=== PATIENT | male | born 1940 | race Caucasian/White ===

== ENCOUNTER 2020-06-07 09:10 | Outpatient (REF) | payer OTHER, SELFPAY ==
[2020-06-07 11:17] LABS: Prostate Specific Antigen 10.47 ng/mL (<0.05-4.0)
== END 2020-06-07 09:11 | disposition home or self-care (01) ==
LOC: HO.LAB 09:10
PROVIDERS: PCP Internal Medicine; Visit Provider Urology
DX: C61 Malignant neoplasm of prostate (principal)
CPT/HCPCS: 84153

== ENCOUNTER → 2020-06-14 14:00 | Outpatient (BNVA) | payer OTHER, SELFPAY | PROVIDERS: PCP Internal Medicine; Referring Provider Internal Medicine; Visit Provider Urology | DX: Z76.89 Persons encountering health services in other specified circumstances (principal) ==

== ENCOUNTER 2020-07-01 09:08 | Outpatient (REF) | payer OTHER, SELFPAY ==
--- NOTE | 2020-07-01 09:11 | CT_ITS ---
EXAMINATION: CT ABDOMEN AND PELVIS WITHOUT CONTRAST CLINICAL INFORMATION: Malignant neoplasm of prostate. COMPARISON: None. TECHNIQUE: Multidetector volumetric imaging was performed from the superior aspect of the liver through the pubic symphysis. Sagittal and coronal reformatted images were obtained on the technologist's workstation. This CT examination was performed using dose optimization techniques as appropriate, variously including the following: *Automated exposure control *Adjustment of mA and/or kV according to patient size (this includes techniques or standardized protocols for targeted exams where dose is matched to indication/reason for exam; i.e. extremities or head) *Use of iterative reconstruction technique DLP: 813 mGy-cm. FINDINGS: LUNG BASES: There is bibasilar atelectasis or scarring. Heart size is normal. LIVER, GALLBLADDER, AND BILIARY TREE: The liver is normal in size and shape. There is mild attenuation of the right hepatic lobe likely fatty infiltration. The left hepatic lobe is normal density. No focal lesion or intrahepatic ductal dilatation. The gallbladder is unremarkable with no evidence of radiopaque gallstones, gallbladder wall thickening, or obvious pericholecystic inflammatory changes. PANCREAS: Unremarkable. SPLEEN: Unremarkable. ADRENAL GLANDS: Unremarkable. KIDNEYS AND URETERS: The left kidney has been surgically removed. The right kidney is normal size, shape and position. No focal lesion, radiopaque calculi or hydronephrosis seen. There is mild right perinephric stranding present. BLADDER: Unremarkable. GASTROINTESTINAL TRACT: There is moderate scattered stool seen throughout the colon without any significant distention. The small bowel loops are normal caliber. No free air or free fluid seen. There are surgical enid in the right lower quadrant likely from previous appendectomy. The stomach is mildly distended with recently ingested food and liquids. ABDOMINAL WALL: There is a tiny left paramidline supraumbilical hernia with neck 1.4 cm wide. LYMPH NODES: Normal. VASCULAR: Unremarkable. PELVIC VISCERA: Prostate gland is mildly enlarged. The periprostatic fat planes are preserved. OSSEOUS STRUCTURES: There are mild degenerative disc changes L5-L1 and L2-L3 disc levels with mild ventral spondylosis. There is an inferior endplate Schmorl's node at the L3 disc level. CT/CT abdomen pelvis wo con IMPRESSION: Moderate constipation without obstruction. Left nephrectomy changes. No radiopaque renal calculi or solid mass right kidney. Mild perinephric stranding right kidney. Appendectomy changes. No bowel obstruction, free air or free fluid. Mild prostate enlargement. No abnormal pelvic or retroperitoneal lymph nodes seen.
== END 2020-07-01 09:09 | disposition home or self-care (01) ==
LOC: HO.CT 09:08
PROVIDERS: Visit Provider Urology
DX: C61 Malignant neoplasm of prostate (principal)
CPT/HCPCS: 74176

== ENCOUNTER → 2020-07-03 10:39 | Outpatient (REF) | payer OTHER, SELFPAY ==
--- NOTE | 2020-07-03 10:43 | NM_ITS ---
EXAMINATION: NM BONE SCAN OF THE WHOLE BODY CLINICAL INFORMATION: Malignant neoplasm of prostate. COMPARISON: No previous bone scan recent radiographs are available for comparison. The diagnostic CT scan of the abdomen and pelvis, dated 07/01/2019, is available for comparison. TECHNIQUE: Multiple gamma scintillation camera images of the whole body were performed 2.75 hours following the intravenous administration of 40 mCi Tc-99m MDP. FINDINGS: In the head, no significant abnormalities are present. In the thoracic cage and upper extremities, a few mild periarticular foci of increased activity are present in both hands and wrists, likely arthritic. In the spine, midline foci of minimally increased activity are present in the region of the spinous processes of L3 and L4, probably degenerative. In the pelvis, no significant abnormalities are present. In the lower extremities, moderately intense increased activity is present in the medial compartment of the left knee. There is mildly increased activity in the medial compartment of the right knee and in the patellar compartments bilaterally. No other definite bony abnormalities are noted. The urinary bladder and faint visualization of the right kidney are noted. Left kidney is not visualized. CT scan dated 07/01/2019 shows resection of the left kidney and mild degenerative changes in the lumbar spine. NM/NM bone scan whole body IMPRESSION: 1. A few mild nonspecific abnormalities are noted as described above and these are all likely arthritic or traumatic in etiology. None of these abnormalities is strongly suspicious for metastatic disease. 2. Absent left kidney.
== END ==
LOC: HO.NUCMED 10:39
PROVIDERS: Visit Provider Urology
DX: C61 Malignant neoplasm of prostate (principal); C79.51 Secondary malignant neoplasm of bone
CPT/HCPCS: 78306; A9503

== ENCOUNTER → 2020-07-18 14:02 | Outpatient (BNVA) | payer MEDICARE, SELFPAY | PROVIDERS: PCP Internal Medicine; Visit Provider Urology | DX: Z13.89 Encounter for screening for other disorder (principal) | CPT/HCPCS: 99212 ==

== ENCOUNTER 2020-11-07 06:38 | Outpatient (REF) | payer MEDICARE, SELFPAY ==
[2020-11-07 08:23] LABS: PSA,Total (Free>4and<10) 13.96 ng/mL (0.00-4.00)
== END 2020-11-07 06:39 | disposition home or self-care (01) ==
LOC: HO.LAB 06:38
PROVIDERS: PCP Internal Medicine; Visit Provider Urology
DX: Z12.5 Encounter for screening for malignant neoplasm of prostate (principal); C61 Malignant neoplasm of prostate; N40.1 Benign prostatic hyperplasia with lower urinary tract symptoms; N13.8 Other obstructive and reflux uropathy
CPT/HCPCS: 36415; 84153

== ENCOUNTER → 2020-11-14 09:48 | Outpatient (BNVA) | payer MEDICARE, SELFPAY | PROVIDERS: Visit Provider Urology | CPT/HCPCS: Q3014 ==

== ENCOUNTER 2020-12-05 01:33 | Inpatient (IN) | payer OTHER, MEDICARE, SELFPAY ==
[2020-12-05] VITALS (23 sets, daily range): BP systolic 153–188; BP diastolic 49–78; PULSE 59–80; RESP 11–19; TEMP 36.3–37.9; O2SAT 92–98; BMI 45.7
--- NOTE | ~2020-12-05 | MR_ITS ---
EXAMINATION: MRI BRAIN WITHOUT CONTRAST. CLINICAL INFORMATION: TIA. COMPARISON: CT brain 12/05/2020 TECHNIQUE: Axial diffusion, ADC and sagittal and axial T1 FLAIR sequences of brain were obtained. The exam is severely limited. The exam is limited due to mechanical failure of the MRI. FINDINGS: Limited exam. There is no restricted diffusion seen in the cerebral or cerebral hemispheres is suspected in the acute ischemic event. On FLAIR sequences there are multiple T2 signal changes in the periventricular white matter of both cerebral hemispheres some of these lesions are perpendicular to the lateral ventricle. There is no midline shift. Hemorrhage cannot be excluded. The lateral ventricles are symmetrical but enlarged and so are the cortical sulci. Normal flow void seen in the major cerebral vascular structures. The paranasal sinuses are well-aerated with moderate mucoperiosteal thickening left maxillary sinus. MR/MR head/brain wo con IMPRESSION: No acute ischemia. Diffuse periventricular white matter changes suggestive of chronic small vessel disease. Age-related cerebral volume loss. Chronic left maxillary sinus inflammatory changes.
--- NOTE | ~2020-12-05 | XR_ITS ---
EXAMINATION: XR CHEST CLINICAL INFORMATION: Shortness of breath COMPARISON: 04/24/2019 TECHNIQUE: Frontal view of the chest was obtained. FINDINGS: Lungs are mildly hypoinflated. No focal consolidation is seen. No evidence of pneumothorax, significant pleural effusion, or overt pulmonary edema. Cardiac silhouette appears prominent. Calcification is present at the aortic arch. No acute osseous findings are seen. XR/XR chest 1V IMPRESSION: No acute cardiopulmonary findings.
--- NOTE | ~2020-12-05 | CT_ITS ---
EXAMINATION: CT HEAD WITHOUT CONTRAST (STROKE PROTOCOL) INDICATION INFORMATION: Left-sided weakness COMPARISON: None TECHNIQUE: Noncontrast CT of the head was performed. DLP: 743 mGy-cm DOSE LOWERING TECHNIQUES: This CT examination was performed using dose optimization techniques as appropriate, variously including the following: - Automated exposure control - Adjustment of mA and/or kV according to patient size (this includes techniques or standardized protocols for targeted exams were dose is matched to indication/reason for exam; i.e. extremities or head) - Use of iterative reconstruction technique FINDINGS: There is no evidence of acute intracranial hemorrhage. Questionable region of loss of holder-white differentiation in the right temporal lobe, raising concern for possible acute infarct. No abnormal mass-effect or midline shift is seen. Holder to white matter differentiation is otherwise well preserved. No extra-axial fluid collections are identified. The ventricles are normal in size. There is mild periventricular white matter hypoattenuation consistent with chronic small vessel ischemic disease. Mild volume loss is noted. The osseous structures and soft tissues are normal. Mild mucosal thickening of the left maxillary sinus and ethmoid air cells. Partially opacified right mastoid tip air cells. CT/CT head for stroke IMPRESSION: No acute intracranial hemorrhage. Possible region of acute infarct in the right temporal lobe; assessment with MRI is recommended. This critical result was discussed with Dr. Arellano on 12/05/2020 4:00 AM, and it was ascertained that the content and urgency of the report was understood at the time of direct communication.
[2020-12-05] MEDS: 0.9 % Sodium Chloride 1,000 ML 999 ML IV (03:15)
--- NOTE | 2020-12-05 03:21 | ED_ITS ---
HPI - URI/Sore Throat General Chief Complaint: Weakness Stated Complaint: Flu like symptoms Time Seen by Provider: 12/05/20 02:55 History of Present Illness HPI Narrative: Patient is a 80-year-old male presented with coughing congestion upper respiratory symptoms. This symptom has been ongoing for the last 24 hours. Patient had both hers coronavirus vaccine in August. Patient denies any chest pain. No pain on urination. Feels generalized malaise aches. No abdominal pain. Coughing productive of clear sputum. Related Data Home Medications Medication Instructions Recorded Confirmed cephalexin 500 mg capsule 500 mg PO BID 07/18/20 finasteride 5 mg tablet 5 mg PO DAILY 07/18/20 Previous Rx's Medication Instructions Recorded celecoxib 100 mg capsule 100 mg PO DAILY #14 cap 07/18/20 Allergies Allergy/AdvReac Type Severity Reaction Status Date / Time amoxicillin [AMOXICILLIN] Allergy Unknown ANAPHYLAXIS Verified 11/14/20 08:39 famotidine Allergy Unknown unknown Verified 11/14/20 08:39 hydrochlorothiazide Allergy Unknown unknown Verified 11/14/20 08:39 lisinopril [LISINOPRIL] Allergy Unknown UNKNOWN Verified 11/14/20 08:39 losartan Allergy Unknown unknown Verified 11/14/20 08:39 spironolactone Allergy Unknown unknown Verified 11/14/20 08:39 sulfamethoxazole AdvReac Intermediate C-DIFF, Verified 11/14/20 08:39 [From BACTRIM] REDUCED KIDNEY FX trimethoprim [From BACTRIM] AdvReac Intermediate C-DIFF, Verified 11/14/20 08:39 REDUCED KIDNEY FX Review of Systems Review of Systems: Constitutional: No Weight loss, No Fever, No Chills, No Night Sweats, No Fatigue, No Malaise ENT/Mouth: No Hearing loss, No Ear Pain, No Nasal Congestion, No Sinus Pain, No Hoarseness, No sore throat, No Rhinorrhea, No Swallowing Difficulty Eyes: No Eye Pain, No Swelling, No Redness, No Foreign Body, No Discharge, No Vision Changes Cardiovascular: No Chest Pain, No SOB, No Dyspnea on Exertion, No Orthopnea, No Edema, No Palpitations Respiratory: Positive Cough, positive Sputum, no Wheezing, No Smoke Exposure, No Dyspnea Gastrointestinal: No Nausea, No Vomiting, No Diarrhea, No Constipation, No abdominal Pain, No Hematochezia, No Melena Genitourinary: no irregular bleeding, No Dysuria, No Urinary Frequency, No Hematuria, No Urinary Incontinence, No Urgency, No Flank Pain, No Urinary Flow Changes, No Hesitancy Musculoskeletal: No joint pain, No Myalgias, No Joint Swelling Skin: No Skin Lesions, No rash Neuro: No Weakness, No Numbness, No Paresthesias, No Loss of Consciousness, No Dizziness, No Headache Psych: No Anxiety/Panic, No Depression, No SI/HI/AH/VH, No Social Issues, Heme/Lymph: No Bruising, No Bleeding,No Lymphadenopathy Endocrine: No Polyuria, No Polydipsia, No Temperature Intolerance [facility] Past Medical History Medical History Acute cystitis without hematuria Bladder outlet obstruction Chronic kidney disease, stage II (mild) HTN (hypertension) Incomplete emptying of bladder Prostate cancer Pure hypercholesterolemia Weak urinary stream Surgical History History of surgery Social History Social History Alcohol intake: never Patient Tobacco Use Status: Former Tobacco user Smoked in Last 30 Days: No Use of substances other than those prescribed or required for medical reasons: No Advance Directives: No Advance Directives Information Provided: No Physical Exam Vital Signs: Vital Signs: Last Vital Signs Temp 97.8 F 12/05/20 04:00 Pulse 80 12/05/20 04:00 Resp 15 12/05/20 04:00 BP 156/78 H 12/05/20 04:00 Pulse Ox 98 12/05/20 04:00 Oxygen Flow Rate 2 12/05/20 01:55 Body Mass Index 45.7 Appearance: Alert. Oriented X3. No acute distress. Eyes: Pupils equal, round and reactive to light. ENT: Pharynx normal. Neck: Normal inspection. Neck supple. No lymph nodes noted. No crepitus CVS: Normal heart rate and rhythm. Pulses normal. Normal S1 and S2 Respiratory: No respiratory distress. Breath sounds normal. No Wheezing. No rales Abdomen: Soft and nontender. No rigidity. No distention. good BS x4 Skin: Skin warm and dry. Normal skin color. Normal skin turgor. Extremities: No lower extremity edema. Neurovascular intact to all extremities. No Lacerations. No Rash Neuro: Oriented X 3. No motor deficit. No sensory deficit. Moving all extermities. No slurred speech MDM - URI/Sore Throat MDM Narrative Medical decision making narrative: Positive coughing positive upper respiratory symptoms. Patient's chest x-ray showed no evidence of pneumonia. Patient's creatinine is 2.55 is also baseline. White count was 12. While patient was in the emergency department he he all the sudden developed weakness to the left arm. Initially patient was unable to lift up the arm above 45 degrees. P ryland's has weaker hand rest on the left. Immediately patient was sent to the CT scanner. The CT the head was grossly negative for any acute evidence of bleeding. No mass. No fracture. Patient on repeat exam has good strength on the right. On the left these weakness has improved. Now can not lift up at to 120 degrees. Slight tremors noted. Slight hand grasp weakness noted. But much improved from previous. [place] at this time given patient's rapid improving symptoms he is not a candidate for tPA. Patient's case discussed with neurology as well agree with plan. Possibility of TIA exists. Patient in stable condition. Will admit for further evaluation. Patient's coronavirus test was negative. RSV negative. Flu is negative. Patient's lactate is less than 1. No evidence for severe sepsis. Currently in stable condition. Awaiting admission. Lab Data Result diagrams: 12/05/20 04:40 12/05/20 04:40 Labs: Lab Results 12/05/20 12/05/20 12/05/20 Range/Units 04:40 04:40 04:40 WBC 11.6 H (4.8-10.8) X10*3/uL RBC 3.60 L (4.60-5.80) X10*6/uL Hgb 11.2 L (14.0-18.0) g/dl Hct 34.0 L (42-52) % MCV 94.4 (80-98) fL MCH 31.1 (27.0-33.0) pg MCHC 32.9 (31.0-36.0) g/dl RDW 13.6 (11.0-16.0) % Plt Count 138 L (160-400) X10*3/uL MPV 10.5 (9.4-12.4) fL Immature Gran % (Auto) 0.3 (0.0-0.4) % Neut % (Auto) 87.4 H (45-73) % Lymph % (Auto) 4.9 L (20-40) % Barnes % (Auto) 6.8 (2-11) % Eos % (Auto) 0.3 (0-4) % Baso % (Auto) 0.3 (0-2) % Lymph # (Auto) 0.6 L (1.2-4.9) X10*3/uL Barnes # (Auto) 0.8 (0.1-1.2) X10*3/uL Eos # (Auto) 0.0 (0.0-0.4) X10*3/uL Baso # (Auto) 0.0 (0.0-0.2) X10*3/uL Abs Immat Gran (auto) 0.04 H (0.00-0.03) X10*3/uL Absolute Neuts (auto) 10.1 H (2.0-8.3) X10*3/uL Absolute Nucleated RBC 0.000 (0.0-0.012) X10*3/uL Nucleated RBC % (auto) 0.0 (0.0-0.2) /100WBC Sodium 141 (135-145) mmol/L Potassium 4.1 (3.3-5.1) mmol/L Chloride 110 H (96-108) mmol/L Carbon Dioxide 21 L (22-29) mmol/L Anion Gap 14 (12-20) BUN 46 H (9-16) mg/dL Creatinine 2.55 H (0.5-1.4) mg/dL Estim Creat Clear Calc 25.9 Estimated GFR 24 Random Glucose 163 H (60-115) mg/dL Lactic Acid 0.9 (0.5-2.0) mmol/L Calcium 9.5 (8.4-10.2) mg/dL Coronavirus (PCR) (Negative) Influenza Type A (PCR) (Negative) Influenza Type B (PCR) (Negative) RSV RNA Qual (PCR) (Negative) 12/05/20 Range/Units 04:40 WBC (4.8-10.8) X10*3/uL RBC (4.60-5.80) X10*6/uL Hgb (14.0-18.0) g/dl Hct (42-52) % MCV (80-98) fL MCH (27.0-33.0) pg MCHC (31.0-36.0) g/dl RDW (11.0-16.0) % Plt Count (160-400) X10*3/uL MPV (9.4-12.4) fL Immature Gran % (Auto) (0.0-0.4) % Neut % (Auto) (45-73) % Lymph % (Auto) (20-40) % Barnes % (Auto) (2-11) % Eos % (Auto) (0-4) % Baso % (Auto) (0-2) % Lymph # (Auto) (1.2-4.9) X10*3/uL Barnes # (Auto) (0.1-1.2) X10*3/uL Eos # (Auto) (0.0-0.4) X10*3/uL Baso # (Auto) (0.0-0.2) X10*3/uL Abs Immat Gran (auto) (0.00-0.03) X10*3/uL Absolute Neuts (auto) (2.0-8.3) X10*3/uL Absolute Nucleated RBC (0.0-0.012) X10*3/uL Nucleated RBC % (auto) (0.0-0.2) /100WBC Sodium (135-145) mmol/L Potassium (3.3-5.1) mmol/L Chloride (96-108) mmol/L Carbon Dioxide (22-29) mmol/L Anion Gap (12-20) BUN (9-16) mg/dL Creatinine (0.5-1.4) mg/dL Estim Creat Clear Calc Estimated GFR Random Glucose (60-115) mg/dL Lactic Acid (0.5-2.0) mmol/L Calcium (8.4-10.2) mg/dL Coronavirus (PCR) NEGATIVE (Negative) Influenza Type A (PCR) NEGATIVE (Negative) Influenza Type B (PCR) NEGATIVE (Negative) RSV RNA Qual (PCR) NEGATIVE (Negative) Discharge Plan Discharge Clinical Impression: Fever Prescriptions: No Action finasteride 5 mg tablet 5 mg PO DAILY RF: 0 cephalexin 500 mg capsule 500 mg PO BID RF: 0 celecoxib 100 mg capsule 100 mg PO DAILY Qty: 14 RF: 0
[2020-12-05 04:45] LABS: Basophils Percent Auto 0.3 % (0-2); Eosinophils Percent Auto 0.3 % (0-4); Hemoglobin 11.2 g/dl (14.0-18.0); Imm Gran Abs Auto 0.04 X10*3/uL (0.00-0.03); Imm Gran Pct Auto 0.3 % (0.0-0.4); Lymphocytes Absolute Auto 0.6 X10*3/uL (1.2-4.9); Lymphocytes Percent Auto 4.9 % (20-40); MANUAL DIFF FLAG NO; Mean Corpuscular HGB Conc 32.9 g/dl (31.0-36.0); Mean Corpuscular Hemoglobin 31.1 pg (27.0-33.0); Mean Corpuscular Volume 94.4 fL (80-98); Mean Platelet Volume 10.5 fL (9.4-12.4); Monocytes Absolute Auto 0.8 X10*3/uL (0.1-1.2); Monocytes Percent Auto 6.8 % (2-11); Neutrophils Absolute Auto 10.1 X10*3/uL (2.0-8.3); Neutrophils Percent Auto 87.4 % (45-73); Platelet Count 138 X10*3/uL (160-400); Red Cell Distribution Width 13.6 % (11.0-16.0); White Blood Count 11.6 X10*3/uL (4.8-10.8)
[2020-12-05 05:01] LABS: Lactic Acid 0.9 mmol/L (0.5-2.0)
[2020-12-05 05:14] LABS: Anion Gap 14 (12-20); Blood Urea Nitrogen 46 mg/dL (9-16); Calcium 9.5 mg/dL (8.4-10.2); Carbon Dioxide 21 mmol/L (22-29); Chloride 110 mmol/L (96-108); Creatinine Clr Calc Pharmacy 25.9; Estimated Glomerular Filt Rate 24; Glucose Random 163 mg/dL (60-115); Potassium 4.1 mmol/L (3.3-5.1); Sodium 141 mmol/L (135-145)
[2020-12-05 05:32] LABS: Influenza A PCR NEGATIVE (Negative); Influenza B PCR NEGATIVE (Negative); Resp Syncy Virus RNA Qual PCR NEGATIVE (Negative); SARS COV2 PCR INHOUSE NEGATIVE (Negative)
[2020-12-05] MEDS: Aspirin Enteric Coated 325 MG TABLET.DR PO (06:50)
--- NOTE | 2020-12-05 09:30 | PC.NURSE ---
Pharmacy to bedside for med rec. Pt alert. Neuros at this time appear to be at baseline and pt reports no weakness on exam. Intermittent mild tremor noted, afebrile temp 98.7 orally. at bedside.
[2020-12-05 09:40] LABS: Glucose, Whole Blood 167 mg/dL (60-115)
--- NOTE | 2020-12-05 10:47 | P.HPHOSP_ITS ---
History of Present Illness Date of Service: 12/05/20 Chief Complaint: Shortness of breath, weakness in the arm 80-year-old male morbidly obese, CHAYITO presenting with cough with clear sputum, upper airway congestion and fever of up to 102 yesterday. He was vaccinated months ago. CXR show no acute process. While in the ED he reportedly had a transient episode of left arm weakness, CT of head was negtive and tPA was considered but give low NIH score and rapid resulution of symptoms. Review of Systems Review of Systems: Gen: + fever Resp: + sob, + cough CV: no chest, no HAYES, no leg edema GI: No n/v, no abd pain Neuro: No confusion, transient left arm weakness Yes all other systems are reviewed and are negative [facility] Medical History Acute cystitis without hematuria Bladder outlet obstruction Chronic kidney disease, stage II (mild) Diabetes HTN (hypertension) Incomplete emptying of bladder Morbid obesity CHAYITO (obstructive sleep apnea) Prostate cancer Pure hypercholesterolemia Weak urinary stream Functional capacity: independent ambulation Surgical History History of surgery Social History Alcohol intake: never Patient Tobacco Use Status: Former Tobacco user Smoked in Last 30 Days: No Use of substances other than those prescribed or required for medical reasons: No Advance Directives: No Advance Directives Information Provided: No Meds Allergies Allergy/AdvReac Type Severity Reaction Status Date / Time amoxicillin [AMOXICILLIN] Allergy Unknown ANAPHYLAXIS Verified 11/14/20 08:39 famotidine Allergy Unknown unknown Verified 11/14/20 08:39 hydrochlorothiazide Allergy Unknown unknown Verified 11/14/20 08:39 lisinopril [LISINOPRIL] Allergy Unknown UNKNOWN Verified 11/14/20 08:39 losartan Allergy Unknown unknown Verified 11/14/20 08:39 spironolactone Allergy Unknown unknown Verified 11/14/20 08:39 sulfamethoxazole AdvReac Intermediate C-DIFF, Verified 11/14/20 08:39 [From BACTRIM] REDUCED KIDNEY FX trimethoprim [From BACTRIM] AdvReac Intermediate C-DIFF, Verified 11/14/20 08:39 REDUCED KIDNEY FX Active Medications: Current Medications Generic Name Dose Route Start Last Admin Trade Name Kieranq PRN Reason Stop Dose Admin Allopurinol 100 mg 12/05/20 10:39 Allopurinol 100 Mg Tablet PO DAILY [facility] Amlodipine Besylate 10 mg 12/05/20 10:39 Amlodipine Besylate 10 Mg Tablet PO DAILY [facility] Protocol Aspirin 81 mg 12/05/20 10:30 Aspirin Enteric Coated 81 Mg Tablet.Dr PO DAILY [facility] Atorvastatin Calcium 40 mg 12/06/20 09:00 Atorvastatin Calcium 40 Mg Tablet PO DAILY [facility] Clonidine HCl 0.6 mg 12/05/20 10:39 Clonidine Hcl 0.1 Mg Tablet PO TID [facility] Protocol Finasteride 5 mg 12/05/20 10:39 Finasteride 5 Mg Tablet PO DAILY [facility] Furosemide 10 mg 12/05/20 10:39 Furosemide 20 Mg Tablet PO DAILY [facility] Protocol Hydralazine HCl 50 mg 12/05/20 13:00 Hydralazine Hcl 50 Mg Tablet PO QID [facility] Protocol Insulin Glargine 50 unit 12/05/20 21:00 Insulin Glargine,Hum.Rec.Anlog 100 Unit/Ml 10 Ml Vial SUBCUT BEDTIME [facility] Labetalol HCl 400 mg 12/05/20 10:39 Labetalol Hcl 200 Mg Tablet PO TID [facility] Protocol Pharmacy Consult 1 each 12/05/20 07:10 Consult Rx Perform Med Rec MISCELLANE ONCE PRN Consult order Sodium Chloride 3 ml 12/05/20 16:00 0.9 % Sodium Chloride Flush [address] M[address] IVFLUSH QSHICHI [facility] Home Medications Medication Instructions Recorded Confirmed Last Taken Type finasteride 5 mg tablet 5 mg PO DAILY 07/18/20 12/05/20 Unknown History allopurinol 100 mg PO DAILY 12/05/20 12/05/20 Unknown History amlodipine 10 mg PO DAILY 12/05/20 12/05/20 Unknown History atorvastatin 40 mg PO BEDTIME 12/05/20 12/05/20 Unknown History clonidine HCl 0.6 mg PO TID 12/05/20 12/05/20 Unknown History furosemide 10 mg PO QAM 12/05/20 12/05/20 Unknown History hydralazine 50 mg PO QID 12/05/20 12/05/20 Unknown History insulin aspart U-100 1 sliding scale dose SUBCUT QIDACHS 12/05/20 12/05/20 Unknown History insulin glargine [Lantus Solostar 50 unit SUBCUT BEDTIME 12/05/20 12/05/20 Unknown History U-100 Insulin] labetalol 400 mg PO TID 12/05/20 12/05/20 Unknown History Physical Exam Vital Signs and Narrative: Vital Signs: Last Vital Signs Temp 98.7 F 12/05/20 09:18 Pulse 61 12/05/20 10:40 Resp 11 L 12/05/20 10:40 BP 188/53 H 12/05/20 10:40 Pulse Ox 94 12/05/20 10:40 Oxygen Flow Rate 2 12/05/20 01:55 Body Mass Index 45.7 Const: Other: Constitutional Awake and Alert, No apparent distress HEENT: PERRLA, EOMI Neck Supple, No lymphadenopathy Cardiovascular RRR, No M/R/G, S1 S2, No S3 S4, No pedal edema Respiratory Lungs clear, No respiratory distress Gastrointestinal Non tender, Non-distended Skin No rash Heme/Onc no lymphadenopathy Neurological Alert & oriented x3, normal strenght in both upper and lower extremities, normal CN exam 2 to 12 Psychological Appropriate affect Results Labs CBC and Chem 7: 12/05/20 04:40 12/05/20 04:40 Labs: Laboratory Results - last 24 hr 12/05/20 12/05/20 12/05/20 04:40 04:40 04:40 MCV 94.4 MCH 31.1 MCHC 32.9 RDW 13.6 Plt Count 138 L MPV 10.5 Immature Gran % (Auto) 0.3 Neut % (Auto) 87.4 H Lymph % (Auto) 4.9 L Howell % (Auto) 6.8 Eos % (Auto) 0.3 Baso % (Auto) 0.3 Lymph # (Auto) 0.6 L Howell # (Auto) 0.8 Eos # (Auto) 0.0 Baso # (Auto) 0.0 Abs Immat Gran (auto) 0.04 H Absolute Neuts (auto) 10.1 H Absolute Nucleated RBC 0.000 Nucleated RBC % (auto) 0.0 Anion Gap 14 Estim Creat Clear Calc 25.9 Estimated GFR 24 POC Glucose Random Glucose 163 H Lactic Acid 0.9 Calcium 9.5 Coronavirus (PCR) Influenza Type A (PCR) Influenza Type B (PCR) RSV RNA Qual (PCR) 12/05/20 12/05/20 04:40 09:30 MCV MCH MCHC RDW Plt Count MPV Immature Gran % (Auto) Neut % (Auto) Lymph % (Auto) Howell % (Auto) Eos % (Auto) Baso % (Auto) Lymph # (Auto) Howell # (Auto) Eos # (Auto) Baso # (Auto) Abs Immat Gran (auto) Absolute Neuts (auto) Absolute Nucleated RBC Nucleated RBC % (auto) Anion Gap Estim Creat Clear Calc Estimated GFR POC Glucose 167 H Random Glucose Lactic Acid Calcium Coronavirus (PCR) NEGATIVE Influenza Type A (PCR) NEGATIVE Influenza Type B (PCR) NEGATIVE RSV RNA Qual (PCR) NEGATIVE Imaging Radiologist's Impressions: Impressions Chest X-Ray 12/05/20 03:19 IMPRESSION: No acute cardiopulmonary findings. Head CT 12/05/20 03:38 IMPRESSION: No acute intracranial hemorrhage. Possible region of acute infarct in the right temporal lobe; assessment with MRI is recommended. This critical result was discussed with Dr. Arellano on 12/05/2020 4:00 AM, and it was ascertained that the content and urgency of the report was understood at the time of direct communication. Assessment and Plan (1) CHAYITO (obstructive sleep apnea): Status: Acute (2) Morbid obesity: Status: Acute (3) Fever: Status: Acute (4) Bronchitis: Status: Acute (5) TIA (transient ischemic attack): Status: Acute 80 year male with CHAYITO, morbid obesity presenting with SOB, cough, and fever at home and had transient episode of left arm weakness that has resolved. 1/SOB likely from bronchitis--treat symptomatically with bronchodilators, cough mediceine, Po doxyclyine because of the fever, 2/TIA--Neuro eval, ASA, satin, PT/OT, check lipids. Further invetiage based on neuro input 3/CHAYITO, CPAP at night 4/ Morobid obesity--weight loss advise 5/CKD--3, stable 6/HTN, continue Hydralazine, Norvasc, Clonidine 7/Diabetes--home lantus and SSI Sub Q heparin for DVT (6) Diabetes: Status: Acute
--- NOTE | 2020-12-05 11:17 | MHC.STROKE ---
Addendum entered by Ariella Lopez RN 12/05/20 11:50: I MET WITH THE PATIENT AND HIS TO EXPLAIN MY ROLE, I REVIEWED HIS SYMPTOM OF LEFT HAND DRIFT, I CAME ON SUDDENLY AND LASTED AN HOUR OR SO. HE IS LEFT HANDED. I INITIATED STROKE EDUCATION. I WILL RELAY THIS INFORMATION TO DR OAKES. Original Note: 0340 WHILE IN ED FOR WEAKNESS, FEVER, COUGH PATIENT DEVELOPED LEFT ARM DRIFT AND WEAKNESS, NIHSS = 1, STAT CT HEAD FOR STROKE DONE AT 0340, NO BLEED, EXCLUDED FROM TPA DUE TO MILD IMPROVING SYMPTOMS AND NON-DISABLING SYMPTOMS. PASSED SWALLOW SCREEN, ASA GIVEN. STROKE ADMISSION ORDERS IN PLACE. CONSIDERED INPATIENT STROKE, SYMPTOMS OCCURRED AFTER HOSPITAL ARRIVAL. I WILL CONTINUE TO FOLLOW.
[2020-12-05] MEDS: amLODIPine Besylate 10 MG TABLET PO (11:31)
[2020-12-05] MEDS: allopurinoL 100 MG TABLET PO (11:31)
[2020-12-05] MEDS: Labetalol HCL 200 MG TABLET 400 MG PO ×3 (11:32→21:26)
[2020-12-05] MEDS: hydrALAZINE HCl 50 MG TABLET PO ×2 (11:33→21:26)
[2020-12-05] MEDS: Furosemide 20 MG TABLET 10 MG PO (11:34)
[2020-12-05] MEDS: cloNIDine HCL 0.1 MG TABLET 0.6 MG PO ×3 (11:35→21:25)
[2020-12-05] MEDS: Aspirin Enteric Coated 81 MG TABLET.DR PO (11:36)
[2020-12-05] MEDS: Finasteride 5 MG TABLET PO (11:37)
[2020-12-05] MEDS: Insulin Lispro 100 UNIT/ML 3 ML VIAL SUBCUT ×3 (11:46→21:35)
[2020-12-05] MEDS: Heparin Sodium,Porcine 5,000 UNIT/ML VIAL 5000 UNIT SUBCUT ×2 (11:46→23:55)
[2020-12-05 11:47] LABS: Glucose, Whole Blood 184 mg/dL (60-115)
[2020-12-05] MEDS: Albuterol/Iprat 2.5/0.5MG 3 ML AMPUL.NEB INHALE ×3 (12:41→22:25)
[2020-12-05 15:57] LABS: Glucose Urine UA NEG (NEG); Leukocyte Esterase Urine TRACE (NEG); Nitrite Urine NEG (NEG); PH 5.5 (5.0-8.0); Specific Gravity - Urine 1.025 (1.005-1.025); UACC Culture Trigger YES; Urine Blood NEG (NEG); Urine Ketones NEG (NEG); Urine Protein 2+ MG/DL (NEG-TRACE)
--- NOTE | 2020-12-05 16:02 | P.CNNE_ITS ---
History of Present Illness Data of Consult Service Date: 12/05/20 Primary Care Provider: Jarred Hughes 80 years old right-handed man who and underlying diabetes and morbid obesity who came to hospital with cough, lethargy, dizziness that was lightheadedness and unsteadiness. While in hospital this morning he noted his left arm was not working in his left hand was weak. There was no associated pain or discomfort. He was still able to lift his left arm but not as good as the right 1. His symptom lasted for an hour to and then he was back to baseline. Review of Systems Review of Systems: As per HPI. [facility] Past Medical History Medical History Acute cystitis without hematuria Bladder outlet obstruction Chronic kidney disease, stage II (mild) Diabetes HTN (hypertension) Incomplete emptying of bladder Morbid obesity CHAYITO (obstructive sleep apnea) Prostate cancer Pure hypercholesterolemia Weak urinary stream Functional capacity: independent ambulation Surgical History Surgical History History of surgery Social History Social History Alcohol intake: never Patient Tobacco Use Status: Former Tobacco user Smoked in Last 30 Days: No Use of substances other than those prescribed or required for medical reasons: No Advance Directives: No Advance Directives Information Provided: No Meds Allergies Allergy/AdvReac Type Severity Reaction Status Date / Time amoxicillin [AMOXICILLIN] Allergy Unknown ANAPHYLAXIS Verified 11/14/20 08:39 famotidine Allergy Unknown unknown Verified 11/14/20 08:39 hydrochlorothiazide Allergy Unknown unknown Verified 11/14/20 08:39 lisinopril [LISINOPRIL] Allergy Unknown UNKNOWN Verified 11/14/20 08:39 losartan Allergy Unknown unknown Verified 11/14/20 08:39 spironolactone Allergy Unknown unknown Verified 11/14/20 08:39 sulfamethoxazole AdvReac Intermediate C-DIFF, Verified 11/14/20 08:39 [From BACTRIM] REDUCED KIDNEY FX trimethoprim [From BACTRIM] AdvReac Intermediate C-DIFF, Verified 11/14/20 08:39 REDUCED KIDNEY FX Active Medications: Current Medications Generic Name Dose Route Start Last Admin Trade Name Freq PRN Reason Stop Dose Admin Albuterol/Ipratropium 3 ml 12/05/20 12:00 12/05/20 15:41 Albuterol/Iprat 2.5/0.5mg 3 Ml Ampul.Neb INHALE 3 ml RQ4H WHILE AWAKE LOULOU Administration Allopurinol 100 mg 12/05/20 10:39 12/05/20 11:31 Allopurinol 100 Mg Tablet PO 100 mg DAILY LOULOU Administration Amlodipine Besylate 10 mg 12/05/20 10:39 12/05/20 11:31 Amlodipine Besylate 10 Mg Tablet PO 10 mg DAILY LOULOU Administration Protocol Aspirin 81 mg 12/05/20 10:30 12/05/20 11:36 Aspirin Enteric Coated 81 Mg Tablet.Dr PO 81 mg DAILY LOLUOU Administration Atorvastatin Calcium 40 mg 12/06/20 09:00 Atorvastatin Calcium 40 Mg Tablet PO DAILY LOULOU Clonidine HCl 0.6 mg 12/05/20 10:39 12/05/20 15:06 Clonidine Hcl 0.1 Mg Tablet PO 0.6 mg TID LOULOU Administration Protocol Doxycycline Hyclate 100 mg 12/05/20 12:00 12/05/20 11:32 Doxycycline Hyclate 100 Mg Tablet PO 100 mg Q12H LOULOU Administration Finasteride 5 mg 12/05/20 10:39 12/05/20 11:37 Finasteride 5 Mg Tablet PO 5 mg DAILY LOULOU Administration Furosemide 10 mg 12/05/20 10:39 12/05/20 11:34 Furosemide 20 Mg Tablet PO 10 mg DAILY LOULOU Administration Protocol Guaifenesin 5 ml 12/05/20 11:16 Guaifenesin 100 Mg/5 Ml Liquid PO Q6H PRN Cough Heparin Sodium (Porcine) 5,000 unit 12/05/20 12:00 12/05/20 11:46 Heparin Sodium,Porcine 5,000 Unit/Ml Vial SUBCUT 5,000 unit Q12H LOULOU Administration Hydralazine HCl 50 mg 12/05/20 13:00 12/05/20 11:33 Hydralazine Hcl 50 Mg Tablet PO 50 mg QID LOULOU Administration Protocol Insulin Glargine 50 unit 12/05/20 21:00 Insulin Glargine,Hum.Rec.Anlog 100 Unit/Ml 10 Ml Vial SUBCUT BEDTIME [facility] Insulin Human Lispro 0 unit 12/05/20 12:00 12/05/20 11:46 Insulin Lispro 100 Unit/Ml 3 Ml Vial SUBCUT 2 unit QIDACHS [facility] Administration Protocol Labetalol HCl 400 mg 12/05/20 10:39 12/05/20 15:06 Labetalol Hcl 200 Mg Tablet PO 400 mg TID [facility] Administration Protocol Pharmacy Consult 1 each 12/05/20 07:10 Consult Rx Perform Med Rec MISCELLANE ONCE PRN Consult order Sodium Chloride 3 ml 12/05/20 16:00 0.9 % Sodium Chloride Flush 3 Ml Syringe IVFLUSH QSHIFT [facility] Home Medications Medication Instructions Recorded Confirmed Last Taken Type finasteride 5 mg tablet 5 mg PO DAILY 07/18/20 12/05/20 Unknown History allopurinol 100 mg PO DAILY 12/05/20 12/05/20 Unknown History amlodipine 10 mg PO DAILY 12/05/20 12/05/20 Unknown History atorvastatin 40 mg PO BEDTIME 12/05/20 12/05/20 Unknown History clonidine HCl 0.6 mg PO TID 12/05/20 12/05/20 Unknown History furosemide 10 mg PO QAM 12/05/20 12/05/20 Unknown History hydralazine 50 mg PO QID 12/05/20 12/05/20 Unknown History insulin aspart U-100 1 sliding scale dose SUBCUT QIDACHS 12/05/20 12/05/20 Unknown History insulin glargine [Lantus Solostar 50 unit SUBCUT BEDTIME 12/05/20 12/05/20 Unknown History U-100 Insulin] labetalol 400 mg PO TID 12/05/20 12/05/20 Unknown History Physical Exam Vital Signs: Vital Signs: Last Vital Signs Temp 97.8 F 12/05/20 15:03 Pulse 60 12/05/20 15:41 Resp 19 12/05/20 15:03 BP 157/49 H 12/05/20 15:06 Pulse Ox 95 12/05/20 15:03 Oxygen Flow Rate 2 12/05/20 01:55 Body Mass Index 45.7 He was alert and awake with normal spontaneity of speech fluency comprehension and affect. Pupils were equal and reactive to light and extraocular muscles were intact. Visual clay are full to threat. Face was symmetrical. There was no pronator drift. Deep tendon reflexes are absent with flexor plantars. He was morbidly obese. Results Labs CBC & Chem 7: 12/05/20 04:40 12/05/20 04:40 Labs: Short CBC 12/05/20 Range/Units 04:40 WBC 11.6 H (4.8-10.8) X10*3/uL Hgb 11.2 L (14.0-18.0) g/dl Hct 34.0 L (42-52) % Plt Count 138 L (160-400) X10*3/uL BMP 12/05/20 04:40 Sodium 141 Potassium 4.1 Chloride 110 H Carbon Dioxide 21 L BUN 46 H Creatinine 2.55 H Calcium 9.[address] did not reveal any significant acute abnormality. Mild chronic 6 cerebral cortical atrophy was noted Assessment and Plan (1) TIA (transient ischemic attack): Status: Acute Probably a transient ischemic attack localized to right middle cerebral artery territory or a small infarct. If possible, I would recommend obtaining a noncontrast MRI of brain and a carotid ultrasound. In the meantime anti- platelet agent such as aspirin 81 mg daily can continue. Procedures Date of Service Date of Service: 12/05/20
[2020-12-05 16:07] LABS: Appearance Urine CLEAR; Color Urine YELLOW
[2020-12-05 16:48] LABS: Bacteria Urine 1+ /LPF; Hyaline Casts Urine 0-2 /LPF; RBC Urine 0 /HPF (0); Squamous Epithelial Cell Urine 1+ /LPF
[2020-12-05 17:34] LABS: Glucose, Whole Blood 222 mg/dL (60-115)
--- NOTE | 2020-12-05 19:38 | MHC.CM.PN ---
[facility] 12/05/20 reviewed and signed per protocol. CM met with patient. Pt admitted and awaiting a bed assignment. Pt was in the [employer] during [place]. Pt is [employer] and has his health care at [facility]. PCP is Jarred Hughes at [facility]. Pt uses the OR pharmacy. HCP/ Dolly Kerr ([phone]) is on file. Pt lives with and uses a cane. Has no services. Pt feels safe at home and has no history of depression, drugs of ETOH. Pt states he had Moderna vaccinations-both shots. Unsure of dates. Pt has [employer] [place] Medicare and thinks he has insurance through the , but is unsure what insurance. D/C plan is home without services. to provide transportation. CM to follow for d/c needs.
--- NOTE | 2020-12-05 19:53 | PC.NURSE ---
x1 attempt to give report to med surg, awaiting callback
[2020-12-05 21:05] LABS: Glucose, Whole Blood 192 mg/dL (60-115)
[2020-12-05] MEDS: guaiFENesin 100 MG/5 ML LIQUID PO (21:26)
[2020-12-05] MEDS: Insulin Glargine,Hum.rec.anlog 100 UNIT/ML 10 ML VIAL 50 UNIT SUBCUT (21:27)
[2020-12-05] MEDS: 0.9 % Sodium Chloride Flush 3 ML SYRINGE IVFLUSH (21:31)
[2020-12-06] VITALS (23 sets, daily range): BP systolic 137–189; BP diastolic 50–88; PULSE 56–71; RESP 16–22; TEMP 36.3–37.3; O2SAT 92–100
--- NOTE | 2020-12-06 03:45 | PM.EVENT ---
Event Note Date of Service: 12/06/20 Event Note: Bacteremia: Patient blood culture growing GPC. Will start the patient on IV vancomycin. Discontinue doxycycline. Id consult. Echocardiogram. Vitals stable.
--- NOTE | 2020-12-06 07:08 | P.PNIM_ITS ---
Subjective Subjective Date of Service: 12/06/20 Interval History: Seen in f/u acute bronchitis, TIA, overnight had positive blood cultures and started on Vancomycin Review of Systems Gen: + fever Resp: +sob, + cough CV: no chest, no HAYES, no leg edema GI: No n/v, no abd pain Neuro: No confusion, transient left arm weakness Review of Systems: Yes all other systems are reviewed and are negative Physical Exam Vital Signs: Vital Signs: Last Vital Signs Temp 98.1 F 12/06/20 03:32 Pulse 60 12/06/20 03:32 Resp 18 12/06/20 03:32 BP 170/62 H 12/06/20 03:32 Pulse Ox 95 12/06/20 03:32 Oxygen Flow Rate 2 12/05/20 01:55 Body Mass Index 45.7 Const: Other: Constitutional Awake and Alert, No apparent distress HEENT: PERRLA, EOMI Neck Supple, No lymphadenopathy Cardiovascular RRR, No M/R/G, S1 S2, No S3 S4, No pedal edema Respiratory rhonchi Gastrointestinal Non tender, Non-distended Skin No rash Heme/Onc no lymphadenopathy Neurological Alert & oriented x3, normal strenght in both upper and lower extremities, normal CN exam 2 to 12 Psychological Appropriate affect Objective Data Current Medications Generic Name Dose Route Start Last Admin Trade Name [place] PRN Reason Stop Dose Admin Albuterol/Ipratropium 3 ml 12/05/20 12:00 12/05/20 22:25 Albuterol/Iprat 2.5/0.5mg 3 Ml Ampul.Neb INHALE 3 ml RQ4H WHILE AWAKE LOULOU Administration Allopurinol 100 mg 12/05/20 10:39 12/05/20 11:31 Allopurinol 100 Mg Tablet PO 100 mg DAILY LOULOU Administration Amlodipine Besylate 10 mg 12/05/20 10:39 12/05/20 11:31 Amlodipine Besylate 10 Mg Tablet PO 10 mg DAILY LOULOU Administration Protocol Aspirin 81 mg 12/05/20 10:30 12/05/20 11:36 Aspirin Enteric Coated 81 Mg Tablet. PO 81 mg DAILY LOULOU Administration Atorvastatin Calcium 40 mg 12/06/20 09:00 Atorvastatin Calcium 40 Mg Tablet PO DAILY [facility] Clonidine HCl 0.6 mg 12/05/20 10:39 12/05/20 21:25 Clonidine Hcl 0.1 Mg Tablet PO 0.6 mg TID [facility] Administration Protocol Finasteride 5 mg 12/05/20 10:39 12/05/20 11:37 Finasteride 5 Mg Tablet PO 5 mg DAILY [facility] Administration Furosemide 10 mg 12/05/20 10:39 12/05/20 11:34 Furosemide 20 Mg Tablet PO 10 mg DAILY [facility] Administration Protocol Guaifenesin 5 ml 12/05/20 11:16 12/05/20 21:26 Guaifenesin 100 Mg/5 Ml Liquid PO 5 ml Q6H PRN Administration Cough Heparin Sodium (Porcine) 5,000 unit 12/05/20 12:00 12/05/20 23:55 Heparin Sodium,Porcine 5,000 Unit/Ml Vial SUBCUT 5,000 unit Q12H [facility] Administration Hydralazine HCl 50 mg 12/05/20 13:00 12/05/20 21:26 Hydralazine Hcl 50 Mg Tablet PO 50 mg QID [facility] Administration Protocol Vancomycin HCl 1,000 mg/ 270 mls @ 270 mls/hr 12/06/20 03:45 Sodium Chloride IV Q12H LOULOU Ceftriaxone Sodium 1 gm/ 50 mls @ 100 mls/hr 12/06/20 07:15 Sodium Chloride IV Q24H [facility] Insulin Glargine 50 unit 12/05/20 21:00 12/05/20 21:27 Insulin Glargine,Hum.Rec.Anlog 100 Unit/Ml 10 Ml Vial SUBCUT 50 unit BEDTIME [facility] Administration Insulin Human Lispro 0 unit 12/05/20 12:00 12/05/20 21:35 Insulin Lispro 100 Unit/Ml 3 Ml Vial SUBCUT 2 unit QIDACHS [facility] Administration Protocol Labetalol HCl 400 mg 12/05/20 10:39 12/05/20 21:26 Labetalol Hcl 200 Mg Tablet PO 400 mg TID [facility] Administration Protocol Pharmacy Consult 1 each 12/05/20 07:10 Consult Rx Perform Med Rec MISCELLANE ONCE PRN Consult order Pharmacy Consult 1 each 12/06/20 03:44 Consult Rx Vancomycin Dosing MISCELLANE DAILY PRN Consult order Sodium Chloride 3 ml 12/05/20 16:00 12/05/20 21:31 0.9 % Sodium Chloride Flush 3 Ml Syringe IVFLUSH 3 ml QSHIFT [facility] Administration Labs CBC & Chem 7: 12/05/20 04:40 12/05/20 04:40 Microbiology Microbiology Results: Microbiology 12/05/20 04:40 Blood - Venous Blood Culture - Preliminary 12/05/20 04:40 Blood - Venous Blood Culture - Preliminary Assessment and Plan (1) CHAYITO (obstructive sleep apnea): Status: Acute (2) Morbid obesity: Status: Acute (3) Fever: Status: Acute (4) Bronchitis: Status: Acute (5) TIA (transient ischemic attack): Status: Acute Assessment and Plan: 80 year male with CHAYITO, morbid obesity presenting with SOB, cough, and fever at home and had transient episode of left arm weakness that has resolved. 1/SOB likely from bronchitis--treat symptomatically with bronchodilators, cough mediceine, brething treatment, and being covered with Abxc (Vanco and Ceftriaxone for UTI) 2/Bacteremia--d/t gram postive cocci, no source of infection, continue Vanco, ID consult, echo to rule out endocarditis 2/TIA--Neuro eval, ASA, satin, PT/OT, check lipids. Further invetiage based on neuro recommends MRI w/o contrast 3/CHAYITO, CPAP at night 4/ Morobid obesity--weight loss advise 5/CKD--3, stable 6/HTN, continue Hydralazine, Norvasc, Clonidine 7/Diabetes--home lantus and SSI Sub Q heparin for DVT Change to inpatient d/t Bacteremia w/ serious health threat (6) Diabetes: Status: Acute
[2020-12-06 07:13] LABS: Cholesterol 119 mg/dL; HDL Cholesterol 30 mg/dL; LDL Cholesterol Calculated 60 mg/dl; Triglycerides 146 mg/dL
[2020-12-06 07:27] LABS: Glucose, Whole Blood 178 mg/dL (60-115)
--- NOTE | 2020-12-06 07:30 | CA_ITS ---
Transthoracic Echocardiogram Patient (Last, First, Middle): Claude Kerr R Gender: Male Date of : 1940 Age: 80 Procedure Date: 12/06/2020 Procedure Type: Transthoracic Echocardiogram [place] [facility] [place] Height: 160.02 cm Weight: 122.47 kg BSA: 2.20 m2 Heart Rate: bpm BP: 170 / 62 mmHg Nursing Surgical Services Director: Referring MD: Jerry Hanson MD Chief Physical Therapist: Homer Servin MD Symptoms: bacteremia Study Quality: Technically Difficult ECG Rhythm: Sinus Conclusions: - 1. Technically limited study, vegetations cannot be ruled out on this study 2. Normal LV systolic function with severe LVH with impaired relaxation filling pattern 3. Mildly dilated left atrium 4. [id number] aortic stenosis 5. Normal RV systolic pressure Findings Left Ventricle Normal left ventricular size and systolic function. There is severely increased left ventricular wall thickness. The visually estimated ejection fraction is between 60-65%. Regional wall motion abnormalities can not be excluded due to suboptimal endocardial definition. Spectral Doppler is indicative of an impaired relaxation filling pattern. E/E prime ratio is between 8 and 15 consistent with indeterminate filling pressures. Right Ventricle The right ventricle was not well visualized. Atria The left atrium is mildly dilated. Interatrial shunt cannot be excluded. The right atrium was not well visualized. Aortic Valve The aortic valve was not well visualized. There is moderate calcification of the aortic valve. There is mild to moderate aortic valve stenosis. The peak aortic gradient is 31 mmHg.The mean gradient is 18 mmHg. There is no aortic valve regurgitation. Mitral Valve The mitral valve was not well visualized. There is no mitral valve regurgitation. There is no mitral valve stenosis. Pulmonic Valve The pulmonic valve was not well visualized. Tricuspid Valve The tricuspid valve was not well visualized. The right ventricular systolic pressure is normal. Great Vessels The aorta was not well visualized. The pulmonary artery was not well visualized. Venous The inferior vena cava was not well visualized. Pericardium/Pleural The pericardium was not well visualized. Prior Study Comparison Changes noted compared to prior study dated: 09/15/2017. LVH appears to be severe. Aortic stenosis is [id number] Measurements 2D Linear Measurements IVSd: 1.77 0.6-0.9/0.6-1.0 cm LVIDd: 5.79 3.9-5.3/4.2-5.9 cm LVIDd Index: 2.63 2.4-3.2/2.2-3.1 cm/m2 LVIDs: 3.30 2.0-3.6 cm LVPWd: 1.68 0.7-1.1 cm Ao Root: 3.00 2.1-3.5 cm LA Diam: 3.90 2.7-3.8/3.0-4.0 cm LAIDs Index: 1.77 1.5-2.3 cm/m2 LV Mass: 618.58 67-162/88-224 g LV Mass Index: 281.17 43-95/49-115 g/m2 LVOT Diam: 2.30 3.0+(-)1.3 cm Mitral Valve MV Pk E: 0.74 MV PK A: 0.85 MV Decel Time: 338.00 E/A: 0.90 E'Lateral: 7.94 E'Medial: 6.74 E/E' Med: 10.90 E/E' Lat: 9.30 PHT: 99.00 MVA PHT: 2.22 Decel [place]: 2.18 Aortic Valve AoV Pk Joao: 2.80 AoV Mn Joao: 1.94 AoV VTI: 0.66 AoV Pk Grad: 31.00 Aov Mn Grad: 18.00 CISCO Cont.VTI: 1.42 LVOT LVOT Pk Joao: 0.81 LVOT Mn Joao: 0.48 LVOT VTI: 0.23 LVOT Pk Grad: 3.00 LVOT Mn Grad: 1.00 LVOT Diam: 2.30 LVOT Area: 4.15 Diastolic Function MV Pk E: 0.74 MV Pk A: 0.85 E/A: 0.90 E'Medial: 6.74 E/E' Med: 10.90 E' Laterial: 7.94 E/E' Lat: 9.30 Tricuspid Valve TR Pk Joao: 2.28 TR Pk Grad: 21.00 RA Press: 3.00 RVSP: 24.00 Great Vessels Aorta Ao Root-2D: 3.00 2.0-3.7 cm Ao Asc: 3.30 2.1-3.4 cm Pulmonary Valve PV Pk Joao: 1.33 Peak PV Grad: 7.00 Updated in Other Vendor System with Status of Final Homer Servin MD electronically signed on 12/06/2020 2:10:39 PM with status of Final
[2020-12-06] MEDS: Insulin Lispro 100 UNIT/ML 3 ML VIAL SUBCUT ×4 (07:47→20:50)
[2020-12-06] MEDS: Labetalol HCL 200 MG TABLET 400 MG PO ×3 (07:47→20:50)
[2020-12-06] MEDS: guaiFENesin 100 MG/5 ML LIQUID PO ×2 (07:47→14:43)
[2020-12-06] MEDS: amLODIPine Besylate 10 MG TABLET PO (07:48)
[2020-12-06] MEDS: Atorvastatin Calcium 40 MG TABLET PO (07:48)
[2020-12-06] MEDS: hydrALAZINE HCl 50 MG TABLET PO ×4 (07:48→20:50)
[2020-12-06] MEDS: allopurinoL 100 MG TABLET PO (07:49)
[2020-12-06] MEDS: Finasteride 5 MG TABLET PO (07:49)
[2020-12-06] MEDS: Furosemide 20 MG TABLET 10 MG PO (07:49)
[2020-12-06] MEDS: Albuterol/Iprat 2.5/0.5MG 3 ML AMPUL.NEB INHALE ×4 (08:34→20:00)
[2020-12-06] MEDS: Aspirin Enteric Coated 81 MG TABLET.DR PO (08:56)
[2020-12-06] MEDS: cloNIDine HCL 0.1 MG TABLET 0.6 MG PO ×3 (08:56→20:50)
[2020-12-06] MEDS: cefTRIAXone sodium 1 GM in 0.9 % Sodium Chloride 50 ML IV (08:58)
--- NOTE | 2020-12-06 09:42 | MHC.CM.PN ---
per physical therapy recomendations pt agreeable to str referal to [facility] per pt request
[2020-12-06 11:23] LABS: Glucose, Whole Blood 176 mg/dL (60-115)
[2020-12-06] MEDS: Heparin Sodium,Porcine 5,000 UNIT/ML VIAL 5000 UNIT SUBCUT (12:20)
--- NOTE | 2020-12-06 14:37 | MHC.CM.PN ---
NURSE DUCT LAYER NOTE RECIVED CALL FROM [facility] REQUESTING I HAND FAX OVER MORE CLINICAL INFORMATION NEEDED , THIS WAS DONE FAXED TO [phone]
[2020-12-06] MEDS: ondansetron HCL 4 MG/2 ML VIAL IVPUSH (14:43)
[2020-12-06] MEDS: hydrALAZINE HCl 20 MG/ML VIAL 5 MG IVPUSH (15:31)
[2020-12-06 16:23] LABS: Glucose, Whole Blood 213 mg/dL (60-115)
[2020-12-06 20:17] LABS: Glucose, Whole Blood 206 mg/dL (60-115)
--- NOTE | 2020-12-06 20:44 | W.PM.IDCN ---
History of Present Illness Data of Consult Service Date: 12/06/20 [facility]ing physician: [facility] Primary Care Provider: Jarred OGDEN Reason for consult: bacteremia He presents to hospital with fatigue and cough for a week. His CXR is unremarkable He has had COVID vaccines last month Blood cultures gram positive cocci x 2 Review of Systems Review of Systems: Yes all other systems are reviewed and are negative PMFSH Past Medical History Medical History (Updated 12/06/20 @ 20:47 by Alma Delia Melendrez MD) Acute cystitis without hematuria Bacteremia Bladder outlet obstruction Chronic kidney disease, stage II (mild) Diabetes HTN (hypertension) Incomplete emptying of bladder Morbid obesity CHAYITO (obstructive sleep apnea) Prostate cancer Pure hypercholesterolemia Weak urinary stream Functional capacity: independent ambulation Surgical History Surgical History History of surgery Social History Social History Household Members: Spouse Housing: House Do you presently have visiting nurse or other home services: Yes Alcohol intake: never Patient Tobacco Use Status: Former Tobacco user Smoked in Last 30 Days: No Use of substances other than those prescribed or required for medical reasons: No Currently Displaying Signs/Symptoms of Drug Intoxication Withdrawal: No Have you been hit, kicked, punched, or otherwise hurt by someone within the past year? If so, by whom?: No Do you feel safe in your current relationship?: No Is there a partner from a previous relationship who is making you feel unsafe now?: No Are you made to feel afraid or neglected: No Advance Directives: No Advance Directives Information Provided: No Advance Directives on File: No Do you have thoughts of harming others: None Do you have a plan to hurt others: No Plan Recently lost weight without trying: No How much weight loss: Not applicable Eating poorly because of decreased appetite: No Nutrition screen score: 0 Nutrition Risks: No Nutritional Risk Poor oral hygiene: No service: Yes Current occupational status: retired Meds Allergies Allergy/AdvReac Type Severity Reaction Status Date / Time amoxicillin [AMOXICILLIN] Allergy Unknown ANAPHYLAXIS Verified 11/14/20 08:39 famotidine Allergy Unknown unknown Verified 11/14/20 08:39 hydrochlorothiazide Allergy Unknown unknown Verified 11/14/20 08:39 lisinopril [LISINOPRIL] Allergy Unknown UNKNOWN Verified 11/14/20 08:39 losartan Allergy Unknown unknown Verified 11/14/20 08:39 spironolactone Allergy Unknown unknown Verified 11/14/20 08:39 sulfamethoxazole AdvReac Intermediate C-DIFF, Verified 11/14/20 08:39 [From BACTRIM] REDUCED KIDNEY FX trimethoprim [From BACTRIM] AdvReac Intermediate C-DIFF, Verified 11/14/20 08:39 REDUCED KIDNEY FX Active Medications: Current Medications Generic Name Dose Route Start Last Admin Trade Name Freq PRN Reason Stop Dose Admin Albuterol/Ipratropium 3 ml 12/05/20 12:00 12/06/20 20:00 Albuterol/Iprat 2.5/0.5mg 3 Ml Ampul.Neb INHALE 3 ml RQ4H WHILE AWAKE [facility] Administration Allopurinol 100 mg 12/05/20 10:39 12/06/20 07:49 Allopurinol 100 Mg Tablet PO 100 mg DAILY [facility] Administration Amlodipine Besylate 10 mg 12/05/20 10:39 12/06/20 07:48 Amlodipine Besylate 10 Mg Tablet PO 10 mg DAILY [facility] Administration Protocol Aspirin 81 mg 12/05/20 10:30 12/06/20 08:56 Aspirin Enteric Coated 81 Mg Tablet.Dr PO 81 mg DAILY [facility] Administration Atorvastatin Calcium 40 mg 12/06/20 09:00 12/06/20 07:48 Atorvastatin Calcium 40 Mg Tablet PO 40 mg DAILY [facility] Administration Clonidine HCl 0.6 mg 12/05/20 10:39 12/06/20 14:44 Clonidine Hcl 0.1 Mg Tablet PO 0.6 mg TID [facility] Administration Protocol Finasteride 5 mg 12/05/20 10:39 12/06/20 07:49 Finasteride 5 Mg Tablet PO 5 mg DAILY [facility] Administration Furosemide 10 mg 12/05/20 10:39 12/06/20 07:49 Furosemide 20 Mg Tablet PO 10 mg DAILY [facility] Administration Protocol Guaifenesin 5 ml 12/05/20 11:16 12/06/20 14:43 Guaifenesin 100 Mg/5 Ml Liquid PO 5 ml Q6H PRN Administration Cough Heparin Sodium (Porcine) 5,000 unit 12/05/20 12:00 12/06/20 12:20 Heparin Sodium,Porcine 5,000 Unit/Ml Vial SUBCUT 5,000 unit Q12H [facility] Administration Hydralazine HCl 50 mg 12/05/20 13:00 12/06/20 16:41 Hydralazine Hcl 50 Mg Tablet PO 50 mg QID [facility] Administration Protocol Ceftriaxone Sodium 1 gm/ 50 mls @ 100 mls/hr 12/06/20 09:00 12/06/20 09:40 Sodium Chloride IV Infused Q24H [facility] Infusion Vancomycin HCl 750 mg/ Sodium 265 mls @ 265 mls/hr 12/07/20 08:00 Chloride IV Q24H [facility] Insulin Glargine 50 unit 12/05/20 21:00 12/05/20 21:27 Insulin Glargine,Hum.Rec.Anlog 100 Unit/Ml 10 Ml Vial SUBCUT 50 unit BEDTIME [facility] Administration Insulin Human Lispro 0 unit 12/05/20 12:00 12/06/20 16:40 Insulin Lispro 100 Unit/Ml 3 Ml Vial SUBCUT 2 unit QIDACHS [facility] Administration Protocol Labetalol HCl 400 mg 12/05/20 10:39 12/06/20 14:44 Labetalol Hcl 200 Mg Tablet PO 400 mg TID [facility] Administration Protocol Nystatin 1 appl 12/06/20 15:00 12/06/20 14:52 Nystatin Powder 15 Gm Bottle TOPICAL Not Given BID [facility] Protocol Ondansetron HCl 4 mg 12/06/20 14:33 12/06/20 14:43 Ondansetron Hcl 4 Mg/2 Ml Vial IVPUSH 4 mg Q8H PRN Administration Nausea and Vomiting Pharmacy Consult 1 each 12/05/20 07:10 Consult Rx Perform Med Rec MISCELLANE ONCE PRN Consult order Pharmacy Consult 1 each 12/06/20 03:44 Consult Rx Vancomycin Dosing MISCELLANE DAILY PRN Consult order Sodium Chloride 3 ml 12/05/20 16:00 12/06/20 15:46 0.9 % Sodium Chloride Flush 3 Ml Syringe IVFLUSH Not Given QSHIFT [facility] Home Medications Medication Instructions Recorded Confirmed Last Taken Type finasteride 5 mg tablet 5 mg PO DAILY 07/18/20 12/05/20 Unknown History allopurinol 100 mg PO DAILY 12/05/20 12/05/20 Unknown History amlodipine 10 mg PO DAILY 12/05/20 12/05/20 Unknown History atorvastatin 40 mg PO BEDTIME 12/05/20 12/05/20 Unknown History clonidine HCl 0.6 mg PO TID 12/05/20 12/05/20 Unknown History furosemide 10 mg PO QAM 12/05/20 12/05/20 Unknown History hydralazine 50 mg PO QID 12/05/20 12/05/20 Unknown History insulin aspart U-100 1 sliding scale dose SUBCUT QIDACHS 12/05/20 12/05/20 Unknown History insulin glargine [Lantus Solostar 50 unit SUBCUT BEDTIME 12/05/20 12/05/20 Unknown History U-100 Insulin] labetalol 400 mg PO TID 12/05/20 12/05/20 Unknown History Physical Exam Vital Signs: Vital Signs: Last Vital Signs Temp 97.3 F 12/06/20 19:23 Pulse 65 12/06/20 20:02 Resp 18 12/06/20 19:23 BP 163/72 H 12/06/20 19:23 Pulse Ox 94 12/06/20 19:23 Oxygen Flow Rate 2 12/05/20 01:55 Body Mass Index 45.7 Const: General: cooperative HENMT: Head: Yes normal to inspection Mouth: Normal oral and palatal mucosa present Resp: Effort & Inspection: normal respiratory effort Cardio: Rate: regular rate Rhythm: regular rhythm GI: Palpation (GI): Soft to palpation and Tenderness to palpation present (GI) Skin: General skin exam: no rashes or lesions noted Extrem: General: Yes normal to inspection Results Labs CBC & Chem 7: 12/05/20 04:40 12/05/20 04:40 Microbiology Microbiology Results: Microbiology 12/05/20 Unknown Urine clean catch - Clean Catch Midstream Urine Culture - Preliminary No growth to date. 12/05/20 04:40 Blood - Venous Blood Culture - Preliminary 12/05/20 04:40 Blood - Venous Blood Culture - Preliminary Assessment and Plan (1) Bacteremia: Status: Acute He doesnt have obvious pneumonia or any infection He has gram positive bacteremia,possible staph or strep Would agree continuing Ceftriaxone and Vancomycin Await final culture Check echo
[2020-12-06] MEDS: Insulin Glargine,Hum.rec.anlog 100 UNIT/ML 10 ML VIAL 50 UNIT SUBCUT (20:49)
[2020-12-06] MEDS: Nystatin Powder 15 GM BOTTLE 1 APPL TOPICAL (20:49)
[2020-12-07] VITALS (11 sets, daily range): BP systolic 150–198; BP diastolic 50–80; PULSE 59–84; RESP 16–20; TEMP 36.2–37.1; O2SAT 93–98
[2020-12-07] MEDS: 0.9 % Sodium Chloride Flush 3 ML SYRINGE IVFLUSH ×3 (00:11→16:35)
[2020-12-07] MEDS: Heparin Sodium,Porcine 5,000 UNIT/ML VIAL 5000 UNIT SUBCUT ×3 (00:11→22:29)
--- NOTE | 2020-12-07 01:05 | PC.NURSE ---
A BP of 174/68 was taken manually on pt. MD was notified. Md advised only to monitor
[2020-12-07 07:20] LABS: Anion Gap 16 (12-20); Blood Urea Nitrogen 49 mg/dL (9-16); Calcium 9.4 mg/dL (8.4-10.2); Carbon Dioxide 23 mmol/L (22-29); Chloride 109 mmol/L (96-108); Creatinine Clr Calc Pharmacy 26.6; Estimated Glomerular Filt Rate 25; Glucose Random 154 mg/dL (60-115); Potassium 4.5 mmol/L (3.3-5.1); Sodium 143 mmol/L (135-145)
[2020-12-07 07:49] LABS: Glucose, Whole Blood 166 mg/dL (60-115)
[2020-12-07] MEDS: cloNIDine HCL 0.1 MG TABLET 0.6 MG PO ×2 (08:02→14:53)
[2020-12-07] MEDS: Furosemide 20 MG TABLET 10 MG PO (08:03)
[2020-12-07] MEDS: Finasteride 5 MG TABLET PO (08:03)
[2020-12-07] MEDS: Aspirin Enteric Coated 81 MG TABLET.DR PO (08:04)
[2020-12-07] MEDS: Atorvastatin Calcium 40 MG TABLET PO (08:04)
[2020-12-07] MEDS: allopurinoL 100 MG TABLET PO (08:04)
[2020-12-07] MEDS: hydrALAZINE HCl 50 MG TABLET PO ×3 (08:04→16:35)
[2020-12-07] MEDS: cefTRIAXone sodium 1 GM in 0.9 % Sodium Chloride 50 ML IV (08:04)
[2020-12-07] MEDS: amLODIPine Besylate 10 MG TABLET PO (08:04)
[2020-12-07] MEDS: Nystatin Powder 15 GM BOTTLE 1 APPL TOPICAL ×2 (08:07→22:01)
[2020-12-07] MEDS: Insulin Lispro 100 UNIT/ML 3 ML VIAL SUBCUT ×2 (08:11→16:35)
[2020-12-07] MEDS: guaiFENesin 100 MG/5 ML LIQUID PO (08:15)
[2020-12-07] MEDS: Albuterol/Iprat 2.5/0.5MG 3 ML AMPUL.NEB INHALE ×3 (08:16→15:43)
[2020-12-07] MEDS: Labetalol HCL 200 MG TABLET 400 MG PO ×2 (08:56→14:53)
[2020-12-07] MEDS: vancomycin HCL 500 MG in 0.9 % Sodium Chloride 100 ML 110 MG IV (08:57)
--- NOTE | 2020-12-07 09:02 | HO.PM.IMPN ---
Subjective Subjective Date of Service: 12/07/20 Interval History: Seen in f/u acute bronchitis, TIA. Feels better, less sob, seems more wheezy Review of Systems Gen: + fever Resp: +sob, + cough CV: no chest, no HAYES, no leg edema GI: No n/v, no abd pain Neuro: No confusion, transient left arm weakness Physical Exam Vital Signs: Vital Signs: Last Vital Signs Temp 97.6 F 12/07/20 07:33 Pulse 69 12/07/20 08:16 Resp 20 12/07/20 07:33 BP 150/50 H 12/07/20 07:33 Pulse Ox 93 12/07/20 07:33 Oxygen Flow Rate 2 12/05/20 01:55 Body Mass Index 45.7 Const: Other: Constitutional Awake and Alert, No apparent distress HEENT: PERRLA, EOMI Neck Supple, No lymphadenopathy Cardiovascular RRR, No M/R/G, S1 S2, No S3 S4, No pedal edema Respiratory rhonchi, wheezes Gastrointestinal Non tender, Non-distended Skin No rash Heme/Onc no lymphadenopathy Neurological Alert & oriented x3, normal strenght in both upper and lower extremities, normal CN exam 2 to 12 Psychological Appropriate affect Objective Data Current Medications Generic Name Dose Route Start Last Admin Trade Name Freq PRN Reason Stop Dose Admin Albuterol/Ipratropium 3 ml 12/05/20 12:00 12/07/20 08:16 Albuterol/Iprat 2.5/0.5mg 3 Ml Ampul.Neb INHALE 3 ml RQ4H WHILE AWAKE [facility] Administration Allopurinol 100 mg 12/05/20 10:39 12/07/20 08:04 Allopurinol 100 Mg Tablet PO 100 mg DAILY [facility] Administration Amlodipine Besylate 10 mg 12/05/20 10:39 12/07/20 08:04 Amlodipine Besylate 10 Mg Tablet PO 10 mg DAILY [facility] Administration Protocol Aspirin 81 mg 12/05/20 10:30 12/07/20 08:04 Aspirin Enteric Coated 81 Mg Tablet. PO 81 mg DAILY [facility] Administration Atorvastatin Calcium 40 mg 12/06/20 09:00 12/07/20 08:04 Atorvastatin Calcium 40 Mg Tablet PO 40 mg DAILY [facility] Administration Clonidine HCl 0.6 mg 12/05/20 10:39 12/07/20 08:02 Clonidine Hcl 0.1 Mg Tablet PO 0.6 mg TID [facility] Administration Protocol Finasteride 5 mg 12/05/20 10:39 12/07/20 08:03 Finasteride 5 Mg Tablet PO 5 mg DAILY [facility] Administration Furosemide 10 mg 12/05/20 10:39 12/07/20 08:03 Furosemide 20 Mg Tablet PO 10 mg DAILY [facility] Administration Protocol Guaifenesin 5 ml 12/05/20 11:16 12/07/20 08:15 Guaifenesin 100 Mg/5 Ml Liquid PO 5 ml Q6H PRN Administration Cough Heparin Sodium (Porcine) 5,000 unit 12/05/20 12:00 12/07/20 00:11 Heparin Sodium,Porcine 5,000 Unit/Ml Vial SUBCUT 5,000 unit Q12H [facility] Administration Hydralazine HCl 50 mg 12/05/20 13:00 12/07/20 08:04 Hydralazine Hcl 50 Mg Tablet PO 50 mg QID [facility] Administration Protocol Ceftriaxone Sodium 1 gm/ 50 mls @ 100 mls/hr 12/06/20 09:00 12/07/20 08:04 Sodium Chloride IV 100 mls/hr Q24H [facility] Administration Vancomycin HCl 500 mg/ Sodium 110 mls @ 110 mls/hr 12/07/20 08:00 Chloride IV Q24H [facility] Insulin Glargine 50 unit 12/05/20 21:00 12/06/20 20:49 Insulin Glargine,Hum.Rec.Anlog 100 Unit/Ml 10 Ml Vial SUBCUT 50 unit BEDTIME [facility] Administration Insulin Human Lispro 0 unit 12/05/20 12:00 12/07/20 08:11 Insulin Lispro 100 Unit/Ml 3 Ml Vial SUBCUT 2 unit QIDACHS [facility] Administration Protocol Labetalol HCl 400 mg 12/05/20 10:39 12/06/20 20:50 Labetalol Hcl 200 Mg Tablet PO 400 mg TID [facility] Administration Protocol Nystatin 1 appl 12/06/20 15:00 12/07/20 08:07 Nystatin Powder 15 Gm Bottle TOPICAL 1 appl BID [facility] Administration Protocol Ondansetron HCl 4 mg 12/06/20 14:33 12/06/20 14:43 Ondansetron Hcl 4 Mg/2 Ml Vial IVPUSH 4 mg Q8H PRN Administration Nausea and Vomiting Pharmacy Consult 1 each 12/05/20 07:10 Consult Rx Perform Med Rec MISCELLANE ONCE PRN Consult order Pharmacy Consult 1 each 12/06/20 03:44 Consult Rx Vancomycin Dosing MISCELLANE DAILY PRN Consult order Sodium Chloride 3 ml 12/05/20 16:00 12/07/20 08:12 0.9 % Sodium Chloride Flush 3 Ml Syringe IVFLUSH 3 ml QSHIFT [facility] Administration Labs CBC & Chem 7: 12/05/20 04:40 12/07/20 06:10 Microbiology Microbiology Results: Microbiology 12/05/20 Unknown Urine clean catch - Clean Catch Midstream Urine Culture - Preliminary No growth to date. 12/05/20 04:40 Blood - Venous Blood Culture - Preliminary 12/05/20 04:40 Blood - Venous Blood Culture - Preliminary Assessment and Plan (1) CHAYITO (obstructive sleep apnea): Status: Acute (2) Morbid obesity: Status: Acute (3) Fever: Status: Acute (4) Bronchitis: Status: Acute (5) TIA (transient ischemic attack): Status: Acute Assessment and Plan: 80 year male with CHAYITO, morbid obesity presenting with SOB, cough, and fever at home and had transient episode of left arm weakness that has resolved. 1/SOB likely from bronchitis--treat symptomatically with bronchodilators, cough mediceine, brething treatment, and being covered with Abxc (Vanco and Ceftriaxone ), low dose steroid 2/Bacteremia--d/t gram postive cocci (Strep vs staph), no source of infection, continue Vanco, ID consult, echo 12/06, no vegetations, repeat blood cultures today 2/TIA--Neuro evaled and recommend MRI, ASA, satin, PT/OT. No new symptoms, MRI scanner is down until perhaps today 3/CHAYITO, CPAP at night 4/ Morobid obesity--weight loss advise 5/CKD--3, stable 6/HTN, continue Hydralazine, Norvasc, Clonidine 7/Diabetes--home lantus and SSI Sub Q heparin for DVT (6) Diabetes: Status: Acute
[2020-12-07] MEDS: ondansetron HCL 4 MG/2 ML VIAL IVPUSH ×2 (10:33→18:54)
[2020-12-07 11:51] LABS: Glucose, Whole Blood 150 mg/dL (60-115)
--- NOTE | 2020-12-07 14:24 | PM.EVENT ---
Event Note Date of Service: 12/07/20 Event Note: coagulase negative staph contaminant stop abx
[2020-12-07 16:19] LABS: Glucose, Whole Blood 220 mg/dL (60-115)
[2020-12-07] MEDS: predniSONE 20 MG TABLET PO (16:35)
[2020-12-07 20:15] LABS: Glucose, Whole Blood 168 mg/dL (60-115)
[2020-12-07] MEDS: Insulin Glargine,Hum.rec.anlog 100 UNIT/ML 10 ML VIAL 50 UNIT SUBCUT (22:00)
[2020-12-07] MEDS: Metoclopramide HCl 10 MG/2 ML VIAL IVPUSH (22:29)
[2020-12-08] VITALS (12 sets, daily range): BP systolic 130–182; BP diastolic 54–72; PULSE 58–98; RESP 15–20; TEMP 36.1–36.6; O2SAT 58–98
[2020-12-08] MEDS: LORazepam 2 MG/ML VIAL 0.25 MG IVPUSH (00:49)
[2020-12-08] MEDS: 0.9 % Sodium Chloride Flush 3 ML SYRINGE IVFLUSH ×4 (01:01→21:47)
[2020-12-08] MEDS: diphenhydrAMINE HCL 50 MG/ML VIAL 25 MG IVPUSH (03:39)
[2020-12-08] MEDS: Insulin Lispro 100 UNIT/ML 3 ML VIAL SUBCUT ×4 (07:41→21:45)
[2020-12-08 07:42] LABS: Vancomycin Random 11.7 mcg/mL (15-20)
[2020-12-08] MEDS: Nystatin Powder 15 GM BOTTLE 1 APPL TOPICAL ×2 (07:44→21:46)
[2020-12-08] MEDS: hydrALAZINE HCl 50 MG TABLET PO ×4 (07:46→21:46)
[2020-12-08] MEDS: Aspirin Enteric Coated 81 MG TABLET.DR PO (07:46)
[2020-12-08] MEDS: Furosemide 20 MG TABLET 10 MG PO (07:46)
[2020-12-08] MEDS: Labetalol HCL 200 MG TABLET 400 MG PO ×3 (07:47→21:46)
[2020-12-08] MEDS: amLODIPine Besylate 10 MG TABLET PO (07:48)
[2020-12-08] MEDS: Atorvastatin Calcium 40 MG TABLET PO (07:49)
[2020-12-08] MEDS: allopurinoL 100 MG TABLET PO (07:49)
[2020-12-08] MEDS: Finasteride 5 MG TABLET PO (07:53)
[2020-12-08] MEDS: cloNIDine HCL 0.1 MG TABLET 0.6 MG PO ×3 (07:57→21:46)
[2020-12-08] MEDS: Albuterol/Iprat 2.5/0.5MG 3 ML AMPUL.NEB INHALE ×4 (08:04→19:58)
[2020-12-08 08:21] LABS: Glucose, Whole Blood 213 mg/dL (60-115)
--- NOTE | 2020-12-08 11:51 | P.PNIM_ITS ---
Subjective Subjective Date of Service: 12/08/20 Interval History: Seen in f/u for acut bronchitis with acute respiratory difficulty Review of Systems Gen: no fever Resp: + sob, + cough, wheeze CV: no chest, no HAYES, no leg edema GI: No n/v, no abd pain Neuro: No confusion Physical Exam Vital Signs: Vital Signs: Last Vital Signs Temp 97.4 F 12/08/20 07:35 Pulse 68 12/08/20 08:07 Resp 20 12/08/20 07:35 BP 140/60 H 12/08/20 07:35 Pulse Ox 96 12/08/20 07:35 Oxygen Flow Rate 2 12/05/20 01:55 Body Mass Index 45.7 Constitutional Awake and Alert, No apparent distress Neck Supple, No lymphadenopathy Cardiovascular RRR, No M/R/G, S1 S2, No S3 S4, No pedal edema Respiratory wheeze, some rales at bases Gastrointestinal Non tender, Non-distended Skin No rash Neurological Alert & oriented x3 Psychological Appropriate affect Objective Data Current Medications Generic Name Dose Route Start Last Admin Trade Name [place] PRN Reason Stop Dose Admin Albuterol/Ipratropium 3 ml 12/05/20 12:00 12/08/20 11:41 Albuterol/Iprat 2.5/0.5mg 3 Ml Ampul.Neb INHALE 3 ml RQ4H WHILE AWAKE [facility] Administration Allopurinol 100 mg 12/05/20 10:39 12/08/20 07:49 Allopurinol 100 Mg Tablet PO 100 mg DAILY [facility] Administration Amlodipine Besylate 10 mg 12/05/20 10:39 12/08/20 07:48 Amlodipine Besylate 10 Mg Tablet PO 10 mg DAILY [facility] Administration Protocol Aspirin 81 mg 12/05/20 10:30 12/08/20 07:46 Aspirin Enteric Coated 81 Mg Tablet.Dr PO 81 mg DAILY [facility] Administration Atorvastatin Calcium 40 mg 12/06/20 09:00 12/08/20 07:49 Atorvastatin Calcium 40 Mg Tablet PO 40 mg DAILY [facility] Administration Clonidine HCl 0.6 mg 12/05/20 10:39 12/08/20 07:57 Clonidine Hcl 0.1 Mg Tablet PO 0.6 mg TID [facility] Administration Protocol Finasteride 5 mg 12/05/20 10:39 12/08/20 07:53 Finasteride 5 Mg Tablet PO 5 mg DAILY [facility] Administration Furosemide 10 mg 12/05/20 10:39 12/08/20 07:46 Furosemide 20 Mg Tablet PO 10 mg DAILY [facility] Administration Protocol Guaifenesin 5 ml 12/05/20 11:16 12/07/20 08:15 Guaifenesin 100 Mg/5 Ml Liquid PO 5 ml Q6H PRN Administration Cough Heparin Sodium (Porcine) 5,000 unit 12/05/20 12:00 12/07/20 22:29 Heparin Sodium,Porcine 5,000 Unit/Ml Vial SUBCUT 5,000 unit Q12H [facility] Administration Hydralazine HCl 50 mg 12/05/20 13:00 12/08/20 07:46 Hydralazine Hcl 50 Mg Tablet PO 50 mg QID [facility] Administration Protocol Insulin Glargine 50 unit 12/05/20 21:00 12/07/20 22:00 Insulin Glargine,Hum.Rec.Anlog 100 Unit/Ml 10 Ml Vial SUBCUT 50 unit BEDTIME [facility] Administration Insulin Human Lispro 0 unit 12/05/20 12:00 12/08/20 07:41 Insulin Lispro 100 Unit/Ml 3 Ml Vial SUBCUT 4 unit QIDACHS [facility] Administration Protocol Labetalol HCl 400 mg 12/05/20 10:39 12/08/20 07:47 Labetalol Hcl 200 Mg Tablet PO 400 mg TID [facility] Administration Protocol Nystatin 1 appl 12/06/20 15:00 12/08/20 07:44 Nystatin Powder 15 Gm Bottle TOPICAL 1 appl BID [facility] Administration Protocol Ondansetron HCl 4 mg 12/06/20 14:33 12/07/20 18:54 Ondansetron Hcl 4 Mg/2 Ml Vial IVPUSH 4 mg Q8H PRN Administration Nausea and Vomiting Pharmacy Consult 1 each 12/05/20 07:10 Consult Rx Perform Med Rec MISCELLANE ONCE PRN Consult order Pharmacy Consult 1 each 12/06/20 03:44 Consult Rx Vancomycin Dosing MISCELLANE DAILY PRN Consult order Sodium Chloride 3 ml 12/05/20 16:00 12/08/20 07:46 0.9 % Sodium Chloride Flush 3 Ml Syringe IVFLUSH 3 ml QSHIFT [facility] Administration Labs CBC & Chem 7: 12/05/20 04:40 12/07/20 06:10 Microbiology Microbiology Results: Microbiology 12/05/20 04:40 Blood - Venous Blood Culture - Preliminary Coag negative Staphylococcus 12/05/20 04:40 Blood - Venous Blood Culture - Preliminary Coag negative Staphylococcus 12/05/20 Unknown Urine clean catch - Clean Catch Midstream Urine Culture - Final No growth. Assessment and Plan (1) CHAYITO (obstructive sleep apnea): Status: Acute (2) Morbid obesity: Status: Acute (3) Fever: Status: Acute (4) Bronchitis: Status: Acute (5) TIA (transient ischemic attack): Status: Acute Assessment and Plan: 80 year male with CHAYITO, morbid obesity presenting with SOB, cough, and fever at home and had transient episode of left arm weakness that has resolved. 1/SOB likely from bronchitis--treat symptomatically with bronchodilators, cough mediceine, brething treatment 2/Bacteremia--final cultures shows coag negative staph, therefore no further antibiotics 2/TIA--Neuro evaled and recommend MRI, ASA, satin, PT/OT. No new symptoms, MRI scanner is down until perhaps today 3/CHAYITO, CPAP at night 4/ Morobid obesity--weight loss advise 5/CKD--3, stable 6/HTN, continue Hydralazine, Norvasc, Clonidine 7/Diabetes--home lantus and SSI 8/possible heart failure IV Lasix x 1 and monitor urine output 9//Deconditioning PT eval tomorrow, Sub Q heparin for DVT (6) Diabetes: Status: Acute
[2020-12-08 12:06] LABS: Glucose, Whole Blood 200 mg/dL (60-115)
[2020-12-08] MEDS: Heparin Sodium,Porcine 5,000 UNIT/ML VIAL 5000 UNIT SUBCUT ×2 (12:23→21:55)
--- NOTE | 2020-12-08 14:25 | PC.NURSE ---
1400 lasix not given yet. attempting IV access.
[2020-12-08] MEDS: Furosemide 40 MG/4 ML VIAL IVPUSH (15:05)
[2020-12-08 16:32] LABS: Glucose, Whole Blood 198 mg/dL (60-115)
[2020-12-08 20:24] LABS: Glucose, Whole Blood 215 mg/dL (60-115)
[2020-12-08] MEDS: Insulin Glargine,Hum.rec.anlog 100 UNIT/ML 10 ML VIAL 50 UNIT SUBCUT (21:45)
[2020-12-09] VITALS (13 sets, daily range): BP systolic 137–159; BP diastolic 50–71; PULSE 59–65; RESP 16–18; TEMP 35.9–36.8; O2SAT 93–96
[2020-12-09] MEDS: Albuterol/Iprat 2.5/0.5MG 3 ML AMPUL.NEB INHALE ×3 (07:42→14:59)
[2020-12-09 07:52] LABS: Glucose, Whole Blood 267 mg/dL (60-115)
[2020-12-09] MEDS: Insulin Lispro 100 UNIT/ML 3 ML VIAL SUBCUT ×3 (07:56→16:36)
[2020-12-09 08:11] LABS: Anion Gap 12 (12-20); Blood Urea Nitrogen 67 mg/dL (9-16); Carbon Dioxide 24 mmol/L (22-29); Chloride 110 mmol/L (96-108); Creatinine Clr Calc Pharmacy 23.7; Estimated Glomerular Filt Rate 22; Glucose Random 261 mg/dL (60-115); Potassium 4.2 mmol/L (3.3-5.1); Sodium 142 mmol/L (135-145)
[2020-12-09] MEDS: amLODIPine Besylate 10 MG TABLET PO (08:41)
[2020-12-09] MEDS: cloNIDine HCL 0.1 MG TABLET 0.6 MG PO (08:41)
[2020-12-09] MEDS: allopurinoL 100 MG TABLET PO (08:41)
[2020-12-09] MEDS: Finasteride 5 MG TABLET PO (08:41)
[2020-12-09] MEDS: hydrALAZINE HCl 50 MG TABLET PO ×3 (08:41→16:37)
[2020-12-09] MEDS: Atorvastatin Calcium 40 MG TABLET PO (08:42)
[2020-12-09] MEDS: Labetalol HCL 200 MG TABLET 400 MG PO ×2 (08:42→16:02)
[2020-12-09] MEDS: Aspirin Enteric Coated 81 MG TABLET.DR PO (08:42)
[2020-12-09] MEDS: Furosemide 20 MG TABLET 10 MG PO (08:42)
[2020-12-09] MEDS: Heparin Sodium,Porcine 5,000 UNIT/ML VIAL 5000 UNIT SUBCUT (08:43)
[2020-12-09] MEDS: Nystatin Powder 15 GM BOTTLE 1 APPL TOPICAL (08:46)
[2020-12-09] MEDS: 0.9 % Sodium Chloride Flush 3 ML SYRINGE IVFLUSH ×2 (11:48→16:03)
[2020-12-09 12:02] LABS: Glucose, Whole Blood 212 mg/dL (60-115)
--- NOTE | 2020-12-09 13:12 | MHC.CM.PN ---
Addendum entered by Shania Fam RN 12/09/20 15:48: PER RESPIRATORY/ HOME O2 EVAL, PT DOES NOT NEED HOME O2. PT WILL BE DISCHARGED TODAY, [facility] AWARE. Original Note: PT DISCHARGING TODAY W/[facility] FOR SN/HOME OT/PT PENDING HOME O2 EVAL, PT'S AT BEDSIDE AND WILL TRANSPORT PT HOME.
--- NOTE | 2020-12-09 16:04 | PM.CNPUL ---
History of Present Illness History of Present Illness Consult date: 12/09/20 Chief complaint: Bronchitis, TIA Narrative: 80-year-old male morbidly obese, CHAYITO presenting with cough with clear sputum, upper airway congestion and fever of up to 102 yesterday. He was vaccinated months ago. CXR show no acute process. While in the ED he reportedly had a transient episode of left arm weakness, CT of head was negtive. Was found to be hypoxic and required supplemental oxygen supplementation. The patient was also noted to be have wheezing. Was treated for COPD exacerbation. He also had positive blood cultures. Infectious Disease was consulted and recommended antibiotic therapy. His blood cultures subsequently clear. Overall his respiratory symptoms improved. Although, he continue requiring oxygen supplementation. Was able to come off the oxygen today and was sitting comfortably on room air. In the meantime the patient does use CPAP therapy. The CPAP therapy at home is set up at 12 cm of pressure. He was set up on CPAP at 8 cm of pressure overnight and had an AHI of 20. I did increase his CPAP settings although I believe he is going to be going and will be using his own machine. At this point clinically the patient is doing better will need to be on respiratory therapy for what appears to be a COPD exacerbation due to an infectious lower respiratory process. Review of Systems Constitutional: Constitutional: Reports fever(s), Reports malaise and Denies night sweats ENT: Denies change in voice, Denies lip swelling, Denies mouth pain, Reports nasal congestion, Reports nasal discharge and Denies tongue swelling Cardiovascular: Cardiovascular: Denies chest pain Respiratory: Respiratory: Reports cough Gastrointestinal: Gastrointestinal: Denies abdominal pain Musculoskeletal: Musculoskeletal: Denies no additional musculoskeletal complaints Neurologic: Denies Neuro-related abnormal movements Psychiatric: Psychiatric: Denies no additional psychiatric complaints Hematologic/Lymphatic: Hematologic/Lymphatic: Denies easy bleeding and Denies lymphadenopathy Allergic/Immunologic: Allergic/Immunologic: Denies lip swelling and Denies tongue swelling PMF Past Medical History Medical History (Updated 12/09/20 @ 16:09 by Darrin Hinojosa MD) Acute cystitis without hematuria Bacteremia Bladder outlet obstruction Chronic kidney disease, stage II (mild) COPD exacerbation Diabetes HTN (hypertension) Incomplete emptying of bladder Morbid obesity CHAYITO (obstructive sleep apnea) CHAYITO on CPAP Prostate cancer Pure hypercholesterolemia Weak urinary stream Functional capacity: independent ambulation Surgical History Surgical History History of surgery Social History Social History Household Members: Spouse Housing: House Do you presently have visiting nurse or other home services: Yes Alcohol intake: never Patient Tobacco Use Status: Former Tobacco user service: Yes Current occupational status: retired Meds Allergies Allergy/AdvReac Type Severity Reaction Status Date / Time amoxicillin [AMOXICILLIN] Allergy Unknown ANAPHYLAXIS Verified 11/14/20 08:39 famotidine Allergy Unknown unknown Verified 11/14/20 08:39 hydrochlorothiazide Allergy Unknown unknown Verified 11/14/20 08:39 lisinopril [LISINOPRIL] Allergy Unknown UNKNOWN Verified 11/14/20 08:39 losartan Allergy Unknown unknown Verified 11/14/20 08:39 spironolactone Allergy Unknown unknown Verified 11/14/20 08:39 sulfamethoxazole AdvReac Intermediate C-DIFF, Verified 11/14/20 08:39 [From BACTRIM] REDUCED KIDNEY FX trimethoprim [From BACTRIM] AdvReac Intermediate C-DIFF, Verified 11/14/20 08:39 REDUCED KIDNEY FX Active Medications: Current Medications Generic Name Dose Route Start Last Admin Trade Name Freq PRN Reason Stop Dose Admin Albuterol/Ipratropium 3 ml 12/05/20 12:00 12/09/20 14:59 Albuterol/Iprat 2.5/0.5mg 3 Ml Ampul.Neb INHALE 3 ml RQ4H WHILE AWAKE LOULOU Administration Allopurinol 100 mg 12/05/20 10:39 12/09/20 08:41 Allopurinol 100 Mg Tablet PO 100 mg DAILY LOULOU Administration Amlodipine Besylate 10 mg 12/05/20 10:39 12/09/20 08:41 Amlodipine Besylate 10 Mg Tablet PO 10 mg DAILY LOULOU Administration Protocol Aspirin 81 mg 12/05/20 10:30 12/09/20 08:42 Aspirin Enteric Coated 81 Mg Tablet.Dr PO 81 mg DAILY LOULOU Administration Atorvastatin Calcium 40 mg 12/06/20 09:00 12/09/20 08:42 Atorvastatin Calcium 40 Mg Tablet PO 40 mg DAILY LOULOU Administration Clonidine HCl 0.6 mg 12/09/20 15:00 Clonidine Hcl 0.2 Mg Tablet PO TID LOULOU Protocol Finasteride 5 mg 12/05/20 10:39 12/09/20 08:41 Finasteride 5 Mg Tablet PO 5 mg DAILY LOULOU Administration Furosemide 10 mg 12/05/20 10:39 12/09/20 08:42 Furosemide 20 Mg Tablet PO 10 mg DAILY LOULOU Administration Protocol Guaifenesin 5 ml 12/05/20 11:16 12/07/20 08:15 Guaifenesin 100 Mg/5 Ml Liquid PO 5 ml Q6H PRN Administration Cough Heparin Sodium (Porcine) 5,000 unit 12/08/20 22:00 12/09/20 08:43 Heparin Sodium,Porcine 5,000 Unit/Ml Vial SUBCUT 5,000 unit Q12H LOULOU Administration Hydralazine HCl 50 mg 12/05/20 13:00 12/09/20 11:50 Hydralazine Hcl 50 Mg Tablet PO 50 mg QID [facility] Administration Protocol Insulin Glargine 50 unit 12/05/20 21:00 12/08/20 21:45 Insulin Glargine,Hum.Rec.Anlog 100 Unit/Ml 10 Ml Vial SUBCUT 50 unit BEDTIME LOULOU Administration Insulin Human Lispro 0 unit 12/05/20 12:00 12/09/20 11:49 Insulin Lispro 100 Unit/Ml 3 Ml Vial SUBCUT 4 unit QIDACHS [facility] Administration Protocol Labetalol HCl 400 mg 12/05/20 10:39 12/09/20 16:02 Labetalol Hcl 200 Mg Tablet PO 400 mg TID [facility] Administration Protocol Nystatin 1 appl 12/06/20 15:00 12/09/20 08:46 Nystatin Powder 15 Gm Bottle TOPICAL 1 appl BID [facility] Administration Protocol Ondansetron HCl 4 mg 12/06/20 14:33 12/07/20 18:54 Ondansetron Hcl 4 Mg/2 Ml Vial IVPUSH 4 mg Q8H PRN Administration Nausea and Vomiting Pharmacy Consult 1 each 12/05/20 07:10 Consult Rx Perform Med Rec MISCELLANE ONCE PRN Consult order Pharmacy Consult 1 each 12/06/20 03:44 Consult Rx Vancomycin Dosing MISCELLANE DAILY PRN Consult order Sodium Chloride 3 ml 12/05/20 16:00 12/09/20 16:03 0.9 % Sodium Chloride Flush 3 Ml Syringe IVFLUSH 3 ml QSHIFT [facility] Administration Home Medications Medication Instructions Recorded Confirmed Last Taken Type finasteride 5 mg tablet 5 mg PO DAILY 07/18/20 12/05/20 Unknown History allopurinol 100 mg PO DAILY 12/05/20 12/05/20 Unknown History amlodipine 10 mg PO DAILY 12/05/20 12/05/20 Unknown History atorvastatin 40 mg PO BEDTIME 12/05/20 12/05/20 Unknown History clonidine HCl 0.6 mg PO TID 12/05/20 12/05/20 Unknown History furosemide 10 mg PO QAM 12/05/20 12/05/20 Unknown History hydralazine 50 mg PO QID 12/05/20 12/05/20 Unknown History insulin aspart U-100 1 sliding scale dose SUBCUT QIDACHS 12/05/20 12/05/20 Unknown History insulin glargine [Lantus Solostar 50 unit SUBCUT BEDTIME 12/05/20 12/05/20 Unknown History U-100 Insulin] labetalol 400 mg PO TID 12/05/20 12/05/20 Unknown History Physical Exam Vital Signs: Vital Signs: Last Vital Signs Temp 96.6 F L 12/09/20 15:10 Pulse 61 12/09/20 16:02 Resp 18 12/09/20 15:10 BP 142/50 H 12/09/20 16:02 Pulse Ox 96 12/09/20 15:10 Oxygen Flow Rate 2 12/05/20 01:55 Body Mass Index 45.7 Const: General: alert Neck: Neck: Yes normal visual inspection, Yes full ROM and Yes no lymphadenopathy Chest: Chest palpation & inspection: normal inspection of the chest Resp: Auscultation: wheezes and diminished lung sounds Cardio: Rate: regular rate Rhythm: regular rhythm Heart sounds: S1 normal heart sound present and S2 normal heart sound present GI: Palpation (GI): Soft to palpation and nontender Auscultation: normal bowel sounds Skin: General skin exam: rashes and/or lesions noted Results Laboratory Findings CBC and BMP: 12/05/20 04:40 12/09/20 06:19 Abnormal lab findings: Abnormal Labs 12/05/20 12/05/20 12/05/20 04:40 04:40 09:30 WBC 11.6 H RBC 3.60 L Hgb 11.2 L Hct 34.0 L Plt Count 138 L Neut % (Auto) 87.4 H Lymph % (Auto) 4.9 L Lymph # (Auto) 0.6 L Abs Immat Gran (auto) 0.04 H Absolute Neuts (auto) 10.1 H Chloride 110 H Carbon Dioxide 21 L BUN 46 H Creatinine 2.55 H POC Glucose 167 H Random Glucose 163 H Urine Protein Ur Leukocyte Esterase Urine WBC Random Vancomycin 12/05/20 12/05/20 12/05/20 11:41 15:40 17:27 WBC RBC Hgb Hct Plt Count Neut % (Auto) Lymph % (Auto) Lymph # (Auto) Abs Immat Gran (auto) Absolute Neuts (auto) Chloride Carbon Dioxide BUN Creatinine POC Glucose 184 H 222 H Random Glucose Urine Protein 2+ H Ur Leukocyte Esterase TRACE H Urine WBC 10-14 H Random Vancomycin 12/05/20 12/06/20 12/06/20 21:00 07:15 11:11 WBC RBC Hgb Hct Plt Count Neut % (Auto) Lymph % (Auto) Lymph # (Auto) Abs Immat Gran (auto) Absolute Neuts (auto) Chloride Carbon Dioxide BUN Creatinine POC Glucose 192 H 178 H 176 H Random Glucose Urine Protein Ur Leukocyte Esterase Urine WBC Random Vancomycin 12/06/20 12/06/20 12/07/20 16:20 20:10 06:10 WBC RBC Hgb Hct Plt Count Neut % (Auto) Lymph % (Auto) Lymph # (Auto) Abs Immat Gran (auto) Absolute Neuts (auto) Chloride 109 H Carbon Dioxide BUN 49 H Creatinine 2.48 H POC Glucose 213 H 206 H Random Glucose 154 H Urine Protein Ur Leukocyte Esterase Urine WBC Random Vancomycin 12/07/20 12/07/20 12/07/20 07:32 11:43 16:16 WBC RBC Hgb Hct Plt Count Neut % (Auto) Lymph % (Auto) Lymph # (Auto) Abs Immat Gran (auto) Absolute Neuts (auto) Chloride Carbon Dioxide BUN Creatinine POC Glucose 166 H 150 H 220 H Random Glucose Urine Protein Ur Leukocyte Esterase Urine WBC Random Vancomycin 12/07/20 12/08/20 12/08/20 20:10 06:23 07:32 WBC RBC Hgb Hct Plt Count Neut % (Auto) Lymph % (Auto) Lymph # (Auto) Abs Immat Gran (auto) Absolute Neuts (auto) Chloride Carbon Dioxide BUN Creatinine POC Glucose 168 H 213 H Random Glucose Urine Protein Ur Leukocyte Esterase Urine WBC Random Vancomycin 11.7 L 12/08/20 12/08/20 12/08/20 11:53 16:24 20:18 WBC RBC Hgb Hct Plt Count Neut % (Auto) Lymph % (Auto) Lymph # (Auto) Abs Immat Gran (auto) Absolute Neuts (auto) Chloride Carbon Dioxide BUN Creatinine POC Glucose 200 H 198 H 215 H Random Glucose Urine Protein Ur Leukocyte Esterase Urine WBC Random Vancomycin 12/09/20 12/09/20 12/09/20 06:19 07:28 11:41 WBC RBC Hgb Hct Plt Count Neut % (Auto) Lymph % (Auto) Lymph # (Auto) Abs Immat Gran (auto) Absolute Neuts (auto) Chloride 110 H Carbon Dioxide BUN 67 H Creatinine 2.79 H POC Glucose 267 H 212 H Random Glucose 261 H D Urine Protein Ur Leukocyte Esterase Urine WBC Random Vancomycin Microbiology: Microbiology 12/07/20 10:09 Blood - Subclavian Blood Culture - Preliminary No growth after 48 hours. 12/07/20 10:12 Blood - Subclavian Blood Culture - Preliminary No growth after 48 hours. 12/05/20 04:40 Blood - Venous Blood Culture - Final Staphylococcus caprae 12/05/20 04:40 Blood - Venous Blood Culture - Final Staphylococcus caprae 12/05/20 Unknown Urine clean catch - Clean Catch Midstream Urine Culture - Final No growth. Assessment and Plan (1) COPD exacerbation: Status: Acute (2) Acute respiratory failure: Qualifiers: Respiratory failure complication: hypoxia Qualified Code(s): J96.01 - Acute respiratory failure with hypoxia Status: Acute (3) CHAYITO on CPAP: Status: Acute (4) Bacteremia: Status: Acute (5) Bronchitis: Status: Acute Continue a course of antibiotics per Infectious Disease Start inhaled therapy with Breo 200 and Spiriva. Once he is discharged [facility] set him with Symbicort and Spiriva. Will need to adjust his CPAP Will set up with a follow-up in our pulmonary office the patient will benefit additional testing; PFTs in additional imaging studies 6 minutes walk test prior to discharge to address his oxygen requirements prior to discharge Procedures Date of Service Date of Service: 12/09/20
[2020-12-09 16:15] LABS: Glucose, Whole Blood 234 mg/dL (60-115)
--- NOTE | 2020-12-09 16:24 | P.DS_ITS ---
DS: Providers Provider Date of Service: 12/09/20 Date of admission: 12/05/20 10:29 Primary care physician: Jarred Hughes Consults: 12/05/20 10:27 Consult to Neurology Routine Consulting Provider: Mirna Hair Reason for consultation: TIA Has provider been notified: No 12/06/20 03:44 Consult to Infectious Diseases Routine Consulting Provider: Alma Delia Melendrez Reason for consultation: bacteremia 12/06/20 07:16 Consult to Infectious Diseases Routine Consulting Provider: Alma Delia Melendrez Reason for consultation: bacteremia 12/09/20 12:59 Consult to Pulmonology Routine Consulting Provider: Darrin Hinojosa Reason for consultation: codp Has provider been notified: No DS: Diagnosis Discharge Diagnosis (1) COPD exacerbation: Status: Acute (2) Acute respiratory failure: Status: Acute (3) CHAYITO on CPAP: Status: Acute (4) Bacteremia: Status: Acute (5) Bronchitis: Status: Acute DS: Medications Discharge Medications Home Medications: Home Medications Medication Instructions Recorded Confirmed finasteride 5 mg tablet 5 mg PO DAILY 07/18/20 12/05/20 Lantus Solostar U-100 Insulin 50 unit SUBCUT BEDTIME 12/05/20 12/05/20 allopurinol 100 mg PO DAILY 12/05/20 12/05/20 amlodipine 10 mg PO DAILY 12/05/20 12/05/20 atorvastatin 40 mg PO BEDTIME 12/05/20 12/05/20 clonidine HCl 0.6 mg PO TID 12/05/20 12/05/20 furosemide 10 mg PO QAM 12/05/20 12/05/20 hydralazine 50 mg PO QID 12/05/20 12/05/20 insulin aspart U-100 1 sliding scale dose SUBCUT QIDACHS 12/05/20 12/05/20 labetalol 400 mg PO TID 12/05/20 12/05/20 Previous Rx's Medication Instructions Recorded albuterol sulfate 2 puff INHALATION Q6H PRN #8.5 g 12/09/20 doxycycline hyclate 100 mg PO DAILY #10 tab 12/09/20 prednisone 20 mg PO DAILY #4 tab 12/09/20 DS: Summary Hospital Course Hospital Course: 80-year-old male morbidly obese, CHAYITO presenting with cough with clear sputum, upper airway congestion and fever of up to 102 yesterday. He was vaccinated months ago. CXR show no acute process. While in the ED he reportedly had a transient episode of left arm weakness, CT of head was negtive and tPA was considered but give low NIH score and rapid resulution of symptoms. hospital course 1/SOB likely from bronchitis--treat symptomatically with bronchodilators, cough mediceine, brething treatment and he is much better. He could have COPD that is undiagnosd, he improved with steroid. Dur to fever on presentation will treat with Doxy for [address] Darrin Hinojosa saw him and will follow up with him in the office. Will give him albuterol MDI at discharge. He didn't qualify for home o2 2/Bacteremia--final cultures shows coag negative staph (Final culture showing Staph Carpe). Seen by ID and no antibiotics 2/TIA--Neuro evaled and recommend MRI, ASA, satin, PT/OT. MRI showed no acute finding and has not have any more symptoms 3/CHAYITO, CPAP at night 4/ Morobid obesity--weight loss advise 5/CKD--3, stable 6/HTN, continue Hydralazine, Norvasc, Clonidine 7/Diabetes--home lantus and SSI Time Spent with Patient Time attestation: Total time spent providing and/or coordinating discharge services: Discharge coordination time: Greater than 30 minutes Quality: Stroke Does the patient have a stroke diagnosis?: No Physical Exam Vital Signs: Vital Signs: Last Vital Signs Temp 96.6 F L 12/09/20 15:10 Pulse 61 12/09/20 16:02 Resp 18 12/09/20 15:10 BP 142/50 H 12/09/20 16:02 Pulse Ox 96 12/09/20 15:10 Oxygen Flow Rate 2 12/05/20 01:55 Body Mass Index 45.7 DS: Data Data Completed and Pending Labs on day of discharge: Laboratory Results - last 24 hr 12/08/20 12/08/20 12/09/20 16:24 20:18 06:19 Sodium 142 Potassium 4.2 Chloride 110 H Carbon Dioxide 24 Anion Gap 12 BUN 67 H Creatinine 2.79 H Estim Creat Clear Calc 23.7 Estimated GFR 22 POC Glucose 198 H 215 H Random Glucose 261 H D Calcium 9.0 12/09/20 12/09/20 12/09/20 07:28 11:41 16:07 Sodium Potassium Chloride Carbon Dioxide Anion Gap BUN Creatinine Estim Creat Clear Calc Estimated GFR POC Glucose 267 H 212 H 234 H Random Glucose Calcium Preliminary micro results at discharge 12/07/20 10:09 Blood Culture - Preliminary Blood - Subclavian No growth after 48 hours. 12/07/20 10:12 Blood Culture - Preliminary Blood - Subclavian No growth after 48 hours. Discharge Plan Discharge Anticipated Discharge Date/Time: 12/09/20 16:02 Patient Disposition: Home Health Service Discharge Diagnosis: COPD exacerbation, TIA Referrals: [facility] [Outside] - 1 Day (PENITENTIARY, HOME OCCUPATIONAL THERAPY/ PHYSICAL THERAPY. PLEASE CALL ABOVE NUMBER IF YOU HAVE NOT HEARD FROM NURSE BY EILEEN ON 12/10/20) Jarred Hughes [Primary Care Provider] - 1 Week Discharge Medications: New prednisone 20 mg tablet 20 mg PO DAILY Qty: 4 RF: 0 albuterol sulfate 90 mcg/actuation HFA aerosol inhaler 2 puff inhalation Q6H PRN (Reason: shortness of breath or wheezing) Qty: 8.5 RF: 0 doxycycline hyclate 100 mg tablet 100 mg PO DAILY Qty: 10 RF: 0 aspirin 81 mg tablet,delayed release (DR/EC) 81 mg PO DAILY Qty: 30 RF: 0 Continued insulin aspart U-100 100 unit/mL Solution 1 sliding scale dose SUBCUT QIDACHS RF: 0 Lantus Solostar U-100 Insulin 100 unit/mL (3 mL) Insulin Pen 50 unit SUBCUT BEDTIME RF: 0 atorvastatin 80 mg Tablet 40 mg PO BEDTIME RF: 0 labetalol 200 mg Tablet 400 mg PO TID RF: 0 clonidine HCl 0.3 mg Tablet 0.6 mg PO TID RF: 0 allopurinol 100 mg Tablet 100 mg PO DAILY RF: 0 amlodipine 10 mg Tablet 10 mg PO DAILY RF: 0 hydralazine 50 mg Tablet 50 mg PO QID RF: 0 furosemide 20 mg Tablet 10 mg PO QAM RF: 0 finasteride 5 mg tablet 5 mg PO DAILY RF: 0 Discharge Orders: Discharge Order (Routine); Ordered 12/09/20 Ordered By: Alvarez Mlapa Diet: advance to usual diet and diabetic diet Activity on Discharge: Rest with bed elevated Stand Alone Forms: Patient Portal Discharge page Other Ambulatory Orders: Basic Metabolic Panel (Routine) Timeframe: [id number] Facility: [facility] - Location: Laboratory Ordered By: Alvarez Gannon Care Plan Goals: prevent rehospitalization Health Concerns: bronchitis and possible copd Plan of Treatment: Take prednisone as directed and use inhalers ass needed for shortness of breath and follow up with your Doctor in a week, call for appointment. Take Doxycyline for bronchitis For TIA MRI was negative but we recommend daily baby aspirin Assessment: See above Discharge Date/Time: 12/09/20 19:42
--- NOTE | 2020-12-09 16:34 | W.MHC.F2F ---
Service Date Service Date: 12/09/20 Encounter Date of encounter: 12/09/20 Reasons for Services Homebound: Leaving the home is medically contraindicated at this time without the asist of a device and/or another person due th the listed conditions above and below. Reason homebound: shortness of breath with minimal effort Homebound supporting statement: homebound due to shortness of breath with minimal effort effort and therefore needs the assitance of another person Certification: Based on the above findings, I certify that this patient is confined to the home and needs intermittent retirement care, physical therapy and/or speech therapy, or continues to need occupational therapy. The patient is under my care, and I have initiated the establishment of the plan of care. The patient will be followed by a physician who will periodically review the plan of care.
[2020-12-09] MEDS: cloNIDine HCL 0.2 MG TABLET 0.6 MG PO (16:36)
== END 2020-12-09 19:42 | disposition home health service (06) | DRG 202 ==
LOC: HO.ED 02:31 → HO.EDOVER 10:30 → HO.S3 19:37
PROVIDERS: Hospitalist; Admitting Provider Internal Medicine; Emergency Provider Emergency Medicine Emergency Medical Services; PCP Internal Medicine; Visit Provider Internal Medicine
DX: J20.9 Acute bronchitis, unspecified (principal); G45.9 Transient cerebral ischemic attack, unspecified; J44.0 Chronic obstructive pulmonary disease with (acute) lower respiratory infection; J44.1 Chronic obstructive pulmonary disease with (acute) exacerbation; Z68.42 Body mass index [BMI] 45.0-49.9, adult; I12.9 Hypertensive chronic kidney disease with stage 1 through stage 4 chronic kidney disease, or unspecified chronic kidney disease; N18.30 Chronic kidney disease, stage 3 unspecified; E11.22 Type 2 diabetes mellitus with diabetic chronic kidney disease; Z99.89 Dependence on other enabling machines and devices; E66.01 Morbid (severe) obesity due to excess calories; G47.33 Obstructive sleep apnea (adult) (pediatric); Z20.822 Contact with and (suspected) exposure to COVID-19; Z87.891 Personal history of nicotine dependence; Z88.0 Allergy status to penicillin; Z88.2 Allergy status to sulfonamides; Z79.4 Long term (current) use of insulin; Z79.82 Long term (current) use of aspirin; Z79.899 Other long term (current) drug therapy
CPT/HCPCS: 0241U; 36415; 70450; 70551; 71045; 80048; 80061; 80202; 81001; 81003; 82947; 83605; 85025; 87040; 87077; 87086; 87186; 87205; 93306; 94640; 94660; 94664; 97110; 97116; 97162; 97166; 97530; 99285; J0696; J1200; J1940; J2060; J2405; J2765; J3370

== ENCOUNTER 2020-12-14 07:38 | Outpatient (REF) | payer MEDICARE, SELFPAY ==
[2020-12-14 08:45] LABS: Anion Gap 14 (12-20); Blood Urea Nitrogen 59 mg/dL (9-16); Calcium 9.8 mg/dL (8.4-10.2); Carbon Dioxide 26 mmol/L (22-29); Chloride 109 mmol/L (96-108); Estimated Glomerular Filt Rate 25; Glucose Random 73 mg/dL (60-115); Potassium 4.5 mmol/L (3.3-5.1); Sodium 144 mmol/L (135-145)
== END 2020-12-14 07:39 | disposition home or self-care (01) ==
LOC: HO.LAB 07:38
PROVIDERS: Absent Provider Internal Medicine; PCP Internal Medicine; Visit Provider Internal Medicine
DX: N19 Unspecified kidney failure (principal)
CPT/HCPCS: 36415; 80048

== ENCOUNTER 2021-01-20 11:55 | Outpatient (REF) | payer MEDICARE, SELFPAY ==
--- NOTE | ~2021-01-20 | XR_ITS ---
EXAMINATION: XR HAND, LEFT CLINICAL INFORMATION: Pain in left hand COMPARISON: None TECHNIQUE: PA, lateral, and oblique views of the left hand. 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 Mild loss of PIP and DIP joints of all digits is noted. Mild loss of 2nd and 3rd MCP joints is noted as well. There is mild spurring along the 2nd and 3rd MCP joints and DIP joints 2nd and 5th digits suggestive of degenerative arthritis. No visible acute fracture or dislocation seen. The carpal bones and intercarpal joint spaces are maintained. There is reduced radiocarpal joint space. There is mild periosteal focal thickening mid 3rd metacarpal, likely old injury. 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 Mild degenerative changes PIP, DIP, 2nd and 3rd metacarpal and radiocarpal joints. No visible acute fracture or dislocation.
== END 2021-01-20 11:56 | disposition home or self-care (01) ==
LOC: HO.HOSX 11:55
PROVIDERS: Visit Provider Orthopaedic Surgery
DX: M79.89 Other specified soft tissue disorders (principal); M79.642 Pain in left hand; Z87.891 Personal history of nicotine dependence
CPT/HCPCS: 10160; 73130; 99202

== ENCOUNTER → 2021-02-13 08:53 | Day surgery (SDC) | payer MEDICARE, SELFPAY ==
[2021-02-13 09:29] VITALS: BP 160/58; PULSE 63; RESP 16; TEMP 36.2; O2SAT 96; BMI 42.3
--- NOTE | 2021-02-13 11:13 | MHC.SHP ---
Pre-Procedural Eval Section A Date of Service: 02/13/21 The patient is an INPATIENT: No Changes since office visit: No Cold of Flu in the past 2 weeks, No New Medical Problems, No Changes in Medication and No Patient answered all questions The History & Physical has been completed within 30 days and I have reviewed it.: Yes Section B Chief Complaint: Disorder of Soft tissue Allergies: Allergies Allergy/AdvReac Type Severity Reaction Status Date / Time amoxicillin [AMOXICILLIN] Allergy Unknown ANAPHYLAXIS Verified 01/20/21 13:10 famotidine Allergy Unknown unknown Verified 01/20/21 13:10 hydrochlorothiazide Allergy Unknown unknown Verified 01/20/21 13:10 lisinopril [LISINOPRIL] Allergy Unknown UNKNOWN Verified 01/20/21 13:10 losartan Allergy Unknown unknown Verified 01/20/21 13:10 spironolactone Allergy Unknown unknown Verified 01/20/21 13:10 sulfamethoxazole AdvReac Intermediate C-DIFF, Verified 01/20/21 13:10 [From BACTRIM] REDUCED KIDNEY FX trimethoprim [From BACTRIM] AdvReac Intermediate C-DIFF, Verified 01/20/21 13:10 REDUCED KIDNEY FX Plan I have reviewed the history and physical and performed a pertinent physical examination on my patient. No changes have occurred unless specified.
--- NOTE | 2021-02-13 11:13 | W.PM.OPN ---
Operative Note Operative Note Date of Service: 02/13/21 Narrative: Preop diagnosis: 1. Left dorsal hand Soft tissue mass Postop diagnosis: same Procedure: 1. Left dorsal hand Soft tissue mass excisional biopsy Surgeon: Betsy Hartman MD Anesthesia: local block using 1% lidocaine with epinephrine Findings: Lipomatous mass measuring approximately 2 cm in diameter EBL: Less than 5 mL Specimens: Left dorsal hand Soft tissue mass Complications: None Disposition: Brought to recovery room in stable condition Plan: Follow-up for 7-10 days for wound check and suture removal and to check pathology Indications: The patient is 81 years old, with a left dorsal hand mass over the 2nd MCP joint . The risks and benefits of operative treatment including but not limited to risk of damage to blood vessels, nerves, tendons, infection, persistent pain, persistent symptoms, or possible need for additional surgery were discussed with the patient and the patient wishes to proceed with surgery. Procedure: Once consent was obtained a local block was performed using a combination of 1% lidocaine with epinephrine. The patient was then brought back to the operating suite and placed on the operative table in supine position. A tourniquet was applied to the proximal aspect of the left upper extremity and the limb was prepped and draped in a standard surgical fashion. Once assured that we had a good block, a 2 cm longitudinal incision was made centered over the left dorsal hand mass which was positioned over the dorsal aspect of the 2nd MCP joint. The incision was made through the skin to the subcutaneous tissues using a #15 blade. Dissection was made down to the level of the soft tissue mass using tenotomy scissors. The mass was lipomatous in appearance and measured approximately 2 cm in diameter. It was multi lobular. It was carefully mobilized from the surrounding tissues removed from the wound bed and placed on the back table to be sent for histopathologic review. The wound was copiously irrigated with normal saline and hemostasis was obtained with a brief period of local pressure and bipolar electrocautery The skin edges were reapproximated with some 5.0 nylon suture material and a sterile dressing was applied. The patient appears to have tolerated the procedure well and with no complications. All digits were well vascularized at the conclusion of the case.
[2021-02-13 11:45] VITALS: BP 171/61; PULSE 60; RESP 16; TEMP 36.2; O2SAT 95
[2021-02-13 11:53] LABS: Glucose, Whole Blood 43 mg/dL (60-115)
[2021-02-13 12:16] LABS: Glucose, Whole Blood 65 mg/dL (60-115)
--- NOTE | 2021-02-13 12:17 | PC.NURSE ---
Patient given juice and crackers with peanut butter in PACU for hypoglycemia. Patient states he feels better. Blood sugar rechecked at 1213, results 65. Will continue to monitor.
[2021-02-13 12:33] LABS: Glucose, Whole Blood 71 mg/dL (60-115)
--- NOTE | 2021-02-13 12:53 | PC.NURSE ---
Blood Sugar retaken at 1229, results 71. Patient asymptomatic. States he feels great . Patient also states that his in the waiting room has his sugar pills if needed. Patient agrees he is ready for discharge. Patient discharged via wheelchair to family in waiting room.
== END | disposition home or self-care (01) ==
PROVIDERS: PCP Internal Medicine; Visit Provider Orthopaedic Surgery
PROC: (CPT 26111; principal; 2021-02-13 10:40)
DX: D17.22 Benign lipomatous neoplasm of skin and subcutaneous tissue of left arm (principal); M19.90 Unspecified osteoarthritis, unspecified site; Z88.0 Allergy status to penicillin; Z88.2 Allergy status to sulfonamides; Z88.8 Allergy status to other drugs, medicaments and biological substances; E11.22 Type 2 diabetes mellitus with diabetic chronic kidney disease; I12.9 Hypertensive chronic kidney disease with stage 1 through stage 4 chronic kidney disease, or unspecified chronic kidney disease; N18.2 Chronic kidney disease, stage 2 (mild); Z87.891 Personal history of nicotine dependence
CPT/HCPCS: 26111; 82947; 88304

== ENCOUNTER → 2021-02-24 10:04 | Outpatient (BNVA) | payer MEDICARE, SELFPAY | PROVIDERS: PCP Internal Medicine; Visit Provider Orthopaedic Surgery | DX: D17.20 Benign lipomatous neoplasm of skin and subcutaneous tissue of unspecified limb (principal); M79.89 Other specified soft tissue disorders | CPT/HCPCS: 99212 ==

== ENCOUNTER 2021-03-17 08:07 | Outpatient (REF) | payer MEDICARE, SELFPAY ==
[2021-03-17 10:02] LABS: Prostate Specific Antigen 10.67 ng/mL (<0.05-4.0)
== END 2021-03-17 08:08 | disposition home or self-care (01) ==
LOC: HO.LAB 08:07
PROVIDERS: PCP Internal Medicine; Visit Provider Urology
DX: Z12.5 Encounter for screening for malignant neoplasm of prostate (principal); C61 Malignant neoplasm of prostate
CPT/HCPCS: 36415; 84153

== ENCOUNTER → 2021-03-20 09:41 | Outpatient (BNVA) | payer MEDICARE, SELFPAY | PROVIDERS: PCP Internal Medicine; Visit Provider Urology | DX: C64.9 Malignant neoplasm of unspecified kidney, except renal pelvis (principal); C61 Malignant neoplasm of prostate | CPT/HCPCS: Q3014 ==

== ENCOUNTER 2021-05-08 09:14 | Emergency (ER) | payer MEDICARE, SELFPAY ==
--- NOTE | 2021-05-08 | ECG_ITS ---
Test Reason : SYNCOPE Blood Pressure : / mmHG Vent. Rate : 056 BPM Atrial Rate : 056 BPM P-R Int : 272 ms QRS Dur : 110 ms QT Int : 466 ms P-R-T Axes : 056 -64 066 degrees QTc Int : 449 ms Sinus bradycardia with 1st degree A-V block Pulmonary disease pattern Intra-ventricular conduction delay Left anterior fascicular block Poor R wave progression Abnormal ECG When compared with ECG of 18-APR-2019 09:17, [place] interval has increased Referred By: Generic ED Physician Electronically Signed By:SATISH SHEEHAN MD
--- NOTE | ~2021-05-08 | CT_ITS ---
EXAMINATION: CT HEAD WITHOUT CONTRAST CLINICAL INFORMATION: Fall with loss of consciousness COMPARISON: December 08, 2020 and December 05, 2020 TECHNIQUE: Contiguous axial imaging was performed from the skull base to vertex without intravenous administration of contrast. This CT examination was performed using dose optimization techniques as appropriate, variously including the following: *Automated exposure control *Adjustment of mA and/or kV according to patient size (this includes techniques or standardized protocols for targeted exams where dose is matched to indication/reason for exam; i.e. extremities or head) *Use of iterative reconstruction technique DLP: 690 mGy-cm FINDINGS: There is no evidence of acute intracranial hemorrhage or territorial infarction. No abnormal mass effect or midline shift is seen. Holder to white matter differentiation is well preserved. No extra-axial fluid collections are identified. There is prominence of ventricles, sulci, and cisterns symmetrically consistent with some degree of atrophy.. There is a region of diminished density within the left caudate head consistent with old lacunar infarct. The osseous structures and soft tissues are normal. The mastoid air cells and visualized portions of the paranasal sinuses are well aerated. CT/CT head/brain wo con IMPRESSION: No acute intracranial pathology. Findings suggestive of microangiopathy.
[2021-05-08 09:21] VITALS: BP 188/53; PULSE 64; RESP 19; TEMP 36.6; O2SAT 97; BMI 45.1
[2021-05-08 11:32] LABS: MANUAL DIFF FLAG NO
--- NOTE | 2021-05-08 11:37 | ED.SYNCOPE ---
HPI - Syncope General Chief Complaint: Syncope Stated Complaint: passed out at home Time Seen by Provider: 05/08/21 11:05 Source: patient Mode of arrival: ambulatory Limitations: no limitations History of Present Illness HPI narrative: Patient comes to the emergency room complaining of a syncopal episode last night. Patient states that he was sitting on his couch, got up fast, then the next thing he remembers he was on the floor. The fall was witnessed by his . Patient states that he has had this happen before. He was diagnosed with orthostatic hypotension. Patient states that he did not have any chest pain, dizziness shortness of breath. At this time patient is asymptomatic. Related Data Home Medications Medication Instructions Recorded Confirmed finasteride 5 mg tablet 5 mg PO DAILY 07/18/20 12/05/20 allopurinol 100 mg tablet 100 mg PO DAILY 12/05/20 12/05/20 amlodipine 10 mg tablet 10 mg PO DAILY 12/05/20 12/05/20 atorvastatin 80 mg tablet 40 mg PO BEDTIME 12/05/20 12/05/20 clonidine HCl 0.3 mg tablet 0.6 mg PO TID 12/05/20 12/05/20 furosemide 20 mg tablet 10 mg PO QAM 12/05/20 12/05/20 hydralazine 50 mg tablet 50 mg PO QID 12/05/20 12/05/20 insulin aspart U-100 100 unit/mL 1 sliding scale dose SUBCUT QIDACHS 12/05/20 12/05/20 subcutaneous solution insulin glargine 100 unit/mL (3 50 unit SUBCUT BEDTIME 12/05/20 12/05/20 mL) subcutaneous pen (Lantus Solostar U-100 Insulin) labetalol 200 mg tablet 400 mg PO TID 12/05/20 12/05/20 Previous Rx's Medication Instructions Recorded albuterol sulfate 90 mcg/actuation 2 puff INHALATION Q6H PRN #8.5 g 12/09/20 aerosol inhaler aspirin 81 mg tablet,delayed 81 mg PO DAILY #30 tab 12/09/20 release doxycycline hyclate 100 mg tablet 100 mg PO DAILY #10 tab 12/09/20 hydrocodone 5 mg-acetaminophen 325 1 tab PO Q4-6H PRN #5 tab 02/13/21 mg tablet clonidine HCl 0.2 mg tablet 0.2 mg PO TID 14 Days #42 tab 11/11/21 Allergies Allergy/AdvReac Type Severity Reaction Status Date / Time amoxicillin [AMOXICILLIN] Allergy Unknown ANAPHYLAXIS Verified 01/20/21 13:10 famotidine Allergy Unknown unknown Verified 01/20/21 13:10 hydrochlorothiazide Allergy Unknown unknown Verified 01/20/21 13:10 lisinopril [LISINOPRIL] Allergy Unknown UNKNOWN Verified 01/20/21 13:10 losartan Allergy Unknown unknown Verified 01/20/21 13:10 spironolactone Allergy Unknown unknown Verified 01/20/21 13:10 sulfamethoxazole AdvReac Intermediate C-DIFF, Verified 01/20/21 13:10 [From BACTRIM] REDUCED KIDNEY FX trimethoprim [From BACTRIM] AdvReac Intermediate C-DIFF, Verified 01/20/21 13:10 REDUCED KIDNEY FX Review of Systems Review of Systems: Constitutional : No Weight loss, No Fever, No Chills, No Night Sweats, No Fatigue, No Malaise ENT/Mouth : No Hearing loss, No Ear Pain, No Nasal Congestion, No Sinus Pain, No Hoarseness, No sore throat, No Rhinorrhea, No Swallowing Difficulty Eyes: No Eye Pain, No Swelling, No Redness, No Foreign Body, No Discharge, No Vision Changes Cardiovascular : No Chest Pain, No SOB, No Dyspnea on Exertion, No Orthopnea, No Edema, No Palpitations Respiratory : No Cough, No Sputum, No Wheezing, No Smoke Exposure, No Dyspnea Gastrointestinal : No Nausea, No Vomiting, No Diarrhea, No Constipation, No abdominal Pain, No Hematochezia, No Melena Genitourinary : no irregular bleeding, No Dysuria, No Urinary Frequency, No Hematuria, No Urinary Incontinence, No Urgency, No Flank Pain, No Urinary Flow Changes, No Hesitancy Musculoskeletal : No joint pain, No Myalgias, No Joint Swelling Skin : No Skin Lesions, No rash Neuro : No Weakness, No Numbness, No Paresthesias, loss of consciousness, no dizziness, no headache Psych : No Anxiety/Panic, No Depression, No SI/HI/AH/VH, No Social Issues, Heme/Lymph: No Bruising, No Bleeding,No Lymphadenopathy Endocrine : No Polyuria, No Polydipsia, No Temperature Intolerance PMFSH Past Medical History Medical History Acute cystitis without hematuria Bacteremia Bladder outlet obstruction Chronic kidney disease, stage II (mild) COPD exacerbation Diabetes Fever HTN (hypertension) Incomplete emptying of bladder Morbid obesity CHAYITO (obstructive sleep apnea) CHAYITO on CPAP Prostate cancer Pure hypercholesterolemia Weak urinary stream Surgical History History of surgery Social History Social History (Updated 01/20/21 @ 13:10 by Hermila Cho) Household Members: Spouse Housing: House Do you presently have visiting nurse or other home services: Yes Alcohol intake: never Patient Tobacco Use Status: Former Tobacco user Use of substances other than those prescribed or required for medical reasons: No Advance Directives: No Advance Directives Information Provided: No service: Yes 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 Oriented X3. No acute distress. Eyes: Pupils equal, round and reactive to light. ENT: Pharynx normal. Neck: Normal inspection. Neck supple. No lymph nodes noted. No crepitus CVS: Normal heart rate and rhythm. Pulses normal. Normal S1 and S2 Respiratory: No respiratory distress. Breath sounds normal. No Wheezing. No rales Abdomen: Soft and nontender. No rigidity. No distention. Skin: Skin warm and dry. Normal skin color. Normal skin turgor. Extremities: No lower extremity edema. No lower extremity edema. No Lacerations. No Rash Neuro: Oriented X 3. No motor deficit. No sensory deficit. Moving all extermities. No slurred speech. Course Course Course Narrative: Patient's orthostatic vitals are positive as expected. However blood pressure is on the higher side. I discussed the patient's blood medications with Dr. Cristobal from Nephrology. Recommendations: Decrease clonidine from 0.6 mg t.i.d. to 0.2 t.i.d. 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 Troponin x2 negative MDM - Syncope Lab Data Result diagrams: 05/08/21 11:29 05/08/21 11:29 Labs: Lab Results 05/08/21 05/08/21 05/08/21 Range/Units 11:29 11:29 11:29 WBC 6.7 (4.8-10.8) X10*3/uL RBC 3.63 L (4.60-5.80) X10*6/uL Hgb 11.3 L (14.0-18.0) g/dl Hct 34.5 L (42.0-52.0) % MCV 95.0 (80.0-98.0) fL MCH 31.1 (27.0-33.0) pg MCHC 32.8 (31.0-36.0) g/dl RDW 13.2 (11.0-16.0) % Plt Count 158 L (160-400) X10*3/uL MPV 10.2 (9.4-12.4) fL Immature Gran % (Auto) 0.4 (0.0-0.4) % Neut % (Auto) 75.4 H (45-73) % Lymph % (Auto) 11.7 L (20-40) % [place] % (Auto) 9.0 (2-11) % Eos % (Auto) 3.1 (0-4) % Baso % (Auto) 0.4 (0-2) % Lymph # (Auto) 0.8 L (1.2-4.9) X10*3/uL [place] # (Auto) 0.6 (0.1-1.2) X10*3/uL Eos # (Auto) 0.2 (0.0-0.4) X10*3/uL Baso # (Auto) 0.0 (0.0-0.2) X10*3/uL Abs Immat Gran (auto) 0.03 (0.00-0.03) X10*3/uL Absolute Neuts (auto) 5.0 (2.0-8.3) x10*3/uL Absolute Nucleated RBC 0.000 (0.0-0.012) X10*3/uL Nucleated RBC % (auto) 0.0 (0.0-0.2) /100WBC Sodium 138 (135-145) mmol/L Potassium 3.9 (3.3-5.1) mmol/L Chloride 105 (96-108) mmol/L Carbon Dioxide 27 (22-29) mmol/L Anion Gap 10 L (12-20) BUN 40 H (9-16) mg/dL Creatinine 2.64 H (0.5-1.4) mg/dL Estim Creat Clear Calc 27.1 Estimated GFR 23 Random Glucose 167 H D (60-115) mg/dL Calcium 9.8 (8.4-10.2) mg/dL Total Bilirubin 0.5 (0.0-1.0) mg/dL AST 19 (5-37) U/L ALT 22 (0-40) U/L Alkaline Phosphatase 92 (39-117) U/L Troponin I High Sens 23.9 (<3.5-35.0) ng/L Total Protein 5.0 L (6.5-8.0) g/dL Albumin 3.4 L (3.5-5.0) g/dL 05/08/21 Range/Units 14:21 WBC (4.8-10.8) X10*3/uL RBC (4.60-5.80) X10*6/uL Hgb (14.0-18.0) g/dl Hct (42.0-52.0) % MCV (80.0-98.0) fL MCH (27.0-33.0) pg MCHC (31.0-36.0) g/dl RDW (11.0-16.0) % Plt Count (160-400) X10*3/uL MPV (9.4-12.4) fL Immature Gran % (Auto) (0.0-0.4) % Neut % (Auto) (45-73) % Lymph % (Auto) (20-40) % [place] % (Auto) (2-11) % Eos % (Auto) (0-4) % Baso % (Auto) (0-2) % Lymph # (Auto) (1.2-4.9) X10*3/uL [place] # (Auto) (0.1-1.2) X10*3/uL Eos # (Auto) (0.0-0.4) X10*3/uL Baso # (Auto) (0.0-0.2) X10*3/uL Abs Immat Gran (auto) (0.00-0.03) X10*3/uL Absolute Neuts (auto) (2.0-8.3) x10*3/uL Absolute Nucleated RBC (0.0-0.012) X10*3/uL Nucleated RBC % (auto) (0.0-0.2) /100WBC Sodium (135-145) mmol/L Potassium (3.3-5.1) mmol/L Chloride (96-108) mmol/L Carbon Dioxide (22-29) mmol/L Anion Gap (12-20) BUN (9-16) mg/dL Creatinine (0.5-1.4) mg/dL Estim Creat Clear Calc Estimated GFR Random Glucose (60-115) mg/dL Calcium (8.4-10.2) mg/dL Total Bilirubin (0.0-1.0) mg/dL AST (5-37) U/L ALT (0-40) U/L Alkaline Phosphatase (39-117) U/L Troponin I High Sens 24.8 (<3.5-35.0) ng/L Total Protein (6.5-8.0) g/dL Albumin (3.5-5.0) g/dL Imaging Data CT scan - head: Radiologist's impression: There is no evidence of acute intracranial hemorrhage or territorial infarction. No abnormal mass effect or midline shift is seen. Holder to white matter differentiation is well preserved. No extra-axial fluid collections are identified. There is prominence of ventricles, sulci, and cisterns symmetrically consistent with some degree of atrophy.. There is a region of diminished density within the left caudate head consistent with old lacunar infarct. The osseous structures and soft tissues are normal. The mastoid air cells and visualized portions of the paranasal sinuses are well aerated. ? CT/CT head/brain wo con IMPRESSION: No acute intracranial pathology. ? Findings suggestive of microangiopathy. ECG Data Attestation: I personally reviewed and interpreted this ECG as follows: (Sinus bradycardia, heart rate 56, first-degree AV block, QTC 449, QTC 449, no ST segment depression or elevation, no T-wave inversion) Discharge Plan Discharge Clinical Impression: Chronic orthostatic hypotension Patient Disposition: Home, Self-Care Instructions: Hypotension (ED) Additional Instructions: Please decrease clonidine dose to 0.2 mg 3 times a day. Please follow-up with your primary care physician tomorrow. If you have any worsening or new symptoms, please return to the emergency room or call 911 Prescriptions: New clonidine HCl 0.2 mg tablet 0.2 mg PO TID 14 Days Qty: 42 RF: 0 No Action insulin aspart U-100 100 unit/mL Solution 1 sliding scale dose SUBCUT QIDACHS RF: 0 Lantus Solostar U-100 Insulin 100 unit/mL (3 mL) Insulin Pen 50 unit SUBCUT BEDTIME RF: 0 atorvastatin 80 mg Tablet 40 mg PO BEDTIME RF: 0 labetalol 200 mg Tablet 400 mg PO TID RF: 0 clonidine HCl 0.3 mg Tablet 0.6 mg PO TID RF: 0 allopurinol 100 mg Tablet 100 mg PO DAILY RF: 0 amlodipine 10 mg Tablet 10 mg PO DAILY RF: 0 hydralazine 50 mg Tablet 50 mg PO QID RF: 0 furosemide 20 mg Tablet 10 mg PO QAM RF: 0 albuterol sulfate 90 mcg/actuation HFA aerosol inhaler 2 puff inhalation Q6H PRN (Reason: shortness of breath or wheezing) Qty: 8.5 RF: 0 doxycycline hyclate 100 mg tablet 100 mg PO DAILY Qty: 10 RF: 0 aspirin 81 mg tablet,delayed release (DR/EC) 81 mg PO DAILY Qty: 30 RF: 0 hydrocodone-acetaminophen 5-325 mg tablet 1 tab PO Q4-6H PRN (Reason: pain) Qty: 5 RF: 0 finasteride 5 mg tablet 5 mg PO DAILY RF: 0
[2021-05-08 11:42] LABS: Basophils Percent Auto 0.4 % (0-2); Eosinophils Absolute Auto 0.2 X10*3/uL (0.0-0.4); Eosinophils Percent Auto 3.1 % (0-4); Hematocrit 34.5 % (42.0-52.0); Hemoglobin 11.3 g/dl (14.0-18.0); Imm Gran Abs Auto 0.03 X10*3/uL (0.00-0.03); Imm Gran Pct Auto 0.4 % (0.0-0.4); Lymphocytes Absolute Auto 0.8 X10*3/uL (1.2-4.9); Lymphocytes Percent Auto 11.7 % (20-40); Mean Corpuscular HGB Conc 32.8 g/dl (31.0-36.0); Mean Corpuscular Hemoglobin 31.1 pg (27.0-33.0); Mean Platelet Volume 10.2 fL (9.4-12.4); Monocytes Absolute Auto 0.6 X10*3/uL (0.1-1.2); Neutrophils Percent Auto 75.4 % (45-73); Platelet Count 158 X10*3/uL (160-400); Red Blood Count 3.63 X10*6/uL (4.60-5.80); Red Cell Distribution Width 13.2 % (11.0-16.0); White Blood Count 6.7 X10*3/uL (4.8-10.8)
[2021-05-08 11:54] LABS: Alanine Aminotransferase 22 U/L (0-40); Albumin Level 3.4 g/dL (3.5-5.0); Alkaline Phosphatase 92 U/L (39-117); Anion Gap 10 (12-20); Aspartate Amino Transferase 19 U/L (5-37); Bilirubin Total 0.5 mg/dL (0.0-1.0); Blood Urea Nitrogen 40 mg/dL (9-16); Calcium 9.8 mg/dL (8.4-10.2); Carbon Dioxide 27 mmol/L (22-29); Chloride 105 mmol/L (96-108); Creatinine Clr Calc Pharmacy 27.1; Estimated Glomerular Filt Rate 23; Glucose Random 167 mg/dL (60-115); Potassium 3.9 mmol/L (3.3-5.1); Sodium 138 mmol/L (135-145)
[2021-05-08 12:01] LABS: Troponin-I High Sensitivity 23.9 ng/L (<3.5-35.0)
[2021-05-08 12:54] VITALS: BP 213/72; PULSE 61
[2021-05-08 12:55] VITALS: O2SAT 100
[2021-05-08 13:00] VITALS: BP 198/70; PULSE 77
[2021-05-08 13:01] VITALS: BP 163/79; PULSE 71
[2021-05-08 14:47] LABS: Troponin-I High Sensitivity 24.8 ng/L (<3.5-35.0)
== END 2021-05-08 15:25 | disposition home or self-care (01) ==
PROVIDERS: Emergency Provider Emergency Medicine; PCP Internal Medicine
DX: I95.1 Orthostatic hypotension (principal); E11.22 Type 2 diabetes mellitus with diabetic chronic kidney disease; I12.9 Hypertensive chronic kidney disease with stage 1 through stage 4 chronic kidney disease, or unspecified chronic kidney disease; N18.2 Chronic kidney disease, stage 2 (mild); J44.9 Chronic obstructive pulmonary disease, unspecified
CPT/HCPCS: 36415; 70450; 80053; 84484; 85025; 93005; 99284; 99285

== ENCOUNTER 2021-07-11 07:09 | Outpatient (REF) | payer OTHER, SELFPAY | END 2021-07-11 07:10 | disposition home or self-care (01) | LOC: HO.LAB 07:09 | PROVIDERS: PCP Internal Medicine; Visit Provider Urology | DX: C61 Malignant neoplasm of prostate (principal) | CPT/HCPCS: 36415; 84153 ==

== ENCOUNTER → 2021-07-18 10:19 | Outpatient (BNVA) | payer MEDICARE, OTHER, SELFPAY | PROVIDERS: PCP Internal Medicine; Visit Provider Urology | DX: R97.20 Elevated prostate specific antigen [PSA] (principal) | CPT/HCPCS: Q3014 ==

== ENCOUNTER 2021-09-02 17:50 | Inpatient (IN) | payer OTHER, MEDICARE, SELFPAY ==
--- NOTE | ~2021-09-02 | NM_ITS ---
Myocardial perfusion study Indication: NSTEMI To evaluate for myocardial ischemia Technique: The patient was brought in for a Lexiscan perfusion study on 09/05/2021. Patient performed low-level exercise and was injected 0.4 mg of Lexiscan intravenously. Within a minute of injection, 40 mCi of sestamibi was given intravenously. Images were obtained using the SPECT gamma camera interlaced with the gating device. Images were obtained in supine position. Resting perfusion study was performed on 09/04/2021. Patient was administered 40 mCi of sestamibi intravenously at rest. Images were then obtained in supine position. Images obtained with and without CT attenuation. Total DLP 197 mGy-cm. Images were processed with the software and compared side to side in short axis, horizontal long axis and vertical long axis views. Findings: The stress perfusion study showed non attenuated images shows thinning of the lateral and basal inferior and basal inferior wall of the LV myocardium. Remainder of the LV myocardium is normally perfused. Attenuated corrected images show minimally reduced uptake in the distal anterior and mildly reduced uptake in the apex of the LV myocardium. The gated study shows normal LV systolic function with calculated LVEF of 52%. LV cavity is normal in size. The gated study shows normal systolic wall thickening and contraction of segments. Resting study shows attenuated corrected images show no change in perfusion pattern compared to stress perfusion study. Non attenuated images.. Gating at rest reveals normal systolic wall motion with ejection fraction at 59%. The findings are consistent with equivocal findings with non attenuated images but attenuated corrected images show no clear reversible defect. Likely normal myocardial perfusion. NM/NM kelvin perf SPECT rest & str Impression: 1. Myocardial perfusion imaging study shows likely normal myocardial perfusion 2. Gated LVEF is 59% 3. Transient ischemic dilatation not present EKG is nondiagnostic for ischemia
--- NOTE | ~2021-09-02 | XR_ITS ---
EXAMINATION: XR CHEST CLINICAL INFORMATION: Chest COMPARISON: 12/05/2020 TECHNIQUE: Frontal view of the chest was obtained. FINDINGS: No significant abnormality is noted involving the heart, lungs, mediastinum, bony thorax or soft tissues. Compared to the prior study, there is better pulmonary expansion. XR/XR chest 1V IMPRESSION: No acute intrathoracic disease.
[2021-09-02 17:55] VITALS: BP 176/80; PULSE 72; O2SAT 96
[2021-09-02 17:58] VITALS: BP 203/58; PULSE 65; RESP 18; TEMP 37; O2SAT 97; BMI 44.5
--- NOTE | 2021-09-02 18:07 | ED_ITS ---
HPI - Chest Pain General Chief Complaint: Chest Pain Stated Complaint: chest pain Source: patient, family and EMS Mode of arrival: EMS Limitations: no limitations History of Present Illness HPI narrative: 81-year-old male presents via EMS for intermittent bilateral peripheral chest pain started about a week ago. Patient does report a fall on ice 1 week ago without any significant injury. He does have intermittent shortness of breath per baseline as he does have COPD and CHAYITO. MD complaint: chest pain and chest discomfort Pertinent past history: coronary artery disease Onset (ago): week(s) (1) Timing of current episode: constant and still present Prior episodes: Yes Onset: during rest and during exertion Pain location: left chest and right chest Pain radiation: none Severity: moderate Pain scale (0-10): 5 Quality: aching Relieving factors: nothing Exacerbating factors: inspiration and palpation Context: trauma/injury (Fall 1 week ago) Associated symptoms: dyspnea, palpitations and leg swelling Treatment prior to arrival: aspirin Risk Factors Coronary artery disease risk factors: diabetes, hyperlipidemia and hypertension Thoracic aortic dissection risk factors: longstanding hypertension Pulmonary embolism risk factors: morbid obesity Related Data Home Medications Medication Instructions Recorded Confirmed allopurinol 100 mg tablet 100 mg PO DAILY 12/05/20 09/02/21 amlodipine 10 mg tablet 10 mg PO DAILY 12/05/20 09/02/21 atorvastatin 80 mg tablet 40 mg PO BEDTIME 12/05/20 09/02/21 hydralazine 50 mg tablet 50 mg PO TID 12/05/20 09/02/21 insulin aspart U-100 100 unit/mL 1 sliding scale dose SUBCUT QIDACHS 12/05/20 09/02/21 subcutaneous solution insulin glargine 100 unit/mL (3 50 unit SUBCUT BEDTIME 12/05/20 09/02/21 mL) subcutaneous pen (Lantus Solostar U-100 Insulin) aspirin 81 mg tablet,delayed 81 mg PO BEDTIME 09/02/21 09/02/21 release cholecalciferol (vitamin D3) 25 25 mcg PO DAILY 09/02/21 09/02/21 mcg (1,000 unit) tablet clonidine HCl 0.2 mg tablet 0.2 mg PO BID 09/02/21 09/02/21 ferrous sulfate 324 mg (65 mg 324 mg PO DAILY 09/02/21 09/02/21 iron) tablet,delayed release labetalol 100 mg tablet 100 mg PO BID 09/02/21 09/02/21 multivitamin 1 tab PO DAILY 09/02/21 09/02/21 Previous Rx's Medication Instructions Recorded albuterol sulfate 90 mcg/actuation 2 puff INHALATION Q6H PRN #8.5 g 12/09/20 aerosol inhaler finasteride 5 mg tablet 5 mg PO DAILY 90 Days #90 tab 07/18/21 Allergies Allergy/AdvReac Type Severity Reaction Status Date / Time amoxicillin [AMOXICILLIN] Allergy Unknown ANAPHYLAXIS Verified 09/02/21 17:58 famotidine Allergy Unknown unknown Verified 09/02/21 17:58 hydrochlorothiazide Allergy Unknown unknown Verified 09/02/21 17:58 lisinopril [LISINOPRIL] Allergy Unknown UNKNOWN Verified 09/02/21 17:58 losartan Allergy Unknown unknown Verified 09/02/21 17:58 spironolactone Allergy Unknown unknown Verified 09/02/21 17:58 sulfamethoxazole AdvReac Intermediate C-DIFF, Verified 09/02/21 17:58 [From BACTRIM] REDUCED KIDNEY FX trimethoprim [From BACTRIM] AdvReac Intermediate C-DIFF, Verified 09/02/21 17:58 REDUCED KIDNEY FX Review of Systems Review of Systems: Constitutional: No Weight loss, No Fever, No Chills, No Night Sweats, No Fatigue, No Malaise ENT/Mouth: No Hearing loss, No Ear Pain, No Nasal Congestion, No Sinus Pain, No Hoarseness, No sore throat, No Rhinorrhea, No Swallowing Difficulty Eyes: No Eye Pain, No Swelling, No Redness, No Foreign Body, No Discharge, No Vision Changes Cardiovascular: Positive Chest Pain, positive SOB, positive Dyspnea on Exertion, No Orthopnea, positive Edema, positive Palpitations Respiratory: No Cough, No Sputum, No Wheezing, No Smoke Exposure, No Dyspnea Gastrointestinal: Now Nausea, No Vomiting, No Diarrhea, No abdominal Pain, No Hematochezia, No Melena Genitourinary: No irregular bleeding, No Dysuria, No Urinary Frequency, No Hematuria, No Urinary Incontinence, No Urgency, No Flank Pain, No Urinary Flow Changes, No Hesitancy Musculoskeletal: No joint pain, No Myalgias, No Joint Swelling Skin: No Skin Lesions, No rash Neuro: No Weakness, No Numbness, No Paresthesias, No Loss of Consciousness, No Dizziness, No Headache Psych: No Anxiety/Panic, No Depression, No SI/HI/AH/VH Heme/Lymph: No Bruising, No Bleeding,No Lymphadenopathy Endocrine: No Polyuria, No Polydipsia, No Temperature Intolerance Yes all other systems are reviewed and are negative [facility] Past Medical History Attestation statement: The following information was validated with the patient. Source: old records reviewed Medical History Acute cystitis without hematuria Bacteremia Bladder outlet obstruction Chronic kidney disease, stage II (mild) COPD exacerbation Diabetes Fever HTN (hypertension) Incomplete emptying of bladder Morbid obesity CHAYITO (obstructive sleep apnea) CHAYITO on CPAP Prostate cancer Pure hypercholesterolemia Weak urinary stream Surgical History History of surgery Social History Social History Household Members: Spouse Housing: House Do you presently have visiting nurse or other home services: Yes Alcohol intake: never Patient Tobacco Use Status: Former Tobacco user Advance Directives: Yes Advance Directives Information Provided: No Advance Directives on File: No service: Yes 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 Physical Exam Vital Signs: Vital Signs: Last Vital Signs Temp 98.6 F 09/02/21 23:28 Pulse 59 09/02/21 23:28 Resp 16 09/02/21 23:28 BP 187/64 H 09/02/21 23:28 Pulse Ox 97 09/02/21 23:28 BMI result Body Mass Index 44.5 Appearance: Alert. Oriented X3. No acute distress. Eyes: Pupils equal, round and reactive to light. EOMI. Sclera nonicteric. ENT: Pharynx normal. Moist mucous membranes. Neck: Normal inspection. Neck supple. No JVD. CVS: Normal heart rate and rhythm. Apical pulse good pulses to extremities. Respiratory: No respiratory distress. Breath sounds normal. Abdomen: Soft and nontender. Morbidly obese. Skin: Skin warm and dry. Normal skin color. Normal skin turgor. Extremities: +2 bilateral lower pitting edema. Moves all extremities against resistance. Neuro: No motor deficit. No sensory deficit. Cranial nerves 2-12 intact. Course Course Course Narrative: 81-year-old male presents via EMS for bilateral peripheral chest pain. Patient states he feels it is more of a soreness and aching. He does report shortness of breath on exertion per baseline as he does have COPD, renal failure, and CHAYITO. He was given 324 mg of aspirin on transit. He does report a fall approximately a week ago on the ice but does not report any injury from that event. Did not report a prolonged down time for any prodromal events, he slipped on the ice, did not hit his head or lose consciousness. Will order labs, rule out ACS. 19:00. H&H 11.7/35.8 which is consistent with prior values, 1st troponin 50.4. Will repeat. Patient did receive aspirin on transit. 22:00 2nd troponin 92.2, repeat EKG does not show any ST elevations or de pressions this time however he does have fascicular block which may be hiding ischemia. Discussion with Dr. Servin via tiger text, plan of care is to admit for ACS workup. 22:10 p.m.. discussion with hospitalist, plan of care is to admit for chest pain with elevated troponin, ACS workup. 00:22 troponin elevated at 318.3. Discussion with hospitalist regarding elevated lab levels. Consultations Consultation #1: jl Time: 22:00 Consultation #2: Porsche Time: 22:10 MDM - Chest Pain Differential Diagnosis Differential diagnosis: Likely fracture of rib, pneumothorax, unstable angina pectoris, atypical chest pain, st elevation myocardial infarction and chest pain Medical Records Data Attestation: I reviewed the patient's medical records. Lab Data Attestation: I reviewed the patient's lab results. Result diagrams: 09/02/21 18:29 09/02/21 18:29 Labs: Lab Results 09/02/21 09/02/21 09/02/21 Range/Units 18:29 18:29 18:29 WBC 8.2 (4.8-10.8) X10*3/uL RBC 3.84 L (4.60-5.80) X10*6/uL Hgb 11.7 L (14.0-18.0) g/dl Hct 35.8 L (42.0-52.0) % MCV 93.2 (80.0-98.0) fL MCH 30.5 (27.0-33.0) pg MCHC 32.7 (31.0-36.0) g/dl RDW 13.6 (11.0-16.0) % Plt Count 162 (160-400) X10*3/uL MPV 10.8 (9.4-12.4) fL Immature Gran % (Auto) 0.5 H (0.0-0.4) % Neut % (Auto) 76.9 H (45-73) % Lymph % (Auto) 11.1 L (20-40) % [place] % (Auto) 8.0 (2-11) % Eos % (Auto) 2.9 (0-4) % Baso % (Auto) 0.6 (0-2) % Lymph # (Auto) 0.9 L (1.2-4.9) X10*3/uL [place] # (Auto) 0.7 (0.1-1.2) X10*3/uL Eos # (Auto) 0.2 (0.0-0.4) X10*3/uL Baso # (Auto) 0.1 (0.0-0.2) X10*3/uL Abs Immat Gran (auto) 0.04 H (0.00-0.03) X10*3/uL Absolute Neuts (auto) 6.3 (2.0-8.3) x10*3/uL Absolute Nucleated RBC 0.000 (0.0-0.012) X10*3/uL Nucleated RBC % (auto) 0.0 (0.0-0.2) /100WBC PT (9.9-13.0) SEC INR (0.9-1.1) Sodium 141 (135-145) mmol/L Potassium 4.4 (3.3-5.1) mmol/L Chloride 109 H (96-108) mmol/L Carbon Dioxide 25 (22-29) mmol/L Anion Gap 11 L (12-20) BUN 36 H (9-16) mg/dL Creatinine 2.51 H (0.5-1.4) mg/dL Estim Creat Clear Calc 30.2 Estimated GFR 25 Random Glucose 223 H (60-115) mg/dL Calcium 9.5 (8.4-10.2) mg/dL Troponin I High Sens 50.4 H (<3.5-35.0) ng/L B-Natriuretic Peptide (<100) pg/mL Urine Color Urine Appearance Urine pH (5.0-8.0) Ur Specific [place] (1.005-1.025) Urine Protein (NEG-TRACE) MG/DL Urine Glucose (UA) (NEG) MG/DL Urine Ketones (NEG) MG/DL Urine Blood (NEG) Urine Nitrite (NEG) Ur Leukocyte Esterase (NEG) Urine RBC (0) /HPF Urine WBC (0-4) /HPF Ur Squamous Epith Cells /LPF Urine Bacteria /LPF COVID-19 (YANDEL) (Negative) COVID-19 Clin Com 09/02/21 09/02/21 09/02/21 Range/Units 18:29 18:29 19:03 WBC (4.8-10.8) X10*3/uL RBC (4.60-5.80) X10*6/uL Hgb (14.0-18.0) g/dl Hct (42.0-52.0) % MCV (80.0-98.0) fL MCH (27.0-33.0) pg MCHC (31.0-36.0) g/dl RDW (11.0-16.0) % Plt Count (160-400) X10*3/uL MPV (9.4-12.4) fL Immature Gran % (Auto) (0.0-0.4) % Neut % (Auto) (45-73) % Lymph % (Auto) (20-40) % [place] % (Auto) (2-11) % Eos % (Auto) (0-4) % Baso % (Auto) (0-2) % Lymph # (Auto) (1.2-4.9) X10*3/uL [place] # (Auto) (0.1-1.2) X10*3/uL Eos # (Auto) (0.0-0.4) X10*3/uL Baso # (Auto) (0.0-0.2) X10*3/uL Abs Immat Gran (auto) (0.00-0.03) X10*3/uL Absolute Neuts (auto) (2.0-8.3) x10*3/uL Absolute Nucleated RBC (0.0-0.012) X10*3/uL Nucleated RBC % (auto) (0.0-0.2) /100WBC PT 11.1 (9.9-13.0) SEC INR 1.0 (0.9-1.1) Sodium (135-145) mmol/L Potassium (3.3-5.1) mmol/L Chloride (96-108) mmol/L Carbon Dioxide (22-29) mmol/L Anion Gap (12-20) BUN (9-16) mg/dL Creatinine (0.5-1.4) mg/dL Estim Creat Clear Calc Estimated GFR Random Glucose (60-115) mg/dL Calcium (8.4-10.2) mg/dL Troponin I High Sens (<3.5-35.0) ng/L B-Natriuretic Peptide 81 (<100) pg/mL Urine Color YELLOW Urine Appearance CLEAR Urine pH 6.0 (5.0-8.0) Ur Specific [place] 1.020 (1.005-1.025) Urine Protein 3+ H (NEG-TRACE) MG/DL Urine Glucose (UA) 100 H (NEG) MG/DL Urine Ketones NEG (NEG) MG/DL Urine Blood NEG (NEG) Urine Nitrite NEG (NEG) Ur Leukocyte Esterase NEG (NEG) Urine RBC 0-2 (0) /HPF Urine WBC 0-2 (0-4) /HPF Ur Squamous Epith Cells 2+ /LPF Urine Bacteria NONE /LPF COVID-19 (YANDEL) (Negative) COVID-19 Clin Com 09/02/21 09/02/21 Range/Units 20:42 22:33 WBC (4.8-10.8) X10*3/uL RBC (4.60-5.80) X10*6/uL Hgb (14.0-18.0) g/dl Hct (42.0-52.0) % MCV (80.0-98.0) fL MCH (27.0-33.0) pg MCHC (31.0-36.0) g/dl RDW (11.0-16.0) % Plt Count (160-400) X10*3/uL MPV (9.4-12.4) fL Immature Gran % (Auto) (0.0-0.4) % Neut % (Auto) (45-73) % Lymph % (Auto) (20-40) % [place] % (Auto) (2-11) % Eos % (Auto) (0-4) % Baso % (Auto) (0-2) % Lymph # (Auto) (1.2-4.9) X10*3/uL [place] # (Auto) (0.1-1.2) X10*3/uL Eos # (Auto) (0.0-0.4) X10*3/uL Baso # (Auto) (0.0-0.2) X10*3/uL Abs Immat Gran (auto) (0.00-0.03) X10*3/uL Absolute Neuts (auto) (2.0-8.3) x10*3/uL Absolute Nucleated RBC (0.0-0.012) X10*3/uL Nucleated RBC % (auto) (0.0-0.2) /100WBC PT (9.9-13.0) SEC INR (0.9-1.1) Sodium (135-145) mmol/L Potassium (3.3-5.1) mmol/L Chloride (96-108) mmol/L Carbon Dioxide (22-29) mmol/L Anion Gap (12-20) BUN (9-16) mg/dL Creatinine (0.5-1.4) mg/dL Estim Creat Clear Calc Estimated GFR Random Glucose (60-115) mg/dL Calcium (8.4-10.2) mg/dL Troponin I High Sens 92.2 H D (<3.5-35.0) ng/L B-Natriuretic Peptide (<100) pg/mL Urine Color Urine Appearance Urine pH (5.0-8.0) Ur Specific [place] (1.005-1.025) Urine Protein (NEG-TRACE) MG/DL Urine Glucose (UA) (NEG) MG/DL Urine Ketones (NEG) MG/DL Urine Blood (NEG) Urine Nitrite (NEG) Ur Leukocyte Esterase (NEG) Urine RBC (0) /HPF Urine WBC (0-4) /HPF Ur Squamous Epith Cells /LPF Urine Bacteria /LPF COVID-19 (YANDEL) Negative (Negative) COVID-19 Clin Com See Note Imaging Data Chest x-ray: Attestation: I personally reviewed and interpreted this imaging study as follows: Radiologist's impression: EXAMINATION: XR CHEST CLINICAL INFORMATION: Chest COMPARISON: 12/05/2020 TECHNIQUE: Frontal view of the chest was obtained. FINDINGS: No significant abnormality is noted involving the heart, lungs, mediastinum, bony thorax or soft tissues. Compared to the prior study, there is better pulmonary expansion. XR/XR chest 1V IMPRESSION: No acute intrathoracic disease. ? ECG Data ECG #1: Attestation: I personally reviewed and interpreted this ECG as follows: ECG interpretation date: 09/02/21 ECG interpretation time: 18:48 Prior ECG tracings: available for review Interpretation: Vent. rate 59 BPM DE interval 280 ms QRS duration 106 ms QT/QTc 434/429 ms P-R-T axes 39 -64 69 Sinus bradycardia with 1st degree A-V block Pulmonary disease pattern Incomplete right bundle branch block Left anterior fascicular block Abnormal ECG When compared with ECG of 08-MAY-2021 14:33, Incomplete right bundle branch block is now Present ECG #2: Attestation: I personally reviewed and interpreted this ECG as follows: ECG interpretation date: 09/02/21 ECG interpretation time: 21:38 Prior ECG tracings: available for review Interpretation: Vent. rate 63 BPM DE interval 278 ms QRS duration 104 ms QT/QTc 424/433 ms P-R-T axes 34 -65 69 Sinus rhythm with 1st degree A-V block Incomplete right bundle branch block Left anterior fascicular block Cannot rule out Inferior infarct (masked by fascicular block?) , age undetermined Cannot rule out Anterior infarct , age undetermined Abnormal ECG When compared with ECG of 02-SEP-2021 18:48, No significant change was found Scores Heart Score History: -2- highly suspicious ECG: -1- non specific repolarization disturbance Age: -2- > or = 65 Risk factory: -2- 3 or more risk factors or treated atherosclerosis Troponin: -1- >1 - <3x normal limit Score: 8 Risk: 50.1% Critical Care Time Critical Care Time Critical Care Time: Yes Total Critical Care Time: 45 Attestation: I have personally provided critical care time exclusive of time spent on separately billable procedures. Time includes review of laboratory data, radiology results, discussion with consultants, and monitoring for potential decompensation. Interventions were performed as documented. Discharge Plan Discharge Clinical Impression: Chest pain, ACS (acute coronary syndrome) Patient Disposition: Admitted As Inpatient
--- NOTE | 2021-09-02 18:17 | ECG_ITS ---
Test Reason : CHEST PAIN Blood Pressure : / mmHG Vent. Rate : 059 BPM Atrial Rate : 059 BPM P-R Int : 280 ms QRS Dur : 106 ms QT Int : 434 ms P-R-T Axes : 039 -64 069 degrees QTc Int : 429 ms Sinus bradycardia with 1st degree A-V block Pulmonary disease pattern Incomplete right bundle branch block Left anterior fascicular block Abnormal ECG When compared with ECG of 08-MAY-2021 14:33, Incomplete right bundle branch block is now Present Referred By: Laura Rodriguez Electronically Signed By:ROXANNE CONLEY MD
[2021-09-02 18:21] VITALS: BP 178/68; PULSE 66; RESP 18; O2SAT 97
[2021-09-02 18:38] LABS: MANUAL DIFF FLAG NO
[2021-09-02 18:40] LABS: Basophils Absolute Auto 0.1 X10*3/uL (0.0-0.2); Basophils Percent Auto 0.6 % (0-2); Eosinophils Absolute Auto 0.2 X10*3/uL (0.0-0.4); Eosinophils Percent Auto 2.9 % (0-4); Hematocrit 35.8 % (42.0-52.0); Hemoglobin 11.7 g/dl (14.0-18.0); Imm Gran Abs Auto 0.04 X10*3/uL (0.00-0.03); Imm Gran Pct Auto 0.5 % (0.0-0.4); Lymphocytes Absolute Auto 0.9 X10*3/uL (1.2-4.9); Lymphocytes Percent Auto 11.1 % (20-40); Mean Corpuscular HGB Conc 32.7 g/dl (31.0-36.0); Mean Corpuscular Hemoglobin 30.5 pg (27.0-33.0); Mean Corpuscular Volume 93.2 fL (80.0-98.0); Mean Platelet Volume 10.8 fL (9.4-12.4); Monocytes Absolute Auto 0.7 X10*3/uL (0.1-1.2); Neutrophils Absolute Auto 6.3 x10*3/uL (2.0-8.3); Neutrophils Percent Auto 76.9 % (45-73); Platelet Count 162 X10*3/uL (160-400); Red Blood Count 3.84 X10*6/uL (4.60-5.80); Red Cell Distribution Width 13.6 % (11.0-16.0); White Blood Count 8.2 X10*3/uL (4.8-10.8)
[2021-09-02 18:47] LABS: Prothrombin Time 11.1 SEC (9.9-13.0)
[2021-09-02 19:01] LABS: Anion Gap 11 (12-20); Blood Urea Nitrogen 36 mg/dL (9-16); Calcium 9.5 mg/dL (8.4-10.2); Carbon Dioxide 25 mmol/L (22-29); Chloride 109 mmol/L (96-108); Creatinine Clr Calc Pharmacy 30.2; Estimated Glomerular Filt Rate 25; Glucose Random 223 mg/dL (60-115); Potassium 4.4 mmol/L (3.3-5.1); Sodium 141 mmol/L (135-145)
[2021-09-02 19:06] LABS: B Type Natriuretic Peptide 81 pg/mL (<100); Troponin-I High Sensitivity 50.4 ng/L (<3.5-35.0)
[2021-09-02 19:16] LABS: Appearance Urine CLEAR; Color Urine YELLOW; Glucose Urine UA 100 MG/DL (NEG); Leukocyte Esterase Urine NEG (NEG); Nitrite Urine NEG (NEG); UACC Culture Trigger NO; Urine Blood NEG (NEG); Urine Ketones NEG (NEG); Urine Protein 3+ MG/DL (NEG-TRACE)
[2021-09-02 19:25] LABS: WBC Urine 0-2 /HPF (0-4)
[2021-09-02 19:26] LABS: RBC Urine 0-2 /HPF (0); Squamous Epithelial Cell Urine 2+ /LPF
[2021-09-02 20:45] VITALS: BP 178/61; PULSE 60; RESP 16; O2SAT 97
[2021-09-02 21:13] LABS: Troponin-I High Sensitivity 92.2 ng/L (<3.5-35.0)
--- NOTE | 2021-09-02 21:38 | ECG_ITS ---
Test Reason : repeat due to elev trop Blood Pressure : / mmHG Vent. Rate : 063 BPM Atrial Rate : 063 BPM P-R Int : 278 ms QRS Dur : 104 ms QT Int : 424 ms P-R-T Axes : 034 -65 069 degrees QTc Int : 433 ms Sinus rhythm with 1st degree A-V block Incomplete right bundle branch block Left anterior fascicular block Cannot rule out Inferior infarct (masked by fascicular block?) , age undetermined Cannot rule out Anterior infarct , age undetermined Abnormal ECG When compared with ECG of 02-SEP-2021 18:48, No significant change was found Referred By: Laura Rodriguez Electronically Signed By:ROXANNE CONLEY MD
--- NOTE | 2021-09-02 22:35 | PHA.MEDREC ---
Pharmacy Consult ? Medication Reconciliation Pharmacy has completed the medication reconciliation. SPOKE TO PATIENT'S WHO HAD ALL MEDICATION BOTTLES WITH HER; WENT THROUGH ALL MEDICATIONS WITH HER. [facility] SINCE HAD MEDICATION BOTTLES AND SHE SAID THERE HAD BEEN MULTIPLE CHANGES TO HIS CARDIAC MEDS.
[2021-09-02 22:55] LABS: COVID-19 Test Negative (Negative); IDNOW Serial# 16C4AD1C
--- NOTE | 2021-09-02 23:11 | PM.IMHP ---
History of Present Illness Date of Service: 09/02/21 Chief Complaint: chest pain this is an 81-year-old male with past medical history of COPD, DM, CHAYITO on CPAP, hyperlipidemia, hypertension, who presents to the hospital with complaints of chest pain. Patient describes the pain as discomfort in his chest bilaterally, started around 14:00, has remained constant, feels like 'solid pain, nonradiating, 5/10, received aspirin in the ED will some relief. He reports no shortness of breath, no PND orthopnea, no cough, no fever chills but reports lower extremity edema that he noticed for few days now. He denies any nausea vomiting no abdominal pain, no diarrhea constipation, no urinary symptoms and no headache or change in vision. No numbness or tingling. On arrival to the ED patient vitals are significant for blood pressure of 203/58, otherwise unremarkable, labs are significant for initial troponin of 50 that increased to 92, a subsequently increased to 318, he has a creatinine of 2.51 which is his baseline. UA is negative. of note patient reports that he did fall on ice about 2 weeks ago Initial EKG showed sinus bradycardia with first-degree AV block, with no significant ST T-wave changes suggestive of ACS Review of Systems Review of Systems: Yes all other systems are reviewed and are negative [facility] Medical History Acute cystitis without hematuria Bacteremia Bladder outlet obstruction Chronic kidney disease, stage II (mild) COPD exacerbation Diabetes Fever HTN (hypertension) Incomplete emptying of bladder Morbid obesity CHAYITO (obstructive sleep apnea) CHAYITO on CPAP Prostate cancer Pure hypercholesterolemia Weak urinary stream Family History (Updated 09/03/21 @ 07:38 by Barbara Morrell MD) Mother CVA (cerebral vascular accident) Surgical History History of surgery Social History Household Members: Spouse Housing: House Do you presently have visiting nurse or other home services: Yes Alcohol intake: never Patient Tobacco Use Status: Former Tobacco user Advance Directives: Yes Advance Directives Information Provided: No Advance Directives on File: No service: Yes 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 Meds Allergies Allergy/AdvReac Type Severity Reaction Status Date / Time amoxicillin [AMOXICILLIN] Allergy Unknown ANAPHYLAXIS Verified 09/02/21 17:58 famotidine Allergy Unknown unknown Verified 09/02/21 17:58 hydrochlorothiazide Allergy Unknown unknown Verified 09/02/21 17:58 lisinopril [LISINOPRIL] Allergy Unknown UNKNOWN Verified 09/02/21 17:58 losartan Allergy Unknown unknown Verified 09/02/21 17:58 spironolactone Allergy Unknown unknown Verified 09/02/21 17:58 sulfamethoxazole AdvReac Intermediate C-DIFF, Verified 09/02/21 17:58 [From BACTRIM] REDUCED KIDNEY FX trimethoprim [From BACTRIM] AdvReac Intermediate C-DIFF, Verified 09/02/21 17:58 REDUCED KIDNEY FX Active Medications: Current Medications Acetaminophen (Acetaminophen 325 Mg Tablet) 650 mg PO Q6H PRN PRN Reason: Pain, Mild (Pain Scale 1-3) Docusate Sodium (Docusate Sodium 100 Mg Capsule) 100 mg PO DAILY PRN PRN Reason: Constipation Enoxaparin Sodium (Enoxaparin Sodium 40 Mg/0.4 Ml Syringe) 40 mg SUBCUT Q24H [facility] Ondansetron HCl (Ondansetron Hcl 4 Mg/2 Ml Vial) 4 mg IVPUSH Q8H PRN PRN Reason: Nausea and Vomiting Sodium Chloride (0.9 % Sodium Chloride Flush 3 Ml Syringe) [facility] Medications Medication Instructions Recorded Confirmed Last Taken Type allopurinol 100 mg tablet 100 mg PO DAILY 12/05/20 09/02/21 Unknown History amlodipine 10 mg tablet 10 mg PO DAILY 12/05/20 09/02/21 Unknown History atorvastatin 80 mg tablet 40 mg PO BEDTIME 12/05/20 09/02/21 Unknown History hydralazine 50 mg tablet 50 mg PO TID 12/05/20 09/02/21 Unknown History insulin aspart U-100 100 unit/mL 1 sliding scale dose SUBCUT QIDACHS 12/05/20 09/02/21 Unknown History subcutaneous solution insulin glargine 100 unit/mL (3 50 unit SUBCUT BEDTIME 12/05/20 09/02/21 Unknown History mL) subcutaneous pen (Lantus Solostar U-100 Insulin) aspirin 81 mg tablet,delayed 81 mg PO BEDTIME 09/02/21 09/02/21 Unknown History release cholecalciferol (vitamin D3) 25 25 mcg PO DAILY 09/02/21 09/02/21 Unknown History mcg (1,000 unit) tablet clonidine HCl 0.2 mg tablet 0.2 mg PO BID 09/02/21 09/02/21 Unknown History ferrous sulfate 324 mg (65 mg 324 mg PO DAILY 09/02/21 09/02/21 Unknown History iron) tablet,delayed release labetalol 100 mg tablet 100 mg PO BID 09/02/21 09/02/21 Unknown History multivitamin 1 tab PO DAILY 09/02/21 09/02/21 Unknown History Physical Exam Vital Signs and Narrative: Vital Signs: Last Vital Signs Temp 98.6 F 09/02/21 17:58 Pulse 60 09/02/21 20:45 Resp 16 09/02/21 20:45 BP 178/61 H 09/02/21 20:45 Pulse Ox 97 09/02/21 20:45 BMI result Body Mass Index 44.5 Const: General: cooperative and no acute distress Orientation/consciousness: patient oriented x3 Eyes: General: appearance normal, both eyes and all related structures Pupils: Equal, round and reactive pupils present Resp: Effort & Inspection: normal respiratory effort Auscultation: clear to auscultation bilaterally Cardio: Rate: regular rate Rhythm: regular rhythm GI: Palpation (GI): Soft to palpation Auscultation: normal bowel sounds Skin: General skin exam: no rashes or lesions noted Neuro: General: patient oriented x3 Cranial nerves: Yes Equal, round and reactive pupils present Cognition (Neuro): normal cognition Extrem: General: Yes normal to inspection and Yes no pedal edema Results Labs CBC and Chem 7: 09/03/21 06:46 09/02/21 18:29 Labs: Laboratory Results - last 24 hr 09/02/21 09/02/21 09/02/21 18:29 18:29 18:29 MCV 93.2 MCH 30.5 MCHC 32.7 RDW 13.6 Plt Count 162 MPV 10.8 Immature Gran % (Auto) 0.5 H Neut % (Auto) 76.9 H Lymph % (Auto) 11.1 L [place] % (Auto) 8.0 Eos % (Auto) 2.9 Baso % (Auto) 0.6 Lymph # (Auto) 0.9 L [place] # (Auto) 0.7 Eos # (Auto) 0.2 Baso # (Auto) 0.1 Abs Immat Gran (auto) 0.04 H Absolute Neuts (auto) 6.3 Absolute Nucleated RBC 0.000 Nucleated RBC % (auto) 0.0 PT 11.1 INR 1.0 Anion Gap 11 L Estim Creat Clear Calc 30.2 Estimated GFR 25 Random Glucose 223 H Calcium 9.5 B-Natriuretic Peptide Urine Color Urine Appearance Urine pH Ur Specific [place] Urine Protein Urine Glucose (UA) Urine Ketones Urine Blood Urine Nitrite Ur Leukocyte Esterase Urine RBC Urine WBC Ur Squamous Epith Cells Urine Bacteria COVID-19 ([facility]) COVID-19 Clin Com 09/02/21 09/02/21 09/02/21 18:29 19:03 22:33 MCV MCH MCHC RDW Plt Count MPV Immature Gran % (Auto) Neut % (Auto) Lymph % (Auto) [place] % (Auto) Eos % (Auto) Baso % (Auto) Lymph # (Auto) [place] # (Auto) Eos # (Auto) Baso # (Auto) Abs Immat Gran (auto) Absolute Neuts (auto) Absolute Nucleated RBC Nucleated RBC % (auto) PT INR Anion Gap Estim Creat Clear Calc Estimated GFR Random Glucose Calcium B-Natriuretic Peptide 81 Urine Color YELLOW Urine Appearance CLEAR Urine pH 6.0 Ur Specific [place] 1.020 Urine Protein 3+ H Urine Glucose (UA) 100 H Urine Ketones NEG Urine Blood NEG Urine Nitrite NEG Ur Leukocyte Esterase NEG Urine RBC 0-2 Urine WBC 0-2 Ur Squamous Epith Cells 2+ Urine Bacteria NONE COVID-19 ([facility]ANDEL) Negative COVID-19 Clin Com See Note Imaging Radiologist's Impressions: Impressions Chest X-Ray 09/02/21 18:38 IMPRESSION: No acute intrathoracic disease. Assessment and Plan (1) NSTEMI (non-ST elevated myocardial infarction): Status: Acute (2) Chest pain: Status: Acute (3) Hypertensive emergency: Status: Acute Plan 81-year-old male with past medical history of hypertension, diabetes who presents to the hospital with complaints of chest pain found to have NSTEMI # chest pain - likely type 2 NSTEMI in the setting of hypertensive crisis - has elevated trop, no ekg changes suggestive of ACS, presented with blood pressure of 198/70-203/58 - will treat with IV heparin, continue aspirin, will obtain echocardiogram and consult Cardiology # hypertensive emergency - has significantly elevated blood pressure with troponin elevation - treated with labetalol with improvement in his blood pressure - will resume his home medications - monitor BP # NSTEMI - likely type 2 in the setting of hypertensive emergency - will treat with IV heparin - consult cardiology - echo # CKD - baseline - continue BMP # diabetes - continue home insulin - will add low-dose sliding scale insulin - diet # hyperlipidemia - continue statin DVT prophylaxis: Heparin GGT Quality Stroke Does the patient have a stroke diagnosis?: No VTE Prior VTE?: No VTE Risk Level:: Medical - moderate - high VTE Device Contraindication: Treatment Not Indicated VTE Drug Contraindication: N/A - Med Ordered
[2021-09-02] MEDS: Enoxaparin Sodium 40 MG/0.4 ML SYRINGE SUBCUT (23:26)
[2021-09-02] MEDS: 0.9 % Sodium Chloride Flush 3 ML SYRINGE IVFLUSH (23:27)
[2021-09-02 23:28] VITALS: BP 187/64; PULSE 59; RESP 16; TEMP 37; O2SAT 97
[2021-09-03] VITALS (9 sets, daily range): BP systolic 127–189; BP diastolic 47–91; PULSE 62–79; RESP 12–21; TEMP 36.6–37.1; O2SAT 95–98
--- NOTE | 2021-09-03 | ECG_ITS ---
Test Reason : ELEVATED TROPONINS Blood Pressure : / mmHG Vent. Rate : 063 BPM Atrial Rate : 063 BPM P-R Int : 262 ms QRS Dur : 110 ms QT Int : 422 ms P-R-T Axes : 029 -66 080 degrees QTc Int : 431 ms Sinus rhythm with 1st degree A-V block Pulmonary disease pattern Incomplete right bundle branch block Left anterior fascicular block Minimal voltage criteria for LVH, may be normal variant ( Tom product ) Abnormal ECG When compared with ECG of 02-SEP-2021 21:38, No significant change was found Referred By: Barbara Morrell Electronically Signed By:ROXANNE CONLEY MD
[2021-09-03 00:13] LABS: Troponin-I High Sensitivity 318.3 ng/L (<3.5-35.0)
[2021-09-03] MEDS: cloNIDine HCL 0.2 MG TABLET PO ×3 (00:38→20:28)
[2021-09-03] MEDS: hydrALAZINE HCl 50 MG TABLET PO ×2 (00:50→08:32)
[2021-09-03] MEDS: Heparin Sodium,Porcine/1/2NS 25,000 UNIT/250 ML IV.SOLN 18.05 UNIT IVCONT (00:52)
[2021-09-03 00:56] LABS: PTT Heparin Drip 34.8 SEC (53-77.9)
--- NOTE | 2021-09-03 02:30 | PC.NURSE ---
Dr. Morrell made aware of pt's 3rd troponin: 925 Awaiting new orders
--- NOTE | 2021-09-03 02:40 | PC.NURSE ---
Pt alert and oriented x4, calm and cooperative. Pt denies pain, denies chest pain at this time. Pt states my chest pain feels fine it's gotten a lot better . Pt denies SOB or headache. Pt BP trending down since BP meds given, 160/58. IV in right AC remains intact infusing Heparin drip at 14/units/kg/hr at this time, initially started at 0100. PTT heparin drip due to be drawn at 0700 per Heparin protocol. Pt voided without difficulties tonight. Pt OOB with stand-by assist. Pt resting in stretcher comfortably, will continue to monitor.
--- NOTE | 2021-09-03 04:42 | PC.NURSE ---
PT TO ER OVERFLOW UNIT AT 0440. PT IS A&O X3. DENIES PAIN OR COMPLAINTS. ARRIVED VIA STRETCHER BUT AMB THE FEW STEPS TO BED. SLIGHT SOB ON EXERTION. O2 ON AT 1 L VIA NC. O2 SAT 99%. MONITOR SHOW NSR, RATE 60'S NO ECTOPY. BILAT LOWER LEG AND ANKLE EDEMA NOTED 3+ PITTING. LUNGS DIM THROUGHOUT. HEPARIN DRIP INFUSING PER PROTOCOL.
[2021-09-03 06:54] LABS: MANUAL DIFF FLAG NO
[2021-09-03 06:58] LABS: Basophils Absolute Auto 0.1 X10*3/uL (0.0-0.2); Basophils Percent Auto 0.6 % (0-2); Eosinophils Absolute Auto 0.2 X10*3/uL (0.0-0.4); Eosinophils Percent Auto 2.8 % (0-4); Hematocrit 35.6 % (42.0-52.0); Hemoglobin 11.6 g/dl (14.0-18.0); Imm Gran Abs Auto 0.02 X10*3/uL (0.00-0.03); Imm Gran Pct Auto 0.2 % (0.0-0.4); Lymphocytes Absolute Auto 0.9 X10*3/uL (1.2-4.9); Lymphocytes Percent Auto 10.4 % (20-40); Mean Corpuscular HGB Conc 32.6 g/dl (31.0-36.0); Mean Corpuscular Hemoglobin 30.4 pg (27.0-33.0); Mean Corpuscular Volume 93.2 fL (80.0-98.0); Mean Platelet Volume 11.2 fL (9.4-12.4); Monocytes Absolute Auto 0.7 X10*3/uL (0.1-1.2); Monocytes Percent Auto 7.5 % (2-11); Neutrophils Absolute Auto 6.8 x10*3/uL (2.0-8.3); Neutrophils Percent Auto 78.5 % (45-73); Platelet Count 151 X10*3/uL (160-400); Red Blood Count 3.82 X10*6/uL (4.60-5.80); Red Cell Distribution Width 13.6 % (11.0-16.0); White Blood Count 8.6 X10*3/uL (4.8-10.8)
[2021-09-03 07:21] LABS: PTT Heparin Drip 139.4 SEC (53-77.9)
[2021-09-03 07:48] LABS: Glucose, Whole Blood 225 mg/dL (60-115)
[2021-09-03 08:06] LABS: Anion Gap 12 (12-20); Blood Urea Nitrogen 34 mg/dL (9-16); Calcium 9.7 mg/dL (8.4-10.2); Carbon Dioxide 25 mmol/L (22-29); Chloride 109 mmol/L (96-108); Creatinine Clr Calc Pharmacy 29.9; Estimated Glomerular Filt Rate 25; Glucose Random 255 mg/dL (60-115); Potassium 5.2 mmol/L (3.3-5.1); Sodium 141 mmol/L (135-145)
--- NOTE | 2021-09-03 08:30 | CA_ITS ---
Transthoracic Echocardiogram Patient (Last, First, Middle): Claude Kerr R Gender: Male Date of : 1940 Age: 81 Procedure Date: 09/03/2021 Procedure Type: Transthoracic Echocardiogram Location: ER Height: 170.18 cm Weight: 124.74 kg BSA: 2.32 m2 Heart Rate: bpm BP: 163 / 47 mmHg Library Circulation Assistant: Referring MD: Barbara Morrell MD Customer Engineer: Homer Servin MD Symptoms: elevated trop Study Quality: Fair/CONTRAST ECG Rhythm: Sinus Conclusions: - Normal LV systolic function with severe LVH with impaired relaxation filling pattern Findings Procedure Information Contrast agent, definity, is being given per protocol without apparent complications. Left Ventricle Normal left ventricular size and systolic function. There is severely increased left ventricular wall thickness. The visually estimated ejection fraction is between 65-70%. There is no evidence of regional wall motion abnormalities. Spectral Doppler is indicative of an impaired relaxation filling pattern. E/E prime ratio is between 8 and 15 consistent with indeterminate filling pressures. Pericardium/Pleural There is a trivial loculated pericardial effusion overlying the left ventricle. Measurements 2D Linear Measurements IVSd: 1.64 0.6-0.9/0.6-1.0 cm LVIDd: 4.90 3.9-5.3/4.2-5.9 cm LVIDd Index: 2.11 2.4-3.2/2.2-3.1 cm/m2 LVIDs: 2.77 2.0-3.6 cm LVPWd: 1.64 0.7-1.1 cm LV Mass: 446.88 67-162/88-224 g LV Mass Index: 192.62 43-95/49-115 g/m2 Mitral Valve MV Pk E: 0.50 MV PK A: 0.78 MV Decel Time: 357.00 E/A: 0.60 E'Lateral: 4.79 E'Medial: 5.66 E/E' Med: 8.90 E/E' Lat: 10.50 PHT: 105.00 MVA PHT: 2.10 Decel [place]: 1.40 Diastolic Function MV Pk E: 0.50 MV Pk A: 0.78 E/A: 0.60 E'Medial: 5.66 E/E' Med: 8.90 E' Laterial: 4.79 E/E' Lat: 10.50 Updated in Other Vendor System with Status of Final Homer Servin MD electronically signed on 09/03/2021 12:40:16 PM with status of Final
[2021-09-03] MEDS: Insulin Lispro 100 UNIT/ML 3 ML VIAL SUBCUT ×4 (08:31→20:26)
[2021-09-03] MEDS: Labetalol HCL 100 MG TABLET PO ×2 (08:32→20:28)
[2021-09-03] MEDS: amLODIPine Besylate 10 MG TABLET PO (08:32)
[2021-09-03] MEDS: Cholecalciferol (Vitamin D3) 25 MCG TABLET PO (08:32)
[2021-09-03] MEDS: allopurinoL 100 MG TABLET PO (08:32)
[2021-09-03] MEDS: Ferrous Sulfate 324 MG TABLET.DR PO (08:32)
[2021-09-03] MEDS: Finasteride 5 MG TABLET PO (08:32)
[2021-09-03] MEDS: 0.9 % Sodium Chloride Flush 3 ML SYRINGE IVFLUSH (08:33)
[2021-09-03] MEDS: Multivitamin TABLET 1 TAB PO (08:33)
[2021-09-03 09:07] LABS: PTT Heparin Drip 58.9 SEC (53-77.9)
--- NOTE | 2021-09-03 09:19 | MHC.CM.PN ---
PT REPORTS HE LIVES AT HOME WITH HIS AND IS INDEPENDENT WITH CARE PT HAS NO HOME SERVICES AND USES A [facility] FOR DME PT IS A AND GOES TO THE [facility] LOCATION FOR ALL OF HIS MEDICAL NEEDS HE ALSO REPORTS HE DOES USE THEIR PHARMACY PT REPORTS HIS PCP IS CHERYLE PATEL PT REPORTS HE IS VACCINATED AGAINST COVID-19 WITH MODERNA X 3 PT HAS A HCP ON FILE IMM DELIVERED. COPY SENT TO [facility] CURRENT DC PLAN IS HOME TO TRANSPORT
--- NOTE | 2021-09-03 09:29 | PM.CNCAR ---
History of Present Illness History of Present Illness Date of Service: 09/03/21 Requesting physician: Alvarez Gannon Chief complaint: NSTEMI Narrative: I was requested to see Claude in cardiology consultation today for symptoms of chest pain and rising troponins. He is a pleasant 81-year-old male who is active and still participate in social activity with prior history of significant labile blood pressure with history of orthostatic hypotension syncope which has led to a lot of adjustments of his medications over some time. He also has presence of moderate aortic stenosis. Has no distinct history of coronary artery disease or myocardial infarction or having invasive angiogram. He is also are status post nephrectomy for renal cancer has chronic kidney disease with GFR in the mid 20s range. He also has history of COPD, morbid obesity, obstructive sleep apnea, PSA which is elevated. He lives at home with his . He had a fall couple weeks ago and was not able to get up and since then he says he has been doing some more labor intensive exercise. About a month ago also his medications were adjusted for his labile blood pressure. He did well for about 2-3 weeks but started noticing that his blood pressure was starting to rise again and getting higher. Yesterday after on 14:00 he developed bilateral chest discomfort at the edge, initially thought that this was related to recent muscle exercises disease being doing. However he also measured a blood pressure yesterday and was this was markedly elevated. Eventually got concerned and eventually came to the emergency room. Initial troponin was 50, subsequently 92.2 with a rise of greater than 50%. However his symptoms were atypical and he has EKG did not show any ischemic changes so we held off on IV heparin but admitted for observation. Subsequent troponin is 318 and then 925 this morning. This is suggestive NSTEMI. Patient currently has no chest pain. His blood pressure is better but still elevated ranging from 160-180 systolic. He denies any associated shortness of breath, nausea, vomiting, diaphoresis. No palpitations, lightheadedness, syncope recently. Last echocardiogram in the system at shown normal LV systolic function with severe LVH with moderate aortic stenosis. Review of Systems Constitutional: Constitutional: Reports no additional constitutional complaints Eyes: Eyes: Reports no additional eye complaints ENT: Reports system reviewed and no additional complaints, except as documented Cardiovascular: Cardiovascular: Reports chest pain at rest, Denies leg edema, Denies lightheadedness, Denies Loss of Consciousness, Denies palpitations and Reports dyspnea on exertion Respiratory: Respiratory: Reports no additional respiratory complaints and Reports dyspnea on exertion Gastrointestinal: Gastrointestinal: Reports no additional gastrointestinal complaints Genitourinary: Genitourinary: Reports no additional male genitourinary complaints Musculoskeletal: Musculoskeletal: Reports no additional musculoskeletal complaints Integumentary/Breasts: Skin/Breast: Reports system reviewed and no additional complaints, except as docu Neurologic: Reports system reviewed and no additional complaints, except as documented Psychiatric: Psychiatric: Reports no additional psychiatric complaints Endocrine: Endocrine: Denies palpitations PMFSH Past Medical History Medical History Acute cystitis without hematuria Bacteremia Bladder outlet obstruction Chronic kidney disease, stage II (mild) COPD exacerbation Diabetes Fever HTN (hypertension) Incomplete emptying of bladder Morbid obesity CHAYITO (obstructive sleep apnea) CHAYITO on CPAP Prostate cancer Pure hypercholesterolemia Weak urinary stream Family History Family History Mother CVA (cerebral vascular accident) Surgical History Surgical History History of surgery Social History Social History Household Members: Spouse Housing: House Do you presently have visiting nurse or other home services: Yes Alcohol intake: never Patient Tobacco Use Status: Former Tobacco user Advance Directives: Yes Advance Directives Information Provided: No Advance Directives on File: No service: Yes Current occupational status: retired 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 Meds Allergies Allergy/AdvReac Type Severity Reaction Status Date / Time amoxicillin [AMOXICILLIN] Allergy Unknown ANAPHYLAXIS Verified 09/02/21 17:58 famotidine Allergy Unknown unknown Verified 09/02/21 17:58 hydrochlorothiazide Allergy Unknown unknown Verified 09/02/21 17:58 lisinopril [LISINOPRIL] Allergy Unknown UNKNOWN Verified 09/02/21 17:58 losartan Allergy Unknown unknown Verified 09/02/21 17:58 spironolactone Allergy Unknown unknown Verified 09/02/21 17:58 sulfamethoxazole AdvReac Intermediate C-DIFF, Verified 09/02/21 17:58 [From BACTRIM] REDUCED KIDNEY FX trimethoprim [From BACTRIM] AdvReac Intermediate C-DIFF, Verified 09/02/21 17:58 REDUCED KIDNEY FX Active Medications: Current Medications Acetaminophen (Acetaminophen 325 Mg Tablet) 650 mg PO Q6H PRN PRN Reason: Pain, Mild (Pain Scale 1-3) Albuterol Sulfate (Albuterol Sulfate 90 Mcg 8 Gm Inhaler) 2 puff INHALE Q6H PRN PRN Reason: shortness of breath or wheezing Allopurinol (Allopurinol 100 Mg Tablet) 100 mg PO DAILY [facility] Last Admin: 09/03/21 08:32 Dose: 100 mg Documented by: Amlodipine Besylate (Amlodipine Besylate 10 Mg Tablet) 10 mg PO DAILY [facility]; Protocol Last Admin: 09/03/21 08:32 Dose: 10 mg Documented by: Aspirin (Aspirin Enteric Coated 81 Mg Tablet.) 81 mg PO BEDTIME [facility] Atorvastatin Calcium (Atorvastatin Calcium 40 Mg Tablet) 40 mg PO BEDTIME [facility] Clonidine HCl (Clonidine Hcl 0.2 Mg Tablet) 0.2 mg PO BID [facility]; Protocol Last Admin: 09/03/21 08:32 Dose: 0.2 mg Documented by: Dextrose (Dextrose 50 % 25 Gm/50 Ml Vial) 25 gm IVPUSH Q15M PRN; Protocol PRN Reason: per Hypoglycemia Standing Ord. Docusate Sodium (Docusate Sodium 100 Mg Capsule) 100 mg PO DAILY PRN PRN Reason: Constipation Ferrous Sulfate (Ferrous Sulfate 324 Mg Tablet.) 324 mg PO DAILY [facility] Last Admin: 09/03/21 08:32 Dose: 324 mg Documented by: Finasteride (Finasteride 5 Mg Tablet) 5 mg PO DAILY [facility] Last Admin: 09/03/21 08:32 Dose: 5 mg Documented by: Glucose (Glucose Gel 15 Gm Gel..Gram.) 15 gm PO Q15M PRN; Protocol PRN Reason: per Hypoglycemia Standing Ord. Heparin Sodium (Porcine) (Heparin Sodium,Porcine 5,000 Unit/Ml Vial) 5,200 unit 40 unit/kg (5200 unit) IVPUSH PROTOCOL BOLUS PRN; Protocol PRN Reason: 40 unit/kg - Heparin Protocol Heparin Sodium (Porcine) (Heparin Sodium,Porcine 5,000 Unit/Ml Vial) 10,000 unit IVPUSH PROTOCOL BOLUS PRN; Protocol PRN Reason: 80 unit/kg - Heparin Protocol Hydralazine HCl (Hydralazine Hcl 50 Mg Tablet) 50 mg PO TID [facility]; Protocol Last Admin: 09/03/21 08:32 Dose: 50 mg Documented by: Heparin Sodium/Sodium Chloride () 25,000 unit in 250 mls @ 0 mls/hr IVCONT .Q0M [facility]; Protocol Last Titration: 09/03/21 07:23 Dose: 0 units/kg/hr, 0 mls/hr Documented by: Insulin Glargine (Insulin Glargine,Hum.Rec.Anlog 100 Unit/Ml 10 Ml Vial) 50 unit SUBCUT BEDTIME [facility] Insulin Human Lispro (Insulin Lispro 100 Unit/Ml 3 Ml Vial) 0 unit SUBCUT QIDACHS [facility]; Protocol Last Admin: 09/03/21 08:31 Dose: 4 unit Documented by: Labetalol HCl (Labetalol Hcl 100 Mg Tablet) 100 mg PO BID [facility]; Protocol Last Admin: 09/03/21 08:32 Dose: 100 mg Documented by: Multivitamins/Vitamin C (Multivitamin Tablet) 1 tab PO DAILY [facility] Last Admin: 09/03/21 08:33 Dose: 1 tab Documented by: Ondansetron HCl (Ondansetron Hcl 4 Mg/2 Ml Vial) 4 mg IVPUSH Q8H PRN PRN Reason: Nausea and Vomiting Sodium Chloride (0.9 % Sodium Chloride Flush 3 Ml Syringe) 3 ml IVFLUSH QSHIFT [facility] Last Admin: 09/03/21 08:33 Dose: 3 ml Documented by: Vitamin D (Cholecalciferol (Vitamin D3) 25 Mcg Tablet) 25 mcg PO DAILY [facility] Last Admin: 09/03/21 08:32 Dose: 25 mcg Documented by: Home Medications Medication Instructions Recorded Confirmed Last Taken Type allopurinol 100 mg tablet 100 mg PO DAILY 12/05/20 09/02/21 Unknown History amlodipine 10 mg tablet 10 mg PO DAILY 12/05/20 09/02/21 Unknown History atorvastatin 80 mg tablet 40 mg PO BEDTIME 12/05/20 09/02/21 Unknown History hydralazine 50 mg tablet 50 mg PO TID 12/05/20 09/02/21 Unknown History insulin aspart U-100 100 unit/mL 1 sliding scale dose SUBCUT QIDACHS 12/05/20 09/02/21 Unknown History subcutaneous solution insulin glargine 100 unit/mL (3 50 unit SUBCUT BEDTIME 12/05/20 09/02/21 Unknown History mL) subcutaneous pen (Lantus Solostar U-100 Insulin) aspirin 81 mg tablet,delayed 81 mg PO BEDTIME 09/02/21 09/02/21 Unknown History release cholecalciferol (vitamin D3) 25 25 mcg PO DAILY 09/02/21 09/02/21 Unknown History mcg (1,000 unit) tablet clonidine HCl 0.2 mg tablet 0.2 mg PO BID 09/02/21 09/02/21 Unknown History ferrous sulfate 324 mg (65 mg 324 mg PO DAILY 09/02/21 09/02/21 Unknown History iron) tablet,delayed release labetalol 100 mg tablet 100 mg PO BID 09/02/21 09/02/21 Unknown History multivitamin 1 tab PO DAILY 09/02/21 09/02/21 Unknown History Physical Exam Vital Signs: Vital Signs: Last Vital Signs Temp 98.6 F 09/02/21 23:28 Pulse 69 09/03/21 08:30 Resp 20 09/03/21 08:30 BP 166/68 H 09/03/21 08:30 Pulse Ox 98 09/03/21 08:30 BMI result Body Mass Index 44.5 Const: General: cooperative, comfortable, no acute distress, alert and awake Nutritional Appearance: obese Orientation/consciousness: patient oriented x3 Limitations: no limitations HENMT: Head: Yes normocephalic and Yes atraumatic Neck: Neck: Yes trachea midline, Yes supple and Yes no JVD Resp: Effort & Inspection: normal respiratory effort Auscultation: clear to auscultation bilaterally Cardio: Jugular venous distension: no JVD Palpation: normal PMI Rate: regular rate Rhythm: regular rhythm Heart sounds: S1 normal heart sound present, S2 normal heart sound present, no click, no gallops and Murmur heart sound present systolic mid, soft and II/ GI: Inspection: Yes obesity Auscultation: normal bowel sounds Skin: General skin exam: no rashes or lesions noted Neuro: General: patient oriented x3 and no focal motor deficits Extrem: General: Yes no clubbing, cyanosis or edema Psych: Appearance: grossly normal Objective Labs and Meds Result diagrams: 09/03/21 06:46 09/03/21 06:46 Lab results: Laboratory Results - last 24 hr 09/02/21 09/02/21 09/02/21 18:29 18:29 18:29 WBC 8.2 RBC 3.84 L Hgb 11.7 L Hct 35.8 L MCV 93.2 MCH 30.5 MCHC 32.7 RDW 13.6 Plt Count 162 MPV 10.8 Immature Gran % (Auto) 0.5 H Neut % (Auto) 76.9 H Lymph % (Auto) 11.1 L [place] % (Auto) 8.0 Eos % (Auto) 2.9 Baso % (Auto) 0.6 Lymph # (Auto) 0.9 L [place] # (Auto) 0.7 Eos # (Auto) 0.2 Baso # (Auto) 0.1 Abs Immat Gran (auto) 0.04 H Absolute Neuts (auto) 6.3 Absolute Nucleated RBC 0.000 Nucleated RBC % (auto) 0.0 PT INR aPTT Heparin Protocol Sodium 141 Potassium 4.4 Chloride 109 H Carbon Dioxide 25 Anion Gap 11 L BUN 36 H Creatinine 2.51 H Estim Creat Clear Calc 30.2 Estimated GFR 25 POC Glucose Random Glucose 223 H Calcium 9.5 Troponin I High Sens 50.4 H B-Natriuretic Peptide Urine Color Urine Appearance Urine pH Ur Specific [place] Urine Protein Urine Glucose (UA) Urine Ketones Urine Blood Urine Nitrite Ur Leukocyte Esterase Urine RBC Urine WBC Ur Squamous Epith Cells Urine Bacteria COVID-19 ([facility]) COVID-19 Clin Com 09/02/21 09/02/21 09/02/21 18:29 18:29 19:03 WBC RBC Hgb Hct MCV MCH MCHC RDW Plt Count MPV Immature Gran % (Auto) Neut % (Auto) Lymph % (Auto) [place] % (Auto) Eos % (Auto) Baso % (Auto) Lymph # (Auto) [place] # (Auto) Eos # (Auto) Baso # (Auto) Abs Immat Gran (auto) Absolute Neuts (auto) Absolute Nucleated RBC Nucleated RBC % (auto) PT 11.1 INR 1.0 aPTT Heparin Protocol 34.8 L Sodium Potassium Chloride Carbon Dioxide Anion Gap BUN Creatinine Estim Creat Clear Calc Estimated GFR POC Glucose Random Glucose Calcium Troponin I High Sens B-Natriuretic Peptide 81 Urine Color YELLOW Urine Appearance CLEAR Urine pH 6.0 Ur Specific [place] 1.020 Urine Protein 3+ H Urine Glucose (UA) 100 H Urine Ketones NEG Urine Blood NEG Urine Nitrite NEG Ur Leukocyte Esterase NEG Urine RBC 0-2 Urine WBC 0-2 Ur Squamous Epith Cells 2+ Urine Bacteria NONE COVID-19 ([facility]) COVID-19 Clin Com 09/02/21 09/02/21 09/02/21 20:42 22:33 23:20 WBC RBC Hgb Hct MCV MCH MCHC RDW Plt Count MPV Immature Gran % (Auto) Neut % (Auto) Lymph % (Auto) [place] % (Auto) Eos % (Auto) Baso % (Auto) Lymph # (Auto) [place] # (Auto) Eos # (Auto) Baso # (Auto) Abs Immat Gran (auto) Absolute Neuts (auto) Absolute Nucleated RBC Nucleated RBC % (auto) PT INR aPTT Heparin Protocol Sodium Potassium Chloride Carbon Dioxide Anion Gap BUN Creatinine Estim Creat Clear Calc Estimated GFR POC Glucose Random Glucose Calcium Troponin I High Sens 92.2 H D 318.3 H* D B-Natriuretic Peptide Urine Color Urine Appearance Urine pH Ur Specific [place] Urine Protein Urine Glucose (UA) Urine Ketones Urine Blood Urine Nitrite Ur Leukocyte Esterase Urine RBC Urine WBC Ur Squamous Epith Cells Urine Bacteria COVID-19 ([facility]) Negative COVID-19 Clin Com See Note 09/03/21 09/03/21 09/03/21 01:52 06:46 06:46 WBC 8.6 RBC 3.82 L Hgb 11.6 L Hct 35.6 L MCV 93.2 MCH 30.4 MCHC 32.6 RDW 13.6 Plt Count 151 L MPV 11.2 Immature Gran % (Auto) 0.2 Neut % (Auto) 78.5 H Lymph % (Auto) 10.4 L [place] % (Auto) 7.5 Eos % (Auto) 2.8 Baso % (Auto) 0.6 Lymph # (Auto) 0.9 L [place] # (Auto) 0.7 Eos # (Auto) 0.2 Baso # (Auto) 0.1 Abs Immat Gran (auto) 0.02 Absolute Neuts (auto) 6.8 Absolute Nucleated RBC 0.000 Nucleated RBC % (auto) 0.0 PT INR aPTT Heparin Protocol Sodium 141 Potassium 5.2 H Chloride 109 H Carbon Dioxide 25 Anion Gap 12 BUN 34 H Creatinine 2.54 H Estim Creat Clear Calc 29.9 Estimated GFR 25 POC Glucose Random Glucose 255 H Calcium 9.7 Troponin I High Sens 925.0 H* D B-Natriuretic Peptide Urine Color Urine Appearance Urine pH Ur Specific [place] Urine Protein Urine Glucose (UA) Urine Ketones Urine Blood Urine Nitrite Ur Leukocyte Esterase Urine RBC Urine WBC Ur Squamous Epith Cells Urine Bacteria COVID-19 ([facility]) COVID-19 Clin Com 09/03/21 09/03/21 09/03/21 06:46 07:45 08:43 WBC RBC Hgb Hct MCV MCH MCHC RDW Plt Count MPV Immature Gran % (Auto) Neut % (Auto) Lymph % (Auto) [place] % (Auto) Eos % (Auto) Baso % (Auto) Lymph # (Auto) [place] # (Auto) Eos # (Auto) Baso # (Auto) Abs Immat Gran (auto) Absolute Neuts (auto) Absolute Nucleated RBC Nucleated RBC % (auto) PT INR aPTT Heparin Protocol 139.4 H* D 58.9 D Sodium Potassium Chloride Carbon Dioxide Anion Gap BUN Creatinine Estim Creat Clear Calc Estimated GFR POC Glucose 225 H Random Glucose Calcium Troponin I High Sens B-Natriuretic Peptide Urine Color Urine Appearance Urine pH Ur Specific [place] Urine Protein Urine Glucose (UA) Urine Ketones Urine Blood Urine Nitrite Ur Leukocyte Esterase Urine RBC Urine WBC Ur Squamous Epith Cells Urine Bacteria COVID-19 ([facility]) COVID-19 Clin Com Imaging Radiologist's impression: Impressions Chest X-Ray 09/02/21 18:38 IMPRESSION: No acute intrathoracic disease. Assessment and Plan (1) NSTEMI (non-ST elevated myocardial infarction): Status: Acute Patient presents with symptoms as well as rising troponin consistent with NSTEMI. Question this is primary acute coronary syndrome given his multiple risk factors is highly likely. Will continue IV heparin for at least 48 hours. Management of this would be difficult as he has underlying significant comorbidities including advanced chronic kidney disease. We discussed about management. Myocardial ischemia needs to be ruled out. Once his troponins are downtrending will perform a vasodilating myocardial perfusion imaging as inpatient to assess for significant myocardial ischemia which may require invasive management. Also possibility of this could be related to significant hypertension and subendocardial ischemia related to his severe hypertensive heart disease and underlying moderate aortic stenosis. This possibility was also discuss and management as below. Continue aspirin, high-intensity statin therapy. Continue aggressive management of blood pressure as outlined below. Echocardiogram today to assess for LV systolic and diastolic function and to evaluate for regional wall motion abnormality and severity of aortic stenosis which might have worse over time as well. Patient will need to be admitted as an inpatient. (2) Labile blood pressure: Status: Acute Markedly labile blood pressure which has been difficult control in the past with prior history of orthostatic hypertension syncope. This presence of significant issue in his management especially if this is secondary myocardial infarction to avoid future hospitalization and ongoing issues with hypertensive heart disease and development of congestive heart failure. This was discussed with him. He understands difficulty in management. Avoidance of salt loading at home was discussed. For now will gently uptitrate hydralazine to 100 mg b.i.d.. Continue Norvasc, labetalol at current dose and clonidine at current dose. Will gradually uptitrate clonidine after that. Will closely follow the patient. Advise adequate hydration. Will follow up with you. Procedures Date of Service Date of Service: 09/03/21
--- NOTE | 2021-09-03 11:19 | PC.NURSE ---
Pt resting in hospital bed. Lungs sound diminished. +1 pitting edema to BLE. Pt denies chest pain at this time. Heparin gtt restarted @ 10units per hour per protocol. Pts at bedside. Pt remains on heart monitor. BPs remain high, medicated per MAR. Cards came and saw pt, aware of BPs. Belongings and callbell within reach.
--- NOTE | 2021-09-03 13:19 | PM.EVENT ---
Event Note Date of Service: 09/03/21 Event Note: Seen, a/p per H and from today
--- NOTE | 2021-09-03 13:21 | HO.PM.IMPN ---
Subjective Subjective Date of Service: 09/03/21 Interval History: f/u on NSTEMI and elevated troponin, still has some pain but better, BP is high Review of Systems chest pain, no sob Physical Exam Vital Signs: Vital Signs: Last Vital Signs Temp 98.6 F 09/02/21 23:28 Pulse 69 09/03/21 08:30 Resp 20 09/03/21 08:30 BP 170/66 H 09/03/21 10:50 Pulse Ox 98 09/03/21 08:30 BMI result Body Mass Index 44.5 Const: Other: General: AO X 3, no acute distress Resp: CTA bilateral CVS: S1,S2,RRR GI: +BS, NT, no distention Skin: No rash Neuro: motor grossly intact Psych: appropriate affect Objective Data Active Medications Acetaminophen (Acetaminophen 325 Mg Tablet) 650 mg PO Q6H PRN PRN Reason: Pain, Mild (Pain Scale 1-3) Albuterol Sulfate (Albuterol Sulfate 90 Mcg 8 Gm Inhaler) 2 puff INHALE Q6H PRN PRN Reason: shortness of breath or wheezing Allopurinol (Allopurinol 100 Mg Tablet) 100 mg PO DAILY [facility] Last Admin: 09/03/21 08:32 Dose: 100 mg Documented by: NOLAN Amlodipine Besylate (Amlodipine Besylate 10 Mg Tablet) 10 mg PO DAILY [facility]; Protocol Last Admin: 09/03/21 08:32 Dose: 10 mg Documented by: NOLAN Aspirin (Aspirin Enteric Coated 81 Mg Tablet.) 81 mg PO BEDTIME [facility] Atorvastatin Calcium (Atorvastatin Calcium 40 Mg Tablet) 40 mg PO BEDTIME [facility] Clonidine HCl (Clonidine Hcl 0.2 Mg Tablet) 0.2 mg PO BID [facility]; Protocol Last Admin: 09/03/21 08:32 Dose: 0.2 mg Documented by: NOLAN Dextrose (Dextrose 50 % 25 Gm/50 Ml Vial) 25 gm IVPUSH Q15M PRN; Protocol PRN Reason: per Hypoglycemia Standing Ord. Docusate Sodium (Docusate Sodium 100 Mg Capsule) 100 mg PO DAILY PRN PRN Reason: Constipation Ferrous Sulfate (Ferrous Sulfate 324 Mg Tablet.) 324 mg PO DAILY [facility] Last Admin: 09/03/21 08:32 Dose: 324 mg Documented by: NOLAN Finasteride (Finasteride 5 Mg Tablet) 5 mg PO DAILY [facility] Last Admin: 09/03/21 08:32 Dose: 5 mg Documented by: NOLAN Glucose (Glucose Gel 15 Gm Gel..Gram.) 15 gm PO Q15M PRN; Protocol PRN Reason: per Hypoglycemia Standing Ord. Heparin Sodium (Porcine) (Heparin Sodium,Porcine 5,000 Unit/Ml Vial) 5,200 unit 40 unit/kg (5200 unit) IVPUSH PROTOCOL BOLUS PRN; Protocol PRN Reason: 40 unit/kg - Heparin Protocol Heparin Sodium (Porcine) (Heparin Sodium,Porcine 5,000 Unit/Ml Vial) 10,000 unit IVPUSH PROTOCOL BOLUS PRN; Protocol PRN Reason: 80 unit/kg - Heparin Protocol Hydralazine HCl (Hydralazine Hcl 50 Mg Tablet) 50 mg PO TID [facility]; Protocol Last Admin: 09/03/21 08:32 Dose: 50 mg Documented by: NOLAN Heparin Sodium/Sodium Chloride () 25,000 unit in 250 mls @ 0 mls/hr IVCONT .Q0M [facility]; Protocol Last Titration: 09/03/21 09:27 Dose: 10 units/kg/hr, 12.89 mls/hr Documented by: NOLAN Cosigned by: WYATT Insulin Glargine (Insulin Glargine,Hum.Rec.Anlog 100 Unit/Ml 10 Ml Vial) 50 unit SUBCUT BEDTIME [facility] Insulin Human Lispro (Insulin Lispro 100 Unit/Ml 3 Ml Vial) 0 unit SUBCUT QIDACHS [facility]; Protocol Last Admin: 09/03/21 08:31 Dose: 4 unit Documented by: NOLAN Labetalol HCl (Labetalol Hcl 100 Mg Tablet) 100 mg PO BID [facility]; Protocol Last Admin: 09/03/21 08:32 Dose: 100 mg Documented by: NOLAN Multivitamins/Vitamin C (Multivitamin Tablet) 1 tab PO DAILY [facility] Last Admin: 09/03/21 08:33 Dose: 1 tab Documented by: NOLAN Ondansetron HCl (Ondansetron Hcl 4 Mg/2 Ml Vial) 4 mg IVPUSH Q8H PRN PRN Reason: Nausea and Vomiting Sodium Chloride (0.9 % Sodium Chloride Flush 3 Ml Syringe) 3 ml IVFLUSH QSHIFT [facility] Last Admin: 09/03/21 08:33 Dose: 3 ml Documented by: NOLAN Vitamin D (Cholecalciferol (Vitamin D3) 25 Mcg Tablet) 25 mcg PO DAILY [facility] Last Admin: 09/03/21 08:32 Dose: 25 mcg Documented by: NOLAN Labs CBC & Chem 7: 09/03/21 06:46 09/03/21 06:46 Labs: Laboratory Results - last 24 hr 09/02/21 09/02/21 09/02/21 18:29 18:29 18:29 MCV 93.2 MCH 30.5 MCHC 32.7 RDW 13.6 Plt Count 162 MPV 10.8 Immature Gran % (Auto) 0.5 H Neut % (Auto) 76.9 H Lymph % (Auto) 11.1 L [place] % (Auto) 8.0 Eos % (Auto) 2.9 Baso % (Auto) 0.6 Lymph # (Auto) 0.9 L [place] # (Auto) 0.7 Eos # (Auto) 0.2 Baso # (Auto) 0.1 Abs Immat Gran (auto) 0.04 H Absolute Neuts (auto) 6.3 Absolute Nucleated RBC 0.000 Nucleated RBC % (auto) 0.0 PT 11.1 INR 1.0 aPTT Heparin Protocol 34.8 L Anion Gap 11 L Estim Creat Clear Calc 30.2 Estimated GFR 25 POC Glucose Random Glucose 223 H Calcium 9.5 B-Natriuretic Peptide Urine Color Urine Appearance Urine pH Ur Specific [place] Urine Protein Urine Glucose (UA) Urine Ketones Urine Blood Urine Nitrite Ur Leukocyte Esterase Urine RBC Urine WBC Ur Squamous Epith Cells Urine Bacteria COVID-19 ([facility]ANDEL) COVID-19 Clin Com 09/02/21 09/02/21 09/02/21 18:29 19:03 22:33 MCV MCH MCHC RDW Plt Count MPV Immature Gran % (Auto) Neut % (Auto) Lymph % (Auto) [place] % (Auto) Eos % (Auto) Baso % (Auto) Lymph # (Auto) [place] # (Auto) Eos # (Auto) Baso # (Auto) Abs Immat Gran (auto) Absolute Neuts (auto) Absolute Nucleated RBC Nucleated RBC % (auto) PT INR aPTT Heparin Protocol Anion Gap Estim Creat Clear Calc Estimated GFR POC Glucose Random Glucose Calcium B-Natriuretic Peptide 81 Urine Color YELLOW Urine Appearance CLEAR Urine pH 6.0 Ur Specific [place] 1.020 Urine Protein 3+ H Urine Glucose (UA) 100 H Urine Ketones NEG Urine Blood NEG Urine Nitrite NEG Ur Leukocyte Esterase NEG Urine RBC 0-2 Urine WBC 0-2 Ur Squamous Epith Cells 2+ Urine Bacteria NONE COVID-19 (YANDEL) Negative COVID-19 Clin Com See Note 09/03/21 09/03/21 09/03/21 06:46 06:46 06:46 MCV 93.2 MCH 30.4 MCHC 32.6 RDW 13.6 Plt Count 151 L MPV 11.2 Immature Gran % (Auto) 0.2 Neut % (Auto) 78.5 H Lymph % (Auto) 10.4 L [place] % (Auto) 7.5 Eos % (Auto) 2.8 Baso % (Auto) 0.6 Lymph # (Auto) 0.9 L [place] # (Auto) 0.7 Eos # (Auto) 0.2 Baso # (Auto) 0.1 Abs Immat Gran (auto) 0.02 Absolute Neuts (auto) 6.8 Absolute Nucleated RBC 0.000 Nucleated RBC % (auto) 0.0 PT INR aPTT Heparin Protocol 139.4 H* D Anion Gap 12 Estim Creat Clear Calc 29.9 Estimated GFR 25 POC Glucose Random Glucose 255 H Calcium 9.7 B-Natriuretic Peptide Urine Color Urine Appearance Urine pH Ur Specific [place] Urine Protein Urine Glucose (UA) Urine Ketones Urine Blood Urine Nitrite Ur Leukocyte Esterase Urine RBC Urine WBC Ur Squamous Epith Cells Urine Bacteria COVID-19 (YANDEL) COVID-19 Clin Com 09/03/21 09/03/21 07:45 08:43 MCV MCH MCHC RDW Plt Count MPV Immature Gran % (Auto) Neut % (Auto) Lymph % (Auto) [place] % (Auto) Eos % (Auto) Baso % (Auto) Lymph # (Auto) [place] # (Auto) Eos # (Auto) Baso # (Auto) Abs Immat Gran (auto) Absolute Neuts (auto) Absolute Nucleated RBC Nucleated RBC % (auto) PT INR aPTT Heparin Protocol 58.9 D Anion Gap Estim Creat Clear Calc Estimated GFR POC Glucose 225 H Random Glucose Calcium B-Natriuretic Peptide Urine Color Urine Appearance Urine pH Ur Specific [place] Urine Protein Urine Glucose (UA) Urine Ketones Urine Blood Urine Nitrite Ur Leukocyte Esterase Urine RBC Urine WBC Ur Squamous Epith Cells Urine Bacteria COVID-19 (YANDEL) COVID-19 Clin Com Assessment and Plan (1) NSTEMI (non-ST elevated myocardial infarction): Status: Acute Plan 81-year-old male with past medical history of hypertension, diabetes who presents to the hospital with complaints of chest pain found to have NSTEMI #? chest pain/elevated troponin, NSTEMI -medical manaement with Heparin, ASA, BB on hold d/t clonidine. Cardiology following, to have echo done #? hypertensive emergency -? has significantly elevated blood pressure with troponin elevation -? treated with labetalol with improvement in his blood pressure -? will resume his home medications -? monitor BP -increase hydralazine #? CKD -? baseline -? continue BMP #? diabetes -? continue home insulin -? will add low-dose sliding scale insulin -? diet #? hyperlipidemia -? continue statin ?DVT prophylaxis:? Heparin GGT change to inpatient Quality Stroke Does the patient have a stroke diagnosis?: No VTE Prior VTE?: No VTE Risk Level:: Medical - moderate - high VTE Device Contraindication: Treatment Not Indicated VTE Drug Contraindication: N/A - Med Ordered
[2021-09-03 13:27] LABS: Glucose, Whole Blood 155 mg/dL (60-115)
[2021-09-03] MEDS: hydrALAZINE HCl 50 MG TABLET 100 MG PO ×2 (15:23→20:28)
[2021-09-03 15:58] LABS: Glucose, Whole Blood 188 mg/dL (60-115)
[2021-09-03 16:25] LABS: PTT Heparin Drip 65.4 SEC (53-77.9)
--- NOTE | 2021-09-03 17:00 | PC.NURSE ---
1700 PTT HD 65.4 No change in rate. Next lab scheduled for tomorrow am. Infusing at 10u/kg/hr Rate is 12.89ml/hr.
[2021-09-03] MEDS: Heparin Sodium,Porcine/1/2NS 25,000 UNIT/250 ML IV.SOLN 12.89 UNIT IVCONT (19:32)
[2021-09-03 20:17] LABS: Glucose, Whole Blood 223 mg/dL (60-115)
[2021-09-03] MEDS: Insulin Glargine,Hum.rec.anlog 100 UNIT/ML 10 ML VIAL 50 UNIT SUBCUT (20:26)
[2021-09-03] MEDS: Aspirin Enteric Coated 81 MG TABLET.DR PO (20:28)
[2021-09-03] MEDS: Atorvastatin Calcium 40 MG TABLET PO (20:28)
[2021-09-04] VITALS (7 sets, daily range): BP systolic 132–168; BP diastolic 56–85; PULSE 55–78; RESP 16–20; TEMP 35.7–37.1; O2SAT 94–98
[2021-09-04 06:26] LABS: Prothrombin Time 11.7 SEC (9.9-13.0)
[2021-09-04 06:28] LABS: PTT Heparin Drip 68.6 SEC (53-77.9)
[2021-09-04 07:35] LABS: Glucose, Whole Blood 183 mg/dL (60-115)
[2021-09-04] MEDS: Ferrous Sulfate 324 MG TABLET.DR PO (08:10)
[2021-09-04] MEDS: allopurinoL 100 MG TABLET PO (08:10)
[2021-09-04] MEDS: Finasteride 5 MG TABLET PO (08:10)
[2021-09-04] MEDS: Insulin Lispro 100 UNIT/ML 3 ML VIAL SUBCUT ×4 (08:12→20:13)
[2021-09-04] MEDS: Cholecalciferol (Vitamin D3) 25 MCG TABLET PO (08:12)
[2021-09-04] MEDS: cloNIDine HCL 0.2 MG TABLET PO ×2 (08:12→20:11)
[2021-09-04] MEDS: Labetalol HCL 100 MG TABLET PO ×2 (08:12→20:34)
[2021-09-04] MEDS: hydrALAZINE HCl 50 MG TABLET 100 MG PO ×3 (08:12→20:11)
[2021-09-04] MEDS: amLODIPine Besylate 10 MG TABLET PO (08:12)
[2021-09-04] MEDS: Multivitamin TABLET 1 TAB PO (08:12)
[2021-09-04 08:40] LABS: Hematocrit 35.4 % (42.0-52.0); Hemoglobin 11.4 g/dl (14.0-18.0); Mean Corpuscular HGB Conc 32.2 g/dl (31.0-36.0); Mean Corpuscular Hemoglobin 30.6 pg (27.0-33.0); Mean Corpuscular Volume 95.2 fL (80.0-98.0); Mean Platelet Volume 12.4 fL (9.4-12.4); Platelet Count 159 X10*3/uL (160-400); Red Blood Count 3.72 X10*6/uL (4.60-5.80); Red Cell Distribution Width 13.6 % (11.0-16.0)
[2021-09-04 09:15] LABS: Anion Gap 12 (12-20); Blood Urea Nitrogen 36 mg/dL (9-16); Calcium 9.8 mg/dL (8.4-10.2); Carbon Dioxide 25 mmol/L (22-29); Chloride 108 mmol/L (96-108); Creatinine Clr Calc Pharmacy 29.3; Estimated Glomerular Filt Rate 24; Glucose Random 189 mg/dL (60-115); Potassium 4.7 mmol/L (3.3-5.1); Sodium 140 mmol/L (135-145)
--- NOTE | 2021-09-04 10:34 | P.PNCA_ITS ---
Subjective Subjective Date of Service: 09/04/21 Principal diagnosis: Labile blood pressure, NSTEMI Interval history: Patient says he feels a lot better. Has no chest pain syndrome. Underwent echocardiogram as to which showed normal LV systolic function without any regional wall motion abnormality. His medications were uptitrated and his blood pressure is much better controlled at this point time. No lightheadedness going to the bathroom. Review of Systems Review of Systems Yes all other systems are reviewed and are negative Physical Exam Vital Signs: Last Vital Signs Temp 98.0 F 09/04/21 07:27 Pulse 68 09/04/21 07:27 Resp 18 09/04/21 07:27 BP 144/61 H 09/04/21 07:27 Pulse Ox 95 09/04/21 07:27 BMI result Body Mass Index 44.5 Const General: cooperative, comfortable, no acute distress, alert and awake Nutritional Appearance: obese morbidly obese Orientation/consciousness: patient oriented x3 Neck Neck: Yes trachea midline, Yes supple and Yes no JVD Resp Effort & Inspection: normal respiratory effort Auscultation: clear to auscultation bilaterally Cardio Jugular venous distension: no JVD Palpation: normal PMI Rate: regular rate Rhythm: regular rhythm Heart sounds: S1 normal heart sound present, S2 normal heart sound present and Murmur heart sound present systolic mid Skin General skin exam: no rashes or lesions noted Neuro General: patient oriented x3 and no focal motor deficits Extrem General: Yes no clubbing, cyanosis or edema Objective Labs and Meds Result diagrams: 09/04/21 08:30 09/04/21 08:30 Lab results: Laboratory Results - last 24 hr 09/03/21 09/03/21 09/03/21 13:19 15:29 15:50 WBC RBC Hgb Hct MCV MCH MCHC RDW Plt Count MPV Absolute Nucleated RBC Nucleated RBC % (auto) PT INR aPTT Heparin Protocol 65.4 Sodium Potassium Chloride Carbon Dioxide Anion Gap BUN Creatinine Estim Creat Clear Calc Estimated GFR POC Glucose 155 H 188 H Random Glucose Calcium Troponin I High Sens 09/03/21 09/04/21 09/04/21 20:13 06:12 07:29 WBC RBC Hgb Hct MCV MCH MCHC RDW Plt Count MPV Absolute Nucleated RBC Nucleated RBC % (auto) PT 11.7 INR 1.0 aPTT Heparin Protocol 68.6 Sodium Potassium Chloride Carbon Dioxide Anion Gap BUN Creatinine Estim Creat Clear Calc Estimated GFR POC Glucose 223 H 183 H Random Glucose Calcium Troponin I High Sens 09/04/21 09/04/21 09/04/21 08:30 08:30 08:30 WBC 9.0 RBC 3.72 L Hgb 11.4 L Hct 35.4 L MCV 95.2 MCH 30.6 MCHC 32.2 RDW 13.6 Plt Count 159 L MPV 12.4 Absolute Nucleated RBC 0.000 Nucleated RBC % (auto) 0.0 PT INR aPTT Heparin Protocol Sodium 140 Potassium 4.7 Chloride 108 Carbon Dioxide 25 Anion Gap 12 BUN 36 H Creatinine 2.59 H Estim Creat Clear Calc 29.3 Estimated GFR 24 POC Glucose Random Glucose 189 H Calcium 9.8 Troponin I High Sens 1434.0 H* D Progress Note: A&P Assessment and plan (1) NSTEMI (non-ST elevated myocardial infarction): Status: Acute Assessment and Plan: NSTEMI in this elderly patient could be related to underlying coronary artery disease worse is hypertensive urgency with subendocardial strain. Perform myocardial perfusion imaging, resting today and stress tomorrow. Further treatment based on the findings of noninvasive testing. Would like to avoid invasive cardiac catheterization given his advanced chronic kidney disease. The y understand and agree. Continue aggressive management with aspirin, statins and aggressive blood pressure management as listed below. (2) Labile blood pressure: Status: Acute Assessment and Plan: Blood pressure is much better optimized on current therapy. Continue the same. This will be difficult management long-term. However okay with permissive blood pressure up to systolic 150. P.r.n. hydralazine at home should be pursued for blood pressure greater than 160 systolic. Continue clonidine, Norvasc. Patient understands management well. Maintain adequate hydration. Will follow with you after stress testing. Fall Risk Details Current Medications: Current Medications Acetaminophen (Acetaminophen 325 Mg Tablet) 650 mg PO Q6H PRN PRN Reason: Pain, Mild (Pain Scale 1-3) Albuterol Sulfate (Albuterol Sulfate 90 Mcg 8 Gm Inhaler) 2 puff INHALE Q6H PRN PRN Reason: shortness of breath or wheezing Allopurinol (Allopurinol 100 Mg Tablet) 100 mg PO DAILY [facility] Last Admin: 09/04/21 08:10 Dose: 100 mg Documented by: Amlodipine Besylate (Amlodipine Besylate 10 Mg Tablet) 10 mg PO DAILY [facility]; Protocol Last Admin: 09/04/21 08:12 Dose: 10 mg Documented by: Aspirin (Aspirin Enteric Coated 81 Mg Tablet.) 81 mg PO BEDTIME [facility] Last Admin: 09/03/21 20:28 Dose: 81 mg Documented by: Atorvastatin Calcium (Atorvastatin Calcium 40 Mg Tablet) 40 mg PO BEDTIME [facility] Last Admin: 09/03/21 20:28 Dose: 40 mg Documented by: Clonidine HCl (Clonidine Hcl 0.2 Mg Tablet) 0.2 mg PO BID [facility]; Protocol Last Admin: 09/04/21 08:12 Dose: 0.2 mg Documented by: Dextrose (Dextrose 50 % 25 Gm/50 Ml Vial) 25 gm IVPUSH Q15M PRN; Protocol PRN Reason: per Hypoglycemia Standing Ord. Docusate Sodium (Docusate Sodium 100 Mg Capsule) 100 mg PO DAILY PRN PRN Reason: Constipation Ferrous Sulfate (Ferrous Sulfate 324 Mg Tablet.) 324 mg PO DAILY [facility] Last Admin: 09/04/21 08:10 Dose: 324 mg Documented by: Finasteride (Finasteride 5 Mg Tablet) 5 mg PO DAILY [facility] Last Admin: 09/04/21 08:10 Dose: 5 mg Documented by: Glucose (Glucose Gel 15 Gm Gel..Gram.) 15 gm PO Q15M PRN; Protocol PRN Reason: per Hypoglycemia Standing Ord. Heparin Sodium (Porcine) (Heparin Sodium,Porcine 5,000 Unit/Ml Vial) 5,200 unit 40 unit/kg (5200 unit) IVPUSH PROTOCOL BOLUS PRN; Protocol PRN Reason: 40 unit/kg - Heparin Protocol Heparin Sodium (Porcine) (Heparin Sodium,Porcine 5,000 Unit/Ml Vial) 10,000 unit IVPUSH PROTOCOL BOLUS PRN; Protocol PRN Reason: 80 unit/kg - Heparin Protocol Hydralazine HCl (Hydralazine Hcl 50 Mg Tablet) 100 mg PO TID [facility]; Protocol Last Admin: 09/04/21 08:12 Dose: 100 mg Documented by: Heparin Sodium/Sodium Chloride () 25,000 unit in 250 mls @ 0 mls/hr IVCONT .Q0M [facility]; Protocol Last Admin: 09/03/21 19:32 Dose: 10 units/kg/hr, 12.89 mls/hr Documented by: Insulin Glargine (Insulin Glargine,Hum.Rec.Anlog 100 Unit/Ml 10 Ml Vial) 50 unit SUBCUT BEDTIME [facility] Last Admin: 09/03/21 20:26 Dose: 50 unit Documented by: Insulin Human Lispro (Insulin Lispro 100 Unit/Ml 3 Ml Vial) 0 unit SUBCUT QIDACHS [facility]; Protocol Last Admin: 09/04/21 08:12 Dose: 2 unit Documented by: Labetalol HCl (Labetalol Hcl 100 Mg Tablet) 100 mg PO BID [facility]; Protocol Last Admin: 09/04/21 08:12 Dose: 100 mg Documented by: Multivitamins/Vitamin C (Multivitamin Tablet) 1 tab PO DAILY [facility] Last Admin: 09/04/21 08:12 Dose: 1 tab Documented by: Ondansetron HCl (Ondansetron Hcl 4 Mg/2 Ml Vial) 4 mg IVPUSH Q8H PRN PRN Reason: Nausea and Vomiting Sodium Chloride (0.9 % Sodium Chloride Flush 3 Ml Syringe) 3 ml IVFLUSH QSHIFT [facility] Last Admin: 09/04/21 08:13 Dose: Not Given Documented by: Vitamin D (Cholecalciferol (Vitamin D3) 25 Mcg Tablet) 25 mcg PO DAILY [facility] Last Admin: 09/04/21 08:12 Dose: 25 mcg Documented by: Time Spent With Patient Time: Total time spent is greater than 50% in coordination of care (as documented) at patient's floor/unit and/or counseling patient: Time with patient: 25 - 35 minutes Progress Note: Quality Stroke Does the patient have a stroke diagnosis?: No Procedures Date of Service Date of Service: 09/04/21
[2021-09-04 11:23] LABS: Glucose, Whole Blood 211 mg/dL (60-115)
[2021-09-04] MEDS: Heparin Sodium,Porcine/1/2NS 25,000 UNIT/250 ML IV.SOLN 12.89 UNIT IVCONT (14:21)
[2021-09-04 16:18] LABS: Glucose, Whole Blood 211 mg/dL (60-115)
[2021-09-04 17:13] LABS: Troponin-I High Sensitivity 1038.9 ng/L (<3.5-35.0)
--- NOTE | 2021-09-04 17:24 | HO.PM.IMPN ---
Subjective Subjective Date of Service: 09/04/21 Interval History: seen and examined this morning follow up NSTEMI no chest pain, no sob Review of Systems Review of Systems: Yes all other systems are reviewed and are negative Constitutional Constitutional: Denies chills and Denies fever(s) Cardiovascular Cardiovascular: Denies dyspnea Respiratory Respiratory: Denies cough and Denies dyspnea Gastrointestinal Gastrointestinal: Denies abdominal pain Physical Exam Vital Signs: Vital Signs: Last Vital Signs Temp 96.2 F L 09/04/21 16:00 Pulse 78 09/04/21 16:00 Resp 16 09/04/21 16:00 BP 135/85 09/04/21 16:00 Pulse Ox 98 09/04/21 16:00 BMI result Body Mass Index 44.5 Const: General: cooperative, comfortable, alert and awake Nutritional Appearance: obese Resp: Effort & Inspection: normal respiratory effort and able to speak in complete sentences Cardio: Rate: regular rate Heart sounds: Murmur heart sound present GI: Inspection: No distended and Yes obesity Palpation (GI): Soft to palpation and nontender Extrem: Other: b/l leg edema Objective Data Active Medications Acetaminophen (Acetaminophen 325 Mg Tablet) 650 mg PO Q6H PRN PRN Reason: Pain, Mild (Pain Scale 1-3) Albuterol Sulfate (Albuterol Sulfate 90 Mcg 8 Gm Inhaler) 2 puff INHALE Q6H PRN PRN Reason: shortness of breath or wheezing Allopurinol (Allopurinol 100 Mg Tablet) 100 mg PO DAILY [facility] Last Admin: 09/04/21 08:10 Dose: 100 mg Documented by: KAMILA Amlodipine Besylate (Amlodipine Besylate 10 Mg Tablet) 10 mg PO DAILY [facility]; Protocol Last Admin: 09/04/21 08:12 Dose: 10 mg Documented by: KAMILA Aspirin (Aspirin Enteric Coated 81 Mg Tablet.) 81 mg PO BEDTIME [facility] Last Admin: 09/03/21 20:28 Dose: 81 mg Documented by: ISAAC Atorvastatin Calcium (Atorvastatin Calcium 40 Mg Tablet) 40 mg PO BEDTIME [facility] Last Admin: 09/03/21 20:28 Dose: 40 mg Documented by: ISAAC Clonidine HCl (Clonidine Hcl 0.2 Mg Tablet) 0.2 mg PO BID [facility]; Protocol Last Admin: 09/04/21 08:12 Dose: 0.2 mg Documented by: KAMIAL Dextrose (Dextrose 50 % 25 Gm/50 Ml Vial) 25 gm IVPUSH Q15M PRN; Protocol PRN Reason: per Hypoglycemia Standing Ord. Docusate Sodium (Docusate Sodium 100 Mg Capsule) 100 mg PO DAILY PRN PRN Reason: Constipation Ferrous Sulfate (Ferrous Sulfate 324 Mg Tablet.Dr) 324 mg PO DAILY [facility] Last Admin: 09/04/21 08:10 Dose: 324 mg Documented by: KAMILA Finasteride (Finasteride 5 Mg Tablet) 5 mg PO DAILY [facility] Last Admin: 09/04/21 08:10 Dose: 5 mg Documented by: KAMILA Glucose (Glucose Gel 15 Gm Gel..Gram.) 15 gm PO Q15M PRN; Protocol PRN Reason: per Hypoglycemia Standing Ord. Heparin Sodium (Porcine) (Heparin Sodium,Porcine 5,000 Unit/Ml Vial) 5,200 unit 40 unit/kg (5200 unit) IVPUSH PROTOCOL BOLUS PRN; Protocol PRN Reason: 40 unit/kg - Heparin Protocol Heparin Sodium (Porcine) (Heparin Sodium,Porcine 5,000 Unit/Ml Vial) 10,000 unit IVPUSH PROTOCOL BOLUS PRN; Protocol PRN Reason: 80 unit/kg - Heparin Protocol Hydralazine HCl (Hydralazine Hcl 50 Mg Tablet) 100 mg PO TID [facility]; Protocol Last Admin: 09/04/21 14:24 Dose: 100 mg Documented by: KAMILA Heparin Sodium/Sodium Chloride () 25,000 unit in 250 mls @ 0 mls/hr IVCONT .Q0M [facility]; Protocol Stop: 09/05/21 00:29 Last Admin: 09/04/21 14:21 Dose: 10 units/kg/hr, 12.89 mls/hr Documented by: KAMILA Cosigned by: DUANE Insulin Glargine (Insulin Glargine,Hum.Rec.Anlog 100 Unit/Ml 10 Ml Vial) 50 unit SUBCUT BEDTIME [facility] Last Admin: 09/03/21 20:26 Dose: 50 unit Documented by: ISAAC Insulin Human Lispro (Insulin Lispro 100 Unit/Ml 3 Ml Vial) 0 unit SUBCUT QIDACHS [facility]; Protocol Last Admin: 09/04/21 12:05 Dose: 4 unit Documented by: KAMILA Labetalol HCl (Labetalol Hcl 100 Mg Tablet) 100 mg PO BID [facility]; Protocol Last Admin: 09/04/21 08:12 Dose: 100 mg Documented by: KAMILA Multivitamins/Vitamin C (Multivitamin Tablet) 1 tab PO DAILY [facility] Last Admin: 09/04/21 08:12 Dose: 1 tab Documented by: KAMILA Ondansetron HCl (Ondansetron Hcl 4 Mg/2 Ml Vial) 4 mg IVPUSH Q8H PRN PRN Reason: Nausea and Vomiting Sodium Chloride (0.9 % Sodium Chloride Flush 3 Ml Syringe) 3 ml IVFLUSH QSHIFT [facility] Last Admin: 09/04/21 08:13 Dose: Not Given Documented by: KAMILA Non-Admin Reason: IV Running Vitamin D (Cholecalciferol (Vitamin D3) 25 Mcg Tablet) 25 mcg PO DAILY [facility] Last Admin: 09/04/21 08:12 Dose: 25 mcg Documented by: KAMILA Labs CBC & Chem 7: 09/04/21 08:30 09/04/21 08:30 Labs: Laboratory Results - last 24 hr 09/03/21 09/04/21 09/04/21 20:13 06:12 07:29 MCV MCH MCHC RDW Plt Count MPV Absolute Nucleated RBC Nucleated RBC % (auto) PT 11.7 INR 1.0 aPTT Heparin Protocol 68.6 Anion Gap Estim Creat Clear Calc Estimated GFR POC Glucose 223 H 183 H Random Glucose Calcium 09/04/21 09/04/21 09/04/21 08:30 08:30 11:01 MCV 95.2 MCH 30.6 MCHC 32.2 RDW 13.6 Plt Count 159 L MPV 12.4 Absolute Nucleated RBC 0.000 Nucleated RBC % (auto) 0.0 PT INR aPTT Heparin Protocol Anion Gap 12 Estim Creat Clear Calc 29.3 Estimated GFR 24 POC Glucose 211 H Random Glucose 189 H Calcium 9.8 09/04/21 16:12 MCV MCH MCHC RDW Plt Count MPV Absolute Nucleated RBC Nucleated RBC % (auto) PT INR aPTT Heparin Protocol Anion Gap Estim Creat Clear Calc Estimated GFR POC Glucose 211 H Random Glucose Calcium Assessment and Plan (1) NSTEMI (non-ST elevated myocardial infarction): Status: Acute Plan 81-year-old male with past medical history of hypertension, diabetes who presents to the hospital with complaints of chest pain found to have NSTEMI NSTEMI secondary to demand from uncontrolled HTN vs CAD continue heparin drip x 48 hours continue asa, statin, lobatalol trops trending down, peak 1434 cardiology following ECHO with preserved LVEF and no WMA resting portion of stress test today, stress portion tomorrow; further management based on outcome hypertensive emergency BP improving dose of hydralazine increased continue norvasc, labetalol, clonidine CKD4 creatinine at baseline follow BMP diabetes continue Lantus, SSI hyperlipidemia continue statin DVT prophylaxis:? Heparin GGT Attending: Dr. Hobson Medical necessity for inpatient - acute ACS requiring heparin drip, ischemic workup; blood pressure control Quality Stroke Does the patient have a stroke diagnosis?: No VTE Prior VTE?: No VTE Risk Level:: Medical - moderate - high VTE Device Contraindication: Treatment Not Indicated VTE Drug Contraindication: N/A - Med Ordered
[2021-09-04] MEDS: 0.9 % Sodium Chloride Flush 3 ML SYRINGE IVFLUSH (17:34)
[2021-09-04 19:29] LABS: Glucose, Whole Blood 251 mg/dL (60-115)
[2021-09-04] MEDS: Aspirin Enteric Coated 81 MG TABLET.DR PO (20:10)
[2021-09-04] MEDS: Atorvastatin Calcium 40 MG TABLET PO (20:11)
[2021-09-04] MEDS: Insulin Glargine,Hum.rec.anlog 100 UNIT/ML 10 ML VIAL 50 UNIT SUBCUT (20:15)
[2021-09-05 03:35] VITALS: BP 172/58; PULSE 73; RESP 20; TEMP 36.6; O2SAT 96
[2021-09-05 06:35] LABS: Hematocrit 33.8 % (42.0-52.0); Mean Corpuscular HGB Conc 32.5 g/dl (31.0-36.0); Mean Corpuscular Hemoglobin 30.6 pg (27.0-33.0); Mean Corpuscular Volume 93.9 fL (80.0-98.0); Mean Platelet Volume 11.1 fL (9.4-12.4); Platelet Count 154 X10*3/uL (160-400); Red Cell Distribution Width 13.4 % (11.0-16.0); White Blood Count 8.4 X10*3/uL (4.8-10.8)
[2021-09-05 06:44] LABS: PTT Heparin Drip 73.1 SEC (53-77.9)
[2021-09-05 07:07] LABS: Anion Gap 11 (12-20); Blood Urea Nitrogen 36 mg/dL (9-16); Calcium 9.8 mg/dL (8.4-10.2); Carbon Dioxide 24 mmol/L (22-29); Chloride 109 mmol/L (96-108); Creatinine Clr Calc Pharmacy 29.3; Estimated Glomerular Filt Rate 24; Glucose Random 160 mg/dL (60-115); Potassium 4.3 mmol/L (3.3-5.1); Sodium 140 mmol/L (135-145)
[2021-09-05 07:52] VITALS: BP 159/63; PULSE 64; RESP 18; TEMP 37; O2SAT 96
[2021-09-05 08:16] LABS: Glucose, Whole Blood 165 mg/dL (60-115)
--- NOTE | 2021-09-05 10:02 | P.CDIC_ITS ---
CDI Concurrent Query Documentation Clarification: PHYSICIAN'S DOCUMENTATION REQUEST Date of Query: 09/05/21 1002 Patient Name: Claude Kerr Admit Date: 09/03/21 Dear Doctor, A review of the medical record indicates additional documentation may be needed. Please review below and update the documentation accordingly. Risk Factors/Clinical Indicators/Treatments BUN 36/Creatinine 2.51 on 09/02/21 BUN 36/Creatinine 2.59 on 09/05/21 ED and H&P state CKD stage 2 MD progress note 09/04/21 states CKD stage 4 Based on the above, could you clarify in the Progress Notes the appropriate diagnosis, if significant, that supports the above abnormalities and additional evaluation, monitoring, and/or treatment rendered: * CKD stage 2 * CKD stage 4 * Other (please specify) * Unable to determine Use of terms such as suspected, likely, concern for, or probable (associated with a specific diagnosis that is being evaluated, monitored, or treated as if it exists) are acceptable and can be coded in the inpatient setting, when documented at the time of discharge. Thank you, Silvina Burgos RN Extension: [phone] Please use your independent medical judgment in providing your response. THIS QUERY IS PART OF THE PERMANENT MEDICAL RECORD Provider Response: CKD Stage 4
[2021-09-05] MEDS: amLODIPine Besylate 10 MG TABLET PO (10:16)
[2021-09-05] MEDS: Finasteride 5 MG TABLET PO (10:16)
[2021-09-05] MEDS: cloNIDine HCL 0.2 MG TABLET PO (10:16)
[2021-09-05] MEDS: hydrALAZINE HCl 50 MG TABLET 100 MG PO ×2 (10:16→15:36)
[2021-09-05] MEDS: Labetalol HCL 100 MG TABLET PO (10:16)
[2021-09-05] MEDS: Ferrous Sulfate 324 MG TABLET.DR PO (10:16)
[2021-09-05] MEDS: Cholecalciferol (Vitamin D3) 25 MCG TABLET PO (10:16)
[2021-09-05] MEDS: Multivitamin TABLET 1 TAB PO (10:16)
[2021-09-05] MEDS: allopurinoL 100 MG TABLET PO (10:16)
[2021-09-05 11:18] LABS: Glucose, Whole Blood 229 mg/dL (60-115)
--- NOTE | 2021-09-05 11:31 | PM.PNCARD ---
Subjective Subjective Date of Service: 09/05/21 Principal diagnosis: Labile blood pressure, NSTEMI Interval history: No cardiac symptoms to report. Blood pressure is slightly elevated but overall much better controlled. Review of Systems Review of Systems Yes all other systems are reviewed and are negative Physical Exam Vital Signs: Last Vital Signs Temp 98.6 F 09/05/21 07:52 Pulse 64 09/05/21 07:52 Resp 18 09/05/21 07:52 BP 159/63 H 09/05/21 07:52 Pulse Ox 96 09/05/21 07:52 BMI result Body Mass Index 44.5 Const General: cooperative, comfortable, no acute distress, alert and awake Nutritional Appearance: obese Orientation/consciousness: patient oriented x3 Neck Neck: Yes trachea midline, Yes supple and Yes no JVD Resp Effort & Inspection: normal respiratory effort Auscultation: clear to auscultation bilaterally Cardio Jugular venous distension: no JVD Palpation: normal PMI Rate: regular rate Rhythm: regular rhythm Heart sounds: S1 normal heart sound present, S2 normal heart sound present and Murmur heart sound present systolic mid, decrescendo, crescendo and soft GI Auscultation: normal bowel sounds Skin General skin exam: no rashes or lesions noted Neuro General: patient oriented x3 and no focal motor deficits Objective Labs and Meds Result diagrams: 09/05/21 06:17 09/05/21 06:17 Lab results: Laboratory Results - last 24 hr 09/04/21 09/04/21 09/04/21 16:06 16:12 19:24 WBC RBC Hgb Hct MCV MCH MCHC RDW Plt Count MPV Absolute Nucleated RBC Nucleated RBC % (auto) aPTT Heparin Protocol Sodium Potassium Chloride Carbon Dioxide Anion Gap BUN Creatinine Estim Creat Clear Calc Estimated GFR POC Glucose 211 H 251 H Random Glucose Calcium Troponin I High Sens 1038.9 H* 09/05/21 09/05/21 09/05/21 06:17 06:17 06:17 WBC 8.4 RBC 3.60 L Hgb 11.0 L Hct 33.8 L MCV 93.9 MCH 30.6 MCHC 32.5 RDW 13.4 Plt Count 154 L MPV 11.1 Absolute Nucleated RBC 0.000 Nucleated RBC % (auto) 0.0 aPTT Heparin Protocol 73.1 Sodium 140 Potassium 4.3 Chloride 109 H Carbon Dioxide 24 Anion Gap 11 L BUN 36 H Creatinine 2.59 H Estim Creat Clear Calc 29.3 Estimated GFR 24 POC Glucose Random Glucose 160 H Calcium 9.8 Troponin I High Sens 09/05/21 09/05/21 07:49 11:14 WBC RBC Hgb Hct MCV MCH MCHC RDW Plt Count MPV Absolute Nucleated RBC Nucleated RBC % (auto) aPTT Heparin Protocol Sodium Potassium Chloride Carbon Dioxide Anion Gap BUN Creatinine Estim Creat Clear Calc Estimated GFR POC Glucose 165 H 229 H Random Glucose Calcium Troponin I High Sens Imaging Radiologist's impression: Impressions Myocardial Perfusion Scan Nuc Med 09/05/21 09:30 Impression: 1. Myocardial perfusion imaging study shows likely normal myocardial perfusion 2. Gated LVEF is 59% 3. Transient ischemic dilatation not present EKG is nondiagnostic for ischemia Progress Note: A&P Assessment and plan (1) NSTEMI (non-ST elevated myocardial infarction): Status: Acute Assessment and Plan: NSTEMI with symptoms most likely due to subendocardial strain and hypertensive urgency in a patient with markedly labile blood pressure. Myocardial perfusion imaging appears within normal limits. No further cardiac workup is indicated unless he has recurrent chest pain despite well-controlled blood pressure and require anatomic evaluation. Can be pursued with his presser and blocker knitted goods. Continue aspirin and statin therapy. (2) Labile blood pressure: Status: Acute Assessment and Plan: Labile blood pressure which is much better control. Continue current therapy. Advised to continue monitor blood pressure at home closely and consider splitting amlodipine to 5 mg b.i.d.. If his blood pressure remains in the 160 range at home slowly uptitrate clonidine therapy as outpatient. Can be pursued with his presser and blocker knitted goods and PCP. From cardiac perspective can be discharged home. Will sign of the case. Thank you for allowing us to partake in his care Fall Risk Details Current Medications: Current Medications Acetaminophen (Acetaminophen 325 Mg Tablet) 650 mg PO Q6H PRN PRN Reason: Pain, Mild (Pain Scale 1-3) Albuterol Sulfate (Albuterol Sulfate 90 Mcg 8 Gm Inhaler) 2 puff INHALE Q6H PRN PRN Reason: shortness of breath or wheezing Allopurinol (Allopurinol 100 Mg Tablet) 100 mg PO DAILY [facility] Last Admin: 09/05/21 10:16 Dose: 100 mg Documented by: Amlodipine Besylate (Amlodipine Besylate 10 Mg Tablet) 10 mg PO DAILY [facility]; Protocol Last Admin: 09/05/21 10:16 Dose: 10 mg Documented by: Aspirin (Aspirin Enteric Coated 81 Mg Tablet.) 81 mg PO BEDTIME [facility] Last Admin: 09/04/21 20:10 Dose: 81 mg Documented by: Atorvastatin Calcium (Atorvastatin Calcium 40 Mg Tablet) 40 mg PO BEDTIME [facility] Last Admin: 09/04/21 20:11 Dose: 40 mg Documented by: Clonidine HCl (Clonidine Hcl 0.2 Mg Tablet) 0.2 mg PO BID [facility]; Protocol Last Admin: 09/05/21 10:16 Dose: 0.2 mg Documented by: Dextrose (Dextrose 50 % 25 Gm/50 Ml Vial) 25 gm IVPUSH Q15M PRN; Protocol PRN Reason: per Hypoglycemia Standing Ord. Docusate Sodium (Docusate Sodium 100 Mg Capsule) 100 mg PO DAILY PRN PRN Reason: Constipation Ferrous Sulfate (Ferrous Sulfate 324 Mg Tablet.) 324 mg PO DAILY [facility] Last Admin: 09/05/21 10:16 Dose: 324 mg Documented by: Finasteride (Finasteride 5 Mg Tablet) 5 mg PO DAILY [facility] Last Admin: 09/05/21 10:16 Dose: 5 mg Documented by: Glucose (Glucose Gel 15 Gm Gel..Gram.) 15 gm PO Q15M PRN; Protocol PRN Reason: per Hypoglycemia Standing Ord. Heparin Sodium (Porcine) (Heparin Sodium,Porcine 5,000 Unit/Ml Vial) 5,200 unit 40 unit/kg (5200 unit) IVPUSH PROTOCOL BOLUS PRN; Protocol PRN Reason: 40 unit/kg - Heparin Protocol Heparin Sodium (Porcine) (Heparin Sodium,Porcine 5,000 Unit/Ml Vial) 10,000 unit IVPUSH PROTOCOL BOLUS PRN; Protocol PRN Reason: 80 unit/kg - Heparin Protocol Hydralazine HCl (Hydralazine Hcl 50 Mg Tablet) 100 mg PO TID [facility]; Protocol Last Admin: 09/05/21 10:16 Dose: 100 mg Documented by: Insulin Glargine (Insulin Glargine,Hum.Rec.Anlog 100 Unit/Ml 10 Ml Vial) 50 unit SUBCUT BEDTIME [facility] Last Admin: 09/04/21 20:15 Dose: 50 unit Documented by: Insulin Human Lispro (Insulin Lispro 100 Unit/Ml 3 Ml Vial) 0 unit SUBCUT QIDACHS [facility]; Protocol Last Admin: 09/05/21 08:41 Dose: Not Given Documented by: Labetalol HCl (Labetalol Hcl 100 Mg Tablet) 100 mg PO BID [facility]; Protocol Last Admin: 09/05/21 10:16 Dose: 100 mg Documented by: Multivitamins/Vitamin C (Multivitamin Tablet) 1 tab PO DAILY [facility] Last Admin: 09/05/21 10:16 Dose: 1 tab Documented by: Ondansetron HCl (Ondansetron Hcl 4 Mg/2 Ml Vial) 4 mg IVPUSH Q8H PRN PRN Reason: Nausea and Vomiting Sodium Chloride (0.9 % Sodium Chloride Flush 3 Ml Syringe) 3 ml IVFLUSH QSHIFT [facility] Last Admin: 09/05/21 08:41 Dose: Not Given Documented by: Vitamin D (Cholecalciferol (Vitamin D3) 25 Mcg Tablet) 25 mcg PO DAILY [facility] Last Admin: 09/05/21 10:16 Dose: 25 mcg Documented by: Time Spent With Patient Time: Total time spent is greater than 50% in coordination of care (as documented) at patient's floor/unit and/or counseling patient: Time with patient: 25 - 35 minutes Progress Note: Quality Stroke Does the patient have a stroke diagnosis?: No Procedures Date of Service Date of Service: 09/05/21
[2021-09-05 11:42] VITALS: BP 152/59; PULSE 64; RESP 18; TEMP 36.3; O2SAT 96
[2021-09-05] MEDS: Insulin Lispro 100 UNIT/ML 3 ML VIAL SUBCUT (12:05)
--- NOTE | 2021-09-05 13:18 | P.DS_ITS ---
DS: Providers Provider Date of Service: 09/05/21 Date of admission: 09/03/21 09:08 Date of discharge: 09/05/21 Primary care physician: Jarred Hughes Consults: 09/02/21 23:00 Consult to Cardiology Routine Consulting Provider: Homer Servin Reason for consultation: chest pain Has provider been notified: No Attending physician on discharge: Octaviano Hobson Discharging clinician: Evelyn Carr DS: Diagnosis Discharge Diagnosis (1) NSTEMI (non-ST elevated myocardial infarction): Status: Acute (2) Labile blood pressure: Status: Acute (3) Hypertensive emergency: Status: Acute DS: Summary Hospital Course Hospital Course: From H&P on day of admission this is an 81-year-old male with past medical history of COPD, DM, CHAYITO on CPAP, hyperlipidemia, hypertension, who presents to the hospital with complaints of chest pain.? Patient describes the pain as discomfort in his? chest bilaterally, started around 14:00, has remained constant, feels like 'solid pain,? nonradiating, 11/04, received? aspirin in the ED will some relief.? He reports no shortness of breath, no PND orthopnea, no cough, no fever chills but reports lower extremity edema that he noticed for few days now. ? He denies any nausea vomiting no abdominal pain, no diarrhea constipation, no urinary symptoms and no headache or change in vision.? No numbness or tingling.? On arrival to the? ED patient? vitals are significant for blood pressure of 203/58, otherwise unremarkable, labs are significant for initial troponin of 50 that increased to 92, a subsequently increased to 318, he has a creatinine of 2.51 which is his baseline.? UA is negative.? of note patient reports that he did fall on ice about 2 weeks ago Initial EKG showed sinus bradycardia with first-degree AV block, with no significant ST T-wave changes suggestive of ACS The patient was admitted to hospital secondary to uncontrolled hypertension the elevated cardiac enzymes. Blood pressure on admission was 203/58. Highly sensitive troponin increased from 318 to a peak of 1434 and then began to trend down. He was started on IV heparin drip for treatment of NSTEMI and anticoagulated for 48 hours. He was continued on his home doses of aspirin, statin, labetalol. His dose of hydralazine was increased to 100 mg t.i.d.. He was seen in consultation by Cardiology and underwent echocardiogram which showed preserved LVEF with no wall motion abnormality. He underwent myocardial perfusion study which shows likely normal myocardial perfusion. Elevation in cardiac enzymes/NSTEMI likely secondary to demand/subendocardial strain related to hypertensive urgency. No further inpatient ischemic workup is required at this time. Recommend patient call to schedule follow-up appointment with his primary manager of selection and assessment. Blood pressure has improved significantly and is 152/59 on day of discharge. Can consider up titrating clonidine with manager of selection and assessment as an outpatient. Patient has had no further recurrence of chest pain since admission. He is currently stable for discharge home. No other changes were made to his home medications. Time Spent with Patient Time attestation: Total time spent providing and/or coordinating discharge services: Discharge coordination time: Greater than 30 minutes Quality: Stroke Does the patient have a stroke diagnosis?: No Physical Exam Vital Signs: Vital Signs: Last Vital Signs Temp 97.4 F 09/05/21 11:42 Pulse 64 09/05/21 11:42 Resp 18 09/05/21 11:42 BP 152/59 H 09/05/21 11:42 Pulse Ox 96 09/05/21 11:42 BMI result Body Mass Index 44.5 Const: General: cooperative, comfortable, alert and awake Nutritional Appearance: obese Resp: Effort & Inspection: normal respiratory effort and able to speak in complete sentences Cardio: Rate: regular rate Heart sounds: Murmur heart sound present GI: Inspection: No distended and Yes obesity Palpation (GI): Soft to palpation and nontender Extrem: Other: b/l leg edema DS: Data Data Completed and Pending Completed studies during hospitalization [Text1]: Procedures Assistance with Respiratory Ventilation, Less than 24 Consecutive Hours, Continuous Positive Airway Pressure (12/05/20) Labs on day of discharge: Laboratory Results - last 24 hr 09/04/21 09/04/21 09/04/21 16:06 16:12 19:24 WBC RBC Hgb Hct MCV MCH MCHC RDW Plt Count MPV Absolute Nucleated RBC Nucleated RBC % (auto) aPTT Heparin Protocol Sodium Potassium Chloride Carbon Dioxide Anion Gap BUN Creatinine Estim Creat Clear Calc Estimated GFR POC Glucose 211 H 251 H Random Glucose Calcium Troponin I High Sens 1038.9 H* 09/05/21 09/05/21 09/05/21 06:17 06:17 06:17 WBC 8.4 RBC 3.60 L Hgb 11.0 L Hct 33.8 L MCV 93.9 MCH 30.6 MCHC 32.5 RDW 13.4 Plt Count 154 L MPV 11.1 Absolute Nucleated RBC 0.000 Nucleated RBC % (auto) 0.0 aPTT Heparin Protocol 73.1 Sodium 140 Potassium 4.3 Chloride 109 H Carbon Dioxide 24 Anion Gap 11 L BUN 36 H Creatinine 2.59 H Estim Creat Clear Calc 29.3 Estimated GFR 24 POC Glucose Random Glucose 160 H Calcium 9.8 Troponin I High Sens 09/05/21 09/05/21 07:49 11:14 WBC RBC Hgb Hct MCV MCH MCHC RDW Plt Count MPV Absolute Nucleated RBC Nucleated RBC % (auto) aPTT Heparin Protocol Sodium Potassium Chloride Carbon Dioxide Anion Gap BUN Creatinine Estim Creat Clear Calc Estimated GFR POC Glucose 165 H 229 H Random Glucose Calcium Troponin I High Sens Discharge Plan Discharge Patient Disposition: Home, Self-Care Discharge Diagnosis: uncontrolled HTN type 2 NSTEMI Referrals: Jarred Hughes [Primary Care Provider] - 1 Week Discharge Medications: New hydralazine 50 mg Tablet 100 mg PO TID 30 Days Qty: 180 0RF Protocol: Hold for SBP< HOLD for SBP < : 90 Continued insulin aspart U-100 100 unit/mL Solution 1 sliding scale dose SUBCUT QIDACHS 0RF Lantus Solostar U-100 Insulin 100 unit/mL (3 mL) Insulin Pen 50 unit SUBCUT BEDTIME 0RF atorvastatin 80 mg Tablet 40 mg PO BEDTIME 0RF allopurinol 100 mg Tablet 100 mg PO DAILY 0RF amlodipine 10 mg Tablet 10 mg PO DAILY 0RF albuterol sulfate 90 mcg/actuation HFA aerosol inhaler 2 puff inhalation Q6H PRN (Reason: shortness of breath or wheezing) Qty: 8.5 0RF multivitamin Tablet 1 tab PO DAILY 0RF labetalol 100 mg Tablet 100 mg PO BID 0RF cholecalciferol (vitamin D3) 25 mcg (1,000 unit) Tablet 25 mcg PO DAILY 0RF ferrous sulfate 324 mg (65 mg iron) Tablet,Delayed Release (Dr/Ec) 324 mg PO DAILY 0RF clonidine HCl 0.2 mg tablet 0.2 mg PO BID 0RF Rx Instructions: Discontinue taking 0.3 mg tablets aspirin 81 mg tablet,delayed release (DR/EC) 81 mg PO BEDTIME 0RF finasteride 5 mg tablet 5 mg PO DAILY 90 Days Qty: 90 1RF Discontinued hydralazine 50 mg Tablet 50 mg PO TID 0RF Discharge Orders: Discharge Order (Routine); Ordered 09/05/21 Ordered By: Evelyn Carr Activity on Discharge: As tolerated Stand Alone Forms: Patient Portal Discharge page Care Plan Goals: see below Health Concerns: uncontrolled blood pressure elevated cardiac enzymes/NSTEMI Plan of Treatment: Your dose of hydralazine has been increased to 100mg three times daily Elevated cardiac enzymes most likely related to elevated blood pressure. MIBI stress test did not show evidence of ischemia Recommend to schedule follow up appointment with your manager of selection and assessment Assessment: see discharge summary Discharge Date/Time: 09/05/21 15:45
--- NOTE | 2021-09-05 14:06 | MHC.CM.PN ---
Male patient s/p Pacer and stress test. He is discharged home today. Transportation provided by family.
--- NOTE | 2021-09-05 14:41 | CA_ITS ---
Acquisition Time: 2021-09-05 08:22:17 Total Exercise Time: 00:02:00 Test Indications: Post HI Medications: SEE EMAR Protocol: LEXISCAN Max HR: 091 BPM 65% of Pred: 140 BPM Max BP: 142/066 mmHG Max Work Load: 1.0 METS Pharmacological stress test with Lexiscan injection, while sitting and kicking his legs, without anginal symptoms, with isolated PVC, with normotensive response to injection, with nondiagnostic EKG for ischemia. In recovery he was given Aminophylline 75mg IVP to reverse Lexiscan. Nuclear images pending. Test reviewed with Dr Servin Referred By: Homer Servin Overread By: BERONICA WOLFE
== END 2021-09-05 15:45 | disposition home or self-care (01) | DRG 281 ==
LOC: HO.ED 22:03 → HO.EDOVER 23:09 → HO.IMC 09-03 14:31
PROVIDERS: Internal Medicine; Nurse Practitioner Family; Admitting Provider Internal Medicine; Emergency Provider Student in an Organized Health Care Education/Training Program; PCP Internal Medicine; Visit Provider Physician Assistant Medical
DX: I16.1 Hypertensive emergency (principal); I21.A1 Myocardial infarction type 2; Z68.41 Body mass index [BMI] 40.0-44.9, adult; N18.4 Chronic kidney disease, stage 4 (severe); I25.10 Atherosclerotic heart disease of native coronary artery without angina pectoris; G47.33 Obstructive sleep apnea (adult) (pediatric); J44.9 Chronic obstructive pulmonary disease, unspecified; E78.5 Hyperlipidemia, unspecified; E11.22 Type 2 diabetes mellitus with diabetic chronic kidney disease; E66.01 Morbid (severe) obesity due to excess calories; I44.30 Unspecified atrioventricular block; Z91.81 History of falling; Z87.891 Personal history of nicotine dependence; Z99.89 Dependence on other enabling machines and devices; Z20.822 Contact with and (suspected) exposure to COVID-19; Z88.0 Allergy status to penicillin; Z88.2 Allergy status to sulfonamides; Z79.4 Long term (current) use of insulin; Z79.82 Long term (current) use of aspirin; Z79.899 Other long term (current) drug therapy
CPT/HCPCS: 36415; 71045; 78452; 80048; 81001; 82947; 83880; 84484; 85025; 85027; 85610; 85730; 87635; 93005; 93017; 93308; 94660; 99285; 99291; A9500; J0280; J1650; J2785; Q9957

== ENCOUNTER 2021-12-24 07:37 | Outpatient (REF) | payer OTHER, SELFPAY ==
[2021-12-24 09:24] LABS: PSA,Total (Free>4and<10) 13.06 ng/mL (0.00-4.00)
== END 2021-12-24 07:38 | disposition home or self-care (01) ==
LOC: HO.LAB 07:37
PROVIDERS: PCP Internal Medicine; Visit Provider Urology
DX: Z12.5 Encounter for screening for malignant neoplasm of prostate (principal); R97.20 Elevated prostate specific antigen [PSA]
CPT/HCPCS: 36415; 84153

== ENCOUNTER 2022-03-27 07:29 | Outpatient (REF) | payer OTHER, SELFPAY ==
[2022-03-27 08:53] LABS: Blood Urea Nitrogen 49 mg/dL (9-16); Estimated Glomerular Filt Rate 22
== END 2022-03-27 07:30 | disposition home or self-care (01) ==
LOC: HO.LAB 07:29
PROVIDERS: PCP Internal Medicine; Visit Provider Urology
DX: C61 Malignant neoplasm of prostate (principal)
CPT/HCPCS: 36415; 82565; 84520

== ENCOUNTER 2022-04-24 07:13 | Outpatient (REF) | payer OTHER, SELFPAY ==
[2022-04-24 09:16] LABS: Prostate Specific Antigen 16.07 ng/mL (<0.05-4.0)
== END 2022-04-24 07:14 | disposition home or self-care (01) ==
LOC: HO.LAB 07:13
PROVIDERS: PCP Internal Medicine; Visit Provider Urology
DX: Z12.5 Encounter for screening for malignant neoplasm of prostate (principal); C61 Malignant neoplasm of prostate
CPT/HCPCS: 36415; 84153

== ENCOUNTER 2022-05-01 14:12 | Outpatient (AMB) | payer OTHER, SELFPAY ==
--- NOTE | 2022-05-01 14:13 | MHC.OFFVIS ---
Intake Intake Visit Reasons: 4 Month psa/mri(set) Intake Note: fu mri and psa Allergies vancomycin Allergy (Intermediate, Verified 09/24/22 10:58) Rash levofloxacin [From Levaquin] Allergy (Mild, Verified 09/24/22 10:58) paralized amoxicillin [AMOXICILLIN] Allergy (Unknown, Verified 09/24/22 10:58) ANAPHYLAXIS famotidine Allergy (Unknown, Verified 09/24/22 10:58) unknown hydrochlorothiazide Allergy (Unknown, Verified 09/24/22 10:58) unknown lisinopril [LISINOPRIL] Allergy (Unknown, Verified 09/24/22 10:58) UNKNOWN losartan Allergy (Unknown, Verified 09/24/22 10:58) unknown spironolactone Allergy (Unknown, Verified 09/24/22 10:58) unknown sulfamethoxazole [From BACTRIM] Adverse Reaction (Intermediate, Verified 09/24/22 10:58) C-DIFF, REDUCED KIDNEY FX trimethoprim [From BACTRIM] Adverse Reaction (Intermediate, Verified 09/24/22 10:58) C-DIFF, REDUCED KIDNEY FX HPI HPI Comments History of Present Illness Details Claude is a very pleasant male.. He is a patient of Dr. Doss. He is seen for the following urologic conditions - prostate cancer Telemedicine evaluation 15min evaluation Doximity zane Video attempted PSA continues in to remain on high end of acceptable at 13. Amie 2 points over 6 months Known large prostate 130 g Refilled finasteride medication MRI shows organ confined disease Prostate cancer: 2006, 04/2018 Low-grade Low volume disease in setting of large prostate 130 gm Prostate cancer was diagnosed [address] Correa. Diagnosis was reached by needle biopsy, , for elevated PSA, PSA at diagnosis 6.9. The Dirk grade is 3+3 = 6, At biopsy 2 of 12 cores less than 25% April 2018 - TURP chronic inflammation 10/15 Biopsy - small acinar change, no cancer TNM Classification of Malignant Tumours (TNM) T1c. The D'Sonali (NCCN) risk category is Low Risk (PSA< 10, Gl < 7, T1c). Initial therapy included Primary treatment, Watchful Waiting. Recent labs included 04/14 6.5 on finasteride 07/16 4.75 on finasteride, 12/14 10.5, 08/17 20 on finasteride, 02/14 7.7, 06/16 11, 11/15 13, 03/18 10.7, 07/19 11.7, 12/17 13, 04/18 16 Recent imaging included - 04/14 Bladder US - PVR 68cc, volume prostate 126cc - 07/18 bone scan - arthritis, 07/18 CT scan no cinda disease, absent left kidney - 04/18 MRI prostate 60 g, PI-RADS 4 - 1.5 cm localized lesion, no evidence of disease outside prostate Therapeutic plan: 4 months [facility] Medical History (Updated 09/24/22 @ 12:03 by Jake Daly MD) CKD stage 4 due to type 1 diabetes mellitus SHAINA (acute kidney injury) CHAYITO on CPAP COPD exacerbation Bacteremia Diabetes CHAYITO (obstructive sleep apnea) Morbid obesity Fever Chronic kidney disease, stage II (mild) HTN (hypertension) Pure hypercholesterolemia Incomplete emptying of bladder Weak urinary stream Bladder outlet obstruction Acute cystitis without hematuria Prostate cancer Surgical History History of surgery Family History Mother CVA (cerebral vascular accident) Social History Household Members: Spouse Housing: House Do you presently have visiting nurse or other home services: Yes Alcohol intake: never Patient Tobacco Use Status: Former Tobacco user Advance Directives Date on File: 08/21/22 service: Yes Current occupational status: retired 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 Review of Systems Const All systems reviewed & are unremarkable except as noted in HPI and below Reports no additional complaints Resp Reports no additional complaints GI Reports no additional complaints Reports as per HPI Musc Reports no additional complaints Physical Exam Telemedicine evaluation Appropriate responses Regular breathing rate and rhythm HEENT Head: Yes normal to inspection Ears: hearing grossly normal bilaterally Eyes General: appearance normal, both eyes and all related structures Neck Neck: Yes normal visual inspection Chest Chest palpation & inspection: normal inspection of the chest Resp Effort & Inspection: normal respiratory effort and able to speak in complete sentences Assessment & Plan Assessment & Plan (1) Prostate cancer: Code(s): C61 - Malignant neoplasm of prostate Plan 4 month follow-up PSA Orders: Orders Prostate Specific Antigen 4 Months R97.20 - Elevated prostate specific antigen [PSA] Patient Instructions: Imaging studies, laboratory and physical exam results were discussed and reviewed in detail. No major barriers to patient understanding were identified. An opportunity to ask questions regarding the treatment plan was provided. All questions were answered. The patient expressed understanding and agreement with the above treatment plan. The patient is aware they should contact our office by phone for worsening of their current condition or the appearance of new urologic symptoms. Compliance is encouraged with any medications and followup testing that is ordered. It is a privilege to participate in the urologic care of your patient. If you have any questions or concerns regarding treatment for the above conditions, or other urologic issues, please do not hesitate to contact me. The office telephone contact is [phone]. This note is constructed using voice recognition software. While every effort has been made to ensure accuracy dub room engineer errors may have been included. Yours sincerely, Dr Jake Daly MD, TUSH[facility] - Urology Providers of Expert, Compassionate Care for the Genitourinary System Telehealth Telehealth Location of provider rendering services: practice address Location of patient: address on file Patient Identification confirmed using: Name, : Yes Telehealth method: video Patient verbally consented to treatment: Yes Patient verbally consented to billing insurance company: Yes Patient informed of any privacy concerns related to visit: Yes Coding Level of Care Code Tele Est Pt Level 3 (99874) Diagnoses Prostate cancer C61
== END 2022-05-01 15:26 | disposition home or self-care (01) ==
LOC: HO.HUSH 14:12
PROVIDERS: PCP Internal Medicine; Visit Provider Urology
DX: C61 Malignant neoplasm of prostate (principal)
CPT/HCPCS: 99213; 99499

== ENCOUNTER 2022-08-18 04:30 | Emergency (ER) | payer OTHER, MEDICARE, SELFPAY ==
[2022-08-18 06:02] VITALS: BP 151/43; PULSE 61; RESP 16; TEMP 36.7; O2SAT 96
[2022-08-18 06:48] VITALS: BMI 44.6
--- NOTE | 2022-08-18 07:02 | ED.MALEGU ---
HPI - Male Genitourinary General Chief complaint: Urogenital-Male Stated complaint: ?uti/multiple complaints Time Seen by Provider: 08/18/22 07:01 Source: patient Mode of arrival: ambulatory Limitations: no limitations History of Present Illness HPI Narrative: Patient with history of renal failure, 4 days ago he had right groin pain and then developed frequent urination, he has frequency and urinary incontinence. Groin pain MD Complaint: other (groin pain) Onset (ago): day(s) Duration: constant Severity: moderate Relieving factors: none Related Data Home Medications Medication Instructions Recorded Confirmed allopurinol 100 mg tablet 100 mg PO DAILY 12/05/20 08/18/22 amlodipine 10 mg tablet 10 mg PO DAILY 12/05/20 08/18/22 atorvastatin 80 mg tablet 40 mg PO BEDTIME 12/05/20 08/18/22 insulin aspart U-100 100 unit/mL 1 sliding scale dose subcut TIDAC 12/05/20 08/18/22 subcutaneous solution insulin glargine 100 unit/mL (3 50 unit subcut BEDTIME 12/05/20 08/18/22 mL) subcutaneous pen (Lantus Solostar U-100 Insulin) aspirin 81 mg tablet,delayed 81 mg PO BEDTIME 09/02/21 08/18/22 release cholecalciferol (vitamin D3) 25 25 mcg PO DAILY 09/02/21 08/18/22 mcg (1,000 unit) tablet clonidine HCl 0.2 mg tablet 0.2 mg PO BID 09/02/21 08/18/22 labetalol 100 mg tablet 100 mg PO BID 09/02/21 08/18/22 multivitamin 1 tab PO DAILY 09/02/21 08/18/22 ferrous gluconate 324 mg (38 mg 324 mg PO DAILY 08/18/22 08/18/22 iron) tablet flaxseed oil 1,000 mg capsule 1,000 mg PO DAILY 08/18/22 08/18/22 saw palmetto 160 mg capsule 160 mg PO BID 08/18/22 08/18/22 ubiquinone 90 mg disintegrating 90 mg PO DAILY 08/18/22 tablet Previous Rx's Medication Instructions Recorded hydralazine 50 mg tablet 100 mg PO TID 30 days #180 tabs 09/05/21 finasteride 5 mg tablet 5 mg PO DAILY 90 days #90 tabs 12/30/21 tamsulosin 0.4 mg capsule (Flomax) 0.4 mg PO BEDTIME #30 caps 08/18/22 Allergies Allergy/AdvReac Type Severity Reaction Status Date / Time levofloxacin [From Levaquin] Allergy Mild paralized Verified 05/01/22 14:14 amoxicillin [AMOXICILLIN] Allergy Unknown ANAPHYLAXIS Verified 05/01/22 14:13 famotidine Allergy Unknown unknown Verified 05/01/22 14:13 hydrochlorothiazide Allergy Unknown unknown Verified 05/01/22 14:13 lisinopril [LISINOPRIL] Allergy Unknown UNKNOWN Verified 05/01/22 14:13 losartan Allergy Unknown unknown Verified 05/01/22 14:13 spironolactone Allergy Unknown unknown Verified 05/01/22 14:13 sulfamethoxazole AdvReac Intermediate C-DIFF, Verified 05/01/22 14:13 [From BACTRIM] REDUCED KIDNEY FX trimethoprim [From BACTRIM] AdvReac Intermediate C-DIFF, Verified 05/01/22 14:13 REDUCED KIDNEY FX Review of Systems Review of Systems: Yes all other systems are reviewed and are negative Genitourinary: Genitourinary: Reports difficulty urinating Comments: groin pain, frequency Neurologic: Denies Sensory deficit (Neuro) [facility] Past Medical History Medical History Acute cystitis without hematuria Bacteremia Bladder outlet obstruction Chronic kidney disease, stage II (mild) COPD exacerbation Diabetes Fever HTN (hypertension) Incomplete emptying of bladder Morbid obesity CHAYITO (obstructive sleep apnea) CHAYITO on CPAP Prostate cancer Pure hypercholesterolemia Weak urinary stream Surgical History History of surgery Family History Family History Mother CVA (cerebral vascular accident) Social History Social History Household Members: Spouse Housing: House Do you presently have visiting nurse or other home services: No Alcohol intake: never Patient Tobacco Use Status: Former Tobacco user Advance Directives: Yes Advance Directives on File: Yes Advance Directives Date on File: 09/03/21 service: Yes Current occupational status: retired 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 Physical Exam Vital Signs: Vital Signs: Last Vital Signs Temp 98.1 F 08/18/22 06:02 Pulse 61 08/18/22 06:02 Resp 16 08/18/22 06:02 BP 151/43 H 08/18/22 06:02 Pulse Ox 96 08/18/22 06:02 O2 Del Method 08/18/22 06:02 BMI result Body Mass Index 44.6 Const: Other: obese male chronically ill Orientation/consciousness: oriented to person and patient oriented x3 Limitations: no limitations HEENT: Head: Yes normal to inspection Ears: external ears normal General nose exam: Normal external nose present Mouth: Normal oral and palatal mucosa present and oropharynx normal Throat: Yes posterior oropharynx normal Eyes: General: appearance normal, both eyes and all related structures Neck: Other: supple Neck: Yes normal visual inspection Chest: Chest palpation & inspection: normal inspection of the chest Resp: Auscultation: clear to auscultation bilaterally Cardio: Other: 4/6 AUNG Jugular venous distension: no JVD Rate: regular rate Rhythm: regular rhythm GI: Inspection: Yes normal to inspection Palpation (GI): Soft to palpation, nontender and No hepatosplenomegaly present Auscultation: normal bowel sounds : Other: distended abdomen with large bladder to percussion Skin: General skin exam: no rashes or lesions noted Neuro: General: oriented to person and patient oriented x3 Cranial nerves: Yes CN's II-XII intact bilaterally Motor exam (neuro): 5/5 motor strength present throughout Sensory Exam: No Sensory deficit (Neuro) Extrem: General: Yes normal to inspection Psych: Appearance: grossly normal Course Reevaluation(s) Reevaluation #1: Mabry drained 1800cc from the bladder Medical Decision Making Differential Diagnosis Differential Diagnoses: The differential diagnosis associated with the presentation includes (urinary retention, UTI, renal failure all considered) Lab Data MDM Lab Attestation statement: I reviewed the patient's lab results. patient with worsening renal failure likely secondary to urinary retention mabry now placed 08/18/22 07:23 08/18/22 07:23 Labs: Lab Results 08/18/22 08/18/22 08/18/22 Range/Units 07:23 07:23 07:27 WBC 9.1 (4.8-10.8) X10*3/uL RBC 3.07 L (4.60-5.80) X10*6/uL Hgb 9.6 L (14.0-18.0) g/dl Hct 29.0 L (42.0-52.0) % MCV 94.5 (80.0-98.0) fL MCH 31.3 (27.0-33.0) pg MCHC 33.1 (31.0-36.0) g/dl RDW 13.6 (11.0-16.0) % Plt Count 133 L (160-400) X10*3/uL MPV 10.7 (9.4-12.4) fL Immature Gran % (Auto) 0.2 (0.0-0.4) % Neut % (Auto) 80.9 H (45-73) % Lymph % (Auto) 6.6 L (20-40) % [place] % (Auto) 8.9 (2-11) % Eos % (Auto) 3.0 (0-4) % Baso % (Auto) 0.4 (0-2) % Lymph # (Auto) 0.6 L (1.2-4.9) X10*3/uL [place] # (Auto) 0.8 (0.1-1.2) X10*3/uL Eos # (Auto) 0.3 (0.0-0.4) X10*3/uL Baso # (Auto) 0.0 (0.0-0.2) X10*3/uL Abs Immat Gran (auto) 0.02 (0.00-0.03) X10*3/uL Absolute Neuts (auto) 7.3 (2.0-8.3) x10*3/uL Absolute Nucleated RBC 0.000 (0.0-0.012) X10*3/uL Nucleated RBC % (auto) 0.0 (0.0-0.2) /100WBC Sodium 140 (135-145) mmol/L Potassium 4.2 (3.3-5.1) mmol/L Chloride 113 H (96-108) mmol/L Carbon Dioxide 19 L (22-29) mmol/L Anion Gap 12 (12-20) BUN 70 H (9-16) mg/dL Creatinine 3.60 H (0.5-1.4) mg/dL Estim Creat Clear Calc 20.7 Estimated GFR 16 Random Glucose 93 (60-115) mg/dL Calcium 9.5 (8.4-10.2) mg/dL Urine Color Yellow Urine Appearance Clear Urine pH 5.5 (5.0-9.0) Ur Specific [place] 1.015 (1.005-1.025) Urine Protein 300 (3+) H (Neg-Trace) mg/dL Urine Glucose (UA) Negative (Negative) mg/dL Urine Ketones Negative (Negative) mg/dL Urine Blood Negative (Negative) Urine Nitrite Negative (Negative) Ur Leukocyte Esterase Trace H (Negative) Urine RBC 0-2 (0-2) /HPF Urine WBC 0-5 (0-5) /HPF Ur Squamous Epith Cells 0-2 (0-2) /HPF Urine Bacteria None Seen (None Seen) Hyaline Casts 0-2 (0-2) /LPF Independent Interpretation Interpretation: Bedside ultrasound large distended bladder Tests considered The following testing was considered but not selected: Ct of abdomen was considered by not indicated Discharge Plan Discharge Clinical Impression: Acute urinary retention Patient Disposition: Home, Self-Care Instructions: Urinary Retention in Men (ED), Mabry Catheter Placement and Care (ED) Additional Instructions: you need your renal function checked in 3 days Prescriptions: New tamsulosin [Flomax] 0.4 mg capsule 0.4 mg PO BEDTIME Qty: 30 0RF No Action insulin aspart U-100 100 unit/mL Solution 1 sliding scale dose SUBCUT TIDAC insulin glargine [Lantus Solostar U-100 Insulin] 100 unit/mL (3 mL) Insulin Pen 50 unit SUBCUT BEDTIME atorvastatin 80 mg Tablet 40 mg PO BEDTIME allopurinol 100 mg Tablet 100 mg PO DAILY amlodipine 10 mg Tablet 10 mg PO DAILY ferrous gluconate 324 mg (38 mg iron) Tablet 324 mg PO DAILY flaxseed oil 1,000 mg Capsule 1,000 mg PO DAILY Rx Instructions: administer with a meal saw palmetto 160 mg Capsule 160 mg PO BID Rx Instructions: give with meal/snack ubiquinone 90 mg Tablet,Disintegrating 90 mg PO DAILY multivitamin Tablet 1 tab PO DAILY labetalol 100 mg Tablet 100 mg PO BID cholecalciferol (vitamin D3) 25 mcg (1,000 unit) Tablet 25 mcg PO DAILY clonidine HCl 0.2 mg tablet 0.2 mg PO BID aspirin 81 mg tablet,delayed release (DR/EC) 81 mg PO BEDTIME hydralazine 50 mg Tablet 100 mg PO TID 30 Days Qty: 180 0RF Protocol: Hold for SBP< HOLD for SBP < : 90 finasteride 5 mg tablet 5 mg PO DAILY 90 Days Qty: 90 1RF Referrals: Jake Daly MD [Physician] - 1 week Jarred Hughes [Primary Care Provider] - 3 days (needs his renal function checked) Interventions: ED Discharge Assessment Last Done: 08/18/22 11:19 Discharge Date/Time: 08/18/22 11:19
[2022-08-18 07:27] LABS: MANUAL DIFF FLAG NO
[2022-08-18 07:29] LABS: Basophils Percent Auto 0.4 % (0-2); Eosinophils Absolute Auto 0.3 X10*3/uL (0.0-0.4); Hemoglobin 9.6 g/dl (14.0-18.0); Imm Gran Abs Auto 0.02 X10*3/uL (0.00-0.03); Imm Gran Pct Auto 0.2 % (0.0-0.4); Lymphocytes Absolute Auto 0.6 X10*3/uL (1.2-4.9); Lymphocytes Percent Auto 6.6 % (20-40); Mean Corpuscular HGB Conc 33.1 g/dl (31.0-36.0); Mean Corpuscular Hemoglobin 31.3 pg (27.0-33.0); Mean Corpuscular Volume 94.5 fL (80.0-98.0); Mean Platelet Volume 10.7 fL (9.4-12.4); Monocytes Absolute Auto 0.8 X10*3/uL (0.1-1.2); Monocytes Percent Auto 8.9 % (2-11); Neutrophils Absolute Auto 7.3 x10*3/uL (2.0-8.3); Neutrophils Percent Auto 80.9 % (45-73); Platelet Count 133 X10*3/uL (160-400); Red Blood Count 3.07 X10*6/uL (4.60-5.80); Red Cell Distribution Width 13.6 % (11.0-16.0); White Blood Count 9.1 X10*3/uL (4.8-10.8)
[2022-08-18 07:44] LABS: Anion Gap 12 (12-20); Blood Urea Nitrogen 70 mg/dL (9-16); Calcium 9.5 mg/dL (8.4-10.2); Carbon Dioxide 19 mmol/L (22-29); Chloride 113 mmol/L (96-108); Creatinine Clr Calc Pharmacy 20.7; Estimated Glomerular Filt Rate 16; Glucose Random 93 mg/dL (60-115); Potassium 4.2 mmol/L (3.3-5.1); Sodium 140 mmol/L (135-145)
[2022-08-18 07:45] LABS: Appearance Urine Clear; Color Urine Yellow; Glucose Urine UA Negative (Negative); Leukocyte Esterase Urine Trace (Negative); Nitrite Urine Negative (Negative); PH 5.5 (5.0-9.0); Specific Gravity - Urine 1.015 (1.005-1.025); UMIC TRIGGER UACC YES; Urine Blood Negative (Negative); Urine Ketones Negative (Negative); Urine Protein 300 (3+) mg/dL (Neg-Trace)
[2022-08-18 07:47] LABS: Bacteria Urine None Seen (None Seen); Hyaline Casts Urine 0-2 /LPF (0-2); RBC Urine 0-2 /HPF (0-2); Squamous Epithelial Cell Urine 0-2 /HPF (0-2); WBC Urine 0-5 /HPF (0-5)
--- NOTE | 2022-08-18 08:04 | PC.NURSE ---
mabry catheter inserted, immediate ouptut 1400ml. urine is clear yellow. patient tolerated insertion well. reports relief of abd pain
--- NOTE | 2022-08-18 10:21 | PHA.MEDREC ---
Pharmacy Consult ? Medication Reconciliation Pharmacy has completed the medication reconciliation. Med rec completed using discharge list from 08/14 provided by patient.
--- NOTE | 2022-08-18 11:17 | PC.NURSE ---
pts mabry bag switched to leg bag- pt educated on how to empty and switch from leg bag to mabry bag for night use. at bedside and was educated as well.
== END 2022-08-18 11:19 | disposition home or self-care (01) ==
PROVIDERS: Emergency Provider Emergency Medicine; PCP Internal Medicine
DX: R33.9 Retention of urine, unspecified (principal); E11.22 Type 2 diabetes mellitus with diabetic chronic kidney disease; I12.9 Hypertensive chronic kidney disease with stage 1 through stage 4 chronic kidney disease, or unspecified chronic kidney disease; N18.2 Chronic kidney disease, stage 2 (mild); E66.9 Obesity, unspecified; Z68.41 Body mass index [BMI] 40.0-44.9, adult; E78.00 Pure hypercholesterolemia, unspecified; Z87.891 Personal history of nicotine dependence; Z79.899 Other long term (current) drug therapy; Z79.4 Long term (current) use of insulin; Z79.02 Long term (current) use of antithrombotics/antiplatelets; Z79.82 Long term (current) use of aspirin
CPT/HCPCS: 36415; 51702; 80048; 81001; 85025; 99283; 99284

== ENCOUNTER 2022-08-20 17:25 | Inpatient (IN) | payer OTHER, SELFPAY ==
--- NOTE | ~2022-08-20 | XR_ITS ---
EXAMINATION: XR CHEST CLINICAL INFORMATION: Dyspnea COMPARISON: Previous chest x-ray most recent August 2021 TECHNIQUE: Frontal view of the chest was obtained. FINDINGS: The cardiac silhouette is enlarged but stable. There is pulmonary venous redistribution and increased perihilar markings suggestive of mild pulmonary edema. There is asymmetric increased airspace disease at the right lung base. Differential would include asymmetric distribution of pulmonary edema and pneumonia. Clinical correlation recommended. There is a small left pleural effusion. There are degenerative changes of the spine. XR/XR chest 1V IMPRESSION: Mild CHF. Question asymmetric distribution of pulmonary edema at the right lung base versus pneumonia.
[2022-08-20 17:41] VITALS: BP 140/48; PULSE 61; RESP 22; TEMP 37.2; O2SAT 96; BMI 43.2
--- NOTE | 2022-08-20 17:45 | ECG_ITS ---
Test Reason : CP Blood Pressure : / mmHG Vent. Rate : 060 BPM Atrial Rate : 060 BPM P-R Int : 246 ms QRS Dur : 110 ms QT Int : 422 ms P-R-T Axes : 008 -39 094 degrees QTc Int : 422 ms Sinus rhythm with 1st degree A-V block Left axis deviation Incomplete right bundle branch block Abnormal ECG When compared with ECG of 03-SEP-2021 00:24, No significant change was found Referred By: Generic ED Physician Electronically Signed By:EDWARD HUTTON
[2022-08-20 18:19] LABS: MANUAL DIFF FLAG NO
[2022-08-20 18:27] LABS: Basophils Absolute Auto 0.1 X10*3/uL (0.0-0.2); Basophils Percent Auto 0.5 % (0-2); Eosinophils Absolute Auto 0.2 X10*3/uL (0.0-0.4); Eosinophils Percent Auto 1.6 % (0-4); Hematocrit 28.2 % (42.0-52.0); Hemoglobin 9.3 g/dl (14.0-18.0); Imm Gran Abs Auto 0.12 X10*3/uL (0.00-0.03); Imm Gran Pct Auto 1.3 % (0.0-0.4); Lymphocytes Absolute Auto 0.5 X10*3/uL (1.2-4.9); Lymphocytes Percent Auto 4.8 % (20-40); Mean Corpuscular Hemoglobin 31.4 pg (27.0-33.0); Mean Corpuscular Volume 95.3 fL (80.0-98.0); Mean Platelet Volume 11.2 fL (9.4-12.4); Monocytes Percent Auto 10.6 % (2-11); Neutrophils Absolute Auto 7.8 x10*3/uL (2.0-8.3); Neutrophils Percent Auto 81.2 % (45-73); Platelet Count 139 X10*3/uL (160-400); Red Blood Count 2.96 X10*6/uL (4.60-5.80); Red Cell Distribution Width 13.3 % (11.0-16.0); White Blood Count 9.6 X10*3/uL (4.8-10.8)
[2022-08-20 18:29] LABS: INTERNATIONAL NORM RATIO 1.1 (0.9-1.1); Prothrombin Time 12.3 SEC (10.0-13.1)
[2022-08-20 18:32] LABS: D Dimer High Sensitivity 245 NG/ML
[2022-08-20 18:37] LABS: Anion Gap 11 (12-20); Blood Urea Nitrogen 74 mg/dL (9-16); Calcium 9.1 mg/dL (8.4-10.2); Carbon Dioxide 20 mmol/L (22-29); Chloride 113 mmol/L (96-108); Creatinine Clr Calc Pharmacy 18.6; Estimated Glomerular Filt Rate 16; Glucose Random 118 mg/dL (60-115); Potassium 4.4 mmol/L (3.3-5.1); Sodium 140 mmol/L (135-145)
[2022-08-20 18:41] LABS: B Type Natriuretic Peptide 417 pg/mL (<100)
[2022-08-20 18:46] LABS: Troponin-I High Sensitivity 73.9 ng/L (<3.5-35.0)
[2022-08-20 18:52] LABS: COVID-19 Test Negative (Negative); IDNOW Serial# BCCEAD1C
[2022-08-20 18:52] LABS: IDNOW Serial# 16C4AD1C; Influenza A Negative (Negative)
[2022-08-20 18:53] LABS: Influenza B2 Negative (Negative)
--- NOTE | 2022-08-20 20:03 | ED.CHESTPAIN ---
HPI - Chest Pain General Chief Complaint: Chest Pain Stated Complaint: weakness sob Time Seen by Provider: 08/20/22 20:03 Source: patient and family ( , Yani) Mode of arrival: EMS Limitations: no limitations History of Present Illness HPI narrative: 82-year-old male who presents emergency department for evaluation of chest pain, shortness of breath productive cough, decreased appetite, weakness and unable to walk. The patient states that he has 1 kidney and has kidney disease. The patient states that on 08/14/2022 (7 days prior to evaluation) he had a right arm fistula placed at [facility]. After the surgical procedure he states he had difficulty urinating and he was seen in the emergency department on 08/18/2022 with urinary retention. A Tomlin catheter was placed the patient states that he had 2200 cc of urine that was drained from the Tomlin. He states that over the past 2 days he has had a frequent, cough which is productive of thick white chunks. States his cough is got progressively worse. He states that today at around 16:00 hours developed chest pain. He points to his right chest and sternum when asked to localize the pain. States the pain is a sharp pain which is worse with coughing. He had a fever at home of 99.9 degrees and took Tylenol. He denied chills, rhinorrhea, sore throat. He states that he is feeling short of breath. He is weak and he states that he is unable to walk. Related Data Home Medications Medication Instructions Recorded Confirmed allopurinol 100 mg tablet 100 mg PO DAILY 12/05/20 08/18/22 amlodipine 10 mg tablet 10 mg PO DAILY 12/05/20 08/18/22 atorvastatin 80 mg tablet 40 mg PO BEDTIME 12/05/20 08/18/22 insulin aspart U-100 100 unit/mL 1 sliding scale dose subcut TIDAC 12/05/20 08/18/22 subcutaneous solution insulin glargine 100 unit/mL (3 50 unit subcut BEDTIME 12/05/20 08/18/22 mL) subcutaneous pen (Lantus Solostar U-100 Insulin) aspirin 81 mg tablet,delayed 81 mg PO BEDTIME 09/02/21 08/18/22 release cholecalciferol (vitamin D3) 25 25 mcg PO DAILY 09/02/21 08/18/22 mcg (1,000 unit) tablet clonidine HCl 0.2 mg tablet 0.2 mg PO BID 09/02/21 08/18/22 labetalol 100 mg tablet 100 mg PO BID 09/02/21 08/18/22 multivitamin 1 tab PO DAILY 09/02/21 08/18/22 ferrous gluconate 324 mg (38 mg 324 mg PO DAILY 08/18/22 08/18/22 iron) tablet flaxseed oil 1,000 mg capsule 1,000 mg PO DAILY 08/18/22 08/18/22 saw palmetto 160 mg capsule 160 mg PO BID 08/18/22 08/18/22 ubiquinone 90 mg disintegrating 90 mg PO DAILY 08/18/22 tablet Previous Rx's Medication Instructions Recorded hydralazine 50 mg tablet 100 mg PO TID 30 days #180 tabs 09/05/21 finasteride 5 mg tablet 5 mg PO DAILY 90 days #90 tabs 12/30/21 tamsulosin 0.4 mg capsule (Flomax) 0.4 mg PO BEDTIME #30 caps 08/18/22 Allergies Allergy/AdvReac Type Severity Reaction Status Date / Time levofloxacin [From Levaquin] Allergy Mild paralized Verified 08/20/22 17:44 amoxicillin [AMOXICILLIN] Allergy Unknown ANAPHYLAXIS Verified 08/20/22 17:44 famotidine Allergy Unknown unknown Verified 08/20/22 17:44 hydrochlorothiazide Allergy Unknown unknown Verified 08/20/22 17:44 lisinopril [LISINOPRIL] Allergy Unknown UNKNOWN Verified 08/20/22 17:44 losartan Allergy Unknown unknown Verified 08/20/22 17:44 spironolactone Allergy Unknown unknown Verified 08/20/22 17:44 sulfamethoxazole AdvReac Intermediate C-DIFF, Verified 08/20/22 17:44 [From BACTRIM] REDUCED KIDNEY FX trimethoprim [From BACTRIM] AdvReac Intermediate C-DIFF, Verified 08/20/22 17:44 REDUCED KIDNEY FX Review of Systems Review of Systems: Yes all other systems are reviewed and are negative [facility] Past Medical History [facility] Narrative: Social history: Patient is his Yani is here in the emergency department. He states that he has 100% disabled secondary to Agent [place] exposure. States that he was in the [employer] unit and served in [place]. Medical History Acute cystitis without hematuria Bacteremia Bladder outlet obstruction Chronic kidney disease, stage II (mild) COPD exacerbation Diabetes Fever HTN (hypertension) Incomplete emptying of bladder Morbid obesity CHAYITO (obstructive sleep apnea) CHAYITO on CPAP Prostate cancer Pure hypercholesterolemia Weak urinary stream Surgical History History of surgery Family History Family History Mother CVA (cerebral vascular accident) Social History Social History Household Members: Spouse Housing: House Do you presently have visiting nurse or other home services: No Alcohol intake: never Patient Tobacco Use Status: Former Tobacco user Advance Directives: Yes Advance Directives on File: Yes Advance Directives Date on File: 09/03/21 service: Yes Current occupational status: retired 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 Patient has an elevated BMI of 43.3. HEENT: Head: Yes normal to inspection, Yes normocephalic and Yes atraumatic Ears: external ears normal General nose exam: Normal external nose present Face and sinus: Yes normal facial exam Mouth: Normal oral and palatal mucosa present Throat: Yes posterior oropharynx normal Eyes: General: appearance normal, both eyes and all related structures Pupils: Equal, round and reactive pupils present Neck: Neck: Yes normal visual inspection, Yes no lymphadenopathy, Yes trachea midline and Yes supple Chest: Chest palpation & inspection: normal inspection of the chest and normal palpation of entire chest wall Resp: Other: Patient does not appear to be in respiratory distress, there is no tachypnea, patient has rales at the bases, right greater than left, he does have wheezing as well Cardio: Rate: regular rate Rhythm: regular rhythm Heart sounds: S1 normal heart sound present, S2 normal heart sound present and no murmurs GI: Inspection: Yes normal to inspection Palpation (GI): Soft to palpation, Tenderness to palpation present (GI) ( diffuse abdominal tenderness) and no guarding Auscultation: normal bowel sounds : General: Yes no CVA tenderness Back/Spine/Pelvis: Back: no CVA tenderness Skin: General skin exam: no rashes or lesions noted Neuro: Cranial nerves: Yes CN's II-XII intact bilaterally and Yes Equal, round and reactive pupils present Cognition (Neuro): normal cognition Motor exam (neuro): Other motor observations present ( generalized weakness) Extrem: Other: patient has a fistula in the right anterior cubital fossa area, there is a Palpable thrill and a strong bruit to auscultation. General: Yes normal to inspection Psych: Appearance: grossly normal Speech and movement: Normal speech and movement present Affect: normal affect Attitude: cooperative Thought process: Normal thought process present Thought content: Normal thought content present Medications Administered Discontinued Medications Generic Name Dose Route Start Last Admin Trade Name Freq PRN Reason Stop Dose Admin Acetaminophen 975 mg 08/20/22 22:21 08/20/22 22:44 Acetaminophen 325 Mg Tablet PO 08/20/22 22:22 975 mg ONCE ONE Administration Albuterol Sulfate 2.5 mg/ 0 mg 08/20/22 23:50 08/21/22 00:06 Ipratropium [place] 0.5 mg INHALE 08/20/22 23:51 2.5 each ONCE ONE Administration Cefepime HCl 2 gm/ Sodium 50 mls @ 100 mls/hr 08/20/22 22:21 08/20/22 23:41 Chloride IV 08/20/22 22:50 100 mls/hr ONCE ONE Administration Medical Decision Making Medical Decision Making MDM Narrative: 82-year-old male who presents emergency department for evaluation of productive cough x2 days, unable to eat, walk and weakness which began today. The patient did have a right AV fistula placed 7 days prior. Patient had urinary retention 2 days prior was seen in the emergency department and had a Tomlin catheter placed. Patient's vital signs did reveal elevated blood pressures of 148/48, elevated respiratory rate of 22, patient was afebrile. O2 saturation was 94% on room air. Lung exam did reveal rales at the bases right greater than left with wheezing. laboratory evaluation, EKG and chest x-ray was ordered by provider in triage. 2235: My independent interpretation of the patient's laboratory evaluation is as follows: Anemia with an H&H of 9 and 28.2-this is chronic. Platelet count is low 139,000-this is chronic. Patient's BUN creatinine were elevated 74 and 3.6 with a GFR of 16-this is chronic. Potassium was normal. CO2 was low 19. Glucose was elevated 129. D-dimer was elevated 245 but age adjusted D-dimer is normal. BNP was elevated 417. High sensitive troponin I was elevated at 73.9. Urinalysis revealed 3+ protein, trace leukocyte esterase. Microscopic revealed 0-2 RBCs, 0-5 WBCs, 0-2 squamous cells, no bacteria. EKG did not reveal any acute findings. Chest x-ray was reviewed by me and the patient does have some increased interstitial markings consistent with mild CHF with right lower lobe infiltrate. my impression is that the patient has pneumonia this may be the cause of his symptoms I will repeat the patient's troponin, blood cultures will be obtained. Given his extensive allergies, the patient was ordered to get cefepime 2 g IV, with his GFR of 16 this will need to be given Q 24 hours. 0040: The patient's repeat high sensitive troponin I was 71.3 suggested the patient did not have myocardial as the cause of his chest pain. The patient was placed on his nighttime CPAP ( 13/room air ). I did discuss the patient's presentation with the covering hospitalist, Dr. Morrell the patient will be admitted to the hospital service for further management. Differential Diagnosis Differential diagnosis includes but is not limited to myocardial infarction, pneumonia, electrolyte abnormalities, anemia, congestive heart failure, pulmonary embolism, urinary tract infection Lab Data [facility] Lab Attestation statement: I reviewed the patient's lab results. Please see [facility] for my discussion 08/20/22 18:13 08/20/22 18:13 Labs: Lab Results 08/20/22 08/20/22 08/20/22 Range/Units 18:11 18:11 18:13 WBC 9.6 (4.8-10.8) X10*3/uL RBC 2.96 L (4.60-5.80) X10*6/uL Hgb 9.3 L (14.0-18.0) g/dl Hct 28.2 L (42.0-52.0) % MCV 95.3 (80.0-98.0) fL MCH 31.4 (27.0-33.0) pg MCHC 33.0 (31.0-36.0) g/dl RDW 13.3 (11.0-16.0) % Plt Count 139 L (160-400) X10*3/uL MPV 11.2 (9.4-12.4) fL Immature Gran % (Auto) 1.3 H (0.0-0.4) % Neut % (Auto) 81.2 H (45-73) % Lymph % (Auto) 4.8 L (20-40) % [place] % (Auto) 10.6 (2-11) % Eos % (Auto) 1.6 (0-4) % Baso % (Auto) 0.5 (0-2) % Lymph # (Auto) 0.5 L (1.2-4.9) X10*3/uL [place] # (Auto) 1.0 (0.1-1.2) X10*3/uL Eos # (Auto) 0.2 (0.0-0.4) X10*3/uL Baso # (Auto) 0.1 (0.0-0.2) X10*3/uL Abs Immat Gran (auto) 0.12 H (0.00-0.03) X10*3/uL Absolute Neuts (auto) 7.8 (2.0-8.3) x10*3/uL Absolute Nucleated RBC 0.000 (0.0-0.012) X10*3/uL Nucleated RBC % (auto) 0.0 (0.0-0.2) /100WBC PT 12.3 (10.0-13.1) SEC INR 1.1 (0.9-1.1) D-Dimer High Sensitivty NG/ML Sodium (135-145) mmol/L Potassium (3.3-5.1) mmol/L Chloride (96-108) mmol/L Carbon Dioxide (22-29) mmol/L Anion Gap (12-20) BUN (9-16) mg/dL Creatinine (0.5-1.4) mg/dL Estim Creat Clear Calc Estimated GFR POC Glucose (60-115) mg/dL Random Glucose (60-115) mg/dL Calcium (8.4-10.2) mg/dL Troponin I High Sens (<3.5-35.0) ng/L B-Natriuretic Peptide (<100) pg/mL COVID-19 (YANDEL) Negative (Negative) COVID-19 Clin Com See Note Influenza Type A (ADAN) (Negative) Influenza Type B (ADAN) (Negative) Influenza A & B Note 08/20/22 08/20/22 08/20/22 Range/Units 18:13 18:13 18:13 WBC (4.8-10.8) X10*3/uL RBC (4.60-5.80) X10*6/uL Hgb (14.0-18.0) g/dl Hct (42.0-52.0) % MCV (80.0-98.0) fL MCH (27.0-33.0) pg MCHC (31.0-36.0) g/dl RDW (11.0-16.0) % Plt Count (160-400) X10*3/uL MPV (9.4-12.4) fL Immature Gran % (Auto) (0.0-0.4) % Neut % (Auto) (45-73) % Lymph % (Auto) (20-40) % [place] % (Auto) (2-11) % Eos % (Auto) (0-4) % Baso % (Auto) (0-2) % Lymph # (Auto) (1.2-4.9) X10*3/uL [place] # (Auto) (0.1-1.2) X10*3/uL Eos # (Auto) (0.0-0.4) X10*3/uL Baso # (Auto) (0.0-0.2) X10*3/uL Abs Immat Gran (auto) (0.00-0.03) X10*3/uL Absolute Neuts (auto) (2.0-8.3) x10*3/uL Absolute Nucleated RBC (0.0-0.012) X10*3/uL Nucleated RBC % (auto) (0.0-0.2) /100WBC PT (10.0-13.1) SEC INR (0.9-1.1) D-Dimer High Sensitivty 245 NG/ML Sodium 140 (135-145) mmol/L Potassium 4.4 (3.3-5.1) mmol/L Chloride 113 H (96-108) mmol/L Carbon Dioxide 20 L (22-29) mmol/L Anion Gap 11 L (12-20) BUN 74 H (9-16) mg/dL Creatinine 3.70 H (0.5-1.4) mg/dL Estim Creat Clear Calc 18.6 Estimated GFR 16 POC Glucose (60-115) mg/dL Random Glucose 118 H (60-115) mg/dL Calcium 9.1 (8.4-10.2) mg/dL Troponin I High Sens (<3.5-35.0) ng/L B-Natriuretic Peptide 417 H (<100) pg/mL COVID-19 (YANDEL) (Negative) COVID-19 Clin Com Influenza Type A (ADAN) (Negative) Influenza Type B (ADAN) (Negative) Influenza A & B Note 08/20/22 08/20/22 08/20/22 Range/Units 18:13 18:13 21:54 WBC (4.8-10.8) X10*3/uL RBC (4.60-5.80) X10*6/uL Hgb (14.0-18.0) g/dl Hct (42.0-52.0) % MCV (80.0-98.0) fL MCH (27.0-33.0) pg MCHC (31.0-36.0) g/dl RDW (11.0-16.0) % Plt Count (160-400) X10*3/uL MPV (9.4-12.4) fL Immature Gran % (Auto) (0.0-0.4) % Neut % (Auto) (45-73) % Lymph % (Auto) (20-40) % [place] % (Auto) (2-11) % Eos % (Auto) (0-4) % Baso % (Auto) (0-2) % Lymph # (Auto) (1.2-4.9) X10*3/uL [place] # (Auto) (0.1-1.2) X10*3/uL Eos # (Auto) (0.0-0.4) X10*3/uL Baso # (Auto) (0.0-0.2) X10*3/uL Abs Immat Gran (auto) (0.00-0.03) X10*3/uL Absolute Neuts (auto) (2.0-8.3) x10*3/uL Absolute Nucleated RBC (0.0-0.012) X10*3/uL Nucleated RBC % (auto) (0.0-0.2) /100WBC PT (10.0-13.1) SEC INR (0.9-1.1) D-Dimer High Sensitivty NG/ML Sodium (135-145) mmol/L Potassium (3.3-5.1) mmol/L Chloride (96-108) mmol/L Carbon Dioxide (22-29) mmol/L Anion Gap (12-20) BUN (9-16) mg/dL Creatinine (0.5-1.4) mg/dL Estim Creat Clear Calc Estimated GFR POC Glucose 129 H (60-115) mg/dL Random Glucose (60-115) mg/dL Calcium (8.4-10.2) mg/dL Troponin I High Sens 73.9 H (<3.5-35.0) ng/L B-Natriuretic Peptide (<100) pg/mL COVID-19 (YANDEL) (Negative) COVID-19 Clin Com Influenza Type A (ADAN) Negative (Negative) Influenza Type B (ADAN) Negative (Negative) Influenza A & B Note See Note 08/20/22 Range/Units 23:32 WBC (4.8-10.8) X10*3/uL RBC (4.60-5.80) X10*6/uL Hgb (14.0-18.0) g/dl Hct (42.0-52.0) % MCV (80.0-98.0) fL MCH (27.0-33.0) pg MCHC (31.0-36.0) g/dl RDW (11.0-16.0) % Plt Count (160-400) X10*3/uL MPV (9.4-12.4) fL Immature Gran % (Auto) (0.0-0.4) % Neut % (Auto) (45-73) % Lymph % (Auto) (20-40) % [place] % (Auto) (2-11) % Eos % (Auto) (0-4) % Baso % (Auto) (0-2) % Lymph # (Auto) (1.2-4.9) X10*3/uL [place] # (Auto) (0.1-1.2) X10*3/uL Eos # (Auto) (0.0-0.4) X10*3/uL Baso # (Auto) (0.0-0.2) X10*3/uL Abs Immat Gran (auto) (0.00-0.03) X10*3/uL Absolute Neuts (auto) (2.0-8.3) x10*3/uL Absolute Nucleated RBC (0.0-0.012) X10*3/uL Nucleated RBC % (auto) (0.0-0.2) /100WBC PT (10.0-13.1) SEC INR (0.9-1.1) D-Dimer High Sensitivty NG/ML Sodium (135-145) mmol/L Potassium (3.3-5.1) mmol/L Chloride (96-108) mmol/L Carbon Dioxide (22-29) mmol/L Anion Gap (12-20) BUN (9-16) mg/dL Creatinine (0.5-1.4) mg/dL Estim Creat Clear Calc Estimated GFR POC Glucose (60-115) mg/dL Random Glucose (60-115) mg/dL Calcium (8.4-10.2) mg/dL Troponin I High Sens 71.3 H (<3.5-35.0) ng/L B-Natriuretic Peptide (<100) pg/mL COVID-19 (YANDEL) (Negative) COVID-19 Clin Com Influenza Type A (ADAN) (Negative) Influenza Type B (ADAN) (Negative) Influenza A & B Note Independent Interpretation I performed an independent interpretation of an: EKG Interpretation: my independent interpretation of the patient's 12 EKG done and 20:19 hours is as follows: Sinus bradycardia with rate of 59, prolonged ME interval of 276 milliseconds, prolonged QRS duration of 114 milliseconds, normal QTC of 437 milliseconds, inverted T-wave in aVL, incomplete right bundle-branch block, this was compared to EKG done earlier in the day at 18:12 hours and there is no significant change. Radiology Impression Discussion of test interpretation with radiology: I have reviewed the radiologist's reading. Radiologist Impression: EXAMINATION: XR CHEST CLINICAL INFORMATION: Dyspnea COMPARISON: Previous chest x-ray most recent August 2021 TECHNIQUE: Frontal view of the chest was obtained. FINDINGS: The cardiac silhouette is enlarged but stable. There is pulmonary venous redistribution and increased perihilar markings suggestive of mild pulmonary edema. There is asymmetric increased airspace disease at the right lung base. Differential would include asymmetric distribution of pulmonary edema and pneumonia. Clinical correlation recommended. There is a small left pleural effusion. There are degenerative changes of the spine. XR/XR chest 1V IMPRESSION: Mild CHF. Question asymmetric distribution of pulmonary edema at the right lung base versus pneumonia. Dictated By:Radha Buttigned By:<Electronically signed by Radha Butt MD in [place]>08/20/22 [id number] Discharge Plan Discharge Prescriptions: No Action insulin aspart U-100 100 unit/mL Solution 1 sliding scale dose SUBCUT TIDAC insulin glargine [Lantus Solostar U-100 Insulin] 100 unit/mL (3 mL) Insulin Pen 50 unit SUBCUT BEDTIME atorvastatin 80 mg Tablet 40 mg PO BEDTIME allopurinol 100 mg Tablet 100 mg PO DAILY amlodipine 10 mg Tablet 10 mg PO DAILY ferrous gluconate 324 mg (38 mg iron) Tablet 324 mg PO DAILY flaxseed oil 1,000 mg Capsule 1,000 mg PO DAILY Rx Instructions: administer with a meal saw palmetto 160 mg Capsule 160 mg PO BID Rx Instructions: give with meal/snack ubiquinone 90 mg Tablet,Disintegrating 90 mg PO DAILY tamsulosin [Flomax] 0.4 mg capsule 0.4 mg PO BEDTIME Qty: 30 0RF multivitamin Tablet 1 tab PO DAILY labetalol 100 mg Tablet 100 mg PO BID cholecalciferol (vitamin D3) 25 mcg (1,000 unit) Tablet 25 mcg PO DAILY clonidine HCl 0.2 mg tablet 0.2 mg PO BID aspirin 81 mg tablet,delayed release (DR/EC) 81 mg PO BEDTIME hydralazine 50 mg Tablet 100 mg PO TID 30 Days Qty: 180 0RF Protocol: Hold for SBP< HOLD for SBP < : 90 finasteride 5 mg tablet 5 mg PO DAILY 90 Days Qty: 90 1RF
[2022-08-20 20:06] VITALS: BP 132/32; PULSE 59; RESP 15; TEMP 36.7; O2SAT 94
[2022-08-20 20:20] VITALS: BP 149/47; PULSE 60; RESP 19; O2SAT 94
[2022-08-20 21:57] LABS: Glucose, Whole Blood 129 mg/dL (60-115)
[2022-08-20] MEDS: Acetaminophen 325 MG TABLET 975 MG PO (22:44)
[2022-08-20] MEDS: cefEPime HCl 2 GM in 0.9 % Sodium Chloride 50 ML IV (23:41)
[2022-08-21] VITALS (12 sets, daily range): BP systolic 142–169; BP diastolic 48–77; PULSE 64–81; RESP 18–25; TEMP 36.9–37.2; O2SAT 92–95
[2022-08-21] LABS: Troponin-I High Sensitivity 71.3 ng/L (<3.5-35.0)
[2022-08-21] MEDS: Heparin Sodium,Porcine 5,000 UNIT/ML VIAL 5000 UNIT SUBCUT ×3 (02:30→23:45)
[2022-08-21] MEDS: Azithromycin 500 MG in 0.9 % Sodium Chloride 250 ML 125 MG IV ×2 (02:31→23:45)
--- NOTE | 2022-08-21 03:36 | PC.NURSE ---
Pt KIDD x3 medicated per AUG.
[2022-08-21] MEDS: Acetaminophen 325 MG TABLET 650 MG PO (05:18)
--- NOTE | 2022-08-21 06:05 | P.HPHOSP_ITS ---
History of Present Illness Date of Service: 08/21/22 Chief Complaint: cough, shortness of breath 82-year-old male with past medical history of CKD stage 4, COPD, diabetes, hypertension, CHAYITO on CPAP, history of prostate cancer, history of CAD, presents to the hospital with complaints of shortness of breath, cough, sputum production for the past 3 days. Patient reports that last week he had an AV fistula placed at [facility], few days following that he started developing significant urinary urgency, as well as pain on urination and urinary retention. He was seen in the hospital on 08/18, a Tomlin catheter placed, and he was sent home on Flomax. he states that he also developed increased shortness of breath, sputum production, and cough, Patient returns today stating that he still has burning with urinati on with worsening respiratory symptoms. he also reports chest pain that is localized across the chest worse with cough. He denies any fever no chest pain, no chills. No abdominal pain nausea or vomiting, no diarrhea constipation, and no lower extremity edema. Patient denies any orthopnea or PND. On arrival to the ED patient hemodynamically stable satting 94% on room air Labs are significant for WBC count of 9.6, hemoglobin of 9.3, medic of 28.2, platelet count of 139, chloride of 113, creatinine of 3.70 which is around his baseline, troponin of 73 decreased to 71 and BNP of 417 COVID-19, RSV, as well as influenza negative, Chest x-ray shows mild CHF, asymmetric distribution of pulmonary edema at the right lung base concerning for pneumonia Review of Systems Review of Systems: Yes all other systems are reviewed and are negative [facility] Medical History Acute cystitis without hematuria Bacteremia Bladder outlet obstruction Chronic kidney disease, stage II (mild) COPD exacerbation Diabetes Fever HTN (hypertension) Incomplete emptying of bladder Morbid obesity CHAYITO (obstructive sleep apnea) CHAYITO on CPAP Prostate cancer Pure hypercholesterolemia Weak urinary stream Family History Mother CVA (cerebral vascular accident) Surgical History History of surgery Social History Household Members: Spouse Housing: House Do you presently have visiting nurse or other home services: No Alcohol intake: never Patient Tobacco Use Status: Former Tobacco user Advance Directives: Yes Advance Directives on File: Yes Advance Directives Date on File: 09/03/21 service: Yes Current occupational status: retired 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 Meds Allergies Allergy/AdvReac Type Severity Reaction Status Date / Time levofloxacin [From Levaquin] Allergy Mild paralized Verified 08/20/22 17:44 amoxicillin [AMOXICILLIN] Allergy Unknown ANAPHYLAXIS Verified 08/20/22 17:44 famotidine Allergy Unknown unknown Verified 08/20/22 17:44 hydrochlorothiazide Allergy Unknown unknown Verified 08/20/22 17:44 lisinopril [LISINOPRIL] Allergy Unknown UNKNOWN Verified 08/20/22 17:44 losartan Allergy Unknown unknown Verified 08/20/22 17:44 spironolactone Allergy Unknown unknown Verified 08/20/22 17:44 sulfamethoxazole AdvReac Intermediate C-DIFF, Verified 08/20/22 17:44 [From BACTRIM] REDUCED KIDNEY FX trimethoprim [From BACTRIM] AdvReac Intermediate C-DIFF, Verified 08/20/22 17:44 REDUCED KIDNEY FX Active Medications: Current Medications Acetaminophen (Acetaminophen 325 Mg Tablet) 650 mg PO Q6H PRN PRN Reason: Pain, Mild (Pain Scale 1-3) Last Admin: 08/21/22 05:18 Dose: 650 mg Docusate Sodium (Docusate Sodium 100 Mg Capsule) 100 mg PO DAILY PRN PRN Reason: Constipation Furosemide (Furosemide 40 Mg/4 Ml Vial) 40 mg IVPUSH DAILY LOULOU; Protocol Guaifenesin/Dextromethorphan (Guaifenesin Dm 100/10/5 Ml 5 Ml Syrup) 5 ml PO Q4H PRN PRN Reason: Cough Heparin Sodium (Porcine) (Heparin Sodium,Porcine 5,000 Unit/Ml Vial) 5,000 unit SUBCUT Q12H LOULOU Last Admin: 08/21/22 02:30 Dose: 5,000 unit Ceftriaxone Sodium 1 gm/ (Sodium Chloride) 50 mls @ 100 mls/hr IV Q24H LOULOU Azithromycin 500 mg/ Sodium (Chloride) 250 mls @ 125 mls/hr IV Q24H LOULOU Last Infusion: 08/21/22 04:31 Dose: Infused Ondansetron HCl (Ondansetron Hcl 4 Mg/2 Ml Vial) 4 mg IVPUSH Q8H PRN PRN Reason: Nausea and Vomiting Pharmacy Consult (Consult Rx Perform Med Rec) 1 each MISCELLANE ONCE PRN PRN Reason: Consult order Sodium Chloride (0.9 % Sodium Chloride Flush 3 Ml Syringe) 3 ml IVFLUSH [facility] Home Medications Medication Instructions Recorded Confirmed Last Taken Type allopurinol 100 mg tablet 100 mg PO DAILY 12/05/20 08/21/22 Unknown History amlodipine 10 mg tablet 10 mg PO DAILY 12/05/20 08/21/22 Unknown History atorvastatin 80 mg tablet 40 mg PO BEDTIME 12/05/20 08/21/22 Unknown History insulin aspart U-100 100 unit/mL 1 sliding scale dose subcut TIDAC 12/05/20 08/21/22 Unknown History subcutaneous solution insulin glargine 100 unit/mL (3 50 unit subcut BEDTIME 12/05/20 08/21/22 Unknown History mL) subcutaneous pen (Lantus Solostar U-100 Insulin) aspirin 81 mg tablet,delayed 81 mg PO BEDTIME 09/02/21 08/21/22 Unknown History release cholecalciferol (vitamin D3) 25 25 mcg PO DAILY 09/02/21 08/21/22 Unknown History mcg (1,000 unit) tablet clonidine HCl 0.2 mg tablet 0.2 mg PO BID 09/02/21 08/21/22 Unknown History labetalol 100 mg tablet 100 mg PO BID 09/02/21 08/21/22 Unknown History multivitamin 1 tab PO DAILY 09/02/21 08/21/22 Unknown History ferrous gluconate 324 mg (38 mg 324 mg PO DAILY 08/18/22 08/21/22 Unknown History iron) tablet flaxseed oil 1,000 mg capsule 1,000 mg PO DAILY 08/18/22 08/21/22 Unknown History saw palmetto 160 mg capsule 160 mg PO BID 08/18/22 08/21/22 Unknown History ubiquinone 90 mg disintegrating 90 mg PO DAILY 08/18/22 08/21/22 Unknown History tablet Physical Exam Vital Signs and Narrative: Vital Signs: Last Vital Signs Temp 98.0 F 08/20/22 20:06 Pulse 64 08/21/22 00:07 Resp 18 08/21/22 00:07 BP 149/47 H 08/20/22 20:20 Pulse Ox 94 08/20/22 20:20 O2 Del Method 08/20/22 20:20 Oxygen Flow Rate 2 08/20/22 17:41 BMI result Body Mass Index 43.2 Const: General: cooperative and no acute distress Orientation/consciousness: patient oriented x3 Eyes: General: appearance normal, both eyes and all related structures Resp: Other: significant expiratory wheezing, increased crackles bilaterally Effort & Inspection: normal respiratory effort Cardio: Rate: regular rate Rhythm: regular rhythm GI: Palpation (GI): Soft to palpation Auscultation: normal bowel sounds Skin: General skin exam: no rashes or lesions noted Neuro: General: patient oriented x3 Cognition (Neuro): normal cognition Extrem: General: Yes normal to inspection and Yes no pedal edema Results Labs 08/20/22 18:13 08/20/22 18:13 Labs: Laboratory Results - last 24 hr 08/20/22 08/20/22 08/20/22 18:11 18:11 18:13 MCV 95.3 MCH 31.4 MCHC 33.0 RDW 13.3 Plt Count 139 L MPV 11.2 Immature Gran % (Auto) 1.3 H Neut % (Auto) 81.2 H Lymph % (Auto) 4.8 L [place] % (Auto) 10.6 Eos % (Auto) 1.6 Baso % (Auto) 0.5 Lymph # (Auto) 0.5 L [place] # (Auto) 1.0 Eos # (Auto) 0.2 Baso # (Auto) 0.1 Abs Immat Gran (auto) 0.12 H Absolute Neuts (auto) 7.8 Absolute Nucleated RBC 0.000 Nucleated RBC % (auto) 0.0 PT 12.3 INR 1.1 D-Dimer High Sensitivty Anion Gap Estim Creat Clear Calc Estimated GFR POC Glucose Random Glucose Calcium Troponin I High Sens B-Natriuretic Peptide COVID-19 (YANDEL) Negative COVID-19 Clin Com See Note Influenza Type A (ADAN) Influenza Type B (ADAN) Influenza A & B Note 08/20/22 08/20/22 08/20/22 18:13 18:13 18:13 MCV MCH MCHC RDW Plt Count MPV Immature Gran % (Auto) Neut % (Auto) Lymph % (Auto) [place] % (Auto) Eos % (Auto) Baso % (Auto) Lymph # (Auto) [place] # (Auto) Eos # (Auto) Baso # (Auto) Abs Immat Gran (auto) Absolute Neuts (auto) Absolute Nucleated RBC Nucleated RBC % (auto) PT INR D-Dimer High Sensitivty 245 Anion Gap 11 L Estim Creat Clear Calc 18.6 Estimated GFR 16 POC Glucose Random Glucose 118 H Calcium 9.1 Troponin I High Sens B-Natriuretic Peptide 417 H COVID-19 (YANDEL) COVID-19 Clin Com Influenza Type A (ADAN) Influenza Type B (ADAN) Influenza A & B Note 08/20/22 08/20/22 08/20/22 18:13 18:13 21:54 MCV MCH MCHC RDW Plt Count MPV Immature Gran % (Auto) Neut % (Auto) Lymph % (Auto) [place] % (Auto) Eos % (Auto) Baso % (Auto) Lymph # (Auto) [place] # (Auto) Eos # (Auto) Baso # (Auto) Abs Immat Gran (auto) Absolute Neuts (auto) Absolute Nucleated RBC Nucleated RBC % (auto) PT INR D-Dimer High Sensitivty Anion Gap Estim Creat Clear Calc Estimated GFR POC Glucose 129 H Random Glucose Calcium Troponin I High Sens 73.9 H B-Natriuretic Peptide COVID-19 (YANDEL) COVID-19 Clin Com Influenza Type A (ADAN) Negative Influenza Type B (ADAN) Negative Influenza A & B Note See Note 08/20/22 23:32 MCV MCH MCHC RDW Plt Count MPV Immature Gran % (Auto) Neut % (Auto) Lymph % (Auto) [place] % (Auto) Eos % (Auto) Baso % (Auto) Lymph # (Auto) [place] # (Auto) Eos # (Auto) Baso # (Auto) Abs Immat Gran (auto) Absolute Neuts (auto) Absolute Nucleated RBC Nucleated RBC % (auto) PT INR D-Dimer High Sensitivty Anion Gap Estim Creat Clear Calc Estimated GFR POC Glucose Random Glucose Calcium Troponin I High Sens 71.3 H B-Natriuretic Peptide COVID-19 (YANDEL) COVID-19 Clin Com Influenza Type A (ADAN) Influenza Type B (ADAN) Influenza A & B Note Imaging Radiologist's Impressions: Impressions Chest X-Ray 08/20/22 18:08 IMPRESSION: Mild CHF. Question asymmetric distribution of pulmonary edema at the right lung base versus pneumonia. Assessment and Plan (1) Community acquired pneumonia: Status: Acute (2) COPD exacerbation: Status: Acute (3) Acute exacerbation of CHF (congestive heart failure): Status: Acute (4) Chest pain: Status: Acute Plan 82-year-old male with past medical history of COPD, CHF, CAD presents to the hospital with complaints of cough, increased sputum production and dyspnea found to have following # acute COPD exacerbation/community-acquired pneumonia - patient with increased cough, dyspnea, as well as sputum production - evidence of possible pneumonia on chest x-ray - afebrile - will treat with IV antibiotics, DuoNeb, as well as Solu-Medrol given significant wheezing - monitor respiratory status # acute CHF exacerbation - has elevated BNP, and evidence of pulmonary edema on chest imaging - will treat with IV Lasix, strict I&O, daily weight, low-sodium diet - echocardiogram - cardiology consulted # atypical chest pain - describes pain with coughing - likely musculoskeletal - troponin elevated but likely in the setting of CKD - monitor # CKD stage 4 - baseline creatinine - follow BMP # hypertension - stable - continue home antihypertensives # diabetes - will add low-dose sliding scale insulin, diabetic diet, continue home insulin, hold oral antihyperglycemics DVT prophylaxis: Heparin subQ given significant acute health issues including pneumonia requiring IV antibiotics, as well as CHF exacerbation patient required minimum 2 night inpatient hospital stay further management and monitoring Time Spent With Patient Time: Total time managing care of this patient today ____ minutes. Quality Stroke Does the patient have a stroke diagnosis?: No VTE Prior VTE?: No VTE Risk Level:: Medical - moderate - high VTE Device Contraindication: Treatment Not Indicated VTE Drug Contraindication: N/A - Med Ordered
[2022-08-21 06:07] LABS: Glucose, Whole Blood 150 mg/dL (60-115)
--- NOTE | 2022-08-21 06:25 | PC.NURSE ---
Obtained urine sample per Order.
[2022-08-21 06:30] LABS: Appearance Urine Turbid; Color Urine Yellow; Glucose Urine UA Negative (Negative); Leukocyte Esterase Urine Large (3+) (Negative); Nitrite Urine Negative (Negative); PH 5.5 (5.0-9.0); Specific Gravity - Urine 1.015 (1.005-1.025); UMIC TRIGGER UACC YES; Urine Blood Large (3+) (Negative); Urine Ketones Negative (Negative); Urine Protein 300 (3+) mg/dL (Neg-Trace)
[2022-08-21 06:49] LABS: Bacteria Urine 1+ (None Seen); RBC Urine >20 /HPF (0-2); UACC Culture Trigger YES; WBC Urine >50 /HPF (0-5)
[2022-08-21 07:01] LABS: MANUAL DIFF FLAG NO
[2022-08-21 07:05] LABS: Basophils Absolute Auto 0.1 X10*3/uL (0.0-0.2); Basophils Percent Auto 0.6 % (0-2); Eosinophils Absolute Auto 0.2 X10*3/uL (0.0-0.4); Eosinophils Percent Auto 1.9 % (0-4); Hematocrit 28.8 % (42.0-52.0); Hemoglobin 9.6 g/dl (14.0-18.0); Imm Gran Abs Auto 0.03 X10*3/uL (0.00-0.03); Imm Gran Pct Auto 0.3 % (0.0-0.4); Lymphocytes Absolute Auto 0.5 X10*3/uL (1.2-4.9); Mean Corpuscular HGB Conc 33.3 g/dl (31.0-36.0); Mean Corpuscular Hemoglobin 31.1 pg (27.0-33.0); Mean Corpuscular Volume 93.2 fL (80.0-98.0); Monocytes Absolute Auto 0.8 X10*3/uL (0.1-1.2); Monocytes Percent Auto 8.8 % (2-11); Neutrophils Percent Auto 83.4 % (45-73); Platelet Count 152 X10*3/uL (160-400); Red Blood Count 3.09 X10*6/uL (4.60-5.80); Red Cell Distribution Width 13.3 % (11.0-16.0); White Blood Count 9.6 X10*3/uL (4.8-10.8)
[2022-08-21 07:26] LABS: Alanine Aminotransferase 36 U/L (0-40); Alkaline Phosphatase 92 U/L (39-117); Anion Gap 13 (12-20); Aspartate Amino Transferase 28 U/L (5-37); Bilirubin Total 0.7 mg/dL (0.0-1.0); Blood Urea Nitrogen 73 mg/dL (9-16); Calcium 9.1 mg/dL (8.4-10.2); Carbon Dioxide 19 mmol/L (22-29); Chloride 111 mmol/L (96-108); Creatinine Clr Calc Pharmacy 18.8; Estimated Glomerular Filt Rate 16; Glucose Random 150 mg/dL (60-115); Potassium 4.3 mmol/L (3.3-5.1); Sodium 139 mmol/L (135-145); Total Protein 4.7 g/dL (6.5-8.0)
[2022-08-21 07:26] LABS: Glucose, Whole Blood 138 mg/dL (60-115)
[2022-08-21] MEDS: Furosemide 40 MG/4 ML VIAL IVPUSH (08:52)
[2022-08-21] MEDS: 0.9 % Sodium Chloride Flush 3 ML SYRINGE IVFLUSH ×3 (08:53→23:31)
[2022-08-21] MEDS: methylPREDNISolone Sod Succ 40 MG/ML VIAL IVPUSH ×2 (08:53→19:41)
--- NOTE | 2022-08-21 09:15 | PHA.MEDREC ---
Pharmacy Consult ? Medication Reconciliation Pharmacy has reviewed the medication reconciliation completed Sabino. Patient had discharge summary list with him. [facility]. Patient is on atorvastatin 80 mg instead of 40 mg. Patient's reported patient is on labetalol once a day instead of BID. Dr. Gannon was informed and order were adjusted. Alice Villegas, MamadouD
--- NOTE | 2022-08-21 09:18 | PM.EVENT ---
Event Note Date of Service: 08/21/22 Event Note: Pt seen and examined, was admitted this morning with SOB, he states that he's feeling better this morning, following inhalers, CXR showed mild CHF, had echo in Feb 2022, mild increse trop, no evidence of active ischemia. On exam feels much better, lungs clear. A/P per H and P from this morning, transition to oral Lasix, no need to repeat echo at this time, and we can hold off cardiology consultation given patient is improving and no new acute cardiac issues. Time Spent With Patient Time: Total time managing care of this patient today ____ minutes.
[2022-08-21] MEDS: Multivitamin TABLET 1 TAB PO (09:33)
[2022-08-21] MEDS: amLODIPine Besylate 10 MG TABLET PO (09:33)
[2022-08-21] MEDS: Labetalol HCL 100 MG TABLET PO (09:33)
[2022-08-21] MEDS: hydrALAZINE HCl 50 MG TABLET 100 MG PO ×3 (09:33→21:59)
[2022-08-21] MEDS: Finasteride 5 MG TABLET PO (09:34)
[2022-08-21] MEDS: Cholecalciferol (Vitamin D3) 25 MCG TABLET PO (09:34)
[2022-08-21] MEDS: cloNIDine HCL 0.2 MG TABLET PO ×2 (09:34→21:57)
[2022-08-21] MEDS: allopurinoL 100 MG TABLET PO (09:34)
--- NOTE | 2022-08-21 11:21 | ECG_ITS ---
Test Reason : CHEST PAIN Blood Pressure : / mmHG Vent. Rate : 059 BPM Atrial Rate : 059 BPM P-R Int : 276 ms QRS Dur : 114 ms QT Int : 442 ms P-R-T Axes : 028 -39 097 degrees QTc Int : 437 ms Sinus bradycardia with 1st degree A-V block Left axis deviation Incomplete right bundle branch block Nonspecific ST and T wave abnormality Abnormal ECG When compared with ECG of 20-AUG-2022 18:12, No significant change was found Referred By: Heri Stevenson Electronically Signed By:EDWARD HUTTON
[2022-08-21 13:10] LABS: Glucose, Whole Blood 192 mg/dL (60-115)
[2022-08-21] MEDS: Insulin Lispro 100 UNIT/ML 3 ML VIAL SUBCUT ×2 (13:34→18:17)
--- NOTE | 2022-08-21 16:48 | PC.NURSE ---
pt moved into a hospital bed for comfort
[2022-08-21 18:04] LABS: Glucose, Whole Blood 282 mg/dL (60-115)
[2022-08-21] MEDS: cefTRIAXone sodium 1 GM in 0.9 % Sodium Chloride 50 ML IV (19:41)
--- NOTE | 2022-08-21 20:54 | PC.RT ---
pt placed on CPAP with nasal pillows for NOC support. Pt settings changed to cpap of 8 for pt comfort. Pt states 13 was to uncomfortable for him overnight
[2022-08-21] MEDS: Atorvastatin Calcium 80 MG TABLET PO (21:57)
[2022-08-21] MEDS: Aspirin Enteric Coated 81 MG TABLET.DR PO (22:00)
[2022-08-21] MEDS: Insulin Glargine,Hum.rec.anlog 100 UNIT/ML 10 ML VIAL 50 UNIT SUBCUT (22:00)
[2022-08-22] VITALS: BP 161/66; PULSE 81; RESP 20; TEMP 36.8; O2SAT 94
[2022-08-22 04:00] VITALS: BP 157/71; PULSE 90; RESP 20; TEMP 35.7; O2SAT 96
[2022-08-22 07:40] VITALS: BP 168/76; PULSE 79; RESP 14; TEMP 36.6; O2SAT 96
[2022-08-22 07:51] LABS: Glucose, Whole Blood 325 mg/dL (60-115)
[2022-08-22] MEDS: methylPREDNISolone Sod Succ 40 MG/ML VIAL IVPUSH (07:52)
[2022-08-22] MEDS: Furosemide 40 MG/4 ML VIAL IVPUSH (07:52)
[2022-08-22] MEDS: hydrALAZINE HCl 50 MG TABLET 100 MG PO (07:53)
[2022-08-22] MEDS: Labetalol HCL 100 MG TABLET PO (07:53)
[2022-08-22] MEDS: amLODIPine Besylate 10 MG TABLET PO (07:53)
[2022-08-22] MEDS: allopurinoL 100 MG TABLET PO (07:54)
[2022-08-22] MEDS: Cholecalciferol (Vitamin D3) 25 MCG TABLET PO (07:54)
[2022-08-22] MEDS: Multivitamin TABLET 1 TAB PO (07:54)
[2022-08-22] MEDS: cloNIDine HCL 0.2 MG TABLET PO (07:54)
[2022-08-22] MEDS: Finasteride 5 MG TABLET PO (07:54)
[2022-08-22] MEDS: 0.9 % Sodium Chloride Flush 3 ML SYRINGE IVFLUSH (07:54)
[2022-08-22] MEDS: Insulin Lispro 100 UNIT/ML 3 ML VIAL SUBCUT (07:55)
--- NOTE | 2022-08-22 08:04 | MHC.CM.PN ---
CM met with Patient at bedside. Patient lives in a house with his /HCP and he uses a cane to assist with mobility. Home/self care is the goal and CM has initiated and will follow for dc planning. Patient has received Covid vax x5 and his PCP is Dr. Jarred Hughes.
[2022-08-22 08:06] VITALS: PULSE 82; RESP 20; O2SAT 95
--- NOTE | 2022-08-22 09:16 | PM.DS ---
DS: Providers Provider Date of Service: 08/22/22 Date of admission: 08/21/22 01:59 Primary care physician: Jarred Hughes DS: Diagnosis Discharge Diagnosis (1) Community acquired pneumonia: Status: Acute (2) COPD exacerbation: Status: Acute (3) Acute exacerbation of CHF (congestive heart failure): Status: Acute (4) Chest pain: Status: Acute DS: Summary Hospital Course Hospital Course: Chief Complaint:? cough, shortness of breath ?82-year-old male with past medical history of CKD stage 4, COPD, diabetes, hypertension,? CHAYITO on CPAP, history of prostate cancer, history of CAD, presents to the hospital with complaints of shortness of breath, cough, sputum production for the past 3 days.? Patient reports that last week he had an AV fistula placed at [facility], few days following that he started developing significant urinary urgency, as well as pain on urination and urinary retention.? He was seen in the hospital on 08/18, a Tomlin catheter placed, and he was sent home on Flomax. he states that he also developed increased shortness of breath, sputum production, and cough,? Patient returns today stating that he still has burning with urination? with worsening respiratory symptoms. ? he also reports chest pain that is localized across the chest worse with cough. He denies any fever no chest pain, no chills.? No abdominal pain nausea or vomiting, no diarrhea constipation,? and no lower extremity edema. ? Patient denies any orthopnea or PND.? On arrival to the ED patient hemodynamically stable satting? 94% on room air Labs are significant for WBC count of 9.6, hemoglobin of 9.3, medic of 28.2, platelet count of 139, chloride of 113, creatinine of 3.70 which is around his baseline, troponin of 73 decreased to 71? and BNP of 417 COVID-19, RSV, as well as influenza negative, Chest x-ray shows mild CHF, asymmetric distribution of pulmonary edema at the right lung base concerning for pneumonia Hospital course #? Acute COPD exacerbation--Treated with bronchodilators and steroid with good effect and will treat for total of 5 days with steroid. No hypoxia at this time and feels comfortable going home. #Pneumonia--Treated with Ceftriaxone ad Azithro, afebril, WBC normal. Will discharge with Ceftin for 5 days #? acute CHF exacerbation, likely diastolic failure, echo in 08/2021 showed EF of 65 to 70 %. Treated with IV Lasix in the hospital presently appear compensated, Echo can be repeated on outpatient basis. #? atypical chest pain -? describes pain with coughing -? likely musculoskeletal ?-? troponin elevated but likely in the setting of? CKD and flat #? CKD stage 4 -? baseline creatinine -? follow BMP #? hypertension -? stable -? continue? home antihypertensives #? diabetes - resume home meds, Time Spent with Patient Time attestation: Total time managing care of this patient today ____ minutes. Discharge coordination time: Greater than 30 minutes Quality: Safe Use of Opioids Does Pt have an Active Cancer Diagnosis on the Problem List?: No Quality: Stroke Does the patient have a stroke diagnosis?: No Physical Exam Vital Signs: Vital Signs: Last Vital Signs Temp 97.9 F 08/22/22 07:40 Pulse 82 08/22/22 08:06 Resp 20 08/22/22 08:06 BP 168/76 H 08/22/22 07:40 Pulse Ox 96 08/22/22 07:40 O2 Del Method 08/22/22 07:40 Oxygen Flow Rate 2 08/20/22 17:41 BMI result Body Mass Index 43.2 DS: Data Data Completed and Pending Completed studies during hospitalization [Text1]: Procedures Assistance with Respiratory Ventilation, Less than 24 Consecutive Hours, Continuous Positive Airway Pressure (12/05/20) Labs on day of discharge: Laboratory Results - last 24 hr 08/21/22 08/21/22 08/22/22 13:06 18:01 07:44 POC Glucose 192 H 282 H 325 H Preliminary micro results at discharge 08/20/22 23:32 Blood Culture - Preliminary Blood - Venous No growth after 24 hours. 08/20/22 23:32 Blood Culture - Preliminary Blood - Venous No growth after 24 hours. Discharge Plan Discharge Anticipated Discharge Date/Time: 08/22/22 09:17 Patient Disposition: Home, Self-Care Discharge Diagnosis: COPD exacerbation, CHF Referrals: Jarred Hughes [Primary Care Provider] - 1 Week Discharge Medications: New furosemide [Lasix] 40 mg tablet 40 mg PO DAILY Qty: 30 0RF cefuroxime axetil 500 mg tablet 500 mg PO BID 5 Days Qty: 10 0RF albuterol sulfate 90 mcg/actuation HFA aerosol inhaler 2 inh inhalation Q6-8H PRN (Reason: shortness of breath or wheezing) Qty: 18 0RF Continued insulin aspart U-100 100 unit/mL Solution 1 sliding scale dose SUBCUT TIDAC insulin glargine [Lantus Solostar U-100 Insulin] 100 unit/mL (3 mL) Insulin Pen 50 unit SUBCUT BEDTIME atorvastatin 80 mg Tablet 80 mg PO BEDTIME allopurinol 100 mg Tablet 100 mg PO DAILY amlodipine 10 mg Tablet 10 mg PO DAILY ferrous gluconate 324 mg (38 mg iron) Tablet 324 mg PO DAILY flaxseed oil 1,000 mg Capsule 1,000 mg PO DAILY Rx Instructions: administer with a meal saw palmetto 160 mg Capsule 160 mg PO BID Rx Instructions: give with meal/snack ubiquinone 90 mg Tablet,Disintegrating 90 mg PO DAILY multivitamin Tablet 1 tab PO DAILY labetalol 100 mg Tablet 100 mg PO DAILY cholecalciferol (vitamin D3) 25 mcg (1,000 unit) Tablet 25 mcg PO DAILY clonidine HCl 0.2 mg tablet 0.2 mg PO BID aspirin 81 mg tablet,delayed release (DR/EC) 81 mg PO BEDTIME hydralazine 50 mg Tablet 100 mg PO TID 30 Days Qty: 180 0RF Protocol: Hold for SBP< HOLD for SBP < : 90 finasteride 5 mg tablet 5 mg PO DAILY 90 Days Qty: 90 1RF Discharge Orders: Discharge Order (Routine); Ordered 08/22/22 Ordered By: Alvarez Gannon Diet: Diabetic diet Activity on Discharge: As tolerated Stand Alone Forms: Patient Portal Discharge page Care Plan Goals: full recovery from from heart failure, pneumonia Health Concerns: pneumonia, copd, chf Plan of Treatment: Take Ceftin for Pneumonia Take Prednisone for COPD, use inhaler as recomended follow up with your Doctor in a week you will have echocardiogram done on outpatient bais Assessment: See above
--- NOTE | 2022-08-22 09:37 | MHC.CM.PN ---
Patient has been medically cleared for dc to home today, self care.
[2022-08-22 10:11] LABS: Anion Gap 15 (12-20); Blood Urea Nitrogen 88 mg/dL (9-16); Calcium 8.9 mg/dL (8.4-10.2); Carbon Dioxide 20 mmol/L (22-29); Chloride 108 mmol/L (96-108); Creatinine Clr Calc Pharmacy 17.6; Estimated Glomerular Filt Rate 15; Glucose Random 324 mg/dL (60-115); Potassium 4.6 mmol/L (3.3-5.1); Sodium 138 mmol/L (135-145)
== END 2022-08-22 11:28 | disposition home or self-care (01) | DRG 193 ==
LOC: HO.ED 08-21 00:43 → HO.EDOVER 08-21 02:11 → HO.IMC 08-21 21:34
PROVIDERS: Admitting Provider Internal Medicine; Emergency Provider Emergency Medicine Emergency Medical Services; PCP Internal Medicine; Visit Provider Internal Medicine
DX: J18.9 Pneumonia, unspecified organism (principal); I50.33 Acute on chronic diastolic (congestive) heart failure; I13.0 Hypertensive heart and chronic kidney disease with heart failure and stage 1 through stage 4 chronic kidney disease, or unspecified chronic kidney disease; J44.0 Chronic obstructive pulmonary disease with (acute) lower respiratory infection; J44.1 Chronic obstructive pulmonary disease with (acute) exacerbation; N18.4 Chronic kidney disease, stage 4 (severe); E11.22 Type 2 diabetes mellitus with diabetic chronic kidney disease; I25.10 Atherosclerotic heart disease of native coronary artery without angina pectoris; G47.33 Obstructive sleep apnea (adult) (pediatric); Z20.822 Contact with and (suspected) exposure to COVID-19; Z87.891 Personal history of nicotine dependence; Z88.0 Allergy status to penicillin; Z88.1 Allergy status to other antibiotic agents; Z88.2 Allergy status to sulfonamides; Z88.8 Allergy status to other drugs, medicaments and biological substances; Z79.4 Long term (current) use of insulin; Z79.82 Long term (current) use of aspirin; Z79.899 Other long term (current) drug therapy
CPT/HCPCS: 36415; 71045; 80048; 80053; 81001; 82947; 83880; 84484; 85025; 85379; 85610; 87040; 87086; 87502; 87635; 93005; 94640; 94660; 99285; J0456; J0692; J0696; J1643; J1940; J2920; Q9957

== ENCOUNTER 2022-08-27 10:30 | Emergency (ER) | payer OTHER, SELFPAY ==
--- NOTE | ~2022-08-27 | XR_ITS ---
EXAMINATION: XR CHEST CLINICAL INFORMATION: Pneumonia. COMPARISON: 08/20/2022 chest radiograph. TECHNIQUE: 2 views of the chest were obtained. FINDINGS: There is mild prominence of the pulmonary vasculature. Very small bilateral pleural effusions are seen. The heart and mediastinal structures are unremarkable. XR/XR chest 2V IMPRESSION: Very small bilateral pleural effusions. Mild congestion cannot be excluded.
[2022-08-27 10:38] VITALS: BP 146/34; PULSE 61; RESP 20; TEMP 36.7; O2SAT 96
[2022-08-27 10:40] VITALS: BP 150/63; PULSE 62; O2SAT 98; BMI 44.1
--- NOTE | 2022-08-27 11:10 | ED.MALEGU ---
HPI - Male Genitourinary General Chief complaint: Urogenital-Male Stated complaint: URINARY RETENTION,[facility] Time Seen by Provider: 08/27/22 10:50 Source: patient and EMS Mode of arrival: EMS History of Present Illness HPI Narrative: 82-year-old male with past medical history of CKD stage 4, COPD, diabetes, hypertension,?CHAYITO on CPAP, history of prostate cancer, CAD,?recently discharged from our facility for acute COPD exacerbation/pneumonia and urinary retention s/p Tomlin placement presenting to the ED sent in from PCPs office for urinary retention 1200cc noted on bladder scan in office [employer]. Patient reports suprapubic abdominal pressure, last urinated around 08:00AM this morning. Also reports dysuria. Admits to productive cough and SOB, however improving from prior admission. Denies fever, chills, vomiting/diarrhea, CP, hematuria Onset (ago): day(s) Related Data Home Medications Medication Instructions Recorded Confirmed allopurinol 100 mg tablet 100 mg PO DAILY 12/05/20 08/27/22 amlodipine 10 mg tablet 10 mg PO DAILY 12/05/20 08/27/22 atorvastatin 80 mg tablet 80 mg PO BEDTIME 12/05/20 08/27/22 insulin aspart U-100 100 unit/mL 40 unit subcut QID 12/05/20 08/27/22 subcutaneous solution insulin glargine 100 unit/mL (3 70 unit subcut BEDTIME 12/05/20 08/27/22 mL) subcutaneous pen (Lantus Solostar U-100 Insulin) aspirin 81 mg tablet,delayed 81 mg PO BEDTIME 09/02/21 08/27/22 release clonidine HCl 0.2 mg tablet 0.2 mg PO BID 09/02/21 08/27/22 ferrous gluconate 324 mg (38 mg 324 mg PO DAILY 08/18/22 08/27/22 iron) tablet Previous Rx's Medication Instructions Recorded hydralazine 50 mg tablet 100 mg PO TID 30 days #180 tabs 09/05/21 finasteride 5 mg tablet 5 mg PO DAILY 90 days #90 tabs 12/30/21 Allergies Allergy/AdvReac Type Severity Reaction Status Date / Time levofloxacin [From Levaquin] Allergy Mild paralized Verified 08/20/22 17:44 amoxicillin [AMOXICILLIN] Allergy Unknown ANAPHYLAXIS Verified 08/20/22 17:44 famotidine Allergy Unknown unknown Verified 08/20/22 17:44 hydrochlorothiazide Allergy Unknown unknown Verified 08/20/22 17:44 lisinopril [LISINOPRIL] Allergy Unknown UNKNOWN Verified 08/20/22 17:44 losartan Allergy Unknown unknown Verified 08/20/22 17:44 spironolactone Allergy Unknown unknown Verified 08/20/22 17:44 sulfamethoxazole AdvReac Intermediate C-DIFF, Verified 08/20/22 17:44 [From BACTRIM] REDUCED KIDNEY FX trimethoprim [From BACTRIM] AdvReac Intermediate C-DIFF, Verified 08/20/22 17:44 REDUCED KIDNEY FX Review of Systems Review of Systems: Constitutional: No Fever, No Chills, No Fatigue, No Malaise ENT/Mouth: No Ear Pain, No Nasal Congestion, No Sinus Pain, No Hoarseness, No sore throat, No Rhinorrhea, No Swallowing Difficulty Eyes: No Eye Pain, No Swelling, No Redness, No Vision Changes Cardiovascular: No Chest Pain, + SOB, No Dyspnea on Exertion, +chronic Edema, No Palpitations Respiratory: + Cough, + Sputum, No Dyspnea Gastrointestinal: No Nausea, No Vomiting, No Diarrhea, No Constipation, + Abdominal pain Genitourinary: No Dysuria, No Urinary Frequency, No Hematuria, +retention, No Flank Pain Musculoskeletal: No joint pain, No Myalgias, No Joint Swelling Skin: No Skin Lesions, No rash Neuro: No Weakness, No Loss of Consciousness, No Dizziness, No Headache Yes all other systems are reviewed and are negative Constitutional: Constitutional: Reports as per [facility] Past Medical History Attestation statement: The following information was validated with the patient. Medical History Acute cystitis without hematuria Bacteremia Bladder outlet obstruction Chronic kidney disease, stage II (mild) COPD exacerbation Diabetes Fever HTN (hypertension) Incomplete emptying of bladder Morbid obesity CHAYITO (obstructive sleep apnea) CHAYITO on CPAP Prostate cancer Pure hypercholesterolemia Weak urinary stream Surgical History History of surgery Family History Family History Mother CVA (cerebral vascular accident) Social History Social History Household Members: Spouse Housing: House Do you presently have visiting nurse or other home services: [facility] ([facility]) Alcohol intake: never Patient Tobacco Use Status: Former Tobacco user Advance Directives: Yes Advance Directives on File: Yes Advance Directives Date on File: 09/03/21 service: Yes Current occupational status: retired 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 Physical Exam Vital Signs: Vital Signs: Last Vital Signs Temp 97.8 F 08/27/22 14:20 Pulse 61 08/27/22 14:20 Resp 14 08/27/22 14:20 BP 165/54 H 08/27/22 14:20 Pulse Ox 96 08/27/22 14:20 O2 Del Method 08/27/22 14:20 BMI result Body Mass Index 44.1 Const: General: cooperative, healthy appearing, no acute distress, alert and awake Orientation/consciousness: patient oriented x3 Limitations: no limitations HEENT: Head: Yes normal to inspection and Yes atraumatic Ears: hearing grossly normal bilaterally General nose exam: Normal external nose present Face and sinus: Yes normal facial exam Eyes: General: appearance normal, both eyes and all related structures EOM: EOMs intact bilaterally Neck: Neck: Yes normal visual inspection and Yes no meningeal signs Resp: Effort & Inspection: no respiratory distress and tachypneic Auscultation: clear to auscultation bilaterally Cardio: Rate: regular rate Heart sounds: S1 normal heart sound present and S2 normal heart sound present GI: Inspection: Yes normal to inspection Palpation (GI): Soft to palpation, nontender, no guarding and not rigid : General: Yes no CVA tenderness Back/Spine/Pelvis: Back: no CVA tenderness Skin: Rashes: no rashes Wounds: no wounds Neuro: General: patient oriented x3, tone normal and no meningeal signs Gait exam (Neuro): Normal gait present Extrem: Other: 1+ bilateral LE pitting edema General: Yes normal to inspection Course Course Course Narrative: -1319--leukocytosis of 15.0 > likely reactive from pain/discomfort. H&H stable -chronic CKD. Troponin 57 likely from renal dysfunction > will obtain 3 hour repeat. BNP is chronically elevated, improved from priors XR chest 2V IMPRESSION: Very small bilateral pleural effusions. Mild congestion cannot be excluded. -Due to large volume fluid removal with Tomlin placement on arrival will obtain repeat labs > 16:57--repeat labs equivocal, troponin without rise, FL unlikely > vital signs have remained stable since ED arrival, satting 96% on RA, no respiratory distress, patient does not meet inpatient criteria. Plan for despite home at this time with Tomlin catheter. Recommended close follow-up with Urology/PCP outpatient. -1713--on re-evaluation patient reports generalized fatigue/weakness, does not feel safe to go home. Patient agreeable to physical therapy/case management evaluation, was found tonight in the emergency department. -1800---ED care transferred to KALIA Sanchez pending PT/case management Medical Decision Making Medical Decision Making MDM Narrative: 82-year-old male with past medical history of CKD stage 4, COPD, diabetes, hypertension,?CHAYITO on CPAP, history of prostate cancer, CAD,?recently discharged from our facility for acute COPD exacerbation/pneumonia and urinary retention s/p Tomlin placement presenting to the ED sent in from PCPs office for urinary retention 1200cc noted on bladder scan in office [employer]. On exam vital signs stable, NAD, nontoxic appearing, initial bladder scan showed >999ml, Tomlin catheter placed with 1900 mL immediately released. Patient appears tachypneic, lungs CTA. Concern for Differential Diagnosis Differential Diagnoses: The differential diagnosis associated with the presentation includes as above Lab Data 08/27/22 12:42 08/27/22 12:42 Labs: Lab Results 08/27/22 08/27/22 08/27/22 Range/Units 11:13 12:42 12:42 WBC 15.0 H (4.8-10.8) X10*3/uL RBC 3.27 L (4.60-5.80) X10*6/uL Hgb 10.1 L (14.0-18.0) g/dl Hct 30.7 L (42.0-52.0) % MCV 93.9 (80.0-98.0) fL MCH 30.9 (27.0-33.0) pg MCHC 32.9 (31.0-36.0) g/dl RDW 13.7 (11.0-16.0) % Plt Count 160 (160-400) X10*3/uL MPV 10.4 (9.4-12.4) fL Immature Gran % (Auto) 1.3 H (0.0-0.4) % Neut % (Auto) 84.8 H (45-73) % Lymph % (Auto) 5.9 L (20-40) % Gillespie % (Auto) 5.8 (2-11) % Eos % (Auto) 1.9 (0-4) % Baso % (Auto) 0.3 (0-2) % Lymph # (Auto) 0.9 L (1.2-4.9) X10*3/uL Gillespie # (Auto) 0.9 (0.1-1.2) X10*3/uL Eos # (Auto) 0.3 (0.0-0.4) X10*3/uL Baso # (Auto) 0.0 (0.0-0.2) X10*3/uL Abs Immat Gran (auto) 0.20 H (0.00-0.03) X10*3/uL Absolute Neuts (auto) 12.7 H (2.0-8.3) x10*3/uL Absolute Nucleated RBC 0.000 (0.0-0.012) X10*3/uL Nucleated RBC % (auto) 0.0 (0.0-0.2) /100WBC Sodium 137 (135-145) mmol/L Potassium 4.5 (3.3-5.1) mmol/L Chloride 110 H (96-108) mmol/L Carbon Dioxide 21 L (22-29) mmol/L Anion Gap 11 L (12-20) BUN 89 H (9-16) mg/dL Creatinine 2.97 H (0.5-1.4) mg/dL Estim Creat Clear Calc 23.4 Estimated GFR 20 Random Glucose 175 H (60-115) mg/dL Calcium 8.6 (8.4-10.2) mg/dL Magnesium 2.1 (1.6-2.6) mg/dL Total Bilirubin 0.6 (0.0-1.0) mg/dL Direct Bilirubin < 0.2 (0.0-0.5) mg/dL AST 28 (5-37) U/L ALT 38 (0-40) U/L Alkaline Phosphatase 83 (39-117) U/L Troponin I High Sens (<3.5-35.0) ng/L B-Natriuretic Peptide (<100) pg/mL Total Protein 4.9 L (6.5-8.0) g/dL Albumin 3.2 L (3.5-5.0) g/dL Urine Color Yellow Urine Appearance Clear Urine pH 5.5 (5.0-9.0) Ur Specific Morris 1.015 (1.005-1.025) Urine Protein 300 (3+) H (Neg-Trace) mg/dL Urine Glucose (UA) Negative (Negative) mg/dL Urine Ketones Negative (Negative) mg/dL Urine Blood Negative (Negative) Urine Nitrite Negative (Negative) Ur Leukocyte Esterase Negative (Negative) Urine RBC 0-2 (0-2) /HPF Urine WBC 0-5 (0-5) /HPF Ur Squamous Epith Cells 0-2 (0-2) /HPF Urine Bacteria None Seen (None Seen) Hyaline Casts 3-5 (0-2) /LPF COVID-19 (YANDEL) (Negative) COVID-19 Clin Com 08/27/22 08/27/22 08/27/22 Range/Units 12:42 12:42 12:42 WBC (4.8-10.8) X10*3/uL RBC (4.60-5.80) X10*6/uL Hgb (14.0-18.0) g/dl Hct (42.0-52.0) % MCV (80.0-98.0) fL MCH (27.0-33.0) pg MCHC (31.0-36.0) g/dl RDW (11.0-16.0) % Plt Count (160-400) X10*3/uL MPV (9.4-12.4) fL Immature Gran % (Auto) (0.0-0.4) % Neut % (Auto) (45-73) % Lymph % (Auto) (20-40) % Gillespie % (Auto) (2-11) % Eos % (Auto) (0-4) % Baso % (Auto) (0-2) % Lymph # (Auto) (1.2-4.9) X10*3/uL Gillespie # (Auto) (0.1-1.2) X10*3/uL Eos # (Auto) (0.0-0.4) X10*3/uL Baso # (Auto) (0.0-0.2) X10*3/uL Abs Immat Gran (auto) (0.00-0.03) X10*3/uL Absolute Neuts (auto) (2.0-8.3) x10*3/uL Absolute Nucleated RBC (0.0-0.012) X10*3/uL Nucleated RBC % (auto) (0.0-0.2) /100WBC Sodium (135-145) mmol/L Potassium (3.3-5.1) mmol/L Chloride (96-108) mmol/L Carbon Dioxide (22-29) mmol/L Anion Gap (12-20) BUN (9-16) mg/dL Creatinine (0.5-1.4) mg/dL Estim Creat Clear Calc Estimated GFR Random Glucose (60-115) mg/dL Calcium (8.4-10.2) mg/dL Magnesium (1.6-2.6) mg/dL Total Bilirubin (0.0-1.0) mg/dL Direct Bilirubin (0.0-0.5) mg/dL AST (5-37) U/L ALT (0-40) U/L Alkaline Phosphatase (39-117) U/L Troponin I High Sens 57.0 H (<3.5-35.0) ng/L B-Natriuretic Peptide 285 H (<100) pg/mL Total Protein (6.5-8.0) g/dL Albumin (3.5-5.0) g/dL Urine Color Urine Appearance Urine pH (5.0-9.0) Ur Specific Morris (1.005-1.025) Urine Protein (Neg-Trace) mg/dL Urine Glucose (UA) (Negative) mg/dL Urine Ketones (Negative) mg/dL Urine Blood (Negative) Urine Nitrite (Negative) Ur Leukocyte Esterase (Negative) Urine RBC (0-2) /HPF Urine WBC (0-5) /HPF Ur Squamous Epith Cells (0-2) /HPF Urine Bacteria (None Seen) Hyaline Casts (0-2) /LPF COVID-19 (YANDEL) Negative (Negative) COVID-19 Clin Com See Note 08/27/22 08/27/22 Range/Units 15:41 16:08 WBC (4.8-10.8) X10*3/uL RBC (4.60-5.80) X10*6/uL Hgb (14.0-18.0) g/dl Hct (42.0-52.0) % MCV (80.0-98.0) fL MCH (27.0-33.0) pg MCHC (31.0-36.0) g/dl RDW (11.0-16.0) % Plt Count (160-400) X10*3/uL MPV (9.4-12.4) fL Immature Gran % (Auto) (0.0-0.4) % Neut % (Auto) (45-73) % Lymph % (Auto) (20-40) % Gillespie % (Auto) (2-11) % Eos % (Auto) (0-4) % Baso % (Auto) (0-2) % Lymph # (Auto) (1.2-4.9) X10*3/uL Gillespie # (Auto) (0.1-1.2) X10*3/uL Eos # (Auto) (0.0-0.4) X10*3/uL Baso # (Auto) (0.0-0.2) X10*3/uL Abs Immat Gran (auto) (0.00-0.03) X10*3/uL Absolute Neuts (auto) (2.0-8.3) x10*3/uL Absolute Nucleated RBC (0.0-0.012) X10*3/uL Nucleated RBC % (auto) (0.0-0.2) /100WBC Sodium 139 (135-145) mmol/L Potassium 4.3 (3.3-5.1) mmol/L Chloride 111 H (96-108) mmol/L Carbon Dioxide 20 L (22-29) mmol/L Anion Gap 12 (12-20) BUN 84 H (9-16) mg/dL Creatinine 3.00 H (0.5-1.4) mg/dL Estim Creat Clear Calc 23.2 Estimated GFR 20 Random Glucose 202 H (60-115) mg/dL Calcium 8.6 (8.4-10.2) mg/dL Magnesium 2.0 (1.6-2.6) mg/dL Total Bilirubin (0.0-1.0) mg/dL Direct Bilirubin (0.0-0.5) mg/dL AST (5-37) U/L ALT (0-40) U/L Alkaline Phosphatase (39-117) U/L Troponin I High Sens 56.4 H (<3.5-35.0) ng/L B-Natriuretic Peptide (<100) pg/mL Total Protein (6.5-8.0) g/dL Albumin (3.5-5.0) g/dL Urine Color Urine Appearance Urine pH (5.0-9.0) Ur Specific Morris (1.005-1.025) Urine Protein (Neg-Trace) mg/dL Urine Glucose (UA) (Negative) mg/dL Urine Ketones (Negative) mg/dL Urine Blood (Negative) Urine Nitrite (Negative) Ur Leukocyte Esterase (Negative) Urine RBC (0-2) /HPF Urine WBC (0-5) /HPF Ur Squamous Epith Cells (0-2) /HPF Urine Bacteria (None Seen) Hyaline Casts (0-2) /LPF COVID-19 (YANDEL) (Negative) COVID-19 Clin Com Discharge Plan Discharge Clinical Impression: Congestive heart failure (CHF), Acute urinary retention, CKD (chronic kidney disease), Generalized weakness Patient Disposition: Still a Patient Prescriptions: No Action insulin aspart U-100 100 unit/mL Solution 40 unit SUBCUT QID insulin glargine [Lantus Solostar U-100 Insulin] 100 unit/mL (3 mL) Insulin Pen 70 unit SUBCUT BEDTIME atorvastatin 80 mg Tablet 80 mg PO BEDTIME allopurinol 100 mg Tablet 100 mg PO DAILY amlodipine 10 mg Tablet 10 mg PO DAILY ferrous gluconate 324 mg (38 mg iron) Tablet 324 mg PO DAILY clonidine HCl 0.2 mg tablet 0.2 mg PO BID aspirin 81 mg tablet,delayed release (DR/EC) 81 mg PO BEDTIME hydralazine 50 mg Tablet 100 mg PO TID 30 Days Qty: 180 0RF Protocol: Hold for SBP< HOLD for SBP < : 90 finasteride 5 mg tablet 5 mg PO DAILY 90 Days Qty: 90 1RF
--- NOTE | 2022-08-27 11:20 | PC.NURSE ---
Pt bladder scan showed >999ml. Mabry placed per DYLAN Hoffman verbal order, 1900ml expelled. Pt tolerated mabry well, clear yellow urine.
[2022-08-27 11:38] LABS: Appearance Urine Clear; Color Urine Yellow; Glucose Urine UA Negative (Negative); Leukocyte Esterase Urine Negative (Negative); Nitrite Urine Negative (Negative); PH 5.5 (5.0-9.0); Specific Gravity - Urine 1.015 (1.005-1.025); UMIC TRIGGER UACC YES; Urine Blood Negative (Negative); Urine Ketones Negative (Negative); Urine Protein 300 (3+) mg/dL (Neg-Trace)
--- NOTE | 2022-08-27 11:40 | ECG_ITS ---
Test Reason : weakness Blood Pressure : / mmHG Vent. Rate : 060 BPM Atrial Rate : 060 BPM P-R Int : 270 ms QRS Dur : 114 ms QT Int : 446 ms P-R-T Axes : 045 -47 082 degrees QTc Int : 446 ms Sinus rhythm with 1st degree A-V block Incomplete right bundle branch block Left anterior fascicular block Minimal voltage criteria for LVH, may be normal variant ( Carlton product ) Abnormal ECG When compared with ECG of 20-AUG-2022 20:19, No significant change was found Referred By: Suzette Parker Electronically Signed By:ROXANNE CONLEY MD
[2022-08-27 11:42] LABS: Bacteria Urine None Seen (None Seen); RBC Urine 0-2 /HPF (0-2); Squamous Epithelial Cell Urine 0-2 /HPF (0-2); WBC Urine 0-5 /HPF (0-5)
--- NOTE | 2022-08-27 12:25 | PHA.MEDREC ---
Pharmacy Consult ? Medication Reconciliation Pharmacy has completed the medication reconciliation. Completed med rec using list from ID dated 08/27/22.
[2022-08-27 12:47] LABS: MANUAL DIFF FLAG NO
[2022-08-27 12:49] LABS: Basophils Percent Auto 0.3 % (0-2); Eosinophils Absolute Auto 0.3 X10*3/uL (0.0-0.4); Eosinophils Percent Auto 1.9 % (0-4); Hematocrit 30.7 % (42.0-52.0); Hemoglobin 10.1 g/dl (14.0-18.0); Imm Gran Pct Auto 1.3 % (0.0-0.4); Lymphocytes Absolute Auto 0.9 X10*3/uL (1.2-4.9); Lymphocytes Percent Auto 5.9 % (20-40); Mean Corpuscular HGB Conc 32.9 g/dl (31.0-36.0); Mean Corpuscular Hemoglobin 30.9 pg (27.0-33.0); Mean Corpuscular Volume 93.9 fL (80.0-98.0); Mean Platelet Volume 10.4 fL (9.4-12.4); Monocytes Absolute Auto 0.9 X10*3/uL (0.1-1.2); Monocytes Percent Auto 5.8 % (2-11); Neutrophils Absolute Auto 12.7 x10*3/uL (2.0-8.3); Neutrophils Percent Auto 84.8 % (45-73); Platelet Count 160 X10*3/uL (160-400); Red Blood Count 3.27 X10*6/uL (4.60-5.80); Red Cell Distribution Width 13.7 % (11.0-16.0)
[2022-08-27 13:04] LABS: Alanine Aminotransferase 38 U/L (0-40); Albumin Level 3.2 g/dL (3.5-5.0); Alkaline Phosphatase 83 U/L (39-117); Anion Gap 11 (12-20); Aspartate Amino Transferase 28 U/L (5-37); Bilirubin Direct < 0.2 mg/dL (0.0-0.5); Bilirubin Total 0.6 mg/dL (0.0-1.0); Blood Urea Nitrogen 89 mg/dL (9-16); Calcium 8.6 mg/dL (8.4-10.2); Carbon Dioxide 21 mmol/L (22-29); Chloride 110 mmol/L (96-108); Creatinine Clr Calc Pharmacy 23.4; Estimated Glomerular Filt Rate 20; Glucose Random 175 mg/dL (60-115); Magnesium 2.1 mg/dL (1.6-2.6); Potassium 4.5 mmol/L (3.3-5.1); Sodium 137 mmol/L (135-145); Total Protein 4.9 g/dL (6.5-8.0)
[2022-08-27 13:09] LABS: B Type Natriuretic Peptide 285 pg/mL (<100)
[2022-08-27 13:20] LABS: COVID-19 Test Negative (Negative); IDNOW Serial# BCCEAD1C
[2022-08-27 14:20] VITALS: BP 165/54; PULSE 61; RESP 14; TEMP 36.6; O2SAT 96
[2022-08-27 16:08] LABS: Troponin-I High Sensitivity 56.4 ng/L (<3.5-35.0)
[2022-08-27 16:33] LABS: Anion Gap 12 (12-20); Blood Urea Nitrogen 84 mg/dL (9-16); Calcium 8.6 mg/dL (8.4-10.2); Carbon Dioxide 20 mmol/L (22-29); Chloride 111 mmol/L (96-108); Creatinine Clr Calc Pharmacy 23.2; Estimated Glomerular Filt Rate 20; Glucose Random 202 mg/dL (60-115); Potassium 4.3 mmol/L (3.3-5.1); Sodium 139 mmol/L (135-145)
--- NOTE | 2022-08-27 18:57 | MHC.CM.ED ---
CM met with patient at request of Suzette RICHARDSON. Pt has been having ongoing urinary retention issues for about a month. Tx at [facility]. Had fistula placed at [facility] about a month ago. Has one kidney and is 100% vet connected due to exposure to [place]. Has all services at [place]. Was recently hospitalized at [facility] 08/21-08/22 for CHF and PNA. Was seen at his PCP in [place] today, 1200 cc urinary retention via bladder scan. Pt states he hasn't slept well in about 4 days and feels weak. Agreeable to PT evalution in the morning. Is not agreeable at this time to [facility]. States he would [facility]. No referrals placed. Pt ambulates with a cane at baseline. Lives with . Has no services. [employer] x2. D/C plan: if PT recommended, agreeable to Home PT or PT at [place]. Family will transport. CM will follow for discharge needs.
[2022-08-27 20:18] VITALS: BP 171/56; PULSE 65; RESP 18; TEMP 36.9; O2SAT 95
[2022-08-27 20:28] LABS: Glucose, Whole Blood 305 mg/dL (60-115)
[2022-08-27] MEDS: Atorvastatin Calcium 80 MG TABLET PO (21:51)
[2022-08-27] MEDS: cloNIDine HCL 0.2 MG TABLET PO (21:51)
[2022-08-27] MEDS: hydrALAZINE HCl 50 MG TABLET 100 MG PO (21:51)
[2022-08-27] MEDS: Aspirin Enteric Coated 81 MG TABLET.DR PO (21:51)
[2022-08-27] MEDS: Insulin Glargine,Hum.rec.anlog 100 UNIT/ML 10 ML VIAL 50 UNIT SUBCUT (21:55)
[2022-08-27 23:28] VITALS: BP 150/52; PULSE 67; RESP 16; TEMP 36.8; O2SAT 96
[2022-08-28 03:48] VITALS: BP 153/59; PULSE 65; RESP 16; TEMP 36.8; O2SAT 96
--- NOTE | 2022-08-28 05:04 | MHC.EDTECH ---
patient repositioned and 1400 emptied from catheter
--- NOTE | 2022-08-28 05:57 | PC.NURSE ---
Pt A&Ox4, denies any pain, reports relief to mabry cath placed. Pt slept for most of the night, no apparent distress, will CTM.
[2022-08-28 07:25] LABS: Glucose, Whole Blood 132 mg/dL (60-115)
[2022-08-28 08:28] VITALS: BP 122/54; PULSE 63; RESP 19; TEMP 36.7; O2SAT 97
[2022-08-28] MEDS: amLODIPine Besylate 10 MG TABLET PO (08:40)
[2022-08-28] MEDS: Finasteride 5 MG TABLET PO (08:40)
[2022-08-28] MEDS: Ferrous Sulfate 324 MG TABLET.DR PO (08:40)
[2022-08-28] MEDS: cloNIDine HCL 0.2 MG TABLET PO (08:40)
[2022-08-28] MEDS: allopurinoL 100 MG TABLET PO (08:41)
[2022-08-28] MEDS: hydrALAZINE HCl 50 MG TABLET 100 MG PO (08:41)
--- NOTE | 2022-08-28 08:54 | PC.NURSE ---
patient alert, oriented x4. took morning medications with water, no difficulty noted. PT at the bedside. pt cooperative and pleasant with staff
[2022-08-28 08:56] VITALS: BP 122/54; PULSE 63; O2SAT 97
--- NOTE | 2022-08-28 12:08 | MHC.CM.ED ---
Patient remains in ER. Physical therapy eval completed. Home therapy is recommended. [facility] Referral broadcased in [facility]. [facility] is able to accept patient. T/W spoke with Berenice at the [facility]. She will need the ER d/c paperwork faxed to her and then she will be able to authorize [facility]. Met with patient to discuss discharge plan. Patient agreeable. Patient's will transport patient home. She is currently in the restroom but is in the ER. Suzette RICHARDSON aware. Continue to monitor for d/c needs.
[2022-08-28 12:53] LABS: Glucose, Whole Blood 145 mg/dL (60-115)
[2022-08-28 13:44] VITALS: BP 161/59; PULSE 65; RESP 19; O2SAT 97
== END 2022-08-28 13:46 | disposition home or self-care (01) ==
PROVIDERS: Physician Assistant; Emergency Provider Student in an Organized Health Care Education/Training Program; PCP Internal Medicine
DX: I13.0 Hypertensive heart and chronic kidney disease with heart failure and stage 1 through stage 4 chronic kidney disease, or unspecified chronic kidney disease (principal); E11.22 Type 2 diabetes mellitus with diabetic chronic kidney disease; N18.4 Chronic kidney disease, stage 4 (severe); R33.9 Retention of urine, unspecified; R53.1 Weakness; R06.02 Shortness of breath; R26.81 Unsteadiness on feet; Z20.822 Contact with and (suspected) exposure to COVID-19; Z20.828 Contact with and (suspected) exposure to other viral communicable diseases; Z79.899 Other long term (current) drug therapy; Z79.4 Long term (current) use of insulin
CPT/HCPCS: 36415; 51798; 71046; 80048; 80076; 81001; 82947; 83735; 83880; 84484; 85025; 87635; 93005; 97162; 99285

== ENCOUNTER 2022-09-02 17:44 | Inpatient (IN) | payer OTHER, SELFPAY ==
[2022-09-02] VITALS (7 sets, daily range): BP systolic 140–174; BP diastolic 50–85; PULSE 62–72; RESP 16–29; TEMP 36.9–37.1; O2SAT 93–97; BMI 43.2
--- NOTE | ~2022-09-02 | XR_ITS ---
EXAMINATION: XR CHEST CLINICAL INFORMATION: Shortness of breath COMPARISON: Chest x-ray 08/27/2022 TECHNIQUE: 2 views of the chest were obtained. FINDINGS: Moderate pulmonary vascular congestion with bilateral hazy airspace opacities suggestive of pulmonary edema. Moderate vascular congestion has worsened since prior study 08/27/2022 There are small bilateral pleural effusions blunting posterior costophrenic angles. XR/XR chest 2V IMPRESSION: Congestive heart failure with pulmonary edema. Small bilateral pleural effusions.
--- NOTE | ~2022-09-02 | CT_ITS ---
EXAMINATION: CT ABDOMEN AND PELVIS WITH CONTRAST CLINICAL INFORMATION: r/o Retroperitoneal hemorrhage. has Anemia COMPARISON: 07/01/2020 TECHNIQUE: Multidetector volumetric imaging was performed from the superior aspect of the liver through the pubic symphysis following administration of 80mL Omnipaque 300 intravenous contrast. Sagittal and coronal reformatted images were obtained on the technologist workstation.. This CT examination was performed using dose optimization techniques as appropriate, variously including the following: *Automated exposure control *Adjustment of mA and/or kV according to patient size (this includes techniques or standardized protocols for targeted exams where dose is matched to indication/reason for exam; i.e. extremities or head) *Use of iterative reconstruction technique DLP: 1211 mGy-cm FINDINGS: LUNG BASES: Patchy bilateral airspace disease is seen with tiny layering bilateral pleural effusions. Prominent vascular calcification LIVER, GALLBLADDER, AND BILIARY TREE: The liver is normal in size, shape, and attenuation. No focal hepatic lesion or biliary ductal dilatation is present. The gallbladder is unremarkable with no evidence of radiopaque gallstones, gallbladder wall thickening, or obvious pericholecystic inflammatory changes. PANCREAS: Unremarkable. SPLEEN: Unremarkable. ADRENAL GLANDS: Unremarkable. KIDNEYS AND URETERS: Left kidney is surgically absent. No obstructive changes to the contralateral right kidney. There are slightly hyperintense subcentimeter likely hemorrhagic cyst seen in the kidney but these are difficult to characterize further. These were not as well delineated or seen on the 07/01/2020 study this includes a partially exophytic 0.9 cm probable hyperdense cyst arising from the anterior midpole of the kidney a exophytic 0.9 cm cyst arising from the anterior lower pole and a directly adjacent more subtle hyperdense 1.8 cm possible cyst in the cortex of the lower pole BLADDER: Decompressed with Tomlin catheter GASTROINTESTINAL TRACT: . No colonic wall thickening or pericolonic inflammatory changes. Surgical clips seen in the region of the cecum and sigmoid colon ABDOMINAL WALL: No significant hernia is appreciated. LYMPHOVASCULAR STRUCTURES: Vascular calcification in the aorta iliac system PELVIC VISCERA: Unremarkable. OSSEOUS STRUCTURES: Degenerative changes in the spine similar to the prior study CT/CT abdomen pelvis wo IV con IMPRESSION: Chronic appearing and postoperative changes as described. Small bilateral effusions and dependent airspace disease. I do not appreciate any acute intra-abdominal process. I do not appreciate any evidence for retroperitoneal hematoma.
--- NOTE | 2022-09-02 18:03 | ECG_ITS ---
Test Reason : chest pain Blood Pressure : / mmHG Vent. Rate : 063 BPM Atrial Rate : 063 BPM P-R Int : 280 ms QRS Dur : 104 ms QT Int : 426 ms P-R-T Axes : 023 106 -12 degrees QTc Int : 435 ms Sinus rhythm with 1st degree A-V block Rightward axis Incomplete right bundle branch block T wave abnormality, consider inferior ischemia Abnormal ECG When compared with ECG of 27-AUG-2022 12:55, Left anterior fascicular block is no longer Present T wave inversion now evident in Inferior leads Referred By: Reza Armas Electronically Signed By:EDWARD HUTTON
--- NOTE | 2022-09-02 18:05 | ED_ITS ---
HPI - SOB/Dyspnea General Chief Complaint: Dyspnea Stated Complaint: SOB/CP Time Seen by Provider: 09/02/22 17:47 Source: patient, EMS and old records reviewed Limitations: no limitations History of Present Illness HPI Narrative: Patient presenting with chest pain and shortness of breath which started this afternoon after home physical therapy. He states since that time has been sitting on the couch with dyspnea. He describes chest pain as pressure-like across his entire chest and into his back. It is similar to the discomfort he had last week when he was hospitalized for pneumonia and congestive heart failure combined. He also has a history of renal failure for which he has had an AV fistula recently placed with the expectation of imminent dialysis. Positive cough with phlegm which is unchanged from prior visit. No fevers or chills. No nausea vomiting diarrhea constipation. Related Data Home Medications Medication Instructions Recorded Confirmed allopurinol 100 mg tablet 100 mg PO DAILY 12/05/20 08/27/22 amlodipine 10 mg tablet 10 mg PO DAILY 12/05/20 08/27/22 atorvastatin 80 mg tablet 80 mg PO BEDTIME 12/05/20 08/27/22 insulin aspart U-100 100 unit/mL 40 unit subcut QID 12/05/20 08/27/22 subcutaneous solution insulin glargine 100 unit/mL (3 70 unit subcut BEDTIME 12/05/20 08/27/22 mL) subcutaneous pen (Lantus Solostar U-100 Insulin) aspirin 81 mg tablet,delayed 81 mg PO BEDTIME 09/02/21 08/27/22 release clonidine HCl 0.2 mg tablet 0.2 mg PO BID 09/02/21 08/27/22 ferrous gluconate 324 mg (38 mg 324 mg PO DAILY 08/18/22 08/27/22 iron) tablet Previous Rx's Medication Instructions Recorded hydralazine 50 mg tablet 100 mg PO TID 30 days #180 tabs 09/05/21 finasteride 5 mg tablet 5 mg PO DAILY 90 days #90 tabs 12/30/21 Allergies Allergy/AdvReac Type Severity Reaction Status Date / Time vancomycin Allergy Intermediate Rash Verified 09/02/22 20:01 levofloxacin [From Levaquin] Allergy Mild paralized Verified 09/02/22 17:53 amoxicillin [AMOXICILLIN] Allergy Unknown ANAPHYLAXIS Verified 09/02/22 17:53 famotidine Allergy Unknown unknown Verified 09/02/22 17:53 hydrochlorothiazide Allergy Unknown unknown Verified 09/02/22 17:53 lisinopril [LISINOPRIL] Allergy Unknown UNKNOWN Verified 09/02/22 17:53 losartan Allergy Unknown unknown Verified 09/02/22 17:53 spironolactone Allergy Unknown unknown Verified 09/02/22 17:53 sulfamethoxazole AdvReac Intermediate C-DIFF, Verified 09/02/22 17:53 [From BACTRIM] REDUCED KIDNEY FX trimethoprim [From BACTRIM] AdvReac Intermediate C-DIFF, Verified 09/02/22 17:53 REDUCED KIDNEY FX Review of Systems Constitutional: Comments: No fevers or chills. Patient complains of severe fatigue and generalized weakness and malaise which i s been getting worse over the past weeks and months Cardiovascular: Comments: Chest pain as described. No palpitations no change in his pain with nitroglycerin or aspirin given pre-hospital a Respiratory: Comments: Dyspnea with cough and phlegm as described Gastrointestinal: Comments: No nausea vomiting diarrhea or abdominal pain Musculoskeletal: Comments: No calf tenderness Integumentary/Breasts: Comments: No new rash Neurologic: Comments: No focal weakness PMFSH Past Medical History Medical History Acute cystitis without hematuria Bacteremia Bladder outlet obstruction Chronic kidney disease, stage II (mild) COPD exacerbation Diabetes Fever HTN (hypertension) Incomplete emptying of bladder Morbid obesity CHAYITO (obstructive sleep apnea) CHAYITO on CPAP Prostate cancer Pure hypercholesterolemia Weak urinary stream Surgical History History of surgery Family History Family History Mother CVA (cerebral vascular accident) Social History Social History Household Members: Spouse Housing: House Do you presently have visiting nurse or other home services: Yes ([facility]) Alcohol intake: never Patient Tobacco Use Status: Former Tobacco user Smoked in Last 30 Days: No Use of substances other than those prescribed or required for medical reasons: No Advance Directives: Yes Advance Directives on File: Yes Advance Directives Date on File: 08/21/22 service: Yes Current occupational status: retired 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 Physical Exam Vital Signs: Vital Signs: Last Vital Signs Temp 98.4 F 09/02/22 18:02 Pulse 62 09/02/22 19:39 Resp 20 09/02/22 19:39 BP 141/50 H 09/02/22 19:39 Pulse Ox 97 09/02/22 19:39 O2 Del Method 09/02/22 19:39 O2 Flow Rate 4 09/02/22 17:58 Oxygen Flow Rate 4 09/02/22 18:02 BMI result Body Mass Index 43.2 Const: Other: Awake and alert. Positive respiratory distress with tachypnea to 29 breaths per minute. Oxygen saturation on nasal cannula however is at 96%. Chest: Other: Chest wall is nontender to palpation Resp: Other: Patient very diminished throughout. Expiratory wheezes at the apices. No obvious rales Cardio: Other: Regular rate and rhythm without murmurs rubs or gallops. GI: Other: Soft nontender Skin: Other: Warm pink and dry without acute rash Neuro: Other: Nonfocal neuro exam Extrem: Other: Pedal edema bilaterally without calf tenderness Medications Administered Discontinued Medications Generic Name Dose Route Start Last Admin Trade Name Freq PRN Reason Stop Dose Admin Albuterol Sulfate 2.5 mg 09/02/22 18:02 09/02/22 18:29 Albuterol Sulfate (0.083%) 2.5 Mg/3 Ml Vial.Neb INHALE 09/02/22 18:03 2.5 mg ONCE ONE Administration Furosemide 80 mg 09/02/22 18:02 09/02/22 18:35 Furosemide 100 Mg/10 Ml Vial IVPUSH 09/02/22 18:03 80 mg ONCE ONE Administration Protocol Ceftriaxone Sodium 1 gm/ 50 mls @ 100 mls/hr 09/02/22 18:28 09/02/22 19:26 Sodium Chloride IV 09/02/22 18:57 100 mls/hr ONCE ONE Administration Lorazepam 1 mg 09/02/22 18:02 09/02/22 18:33 Lorazepam 2 Mg/Ml Vial IVPUSH 09/02/22 18:03 1 mg ONCE ONE Administration Methylprednisolone Sodium Succinate 125 mg 09/02/22 18:02 09/02/22 18:32 Methylprednisolone Sod Succ 125 Mg/2 Ml Vial IVPUSH 09/02/22 18:03 125 mg ONCE ONE Administration Medical Decision Making Medical Decision Making MDM Narrative: Patient presenting with chest pain and significant dyspnea. He is at risk for multiple causes including pneumonia, bronchitis, COPD, congestive heart failure, ischemic heart disease. Will treat with nebulizer as well as Lasix. He has already received aspirin prior to arrival. Await chest x-ray for further differentiation. Anticipate hospitalization secondary to significant dyspnea. 18:27. Chest x-ray by my interpretation shows worsening right-sided infiltrate compared to August 29. Will order vanco and ceftriaxone to cover potentially healthcare acquired verses refractory pneumonia. Patient is allergic to amoxicillin as well as levofloxacin and sulfonamides. Will start with the above antibiotic combination and change if needed 20:06. Vancomycin held as patient states last time he got vancomycin he developed a rash. Vancomycin added to his allergy list. Will stick with ceftriaxone. Chest x-ray by Radiology interpretation is more consistent with congestive heart failure. Patient is feeling better at this time after treatment with Lasix. First troponin is 56 which is close to his baseline. Repeat troponin but in the meantime will hospitalized for exacerbation of congestive heart failure Lab Data 09/02/22 19:23 09/02/22 19:23 Labs: Lab Results 09/02/22 09/02/22 09/02/22 Range/Units 18:40 19:23 19:23 WBC 12.7 H (4.8-10.8) X10*3/uL RBC 2.93 L (4.60-5.80) X10*6/uL Hgb 9.2 L (14.0-18.0) g/dl Hct 27.8 L (42.0-52.0) % MCV 94.9 (80.0-98.0) fL MCH 31.4 (27.0-33.0) pg MCHC 33.1 (31.0-36.0) g/dl RDW 14.1 (11.0-16.0) % Plt Count 135 L (160-400) X10*3/uL MPV 10.8 (9.4-12.4) fL Immature Gran % (Auto) 0.5 H (0.0-0.4) % Neut % (Auto) 86.9 H (45-73) % Lymph % (Auto) 4.2 L (20-40) % [place] % (Auto) 6.9 (2-11) % Eos % (Auto) 1.3 (0-4) % Baso % (Auto) 0.2 (0-2) % Lymph # (Auto) 0.5 L (1.2-4.9) X10*3/uL [place] # (Auto) 0.9 (0.1-1.2) X10*3/uL Eos # (Auto) 0.2 (0.0-0.4) X10*3/uL Baso # (Auto) 0.0 (0.0-0.2) X10*3/uL Abs Immat Gran (auto) 0.06 H (0.00-0.03) X10*3/uL Absolute Neuts (auto) 11.0 H (2.0-8.3) x10*3/uL Absolute Nucleated RBC 0.000 (0.0-0.012) X10*3/uL Nucleated RBC % (auto) 0.0 (0.0-0.2) /100WBC PT (10.0-13.1) SEC INR (0.9-1.1) D-Dimer High Sensitivty NG/ML Sodium 139 (135-145) mmol/L Potassium 4.7 (3.3-5.1) mmol/L Chloride 110 H (96-108) mmol/L Carbon Dioxide 20 L (22-29) mmol/L Anion Gap 14 (12-20) BUN 90 H (9-16) mg/dL Creatinine 3.08 H (0.5-1.4) mg/dL Estim Creat Clear Calc 22.3 Estimated GFR 20 Random Glucose 168 H (60-115) mg/dL Lactic Acid (0.5-2.0) mmol/L Calcium 8.8 (8.4-10.2) mg/dL Total Bilirubin 0.5 (0.0-1.0) mg/dL AST 23 (5-37) U/L ALT 23 (0-40) U/L Alkaline Phosphatase 86 (39-117) U/L Troponin I High Sens (<3.5-35.0) ng/L B-Natriuretic Peptide (<100) pg/mL Total Protein 4.7 L (6.5-8.0) g/dL Albumin 3.0 L (3.5-5.0) g/dL Urine Color Yellow Urine Appearance Clear Urine pH 5.5 (5.0-9.0) Ur Specific [place] 1.015 (1.005-1.025) Urine Protein 300 (3+) H (Neg-Trace) mg/dL Urine Glucose (UA) Negative (Negative) mg/dL Urine Ketones Negative (Negative) mg/dL Urine Blood Negative (Negative) Urine Nitrite Negative (Negative) Ur Leukocyte Esterase Trace H (Negative) Urine RBC >20 H (0-2) /HPF Urine WBC 6-10 H (0-5) /HPF Ur Squamous Epith Cells 0-2 (0-2) /HPF Urine Bacteria None Seen (None Seen) Hyaline Casts 3-5 (0-2) /LPF Urine Yeast Present 09/02/22 09/02/22 09/02/22 Range/Units 19:23 19:23 19:23 WBC (4.8-10.8) X10*3/uL RBC (4.60-5.80) X10*6/uL Hgb (14.0-18.0) g/dl Hct (42.0-52.0) % MCV (80.0-98.0) fL MCH (27.0-33.0) pg MCHC (31.0-36.0) g/dl RDW (11.0-16.0) % Plt Count (160-400) X10*3/uL MPV (9.4-12.4) fL Immature Gran % (Auto) (0.0-0.4) % Neut % (Auto) (45-73) % Lymph % (Auto) (20-40) % [place] % (Auto) (2-11) % Eos % (Auto) (0-4) % Baso % (Auto) (0-2) % Lymph # (Auto) (1.2-4.9) X10*3/uL [place] # (Auto) (0.1-1.2) X10*3/uL Eos # (Auto) (0.0-0.4) X10*3/uL Baso # (Auto) (0.0-0.2) X10*3/uL Abs Immat Gran (auto) (0.00-0.03) X10*3/uL Absolute Neuts (auto) (2.0-8.3) x10*3/uL Absolute Nucleated RBC (0.0-0.012) X10*3/uL Nucleated RBC % (auto) (0.0-0.2) /100WBC PT 11.7 (10.0-13.1) SEC INR 1.0 (0.9-1.1) D-Dimer High Sensitivty 268 NG/ML Sodium (135-145) mmol/L Potassium (3.3-5.1) mmol/L Chloride (96-108) mmol/L Carbon Dioxide (22-29) mmol/L Anion Gap (12-20) BUN (9-16) mg/dL Creatinine (0.5-1.4) mg/dL Estim Creat Clear Calc Estimated GFR Random Glucose (60-115) mg/dL Lactic Acid 0.6 (0.5-2.0) mmol/L Calcium (8.4-10.2) mg/dL Total Bilirubin (0.0-1.0) mg/dL AST (5-37) U/L ALT (0-40) U/L Alkaline Phosphatase (39-117) U/L Troponin I High Sens 56.7 H (<3.5-35.0) ng/L B-Natriuretic Peptide (<100) pg/mL Total Protein (6.5-8.0) g/dL Albumin (3.5-5.0) g/dL Urine Color Urine Appearance Urine pH (5.0-9.0) Ur Specific [place] (1.005-1.025) Urine Protein (Neg-Trace) mg/dL Urine Glucose (UA) (Negative) mg/dL Urine Ketones (Negative) mg/dL Urine Blood (Negative) Urine Nitrite (Negative) Ur Leukocyte Esterase (Negative) Urine RBC (0-2) /HPF Urine WBC (0-5) /HPF Ur Squamous Epith Cells (0-2) /HPF Urine Bacteria (None Seen) Hyaline Casts (0-2) /LPF Urine Yeast 09/02/22 Range/Units 19:23 WBC (4.8-10.8) X10*3/uL RBC (4.60-5.80) X10*6/uL Hgb (14.0-18.0) g/dl Hct (42.0-52.0) % MCV (80.0-98.0) fL MCH (27.0-33.0) pg MCHC (31.0-36.0) g/dl RDW (11.0-16.0) % Plt Count (160-400) X10*3/uL MPV (9.4-12.4) fL Immature Gran % (Auto) (0.0-0.4) % Neut % (Auto) (45-73) % Lymph % (Auto) (20-40) % [place] % (Auto) (2-11) % Eos % (Auto) (0-4) % Baso % (Auto) (0-2) % Lymph # (Auto) (1.2-4.9) X10*3/uL [place] # (Auto) (0.1-1.2) X10*3/uL Eos # (Auto) (0.0-0.4) X10*3/uL Baso # (Auto) (0.0-0.2) X10*3/uL Abs Immat Gran (auto) (0.00-0.03) X10*3/uL Absolute Neuts (auto) (2.0-8.3) x10*3/uL Absolute Nucleated RBC (0.0-0.012) X10*3/uL Nucleated RBC % (auto) (0.0-0.2) /100WBC PT (10.0-13.1) SEC INR (0.9-1.1) D-Dimer High Sensitivty NG/ML Sodium (135-145) mmol/L Potassium (3.3-5.1) mmol/L Chloride (96-108) mmol/L Carbon Dioxide (22-29) mmol/L Anion Gap (12-20) BUN (9-16) mg/dL Creatinine (0.5-1.4) mg/dL Estim Creat Clear Calc Estimated GFR Random Glucose (60-115) mg/dL Lactic Acid (0.5-2.0) mmol/L Calcium (8.4-10.2) mg/dL Total Bilirubin (0.0-1.0) mg/dL AST (5-37) U/L ALT (0-40) U/L Alkaline Phosphatase (39-117) U/L Troponin I High Sens (<3.5-35.0) ng/L B-Natriuretic Peptide 325 H (<100) pg/mL Total Protein (6.5-8.0) g/dL Albumin (3.5-5.0) g/dL Urine Color Urine Appearance Urine pH (5.0-9.0) Ur Specific [place] (1.005-1.025) Urine Protein (Neg-Trace) mg/dL Urine Glucose (UA) (Negative) mg/dL Urine Ketones (Negative) mg/dL Urine Blood (Negative) Urine Nitrite (Negative) Ur Leukocyte Esterase (Negative) Urine RBC (0-2) /HPF Urine WBC (0-5) /HPF Ur Squamous Epith Cells (0-2) /HPF Urine Bacteria (None Seen) Hyaline Casts (0-2) /LPF Urine Yeast Discharge Plan Discharge Patient Disposition: Admitted As Inpatient Prescriptions: No Action insulin aspart U-100 100 unit/mL Solution 40 unit SUBCUT QID insulin glargine [Lantus Solostar U-100 Insulin] 100 unit/mL (3 mL) Insulin Pen 70 unit SUBCUT BEDTIME atorvastatin 80 mg Tablet 80 mg PO BEDTIME allopurinol 100 mg Tablet 100 mg PO DAILY amlodipine 10 mg Tablet 10 mg PO DAILY ferrous gluconate 324 mg (38 mg iron) Tablet 324 mg PO DAILY clonidine HCl 0.2 mg tablet 0.2 mg PO BID aspirin 81 mg tablet,delayed release (DR/EC) 81 mg PO BEDTIME hydralazine 50 mg Tablet 100 mg PO TID 30 Days Qty: 180 0RF Protocol: Hold for SBP< HOLD for SBP < : 90 finasteride 5 mg tablet 5 mg PO DAILY 90 Days Qty: 90 1RF
--- NOTE | 2022-09-02 18:09 | PC.NURSE ---
pt a&ox3, reporting sob and chest pain starting ~2 hrs ago, audible exhalation wheezing, 20G IV placed left AC by EMS, pt to XR.
[2022-09-02] MEDS: Albuterol Sulfate (0.083%) 2.5 MG/3 ML VIAL.NEB INHALE (18:29)
[2022-09-02] MEDS: methylPREDNISolone Sod Succ 125 MG/2 ML VIAL IVPUSH (18:32)
[2022-09-02] MEDS: LORazepam 2 MG/ML VIAL 1 MG IVPUSH (18:33)
[2022-09-02] MEDS: Furosemide 100 MG/10 ML VIAL 80 MG IVPUSH (18:35)
[2022-09-02 18:56] LABS: Appearance Urine Clear; Color Urine Yellow; Glucose Urine UA Negative (Negative); Leukocyte Esterase Urine Trace (Negative); Nitrite Urine Negative (Negative); PH 5.5 (5.0-9.0); Specific Gravity - Urine 1.015 (1.005-1.025); UMIC TRIGGER UACC YES; Urine Blood Negative (Negative); Urine Ketones Negative (Negative); Urine Protein 300 (3+) mg/dL (Neg-Trace)
--- NOTE | 2022-09-02 18:57 | PC.NURSE ---
pt medicated per provider order, abx pending labs, phlebotomy to come up and draw due to pt being a difficult stick w new fistula in R arm.
[2022-09-02 19:08] LABS: Bacteria Urine None Seen (None Seen); RBC Urine >20 /HPF (0-2); Squamous Epithelial Cell Urine 0-2 /HPF (0-2); UACC Culture Trigger YES
[2022-09-02] MEDS: cefTRIAXone sodium 1 GM in 0.9 % Sodium Chloride 50 ML IV (19:26)
[2022-09-02 19:30] LABS: MANUAL DIFF FLAG NO
[2022-09-02 19:31] LABS: Basophils Percent Auto 0.2 % (0-2); Eosinophils Absolute Auto 0.2 X10*3/uL (0.0-0.4); Eosinophils Percent Auto 1.3 % (0-4); Hematocrit 27.8 % (42.0-52.0); Hemoglobin 9.2 g/dl (14.0-18.0); Imm Gran Abs Auto 0.06 X10*3/uL (0.00-0.03); Imm Gran Pct Auto 0.5 % (0.0-0.4); Lymphocytes Absolute Auto 0.5 X10*3/uL (1.2-4.9); Lymphocytes Percent Auto 4.2 % (20-40); Mean Corpuscular HGB Conc 33.1 g/dl (31.0-36.0); Mean Corpuscular Hemoglobin 31.4 pg (27.0-33.0); Mean Corpuscular Volume 94.9 fL (80.0-98.0); Mean Platelet Volume 10.8 fL (9.4-12.4); Monocytes Absolute Auto 0.9 X10*3/uL (0.1-1.2); Monocytes Percent Auto 6.9 % (2-11); Neutrophils Percent Auto 86.9 % (45-73); Platelet Count 135 X10*3/uL (160-400); Red Blood Count 2.93 X10*6/uL (4.60-5.80); Red Cell Distribution Width 14.1 % (11.0-16.0); White Blood Count 12.7 X10*3/uL (4.8-10.8)
[2022-09-02 19:38] LABS: Prothrombin Time 11.7 SEC (10.0-13.1)
[2022-09-02 19:40] LABS: D Dimer High Sensitivity 268 NG/ML
[2022-09-02 19:43] LABS: Lactic Acid 0.6 mmol/L (0.5-2.0)
[2022-09-02 19:47] LABS: Alanine Aminotransferase 23 U/L (0-40); Alkaline Phosphatase 86 U/L (39-117); Anion Gap 14 (12-20); Aspartate Amino Transferase 23 U/L (5-37); Bilirubin Total 0.5 mg/dL (0.0-1.0); Blood Urea Nitrogen 90 mg/dL (9-16); Calcium 8.8 mg/dL (8.4-10.2); Carbon Dioxide 20 mmol/L (22-29); Chloride 110 mmol/L (96-108); Creatinine Clr Calc Pharmacy 22.3; Estimated Glomerular Filt Rate 20; Glucose Random 168 mg/dL (60-115); Potassium 4.7 mmol/L (3.3-5.1); Sodium 139 mmol/L (135-145); Total Protein 4.7 g/dL (6.5-8.0)
[2022-09-02 19:52] LABS: B Type Natriuretic Peptide 325 pg/mL (<100)
[2022-09-02 19:54] LABS: Troponin-I High Sensitivity 56.7 ng/L (<3.5-35.0)
--- NOTE | 2022-09-02 20:09 | PC.NURSE ---
pt a&o, denies any increase sob or chest pain, Labs drawn, pt medicated per mar, Hold on Vanco due to allergic reaction.
[2022-09-02 20:59] LABS: Troponin-I High Sensitivity 55.6 ng/L (<3.5-35.0)
[2022-09-02 21:06] LABS: Influenza A PCR NEGATIVE (Negative); Influenza B PCR NEGATIVE (Negative); Resp Syncy Virus RNA Qual PCR NEGATIVE (Negative); SARS COV2 PCR INHOUSE NEGATIVE (Negative)
--- NOTE | 2022-09-02 22:00 | P.HPHOSP_ITS ---
History of Present Illness Date of Service: 09/02/22 Attending physician on admission: Jerry Hanson Chief Complaint: SOB Pt is a 82-year-old male with a PMH significant for?CKD stage 4, COPD, [id number], hypertension,? CHAYITO on CPAP, history of prostate cancer, history of CAD, and hx of UT who presents to the ED with?worsening shortness of breath, cough, and fatigue. Pt was recently admitted for similar complaints on 08/21/2022 and was treated for CHF exacerbation and CAP. Pt states that since discharge, he would wake up feeling well but would feel progressively dyspnic and fatigued as the day wore on. Has continued to have cough occasionally productive of yellowish sputum. Last night pt felt a left-sided chest pain under my heart from midnight to 03:00 which he says felt similar to the pain he experienced during his last UT in August 2021. This morning pt felt well until visited by VNA who walked him around the whole house; he then felt fatigued and SOB, which did not resolve with rest as per usual. Pt concurrently felt a chest tightness, particularly felt with inspiration and cough, which eventually radiated to his back. This was also not relieved with rest. Mild increase in LLE. At the end of the interview pt started complaining of new- onset, intermittent stabbing pains in lower right quadrant. Denies fever, chills, nausea, vomiting. No headache, vision changes. Of note, pt recently had an AV fistula placed on right arm at [facility] though has yet to start dialysis. In the ED patient was afebrile but tachypneic up to 29. Labs were significant for mild leukocytosis of 12.7, stable H&H of 9.2/27.8, chronically elevated BUN of 90, chronically elevated creatinine of 3.08 (at baseline), initial troponin of 56.7 with repeat flat and 55.6, elevated BNP of 325. CXR showed congestion heart failure with pulmonary edema and small bilateral effusions. EKG demonstrated sinus rhythm with first-degree AV block with T-wave inversions in III and aVF, but no evidence of ST elevations or depressions. Pt was treated with albuterol, Solu-Medrol, lorazepam, furosemide, and ceftriaxone. Pt will be admitted to the hospital for treatment and further evaluation of acute CHF exacerbation. Review of Systems Review of Systems: SOB Productive cough Chest pain Chest tightness Back pain Generalized fatigue Yes all other systems are reviewed and are negative [facility] Medical History Acute cystitis without hematuria Bacteremia Bladder outlet obstruction Chronic kidney disease, stage II (mild) COPD exacerbation Diabetes Fever HTN (hypertension) Incomplete emptying of bladder Morbid obesity CHAYITO (obstructive sleep apnea) CHAYITO on CPAP Prostate cancer Pure hypercholesterolemia Weak urinary stream Family History Mother CVA (cerebral vascular accident) Surgical History History of surgery Social History Household Members: Spouse Housing: House Do you presently have visiting nurse or other home services: Yes ([place]) Alcohol intake: never Patient Tobacco Use Status: Former Tobacco user Smoked in Last 30 Days: No Use of substances other than those prescribed or required for medical reasons: No Advance Directives: Yes Advance Directives on File: Yes Advance Directives Date on File: 08/21/22 Nutrition Risks: No Nutritional Risk service: Yes Current occupational status: retired 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 Meds Allergies Allergy/AdvReac Type Severity Reaction Status Date / Time vancomycin Allergy Intermediate Rash Verified 09/02/22 20:01 levofloxacin [From Levaquin] Allergy Mild paralized Verified 09/02/22 17:53 amoxicillin [AMOXICILLIN] Allergy Unknown ANAPHYLAXIS Verified 09/02/22 17:53 famotidine Allergy Unknown unknown Verified 09/02/22 17:53 hydrochlorothiazide Allergy Unknown unknown Verified 09/02/22 17:53 lisinopril [LISINOPRIL] Allergy Unknown UNKNOWN Verified 09/02/22 17:53 losartan Allergy Unknown unknown Verified 09/02/22 17:53 spironolactone Allergy Unknown unknown Verified 09/02/22 17:53 sulfamethoxazole AdvReac Intermediate C-DIFF, Verified 09/02/22 17:53 [From BACTRIM] REDUCED KIDNEY FX trimethoprim [From BACTRIM] AdvReac Intermediate C-DIFF, Verified 09/02/22 17:53 REDUCED KIDNEY FX Active Medications: Current Medications Acetaminophen (Acetaminophen 325 Mg Tablet) 650 mg PO Q6H PRN PRN Reason: Pain, Mild (Pain Scale 1-3) Allopurinol (Allopurinol 100 Mg Tablet) 100 mg PO DAILY [facility] Amlodipine Besylate (Amlodipine Besylate 10 Mg Tablet) 10 mg PO DAILY [facility]; Protocol Aspirin (Aspirin Enteric Coated 81 Mg Tablet.Dr) 81 mg PO BEDTIME LOULOU Atorvastatin Calcium (Atorvastatin Calcium 80 Mg Tablet) 80 mg PO BEDTIME [facility] Benzonatate (Benzonatate 100 Mg Capsule) 100 mg PO TID PRN PRN Reason: Cough Clonidine HCl (Clonidine Hcl 0.2 Mg Tablet) 0.2 mg PO BID [facility]; Protocol Docusate Sodium (Docusate Sodium 100 Mg Capsule) 100 mg PO DAILY PRN PRN Reason: Constipation Enoxaparin Sodium (Enoxaparin Sodium 30 Mg/0.3 Ml Syringe) 30 mg SUBCUT Q24H [facility] Finasteride (Finasteride 5 Mg Tablet) 5 mg PO DAILY [facility] Furosemide (Furosemide 40 Mg/4 Ml Vial) 40 mg IVPUSH BID@0900,1800 [facility]; Protocol Glucose (Glucose Gel 15 Gm Gel..Gram.) 15 gm PO Q15M PRN; Protocol PRN Reason: per Hypoglycemia Standing Ord. Hydralazine HCl (Hydralazine Hcl 50 Mg Tablet) 100 mg PO TID [facility]; Protocol Dextrose (D10) 250 mls @ 750 mls/hr IV Q15M PRN; Protocol PRN Reason: per Hypoglycemia Standing Ord. Insulin Glargine (Insulin Glargine,Hum.Rec.Anlog 100 Unit/Ml 10 Ml Vial) 49 unit SUBCUT BEDTIME [facility] Insulin Human Lispro (Insulin Lispro 100 Unit/Ml 3 Ml Vial) 0 unit SUBCUT QIDACHS [facility]; Protocol Non-Formulary Medication (Ferrous Gluconate) 324 mg PO DAILY [facility] Ondansetron HCl (Ondansetron Hcl 4 Mg/2 Ml Vial) 4 mg IVPUSH Q8H PRN PRN Reason: Nausea and Vomiting Pharmacy Consult (Consult Rx Perform Med Rec) 1 each MISCELLANE ONCE PRN PRN Reason: Consult order Sodium Chloride (0.9 % Sodium Chloride Flush 3 Ml Syringe) 3 ml IVFLUSH QSHIFT [facility] Tamsulosin HCl (Tamsulosin Hcl 0.4 Mg Capsule) 0.4 mg PO BEDTIME [facility] Home Medications Medication Instructions Recorded Confirmed Last Taken Type allopurinol 100 mg tablet 100 mg PO DAILY 12/05/20 09/02/22 Unknown History amlodipine 10 mg tablet 10 mg PO DAILY 12/05/20 09/02/22 Unknown History atorvastatin 80 mg tablet 80 mg PO BEDTIME 12/05/20 09/02/22 Unknown History insulin aspart U-100 100 unit/mL 40 unit subcut QID PRN HIGH BLOOD 12/05/20 09/02/22 Unknown History subcutaneous solution SUGAR insulin glargine 100 unit/mL (3 70 unit subcut BEDTIME 12/05/20 09/02/22 Unknown History mL) subcutaneous pen (Lantus Solostar U-100 Insulin) aspirin 81 mg tablet,delayed 81 mg PO BEDTIME 09/02/21 09/02/22 Unknown History release clonidine HCl 0.2 mg tablet 0.2 mg PO BID 09/02/21 09/02/22 Unknown History ferrous gluconate 324 mg (38 mg 324 mg PO DAILY 08/18/22 09/02/22 Unknown History iron) tablet furosemide 20 mg tablet 1 tab PO DAILY 09/02/22 09/02/22 Unknown History hydralazine 100 mg tablet 100 mg PO TID 09/02/22 09/02/22 Unknown History tamsulosin 0.4 mg capsule 1 cap PO BEDTIME 09/02/22 09/02/22 Unknown History Physical Exam Vital Signs and Narrative: Vital Signs: Last Vital Signs Temp 98.6 F 09/02/22 21:45 Pulse 65 09/02/22 21:45 Resp 16 09/02/22 21:45 BP 140/54 H 09/02/22 21:45 Pulse Ox 96 09/02/22 21:45 O2 Del Method 09/02/22 21:45 O2 Flow Rate 2 09/02/22 21:45 Oxygen Flow Rate 4 09/02/22 18:02 BMI result Body Mass Index 43.2 Constitutional: Alert, in no acute distress. Mildly labored breathing. Capable of speaking in full sentences. Mental Status: Oriented to person, place and time. Eyes: Pupils are equal, round, and reactive to light. Ear, Nose, and Throat: Oropharynx clear, mucous membranes moist. Ears and nose without deformities. Trachea midline. Respiratory: Diminished lung sounds throughout. No obvious rhonchi. Cardiovascular: S1, S2 regular. 3/6 systolic murmur best heard in aortic position. Gastrointestinal: Abdomen soft, non-distended, mildly tender in lower right quadrant. Normal bowel sounds. Neurologic: Cranial nerves II-XII are grossly intact bilaterally. No focal neurological deficits. Moves all extremities spontaneously. Skin: No rashes or lesions noted. Musculoskeletal: Diffuse anterior chest wall tenderness. Extremities: +1 pitting edema of lower legs bilaterally. Psychiatric: Normal mood and affect. Results Labs 09/02/22 19:23 09/02/22 19:23 Labs: Laboratory Results - last 24 hr 09/02/22 09/02/22 09/02/22 18:40 18:40 19:23 MCV 94.9 MCH 31.4 MCHC 33.1 RDW 14.1 Plt Count 135 L MPV 10.8 Immature Gran % (Auto) 0.5 H Neut % (Auto) 86.9 H Lymph % (Auto) 4.2 L Saunders % (Auto) 6.9 Eos % (Auto) 1.3 Baso % (Auto) 0.2 Lymph # (Auto) 0.5 L Saunders # (Auto) 0.9 Eos # (Auto) 0.2 Baso # (Auto) 0.0 Abs Immat Gran (auto) 0.06 H Absolute Neuts (auto) 11.0 H Absolute Nucleated RBC 0.000 Nucleated RBC % (auto) 0.0 PT INR D-Dimer High Sensitivty Anion Gap Estim Creat Clear Calc Estimated GFR Random Glucose Lactic Acid Calcium Total Bilirubin AST ALT Alkaline Phosphatase Troponin I High Sens B-Natriuretic Peptide Total Protein Albumin Urine Color Yellow Urine Appearance Clear Urine pH 5.5 Ur Specific [place] 1.015 Urine Protein 300 (3+) H Urine Glucose (UA) Negative Urine Ketones Negative Urine Blood Negative Urine Nitrite Negative Ur Leukocyte Esterase Trace H Urine RBC >20 H Urine WBC 6-10 H Ur Squamous Epith Cells 0-2 Urine Bacteria None Seen Hyaline Casts 3-5 Urine Yeast Present Influenza Type A (PCR) NEGATIVE Influenza Type B (PCR) NEGATIVE RSV RNA Qual (PCR) NEGATIVE SARS-CoV-2 RNA (RT-PCR) NEGATIVE 09/02/22 09/02/22 09/02/22 19:23 19:23 19:23 MCV MCH MCHC RDW Plt Count MPV Immature Gran % (Auto) Neut % (Auto) Lymph % (Auto) Saunders % (Auto) Eos % (Auto) Baso % (Auto) Lymph # (Auto) Saunders # (Auto) Eos # (Auto) Baso # (Auto) Abs Immat Gran (auto) Absolute Neuts (auto) Absolute Nucleated RBC Nucleated RBC % (auto) PT 11.7 INR 1.0 D-Dimer High Sensitivty 268 Anion Gap 14 Estim Creat Clear Calc 22.3 Estimated GFR 20 Random Glucose 168 H Lactic Acid 0.6 Calcium 8.8 Total Bilirubin 0.5 AST 23 ALT 23 Alkaline Phosphatase 86 Troponin I High Sens B-Natriuretic Peptide Total Protein 4.7 L Albumin 3.0 L Urine Color Urine Appearance Urine pH Ur Specific [place] Urine Protein Urine Glucose (UA) Urine Ketones Urine Blood Urine Nitrite Ur Leukocyte Esterase Urine RBC Urine WBC Ur Squamous Epith Cells Urine Bacteria Hyaline Casts Urine Yeast Influenza Type A (PCR) Influenza Type B (PCR) RSV RNA Qual (PCR) SARS-CoV-2 RNA (RT-PCR) 09/02/22 09/02/22 09/02/22 19:23 19:23 20:21 MCV MCH MCHC RDW Plt Count MPV Immature Gran % (Auto) Neut % (Auto) Lymph % (Auto) Saunders % (Auto) Eos % (Auto) Baso % (Auto) Lymph # (Auto) Saunders # (Auto) Eos # (Auto) Baso # (Auto) Abs Immat Gran (auto) Absolute Neuts (auto) Absolute Nucleated RBC Nucleated RBC % (auto) PT INR D-Dimer High Sensitivty Anion Gap Estim Creat Clear Calc Estimated GFR Random Glucose Lactic Acid Calcium Total Bilirubin AST ALT Alkaline Phosphatase Troponin I High Sens 56.7 H 55.6 H B-Natriuretic Peptide 325 H Total Protein Albumin Urine Color Urine Appearance Urine pH Ur Specific [place] Urine Protein Urine Glucose (UA) Urine Ketones Urine Blood Urine Nitrite Ur Leukocyte Esterase Urine RBC Urine WBC Ur Squamous Epith Cells Urine Bacteria Hyaline Casts Urine Yeast Influenza Type A (PCR) Influenza Type B (PCR) RSV RNA Qual (PCR) SARS-CoV-2 RNA (RT-PCR) Imaging Radiologist's Impressions: Impressions Chest X-Ray 09/02/22 18:27 IMPRESSION: Congestive heart failure with pulmonary edema. Small bilateral pleural effusions. Assessment and Plan (1) Acute exacerbation of CHF (congestive heart failure): Status: Resolved Plan Pt is a 82-year-old male with a PMH significant for?CKD stage 4, COPD, [id number], hypertension,? CHAYITO on CPAP, history of prostate cancer, history of CAD, and hx of UT who presents to the ED with?worsening shortness of breath, cough, and fatigue. Patient be admitted to the hospital on telemetry for treatment of for evaluation acute CHF exacerbation. Acute CHF exacerbation Pt with increased SOB, mostly non-productive cough, elevated BNP, evidence of CHF, pulmonary edema, bilateral pleural effusions Furosemide 40 mg IV b.i.d. Follow lytes, MG, I/O Daily weights, low-salt diet Echocardiogram Cardiology consult Admit to telemetry Chest pain Patient complains of chest pain under his heart last night that was similar to what he experienced during last UT EKG without evidence of ST elevations or depressions Initial troponin 56.7 with repeat flat at 55.6 Cardiology consult Elevated troponin Initial troponin 56.7 with repeat flat at 55.[address] elevations or depressions on EKG Likely type 2 demand ischemia Chest tightness, back pain Pain worse with inspiration and coughing Anterior chest wall tender to palpation Likely musculoskeletal Hx of pneumonia Pt treated for pneumonia on 08/21/2022 with ceftriaxone and axithro Given ceftriaxone in ED No clear indication for pneumonia on X-ray, pt afebrile Hold on abx for now Insulin-dependent diabetes Hold home meds SSI, lantus Urinary pain/retention Pt had Tomlin catheter placed on 08/18 Pt not complaining of painful urination Continue Tomlin catheter, Flowmax CKD stage 4 Baseline creatinine AV fistula placed, not yet on dialysis Nephrology consult HTN Continue home meds HLD Continue home meds Full Code Attending:?Dr. Hanson DVT Prophylaxis: Lovenox Pt will require a hospitalization of at least two nights for treatment of?acute CHF exacerbation with IV diuretics. Time Spent With Patient Time: Total time managing care of this patient today ____ minutes. Quality Stroke Does the patient have a stroke diagnosis?: No VTE Prior VTE?: No VTE Risk Level:: Medical - moderate - high VTE Device Contraindication: Treatment Not Indicated VTE Drug Contraindication: N/A - Med Ordered
--- NOTE | 2022-09-02 22:02 | PHA.MEDREC ---
Pharmacy Consult ? Medication Reconciliation Pharmacy has completed the medication reconciliation. Med rec completed using list from [place]
[2022-09-02 22:18] LABS: Glucose, Whole Blood 233 mg/dL (60-115)
[2022-09-02] MEDS: Enoxaparin Sodium 30 MG/0.3 ML SYRINGE SUBCUT (22:24)
--- NOTE | 2022-09-02 22:33 | PC.NURSE ---
pt poc was 233, Dr Hanson aware of poc, Hold 49unit of insulin at this time. Recheck poc in several hours, Then notify Dr. Hanson of results. Reported to receiving CAMERON Souza, pt going to room 484.
[2022-09-02 23:22] LABS: Glucose, Whole Blood 259 mg/dL (60-115)
[2022-09-03] VITALS (7 sets, daily range): BP systolic 162–170; BP diastolic 54–73; PULSE 71–89; RESP 16–22; TEMP 36.6–37; O2SAT 94–98
[2022-09-03 00:59] LABS: Glucose, Whole Blood 295 mg/dL (60-115)
[2022-09-03 06:45] LABS: Hematocrit 24.2 % (42.0-52.0); Mean Corpuscular HGB Conc 33.1 g/dl (31.0-36.0); Mean Corpuscular Hemoglobin 31.6 pg (27.0-33.0); Mean Corpuscular Volume 95.7 fL (80.0-98.0); Platelet Count 154 X10*3/uL (160-400); Red Blood Count 2.53 X10*6/uL (4.60-5.80); White Blood Count 8.4 X10*3/uL (4.8-10.8)
--- NOTE | 2022-09-03 07:00 | CA_ITS ---
Transthoracic Echocardiogram Patient (Last, First, Middle): Claude Kerr R Gender: Male Date of : 1940 Age: 82 Procedure Date: 09/03/2022 Procedure Type: Transthoracic Echocardiogram Location[place] [facility] [place] Height: 165.1 cm Weight: 117.94 kg BSA: 2.21 m2 Heart Rate: 73 bpm BP: 166 / 72 mmHg Stockroom Worker: AVIS Referring MD: Balta Anders MD Symptoms: aortic stenosis Study Quality: Adequate/Contrast ECG Rhythm: Sinus Conclusions: - The left ventricular systolic function is hyperdynamic. The visually estimated ejection fraction is >70%. - There is severe septal asymmetric hypertrophy. - There is moderate to severe aortic valve stenosis. The peak aortic gradient is 62 mmHg.The mean gradient is 38 mmHg. There is no aortic valve regurgitation. Dimensionless index 0.35. Calculated valve area is 1.88sqcm, based on LVOT diameter of 2.5 cm. Larger than expected valve area due to large LVOT diameter. Findings Procedure Information Contrast agent, definity, is being given per protocol without apparent complications. Left Ventricle Normal left ventricular cavity size. There is moderately increased left ventricular wall thickness. The left ventricular systolic function is hyperdynamic. The visually estimated ejection fraction is >70%. There is no evidence of regional wall motion abnormalities. E/E prime ratio is between 8 and 15 consistent with indeterminate filling pressures. Evidence suggests grade I (mild) diastolic dysfunction. There is severe septal asymmetric hypertrophy. Right Ventricle Normal right ventricular cavity size and systolic function. Atria Both atria are normal in size. Aortic Valve There is moderate calcification of the aortic valve. There is moderate to severe aortic valve stenosis. The peak aortic gradient is 62 mmHg.The mean gradient is 38 mmHg. There is no aortic valve regurgitation. Dimensionless index 0.35. Calculated valve area is 1.88sqcm, based on LVOT diameter of 2.5 cm. Larger than expected valve area due to large LVOT diameter. Mitral Valve There is mild mitral annular calcification. There is trace mitral valve regurgitation. There is no mitral valve stenosis. Pulmonic Valve The pulmonic valve is likely normal. Tricuspid Valve There is mild tricuspid valve regurgitation. There is no evidence of pulmonary hypertension. Great Vessels The asc aorta is normal in size. Venous The inferior vena cava is normal in size and collapses greater than 50% with inspiration. Pericardium/Pleural Widened pericardial space, unable to distinguish between adipose tissue and effusion. Prior Study Comparison Changes noted compared to prior study dated: 09/03/2021. Progression of aortic stenosis. Measurements 2D Linear Measurements IVSd: 1.70 0.6-0.9/0.6-1.0 cm LVIDd: 5.07 3.9-5.3/4.2-5.9 cm LVIDd Index: 2.29 2.4-3.2/2.2-3.1 cm/m2 LVIDs: 2.79 2.0-3.6 cm LVPWd: 1.32 0.7-1.1 cm LA Diam: 3.70 2.7-3.8/3.0-4.0 cm LAIDs Index: 1.67 1.5-2.3 cm/m2 LV Mass: 415.12 67-162/88-224 g LV Mass Index: 187.84 43-95/49-115 g/m2 LVOT Diam: 2.50 3.0+(-)1.3 cm 2D Systolic Function EF 4C: 69.00 >55% EF 2C: 80.90 >55% EF BiP: 74.30 >55% Mitral Valve MV Pk E: 0.89 MV PK A: 1.33 MV Decel Time: 446.00 E/A: 0.70 E'Lateral: 6.53 E'Medial: 7.51 E/E' Med: 11.90 E/E' Lat: 13.70 PHT: 131.00 MVA PHT: 1.68 Decel Mellette: 2.00 Aortic Valve AoV Pk Joao: 3.93 AoV Mn Joao: 2.93 AoV VTI: 0.79 AoV Pk Grad: 62.00 Aov Mn Grad: 38.00 CISCO Cont.VTI: 1.88 LVOT LVOT Pk Joao: 1.39 LVOT Mn Joao: 1.08 LVOT VTI: 0.30 LVOT Pk Grad: 8.00 LVOT Mn Grad: 5.00 LVOT Diam: 2.50 LVOT Area: 4.91 Diastolic Function MV Pk E: 0.89 MV Pk A: 1.33 E/A: 0.70 E'Medial: 7.51 E/E' Med: 11.90 E' Laterial: 6.53 E/E' Lat: 13.70 Right Ventricle TAPSE (mm): 23.60 TVS' Joao: 16.10 Tricuspid Valve TR Pk Joao: 2.01 TR Pk Grad: 16.00 RA Press: 3.00 RVSP: 19.00 Great Vessels Aorta Sinus of Valsalva: 3.60 2.0-3.5 cm Ao Asc: 3.50 2.1-3.4 cm Pulmonary Valve PV Pk Joao: 1.67 Peak PV Grad: 11.00 Updated in Other Vendor System with Status of Final Balta Anders MD electronically signed on 09/03/2022 4:45:17 PM with status of Final
[2022-09-03 07:17] LABS: Anion Gap 15 (12-20); Blood Urea Nitrogen 118 mg/dL (9-16); Calcium 8.4 mg/dL (8.4-10.2); Carbon Dioxide 20 mmol/L (22-29); Chloride 107 mmol/L (96-108); Creatinine Clr Calc Pharmacy 20.2; Estimated Glomerular Filt Rate 17; Glucose Random 383 mg/dL (60-115); Potassium 5.5 mmol/L (3.3-5.1); Sodium 136 mmol/L (135-145)
[2022-09-03] MEDS: Insulin Lispro 100 UNIT/ML 3 ML VIAL SUBCUT ×4 (07:38→20:37)
[2022-09-03 07:48] LABS: Glucose, Whole Blood 362 mg/dL (60-115)
[2022-09-03] MEDS: Insulin Glargine,Hum.rec.anlog 100 UNIT/ML 10 ML VIAL 40 UNIT SUBCUT (07:52)
[2022-09-03] MEDS: 0.9 % Sodium Chloride Flush 3 ML SYRINGE IVFLUSH ×3 (07:53→20:37)
[2022-09-03] MEDS: Furosemide 40 MG/4 ML VIAL IVPUSH ×2 (08:53→16:44)
[2022-09-03] MEDS: Ferrous Sulfate 324 MG TABLET.DR PO (08:54)
[2022-09-03] MEDS: hydrALAZINE HCl 50 MG TABLET 100 MG PO ×3 (08:54→20:37)
[2022-09-03] MEDS: allopurinoL 100 MG TABLET PO (08:54)
[2022-09-03] MEDS: Finasteride 5 MG TABLET PO (08:54)
[2022-09-03] MEDS: cloNIDine HCL 0.2 MG TABLET PO ×2 (08:54→20:36)
[2022-09-03] MEDS: amLODIPine Besylate 10 MG TABLET PO (08:54)
--- NOTE | 2022-09-03 09:20 | MHC.CM.PN ---
CM met with Patient, his , and his Son at bedside. Patient lives in a house with his /HCP and he uses a cane to assist with mobility.Patient was recently admitted to the services of [facility] and home with resumption of said services is the goal. CM has initiated and will follow for dc planning. Patient has received Covid vax x5 and his PCP is Dr. Jarred Hughes.
--- NOTE | 2022-09-03 10:49 | P.CONCA_ITS ---
History of Present Illness History of Present Illness Date of Service: 09/03/22 Chief complaint: SOB Narrative: This is a cardiology consultation regarding congestive heart failure. Reviewed the last office note from [facility]. He has a history of suspected type 2 NSTEMI from uncontrolled blood pressures. Otherwise, moderate aortic stenosis, labile hypertension dyslipidemia, diabetes and chronic kidney disease. It seems that he underwent an AV fistula recently so that he could start hemodialysis. In currently, admitted with a combination symptoms including shortness of breath, p leuritic type chest pains, generalized weakness and exhaustion. He has been admitted with diagnosis of possible CHF exacerbation. Review of Systems 2 Review of Systems: Yes all other systems are reviewed and are negative Constitutional: Constitutional: Reports as per HPI, Reports no additional constitutional complaints, Reports fatigue and Reports weakness Eyes: Eyes: Reports as per HPI and Denies no additional eye complaints ENT: Denies system reviewed and no additional complaints, except as documented and Reports as per HPI Cardiovascular: Cardiovascular: Reports as per HPI, Reports no additional cardiovascular complaints, Denies acrocyanosis, Denies cool extremities, Reports chest pain, Denies leg edema, Denies lightheadedness, Denies palpitations and Reports dyspnea Respiratory: Respiratory: Reports as per HPI, Denies no additional respiratory complaints and Reports dyspnea Gastrointestinal: Gastrointestinal: Reports as per HPI and Denies no additional gastrointestinal complaints Genitourinary: Genitourinary: Reports no additional male genitourinary complaints and Reports as per HPI Musculoskeletal: Musculoskeletal: Reports no additional musculoskeletal complaints and Reports as per HPI Integumentary/Breasts: Skin/Breast: Reports system reviewed and no additional complaints, except as docu Neurologic: Reports system reviewed and no additional complaints, except as documented, Reports as per HPI and Reports weakness Psychiatric: Psychiatric: Reports no additional psychiatric complaints and Reports as per HPI Endocrine: Endocrine: Reports no additional endocrine complaints, Reports as per HPI, Reports fatigue and Denies palpitations Hematologic/Lymphatic: Hematologic/Lymphatic: Reports no additional hematologic/lymphatic complaints and Reports as per HPI Allergic/Immunologic: Allergic/Immunologic: Reports no additional allergic/immunologic complaints and Reports as per HPI [facility] Past Medical History Medical History Acute cystitis without hematuria Bacteremia Bladder outlet obstruction Chronic kidney disease, stage II (mild) COPD exacerbation Diabetes Fever HTN (hypertension) Incomplete emptying of bladder Morbid obesity CHAYITO (obstructive sleep apnea) CHAYITO on CPAP Prostate cancer Pure hypercholesterolemia Weak urinary stream Family History Family History Mother CVA (cerebral vascular accident) Surgical History Surgical History History of surgery Social History Social History Household Members: Spouse Housing: House Do you presently have visiting nurse or other home services: Yes Alcohol intake: never Patient Tobacco Use Status: Former Tobacco user Smoked in Last 30 Days: No Use of substances other than those prescribed or required for medical reasons: No Have you been hit, kicked, punched, or otherwise hurt by someone within the past year? 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 Meds Allergies Allergy/AdvReac Type Severity Reaction Status Date / Time vancomycin Allergy Intermediate Rash Verified 09/02/22 20:01 levofloxacin [From Levaquin] Allergy Mild paralized Verified 09/02/22 17:53 amoxicillin [AMOXICILLIN] Allergy Unknown ANAPHYLAXIS Verified 09/02/22 17:53 famotidine Allergy Unknown unknown Verified 09/02/22 17:53 hydrochlorothiazide Allergy Unknown unknown Verified 09/02/22 17:53 lisinopril [LISINOPRIL] Allergy Unknown UNKNOWN Verified 09/02/22 17:53 losartan Allergy Unknown unknown Verified 09/02/22 17:53 spironolactone Allergy Unknown unknown Verified 09/02/22 17:53 sulfamethoxazole AdvReac Intermediate C-DIFF, Verified 09/02/22 17:53 [From BACTRIM] REDUCED KIDNEY FX trimethoprim [From BACTRIM] AdvReac Intermediate C-DIFF, Verified 09/02/22 17:53 REDUCED KIDNEY FX Active Medications: Current Medications Acetaminophen (Acetaminophen 325 Mg Tablet) 650 mg PO Q6H PRN PRN Reason: Pain, Mild (Pain Scale 1-3) Allopurinol (Allopurinol 100 Mg Tablet) 100 mg PO DAILY [facility] Last Admin: 09/03/22 08:54 Dose: 100 mg Amlodipine Besylate (Amlodipine Besylate 10 Mg Tablet) 10 mg PO DAILY [facility]; Protocol Last Admin: 09/03/22 08:54 Dose: 10 mg Aspirin (Aspirin Enteric Coated 81 Mg Tablet.) 81 mg PO BEDTIME [facility] Atorvastatin Calcium (Atorvastatin Calcium 80 Mg Tablet) 80 mg PO BEDTIME [facility] Benzonatate (Benzonatate 100 Mg Capsule) 100 mg PO TID PRN PRN Reason: Cough Clonidine HCl (Clonidine Hcl 0.2 Mg Tablet) 0.2 mg PO BID [facility]; Protocol Last Admin: 09/03/22 08:54 Dose: 0.2 mg Docusate Sodium (Docusate Sodium 100 Mg Capsule) 100 mg PO DAILY PRN PRN Reason: Constipation Enoxaparin Sodium (Enoxaparin Sodium 30 Mg/0.3 Ml Syringe) 30 mg SUBCUT Q24H [facility] Last Admin: 09/02/22 22:24 Dose: 30 mg Ferrous Sulfate (Ferrous Sulfate 324 Mg Tablet.) 324 mg PO DAILY [facility] Last Admin: 09/03/22 08:54 Dose: 324 mg Finasteride (Finasteride 5 Mg Tablet) 5 mg PO DAILY [facility] Last Admin: 09/03/22 08:54 Dose: 5 mg Furosemide (Furosemide 40 Mg/4 Ml Vial) 40 mg IVPUSH BID@0900,1800 [facility]; Protocol Last Admin: 09/03/22 08:53 Dose: 40 mg Glucose (Glucose Gel 15 Gm Gel..Gram.) 15 gm PO Q15M PRN; Protocol PRN Reason: per Hypoglycemia Standing Ord. Hydralazine HCl (Hydralazine Hcl 50 Mg Tablet) 100 mg PO TID [facility]; Protocol Last Admin: 09/03/22 08:54 Dose: 100 mg Dextrose (D10) 250 mls @ 750 mls/hr IV Q15M PRN; Protocol PRN Reason: per Hypoglycemia Standing Ord. Insulin Glargine (Insulin Glargine,Hum.Rec.Anlog 100 Unit/Ml 10 Ml Vial) 40 unit SUBCUT DAILY [facility] Last Admin: 09/03/22 07:52 Dose: 40 unit Insulin Human Lispro (Insulin Lispro 100 Unit/Ml 3 Ml Vial) 0 unit SUBCUT QIDACHS [facility]; Protocol Last Admin: 09/03/22 07:38 Dose: 10 unit Ondansetron HCl (Ondansetron Hcl 4 Mg/2 Ml Vial) 4 mg IVPUSH Q8H PRN PRN Reason: Nausea and Vomiting Pharmacy Consult (Consult Rx Perform Med Rec) 1 each MISCELLANE ONCE PRN PRN Reason: Consult order Sodium Chloride (0.9 % Sodium Chloride Flush 3 Ml Syringe) 3 ml IVFLUSH QSHIFT [facility] Last Admin: 09/03/22 07:53 Dose: 3 ml Tamsulosin HCl (Tamsulosin Hcl 0.4 Mg Capsule) 0.4 mg PO BEDTIME [facility] Home Medications Medication Instructions Recorded Confirmed Last Taken Type allopurinol 100 mg tablet 100 mg PO DAILY 12/05/20 09/02/22 Unknown History amlodipine 10 mg tablet 10 mg PO DAILY 12/05/20 09/02/22 Unknown History atorvastatin 80 mg tablet 80 mg PO BEDTIME 12/05/20 09/02/22 Unknown History insulin aspart U-100 100 unit/mL 40 unit subcut QID PRN HIGH BLOOD 12/05/20 09/02/22 Unknown History subcutaneous solution SUGAR insulin glargine 100 unit/mL (3 70 unit subcut BEDTIME 12/05/20 09/02/22 Unknown History mL) subcutaneous pen (Lantus Solostar U-100 Insulin) aspirin 81 mg tablet,delayed 81 mg PO BEDTIME 09/02/21 09/02/22 Unknown History release clonidine HCl 0.2 mg tablet 0.2 mg PO BID 09/02/21 09/02/22 Unknown History ferrous gluconate 324 mg (38 mg 324 mg PO DAILY 08/18/22 09/02/22 Unknown History iron) tablet furosemide 20 mg tablet 1 tab PO DAILY 09/02/22 09/02/22 Unknown History hydralazine 100 mg tablet 100 mg PO TID 09/02/22 09/02/22 Unknown History tamsulosin 0.4 mg capsule 1 cap PO BEDTIME 09/02/22 09/02/22 Unknown History Physical Exam Vital Signs: Vital Signs: Last Vital Signs Temp 98.0 F 09/03/22 08:00 Pulse 79 09/03/22 08:00 Resp 18 09/03/22 08:00 BP 162/71 H 09/03/22 08:00 Pulse Ox 95 09/03/22 08:00 O2 Del Method 09/03/22 03:21 O2 Flow Rate 2 09/02/22 23:26 Oxygen Flow Rate 4 09/02/22 18:02 BMI result Body Mass Index 43.2 Const: General: comfortable and no acute distress Orientation/consciousness: patient oriented x3 HEENT: Other: Unremarkable Head: Yes normal to inspection Neck: Neck: Yes normal visual inspection Chest: Chest palpation & inspection: normal inspection of the chest Resp: Auscultation: clear to auscultation bilaterally Cardio: Palpation: normal PMI Heart sounds: S1 normal heart sound present, S2 normal heart sound present, no gallops, Murmur heart sound present systolic III/ and at the right sternal border and no rubs GI: Palpation (GI): Soft to palpation Back/Spine/Pelvis: Other: unremarkable Skin: General skin exam: no rashes or lesions noted Neuro: General: patient oriented x3 Extrem: General: Yes normal to inspection Psych: Mental Status: mental status grossly normal Objective Labs and Meds 09/03/22 06:03 09/03/22 06:03 Lab results: Laboratory Results - last 24 hr 09/02/22 09/02/22 09/02/22 18:40 18:40 19:23 WBC 12.7 H RBC 2.93 L Hgb 9.2 L Hct 27.8 L MCV 94.9 MCH 31.4 MCHC 33.1 RDW 14.1 Plt Count 135 L MPV 10.8 Immature Gran % (Auto) 0.5 H Neut % (Auto) 86.9 H Lymph % (Auto) 4.2 L Grainger % (Auto) 6.9 Eos % (Auto) 1.3 Baso % (Auto) 0.2 Lymph # (Auto) 0.5 L Grainger # (Auto) 0.9 Eos # (Auto) 0.2 Baso # (Auto) 0.0 Abs Immat Gran (auto) 0.06 H Absolute Neuts (auto) 11.0 H Absolute Nucleated RBC 0.000 Nucleated RBC % (auto) 0.0 PT INR D-Dimer High Sensitivty Sodium Potassium Chloride Carbon Dioxide Anion Gap BUN Creatinine Estim Creat Clear Calc Estimated GFR POC Glucose Random Glucose Lactic Acid Calcium Magnesium Total Bilirubin AST ALT Alkaline Phosphatase Troponin I High Sens B-Natriuretic Peptide Total Protein Albumin Urine Color Yellow Urine Appearance Clear Urine pH 5.5 Ur Specific [place] 1.015 Urine Protein 300 (3+) H Urine Glucose (UA) Negative Urine Ketones Negative Urine Blood Negative Urine Nitrite Negative Ur Leukocyte Esterase Trace H Urine RBC >20 H Urine WBC 6-10 H Ur Squamous Epith Cells 0-2 Urine Bacteria None Seen Hyaline Casts 3-5 Urine Yeast Present Influenza Type A (PCR) NEGATIVE Influenza Type B (PCR) NEGATIVE RSV RNA Qual (PCR) NEGATIVE SARS-CoV-2 RNA (RT-PCR) NEGATIVE 09/02/22 09/02/22 09/02/22 19:23 19:23 19:23 WBC RBC Hgb Hct MCV MCH MCHC RDW Plt Count MPV Immature Gran % (Auto) Neut % (Auto) Lymph % (Auto) Grainger % (Auto) Eos % (Auto) Baso % (Auto) Lymph # (Auto) Grainger # (Auto) Eos # (Auto) Baso # (Auto) Abs Immat Gran (auto) Absolute Neuts (auto) Absolute Nucleated RBC Nucleated RBC % (auto) PT 11.7 INR 1.0 D-Dimer High Sensitivty 268 Sodium 139 Potassium 4.7 Chloride 110 H Carbon Dioxide 20 L Anion Gap 14 BUN 90 H Creatinine 3.08 H Estim Creat Clear Calc 22.3 Estimated GFR 20 POC Glucose Random Glucose 168 H Lactic Acid 0.6 Calcium 8.8 Magnesium Total Bilirubin 0.5 AST 23 ALT 23 Alkaline Phosphatase 86 Troponin I High Sens B-Natriuretic Peptide Total Protein 4.7 L Albumin 3.0 L Urine Color Urine Appearance Urine pH Ur Specific [place] Urine Protein Urine Glucose (UA) Urine Ketones Urine Blood Urine Nitrite Ur Leukocyte Esterase Urine RBC Urine WBC Ur Squamous Epith Cells Urine Bacteria Hyaline Casts Urine Yeast Influenza Type A (PCR) Influenza Type B (PCR) RSV RNA Qual (PCR) SARS-CoV-2 RNA (RT-PCR) 09/02/22 09/02/22 09/02/22 19:23 19:23 20:21 WBC RBC Hgb Hct MCV MCH MCHC RDW Plt Count MPV Immature Gran % (Auto) Neut % (Auto) Lymph % (Auto) Grainger % (Auto) Eos % (Auto) Baso % (Auto) Lymph # (Auto) Grainger # (Auto) Eos # (Auto) Baso # (Auto) Abs Immat Gran (auto) Absolute Neuts (auto) Absolute Nucleated RBC Nucleated RBC % (auto) PT INR D-Dimer High Sensitivty Sodium Potassium Chloride Carbon Dioxide Anion Gap BUN Creatinine Estim Creat Clear Calc Estimated GFR POC Glucose Random Glucose Lactic Acid Calcium Magnesium Total Bilirubin AST ALT Alkaline Phosphatase Troponin I High Sens 56.7 H 55.6 H B-Natriuretic Peptide 325 H Total Protein Albumin Urine Color Urine Appearance Urine pH Ur Specific [place] Urine Protein Urine Glucose (UA) Urine Ketones Urine Blood Urine Nitrite Ur Leukocyte Esterase Urine RBC Urine WBC Ur Squamous Epith Cells Urine Bacteria Hyaline Casts Urine Yeast Influenza Type A (PCR) Influenza Type B (PCR) RSV RNA Qual (PCR) SARS-CoV-2 RNA (RT-PCR) 09/02/22 09/02/22 09/03/22 22:14 23:08 00:56 WBC RBC Hgb Hct MCV MCH MCHC RDW Plt Count MPV Immature Gran % (Auto) Neut % (Auto) Lymph % (Auto) Grainger % (Auto) Eos % (Auto) Baso % (Auto) Lymph # (Auto) Grainger # (Auto) Eos # (Auto) Baso # (Auto) Abs Immat Gran (auto) Absolute Neuts (auto) Absolute Nucleated RBC Nucleated RBC % (auto) PT INR D-Dimer High Sensitivty Sodium Potassium Chloride Carbon Dioxide Anion Gap BUN Creatinine Estim Creat Clear Calc Estimated GFR POC Glucose 233 H 259 H 295 H Random Glucose Lactic Acid Calcium Magnesium Total Bilirubin AST ALT Alkaline Phosphatase Troponin I High Sens B-Natriuretic Peptide Total Protein Albumin Urine Color Urine Appearance Urine pH Ur Specific [place] Urine Protein Urine Glucose (UA) Urine Ketones Urine Blood Urine Nitrite Ur Leukocyte Esterase Urine RBC Urine WBC Ur Squamous Epith Cells Urine Bacteria Hyaline Casts Urine Yeast Influenza Type A (PCR) Influenza Type B (PCR) RSV RNA Qual (PCR) SARS-CoV-2 RNA (RT-PCR) 09/03/22 09/03/22 09/03/22 06:03 06:03 07:31 WBC 8.4 RBC 2.53 L Hgb 8.0 L Hct 24.2 L MCV 95.7 MCH 31.6 MCHC 33.1 RDW 14.0 Plt Count 154 L MPV 12.0 Immature Gran % (Auto) Neut % (Auto) Lymph % (Auto) Grainger % (Auto) Eos % (Auto) Baso % (Auto) Lymph # (Auto) Grainger # (Auto) Eos # (Auto) Baso # (Auto) Abs Immat Gran (auto) Absolute Neuts (auto) Absolute Nucleated RBC 0.000 Nucleated RBC % (auto) 0.0 PT INR D-Dimer High Sensitivty Sodium 136 Potassium 5.5 H Chloride 107 Carbon Dioxide 20 L Anion Gap 15 BUN 118 H Creatinine 3.40 H Estim Creat Clear Calc 20.2 Estimated GFR 17 POC Glucose 362 H* Random Glucose 383 H* Lactic Acid Calcium 8.4 Magnesium 2.0 Total Bilirubin AST ALT Alkaline Phosphatase Troponin I High Sens B-Natriuretic Peptide Total Protein Albumin Urine Color Urine Appearance Urine pH Ur Specific [place] Urine Protein Urine Glucose (UA) Urine Ketones Urine Blood Urine Nitrite Ur Leukocyte Esterase Urine RBC Urine WBC Ur Squamous Epith Cells Urine Bacteria Hyaline Casts Urine Yeast Influenza Type A (PCR) Influenza Type B (PCR) RSV RNA Qual (PCR) SARS-CoV-2 RNA (RT-PCR) ECG Interpretation: EKG with sinus rhythm at 63/Min; [place] prolongation to 280 millisecond; inferior T inversions. Imaging Radiologist's impression: Impressions Chest X-Ray 09/02/22 18:27 IMPRESSION: Congestive heart failure with pulmonary edema. Small bilateral pleural effusions. Assessment and Plan (1) Nonrheumatic aortic (valve) stenosis: Status: Acute (2) Acute on chronic diastolic (congestive) heart failure: Status: Acute (3) Hypertensive emergency: Status: Acute Plan A prior echocardiogram from last year shows preserved LVEF, moderate aortic stenosis. Will need to repeat. Chest x-ray reported to have congestive heart failure/pulmonary edema/small bilateral pleural effusions. Cardiac BNP is 325. Troponins are 56 and 55. Creatinine is 3.4. Around his baseline. BUN is 118. Overall, probably diastolic heart failure which could be related to progressive renal insufficiency. Will need to get renal involved to see if he needs to start dialysis or not. Otherwise, can echocardiogram to ensure aortic stenosis does not become severe. That will need intervention on its own, if that is the case. Otherwise, blood pressure management. It seems that he also has orthostatic hypotension and syncope. Per prior notes from last year, it seems he was on Norvasc, labetalol, clonidine hydralazine. However, do not see labetalol in the current list. Also get Nephrology input. Time Spent With Patient Time: Total time managing care of this patient today 75 minutes. Procedures Date of Service Date of Service: 09/03/22
[2022-09-03 11:00] LABS: Glucose, Whole Blood 397 mg/dL (60-115)
--- NOTE | 2022-09-03 11:22 | MHC.CLN ---
NUTRITION DIET=DIABETIC 2000 KCAL. ADDED 2 GRAM SODIUM TO DIET ORDER DUE TO DX CHF.
[2022-09-03] MEDS: Sodium Zirconium Cyclosilicate 5 GM POWD.PACK PO (12:16)
[2022-09-03] MEDS: Insulin Lispro 100 UNIT/ML 3 ML VIAL 6 UNIT SUBCUT (12:17)
--- NOTE | 2022-09-03 13:30 | P.PNIM_ITS ---
Subjective Subjective Date of Service: 09/03/22 Interval History: seen and examined this morning follow up for shortness of breath, CHF felt better overnight but feeling short of breath after walking to bathroom no chest pain at this time Review of Systems Review of Systems: Yes all other systems are reviewed and are negative Constitutional Constitutional: Denies chills and Denies fever(s) Cardiovascular Cardiovascular: Denies chest pain, Denies palpitations and Reports dyspnea Respiratory Respiratory: Reports dyspnea Gastrointestinal Gastrointestinal: Denies abdominal pain, Denies nausea and Denies vomiting Endocrine Endocrine: Denies palpitations Physical Exam Vital Signs: Vital Signs: Last Vital Signs Temp 97.9 F 09/03/22 12:00 Pulse 80 09/03/22 12:00 Resp 22 H 09/03/22 12:00 BP 164/73 H 09/03/22 12:00 Pulse Ox 98 09/03/22 12:00 O2 Del Method 09/03/22 12:00 O2 Flow Rate 2 09/03/22 12:00 Oxygen Flow Rate 4 09/02/22 18:02 BMI result Body Mass Index 43.2 Const: General: alert and awake Nutritional Appearance: obese Orientation/consciousness: patient oriented x3 Resp: Effort & Inspection: tachypneic Auscultation: clear to auscultation bilaterally Cardio: Rate: regular rate Heart sounds: Murmur heart sound present GI: Inspection: No distended Palpation (GI): Soft to palpation Neuro: General: patient oriented x3 and CN's II-XI intact bilaterally Extrem: Other: trace edema Objective Data Active Medications Acetaminophen (Acetaminophen 325 Mg Tablet) 650 mg PO Q6H PRN PRN Reason: Pain, Mild (Pain Scale 1-3) Allopurinol (Allopurinol 100 Mg Tablet) 100 mg PO DAILY [facility] Last Admin: 09/03/22 08:54 Dose: 100 mg Documented By: FELIPE Amlodipine Besylate (Amlodipine Besylate 10 Mg Tablet) 10 mg PO DAILY [facility]; Protocol Last Admin: 09/03/22 08:54 Dose: 10 mg Documented By: FELIPE Aspirin (Aspirin Enteric Coated 81 Mg Tablet.) 81 mg PO BEDTIME [facility] Atorvastatin Calcium (Atorvastatin Calcium 80 Mg Tablet) 80 mg PO BEDTIME [facility] Benzonatate (Benzonatate 100 Mg Capsule) 100 mg PO TID PRN PRN Reason: Cough Clonidine HCl (Clonidine Hcl 0.2 Mg Tablet) 0.2 mg PO BID [facility]; Protocol Last Admin: 09/03/22 08:54 Dose: 0.2 mg Documented By: FELIPE Docusate Sodium (Docusate Sodium 100 Mg Capsule) 100 mg PO DAILY PRN PRN Reason: Constipation Enoxaparin Sodium (Enoxaparin Sodium 30 Mg/0.3 Ml Syringe) 30 mg SUBCUT Q24H [facility] Last Admin: 09/02/22 22:24 Dose: 30 mg Documented By: SRINIVASA Ferrous Sulfate (Ferrous Sulfate 324 Mg Tablet.Dr) 324 mg PO DAILY [facility] Last Admin: 09/03/22 08:54 Dose: 324 mg Documented By: FELIPE Finasteride (Finasteride 5 Mg Tablet) 5 mg PO DAILY [facility] Last Admin: 09/03/22 08:54 Dose: 5 mg Documented By: FELIPE Furosemide (Furosemide 40 Mg/4 Ml Vial) 40 mg IVPUSH BID@0900,1800 [facility]; Protocol Last Admin: 09/03/22 08:53 Dose: 40 mg Documented By: FELIPE Glucose (Glucose Gel 15 Gm Gel..Gram.) 15 gm PO Q15M PRN; Protocol PRN Reason: per Hypoglycemia Standing Ord. Hydralazine HCl (Hydralazine Hcl 50 Mg Tablet) 100 mg PO TID [facility]; Protocol Last Admin: 09/03/22 08:54 Dose: 100 mg Documented By: FELIPE Dextrose (D10) 250 mls @ 750 mls/hr IV Q15M PRN; Protocol PRN Reason: per Hypoglycemia Standing Ord. Insulin Glargine (Insulin Glargine,Hum.Rec.Anlog 100 Unit/Ml 10 Ml Vial) 40 unit SUBCUT DAILY [facility] Last Admin: 09/03/22 07:52 Dose: 40 unit Documented By: FELIPE Insulin Human Lispro (Insulin Lispro 100 Unit/Ml 3 Ml Vial) 0 unit SUBCUT QIDACHS [facility]; Protocol Last Admin: 09/03/22 12:18 Dose: 10 unit Documented By: ARLYN Ondansetron HCl (Ondansetron Hcl 4 Mg/2 Ml Vial) 4 mg IVPUSH Q8H PRN PRN Reason: Nausea and Vomiting Pharmacy Consult (Consult Rx Perform Med Rec) 1 each MISCELLANE ONCE PRN PRN Reason: Consult order Sodium Chloride (0.9 % Sodium Chloride Flush 3 Ml Syringe) 3 ml IVFLUSH QSHIFT [facility] Last Admin: 09/03/22 07:53 Dose: 3 ml Documented By: FELIPE Tamsulosin HCl (Tamsulosin Hcl 0.4 Mg Capsule) 0.4 mg PO BEDTIME [facility] Labs 09/03/22 06:03 09/03/22 06:03 Labs: Laboratory Results - last 24 hr 09/02/22 09/02/22 09/02/22 18:40 18:40 19:23 MCV 94.9 MCH 31.4 MCHC 33.1 RDW 14.1 Plt Count 135 L MPV 10.8 Immature Gran % (Auto) 0.5 H Neut % (Auto) 86.9 H Lymph % (Auto) 4.2 L Orange % (Auto) 6.9 Eos % (Auto) 1.3 Baso % (Auto) 0.2 Lymph # (Auto) 0.5 L Orange # (Auto) 0.9 Eos # (Auto) 0.2 Baso # (Auto) 0.0 Abs Immat Gran (auto) 0.06 H Absolute Neuts (auto) 11.0 H Absolute Nucleated RBC 0.000 Nucleated RBC % (auto) 0.0 PT INR D-Dimer High Sensitivty Anion Gap Estim Creat Clear Calc Estimated GFR POC Glucose Random Glucose Lactic Acid Calcium Magnesium Total Bilirubin AST ALT Alkaline Phosphatase Troponin I High Sens B-Natriuretic Peptide Total Protein Albumin Urine Color Yellow Urine Appearance Clear Urine pH 5.5 Ur Specific [place] 1.015 Urine Protein 300 (3+) H Urine Glucose (UA) Negative Urine Ketones Negative Urine Blood Negative Urine Nitrite Negative Ur Leukocyte Esterase Trace H Urine RBC >20 H Urine WBC 6-10 H Ur Squamous Epith Cells 0-2 Urine Bacteria None Seen Hyaline Casts 3-5 Urine Yeast Present Influenza Type A (PCR) NEGATIVE Influenza Type B (PCR) NEGATIVE RSV RNA Qual (PCR) NEGATIVE SARS-CoV-2 RNA (RT-PCR) NEGATIVE 09/02/22 09/02/22 09/02/22 19:23 19:23 19:23 MCV MCH MCHC RDW Plt Count MPV Immature Gran % (Auto) Neut % (Auto) Lymph % (Auto) Orange % (Auto) Eos % (Auto) Baso % (Auto) Lymph # (Auto) Orange # (Auto) Eos # (Auto) Baso # (Auto) Abs Immat Gran (auto) Absolute Neuts (auto) Absolute Nucleated RBC Nucleated RBC % (auto) PT 11.7 INR 1.0 D-Dimer High Sensitivty 268 Anion Gap 14 Estim Creat Clear Calc 22.3 Estimated GFR 20 POC Glucose Random Glucose 168 H Lactic Acid 0.6 Calcium 8.8 Magnesium Total Bilirubin 0.5 AST 23 ALT 23 Alkaline Phosphatase 86 Troponin I High Sens B-Natriuretic Peptide Total Protein 4.7 L Albumin 3.0 L Urine Color Urine Appearance Urine pH Ur Specific [place] Urine Protein Urine Glucose (UA) Urine Ketones Urine Blood Urine Nitrite Ur Leukocyte Esterase Urine RBC Urine WBC Ur Squamous Epith Cells Urine Bacteria Hyaline Casts Urine Yeast Influenza Type A (PCR) Influenza Type B (PCR) RSV RNA Qual (PCR) SARS-CoV-2 RNA (RT-PCR) 09/02/22 09/02/22 09/02/22 19:23 19:23 20:21 MCV MCH MCHC RDW Plt Count MPV Immature Gran % (Auto) Neut % (Auto) Lymph % (Auto) Orange % (Auto) Eos % (Auto) Baso % (Auto) Lymph # (Auto) Orange # (Auto) Eos # (Auto) Baso # (Auto) Abs Immat Gran (auto) Absolute Neuts (auto) Absolute Nucleated RBC Nucleated RBC % (auto) PT INR D-Dimer High Sensitivty Anion Gap Estim Creat Clear Calc Estimated GFR POC Glucose Random Glucose Lactic Acid Calcium Magnesium Total Bilirubin AST ALT Alkaline Phosphatase Troponin I High Sens 56.7 H 55.6 H B-Natriuretic Peptide 325 H Total Protein Albumin Urine Color Urine Appearance Urine pH Ur Specific [place] Urine Protein Urine Glucose (UA) Urine Ketones Urine Blood Urine Nitrite Ur Leukocyte Esterase Urine RBC Urine WBC Ur Squamous Epith Cells Urine Bacteria Hyaline Casts Urine Yeast Influenza Type A (PCR) Influenza Type B (PCR) RSV RNA Qual (PCR) SARS-CoV-2 RNA (RT-PCR) 09/02/22 09/02/22 09/03/22 22:14 23:08 00:56 MCV MCH MCHC RDW Plt Count MPV Immature Gran % (Auto) Neut % (Auto) Lymph % (Auto) Orange % (Auto) Eos % (Auto) Baso % (Auto) Lymph # (Auto) Orange # (Auto) Eos # (Auto) Baso # (Auto) Abs Immat Gran (auto) Absolute Neuts (auto) Absolute Nucleated RBC Nucleated RBC % (auto) PT INR D-Dimer High Sensitivty Anion Gap Estim Creat Clear Calc Estimated GFR POC Glucose 233 H 259 H 295 H Random Glucose Lactic Acid Calcium Magnesium Total Bilirubin AST ALT Alkaline Phosphatase Troponin I High Sens B-Natriuretic Peptide Total Protein Albumin Urine Color Urine Appearance Urine pH Ur Specific [place] Urine Protein Urine Glucose (UA) Urine Ketones Urine Blood Urine Nitrite Ur Leukocyte Esterase Urine RBC Urine WBC Ur Squamous Epith Cells Urine Bacteria Hyaline Casts Urine Yeast Influenza Type A (PCR) Influenza Type B (PCR) RSV RNA Qual (PCR) SARS-CoV-2 RNA (RT-PCR) 09/03/22 09/03/22 09/03/22 06:03 06:03 07:31 MCV 95.7 MCH 31.6 MCHC 33.1 RDW 14.0 Plt Count 154 L MPV 12.0 Immature Gran % (Auto) Neut % (Auto) Lymph % (Auto) Orange % (Auto) Eos % (Auto) Baso % (Auto) Lymph # (Auto) Orange # (Auto) Eos # (Auto) Baso # (Auto) Abs Immat Gran (auto) Absolute Neuts (auto) Absolute Nucleated RBC 0.000 Nucleated RBC % (auto) 0.0 PT INR D-Dimer High Sensitivty Anion Gap 15 Estim Creat Clear Calc 20.2 Estimated GFR 17 POC Glucose 362 H* Random Glucose 383 H* Lactic Acid Calcium 8.4 Magnesium 2.0 Total Bilirubin AST ALT Alkaline Phosphatase Troponin I High Sens B-Natriuretic Peptide Total Protein Albumin Urine Color Urine Appearance Urine pH Ur Specific [place] Urine Protein Urine Glucose (UA) Urine Ketones Urine Blood Urine Nitrite Ur Leukocyte Esterase Urine RBC Urine WBC Ur Squamous Epith Cells Urine Bacteria Hyaline Casts Urine Yeast Influenza Type A (PCR) Influenza Type B (PCR) RSV RNA Qual (PCR) SARS-CoV-2 RNA (RT-PCR) 09/03/22 10:54 MCV MCH MCHC RDW Plt Count MPV Immature Gran % (Auto) Neut % (Auto) Lymph % (Auto) Orange % (Auto) Eos % (Auto) Baso % (Auto) Lymph # (Auto) Orange # (Auto) Eos # (Auto) Baso # (Auto) Abs Immat Gran (auto) Absolute Neuts (auto) Absolute Nucleated RBC Nucleated RBC % (auto) PT INR D-Dimer High Sensitivty Anion Gap Estim Creat Clear Calc Estimated GFR POC Glucose 397 H* Random Glucose Lactic Acid Calcium Magnesium Total Bilirubin AST ALT Alkaline Phosphatase Troponin I High Sens B-Natriuretic Peptide Total Protein Albumin Urine Color Urine Appearance Urine pH Ur Specific [place] Urine Protein Urine Glucose (UA) Urine Ketones Urine Blood Urine Nitrite Ur Leukocyte Esterase Urine RBC Urine WBC Ur Squamous Epith Cells Urine Bacteria Hyaline Casts Urine Yeast Influenza Type A (PCR) Influenza Type B (PCR) RSV RNA Qual (PCR) SARS-CoV-2 RNA (RT-PCR) Microbiology Microbiology Results: Microbiology 09/02/22 19:09 Urine Culture - Preliminary Urine clean catch - Urine staples top Culture too young to evaluate. Assessment and Plan (1) Acute on chronic diastolic (congestive) heart failure: Status: Acute Plan Pt is a 82-year-old male with a PMH significant for?CKD stage 4, COPD, [id number], hypertension,? CHAYITO on CPAP, history of prostate cancer, history of CAD, and hx of [place] who presents to the ED with?worsening shortness of breath, cough, and fatigue. Patient be admitted to the hospital on telemetry for treatment of for evaluation acute CHF exacerbation. Acute CHF exacerbation elevated BNP, evidence of CHF, pulmonary edema, bilateral pleural effusions -2L thus far Continue IV Lasix 40 mg IV b.i.d. Follow lytes, MG, I/O Daily weights, low-salt diet Echocardiogram pending Seen by Cardiology Chest pain twave inversion III, aVF trops 56.7, 55.6 seen by cardiology likely related to decreased clearance r/t CKD Insulin-dependent diabetes with hyperglycemia home dose of Lantus 70U, was started on 40U, will increase to 50 units continue SSI Urinary pain/retention Pt had Tomlin catheter placed on 08/18 in ED Pt not complaining of painful urination Continue Tomlin catheter, Flomax CKD stage 4 near Baseline creatinine AV fistula placed, not yet on dialysis Nephrology following Hyperkalemia k 5.5 will give one dose of lokelma follow BMP HTN Continue home dose of clonidine, hydralazine was previously on labetalol, may need to be resumed HLD Continue home meds Full Code Attending:?Dr. Fernandes DVT Prophylaxis: Lovenox Requires ongoing inpatient hospitalization for management of acute CHF exacerba tion Time Spent With Patient Time: Total time managing care of this patient today ____ minutes. Quality Stroke Does the patient have a stroke diagnosis?: No VTE Prior VTE?: No VTE Risk Level:: Medical - moderate - high VTE Device Contraindication: Treatment Not Indicated VTE Drug Contraindication: N/A - Med Ordered
[2022-09-03 16:17] LABS: Glucose, Whole Blood 391 mg/dL (60-115)
[2022-09-03] MEDS: Labetalol HCL 100 MG TABLET PO (16:43)
[2022-09-03] MEDS: Insulin Lispro 100 UNIT/ML 3 ML VIAL 8 UNIT SUBCUT (16:44)
[2022-09-03 20:24] LABS: Glucose, Whole Blood 329 mg/dL (60-115)
[2022-09-03] MEDS: Aspirin Enteric Coated 81 MG TABLET.DR PO (20:36)
[2022-09-03] MEDS: Tamsulosin HCL 0.4 MG CAPSULE PO (20:36)
[2022-09-03] MEDS: Atorvastatin Calcium 80 MG TABLET PO (20:36)
[2022-09-03] MEDS: Enoxaparin Sodium 30 MG/0.3 ML SYRINGE SUBCUT (21:12)
[2022-09-04] VITALS (14 sets, daily range): BP systolic 126–169; BP diastolic 57–71; PULSE 67–78; RESP 18–20; TEMP 36.5–37.1; O2SAT 95–99
--- NOTE | 2022-09-04 03:51 | CONS_ITS ---
DATE OF SERVICE: 09/03/2022 REASON FOR CONSULTATION: I was asked to see patient to assist in evaluation and management of patient's advanced chronic kidney disease as reflected by a creatinine of 3.4 today. Reviewing his records, his creatinine's have been in the 3 to 3.5 range going back over the past year. HISTORY OF PRESENT ILLNESS: In summary, the patient is an 82-year-old gentleman with a history of advanced stage 4 chronic kidney disease, who has been getting his care at the [facility] with Dr. Flynn, history of COPD, diabetes, hypertension, obstructive sleep apnea on CPAP, prostate cancer, coronary artery disease with an [place] in the past, who presented to the hospital with increasing shortness of breath and fatigue. Apparently, he was hospitalized last month with a similar episode. The patient was treated in the emergency room and has had diuresis with IV diuretics as well as some steroids and antibiotics. Overall, he is feeling a bit better. PAST MEDICAL HISTORY: As mentioned above. MEDICATIONS: His current medications are noted in the admitting notes. His medications presently are noted in the MAR. ALLERGIES: HE HAS MULTIPLE DRUG ALLERGIES NOTED IN ELECTRONIC MEDICAL RECORD. Of note, patient has a right upper extremity AV fistula that was placed in preparation starting dialysis, but appears not to have matured. He is an ex-smoker. No alcohol or illicit drug use. Denies taking NSAIDs. FAMILY HISTORY: Noncontributory. REVIEW OF SYSTEMS: As noted above. PHYSICAL EXAMINATION: VITAL SIGNS: Blood pressure of 160/70 with a heart rate in the 70s. HEAD: Atraumatic, normocephalic. NECK: Supple. Mucous membranes are moist. LUNGS: Decreased breath sounds at the bases along with some rales. CARDIAC: Regular rate and rhythm. ABDOMEN: Soft, nontender. Good bowel sounds. Obese. EXTREMITIES: Show 2+ edema. He has right upper extremity AV fistula with bruit and thrill. LABORATORY DATA: Labs show hemoglobin 8, hematocrit 24, white blood cell count 8.4, platelet count 154. Sodium 136, potassium 5.5, chloride 107, bicarb 20, BUN 118, creatinine 3.4. As mentioned, his creatinine has been in the 3 to 3.5 range. IMPRESSION: 82-YEAR-OLD WITH ADVANCED CHRONIC KIDNEY DISEASE, READMITTED TO THE HOSPITAL WITH DECOMPENSATED HYPOXEMIA DUE TO CONGESTIVE HEART FAILURE AND QUESTION OF PNEUMONIA. 1. Advanced chronic kidney disease. Unfortunately, he is now heading toward needing dialysis. Repetitive hospitalizations suggest that he has had challenges with fluid and volume control. May need to start dialysis sooner than later. Our expectations are to hold off starting dialysis this hospitalization, but we will need to monitor him closely. 2. Etiology for his advanced chronic kidney disease. 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 3. Hypoxemia. This is due to a combination of factors including congestive heart failure, obesity hypoventilation, and question of pneumonia. Overall, he is improving a bit. 4. Anemia. Question of iron and erythropoietin deficiency. We will check his iron stores and see about starting him on Procrit. 5. Hemodialysis access. He has right upper extremity AV fistula, which seems not to have matured and we will need to have it revised. 6. 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 We will check intact PTH and phosphorus and treat this accordingly. 7. Cardiomyopathy. He has been seen by Cardiology. RECOMMENDATIONS: At this time include the followin. Check iron studies. 2. Protect his right upper extremity for future revision of the AV fistula. 3. Check intact PTH. 4. Start him on Procrit. 5. Control his blood pressure. 6. Education regarding renal placement therapy and getting him a dialysis spot if he starts dialysis. At this juncture, we will hold off placing a PermCath and see how he does with diuresis. We will follow him closely as he may need to start dialysis this hospitalization. We will follow closely with the team. MD GRACE Denton/MAYELA / [id number]
--- NOTE | 2022-09-04 04:16 | CONS_ITS ---
DATE OF SERVICE: 09/03/2022 MD GRACE Denton/MAYELA / [id number]
[2022-09-04 06:57] LABS: Mean Corpuscular HGB Conc 33.7 g/dl (31.0-36.0); Mean Corpuscular Hemoglobin 31.6 pg (27.0-33.0); Mean Corpuscular Volume 93.9 fL (80.0-98.0); Mean Platelet Volume 11.5 fL (9.4-12.4); Platelet Count 168 X10*3/uL (160-400); Red Blood Count 2.12 X10*6/uL (4.60-5.80); Red Cell Distribution Width 13.9 % (11.0-16.0); White Blood Count 19.8 X10*3/uL (4.8-10.8)
[2022-09-04 07:14] LABS: HBS Num1 0.31 mIU/mL (0-7.99); HBc Num1 0.03 S/CO (0.00-0.79); HBsAGNum1 0.25 S/CO (0.00-0.99); Hepatitis B Core Antibody Nonreactive (Nonreactive); Hepatitis B Surface Antigen Negative (Negative); ~HepC Num1 0.03 S/CO (0.00-0.79); ~Hepatitis B Surface Antibody NONREACTIVE (Nonreactive); ~Hepatitis C Antibody Nonreactive (Nonreactive)
[2022-09-04 07:21] LABS: Hematocrit 19.9 % (42.0-52.0); Hemoglobin 6.7 g/dl (14.0-18.0)
[2022-09-04 07:42] LABS: Glucose, Whole Blood 259 mg/dL (60-115)
[2022-09-04 07:45] LABS: Anion Gap 18 (12-20); Blood Urea Nitrogen 153 mg/dL (9-16); Calcium 8.8 mg/dL (8.4-10.2); Carbon Dioxide 16 mmol/L (22-29); Chloride 105 mmol/L (96-108); Creatinine Clr Calc Pharmacy 18.5; Estimated Glomerular Filt Rate 16; Glucose Random 269 mg/dL (60-115); Potassium 4.9 mmol/L (3.3-5.1); Sodium 134 mmol/L (135-145)
[2022-09-04] MEDS: Insulin Lispro 100 UNIT/ML 3 ML VIAL SUBCUT ×4 (07:50→21:09)
[2022-09-04] MEDS: 0.9 % Sodium Chloride Flush 3 ML SYRINGE IVFLUSH ×2 (07:51→16:06)
[2022-09-04 07:56] LABS: Immature Retic Fraction 27.2 % (2.3-13.4); Retic HGB Equivalent 33.8 pg (30.0-35.0); Reticulocyte Percent 3.6 % (0.5-1.8); Reticulocytes Absolute 0.077 X10*6/uL (0.026-0.095)
[2022-09-04 08:11] LABS: Alanine Aminotransferase 16 U/L (0-40); Albumin Level 2.7 g/dL (3.5-5.0); Alkaline Phosphatase 62 U/L (39-117); Aspartate Amino Transferase 14 U/L (5-37); Bilirubin Direct < 0.2 mg/dL (0.0-0.5); Bilirubin Total 0.3 mg/dL (0.0-1.0); Iron 54 mcg/dL (45-160); Lactate Dehydrogenase 237 U/L (118-273); Percent Iron Saturation 24 % (15-50); Total Iron Binding Capacity 221 mcg/dL (228-428); Total Protein 4.1 g/dL (6.5-8.0); Unsaturated Iron Binding 167 ug/dL
[2022-09-04 08:49] LABS: Ferritin 123 ng/mL (20-250); Folate 10.4 ng/mL (> or = 4.0); Vitamin B12 1114 pg/mL (200-900)
[2022-09-04] MEDS: cloNIDine HCL 0.2 MG TABLET PO ×2 (09:11→21:06)
[2022-09-04] MEDS: Labetalol HCL 100 MG TABLET PO (09:11)
[2022-09-04] MEDS: Finasteride 5 MG TABLET PO (09:11)
[2022-09-04] MEDS: amLODIPine Besylate 10 MG TABLET PO (09:11)
[2022-09-04] MEDS: hydrALAZINE HCl 50 MG TABLET 100 MG PO ×3 (09:11→21:07)
[2022-09-04] MEDS: allopurinoL 100 MG TABLET PO (09:12)
[2022-09-04] MEDS: Insulin Glargine,Hum.rec.anlog 100 UNIT/ML 10 ML VIAL 50 UNIT SUBCUT (09:12)
[2022-09-04] MEDS: Furosemide 40 MG/4 ML VIAL IVPUSH (09:12)
[2022-09-04] MEDS: Ferrous Sulfate 324 MG TABLET.DR PO (09:12)
[2022-09-04 11:27] LABS: Glucose, Whole Blood 284 mg/dL (60-115)
[2022-09-04] MEDS: Acetaminophen 325 MG TABLET 650 MG PO (11:48)
[2022-09-04] MEDS: diphenhydrAMINE HCl 12.5 MG/5 ML LIQUID PO (12:01)
--- NOTE | 2022-09-04 12:41 | HO.PM.IMPN ---
Subjective Subjective Date of Service: 09/04/22 Interval History: seen and examined this morning follow up for sob, chf slept well overnight and breathing feels better this am H/H dropping, denies rectal bleeding or hematuria Review of Systems Review of Systems: Yes all other systems are reviewed and are negative Constitutional Constitutional: Denies chills and Denies fever(s) Cardiovascular Cardiovascular: Denies chest pain, Denies palpitations and Denies dyspnea Respiratory Respiratory: Denies dyspnea Gastrointestinal Gastrointestinal: Denies abdominal pain, Denies nausea and Denies vomiting Endocrine Endocrine: Denies palpitations Physical Exam Vital Signs: Vital Signs: Last Vital Signs Temp 97.8 F 09/04/22 11:36 Pulse 78 09/04/22 11:36 Resp 20 09/04/22 11:36 BP 144/62 H 09/04/22 11:36 Pulse Ox 97 09/04/22 11:13 O2 Del Method 09/04/22 11:13 O2 Flow Rate 2 09/03/22 19:35 Oxygen Flow Rate 4 09/02/22 18:02 BMI result Body Mass Index 43.2 Const: General: alert and awake Nutritional Appearance: obese Orientation/consciousness: patient oriented x3 Resp: Other: fine basilar rales Effort & Inspection: no respiratory distress and no use of accessory muscles Cardio: Rate: regular rate Heart sounds: Murmur heart sound present GI: Inspection: No distended Palpation (GI): Soft to palpation Neuro: General: patient oriented x3 and CN's II-XI intact bilaterally Extrem: Other: trace edema Objective Data Active Medications Acetaminophen (Acetaminophen 325 Mg Tablet) 650 mg PO Q6H PRN PRN Reason: Pain, Mild (Pain Scale 1-3) Last Admin: 09/04/22 11:48 Dose: 650 mg Documented By: FELIPE Allopurinol (Allopurinol 100 Mg Tablet) 100 mg PO DAILY [facility] Last Admin: 09/04/22 09:12 Dose: 100 mg Documented By: FELIPE Amlodipine Besylate (Amlodipine Besylate 10 Mg Tablet) 10 mg PO DAILY [facility]; Protocol Last Admin: 09/04/22 09:11 Dose: 10 mg Documented By: FELIPE Aspirin (Aspirin Enteric Coated 81 Mg Tablet.) 81 mg PO BEDTIME [facility] Last Admin: 09/03/22 20:36 Dose: 81 mg Documented By: ALESIA Atorvastatin Calcium (Atorvastatin Calcium 80 Mg Tablet) 80 mg PO BEDTIME [facility] Last Admin: 09/03/22 20:36 Dose: 80 mg Documented By: ALESIA Benzonatate (Benzonatate 100 Mg Capsule) 100 mg PO TID PRN PRN Reason: Cough Clonidine HCl (Clonidine Hcl 0.2 Mg Tablet) 0.2 mg PO BID [facility]; Protocol Last Admin: 09/04/22 09:11 Dose: 0.2 mg Documented By: FELIPE Docusate Sodium (Docusate Sodium 100 Mg Capsule) 100 mg PO DAILY PRN PRN Reason: Constipation Enoxaparin Sodium (Enoxaparin Sodium 30 Mg/0.3 Ml Syringe) 30 mg SUBCUT Q24H [facility] Last Admin: 09/03/22 21:12 Dose: 30 mg Documented By: ALESIA Ferrous Sulfate (Ferrous Sulfate 324 Mg Tablet.) 324 mg PO DAILY [facility] Last Admin: 09/04/22 09:12 Dose: 324 mg Documented By: FELIPE Finasteride (Finasteride 5 Mg Tablet) 5 mg PO DAILY [facility] Last Admin: 09/04/22 09:11 Dose: 5 mg Documented By: FELIPE Furosemide (Furosemide 40 Mg/4 Ml Vial) 40 mg IVPUSH BID@0900,1800 [facility]; Protocol Last Admin: 09/04/22 09:12 Dose: 40 mg Documented By: EFLIPE Glucose (Glucose Gel 15 Gm Gel..Gram.) 15 gm PO Q15M PRN; Protocol PRN Reason: per Hypoglycemia Standing Ord. Hydralazine HCl (Hydralazine Hcl 50 Mg Tablet) 100 mg PO TID [facility]; Protocol Last Admin: 09/04/22 09:11 Dose: 100 mg Documented By: FELIPE Dextrose (D10) 250 mls @ 750 mls/hr IV Q15M PRN; Protocol PRN Reason: per Hypoglycemia Standing Ord. Insulin Glargine (Insulin Glargine,Hum.Rec.Anlog 100 Unit/Ml 10 Ml Vial) 50 unit SUBCUT DAILY [facility] Last Admin: 09/04/22 09:12 Dose: 50 unit Documented By: FELIPE Insulin Human Lispro (Insulin Lispro 100 Unit/Ml 3 Ml Vial) 0 unit SUBCUT QIDACHS [facility]; Protocol Last Admin: 09/04/22 11:48 Dose: 6 unit Documented By: FELIPE Labetalol HCl (Labetalol Hcl 100 Mg Tablet) 100 mg PO DAILY [facility]; Protocol Last Admin: 09/04/22 09:11 Dose: 100 mg Documented By: FELIPE Ondansetron HCl (Ondansetron Hcl 4 Mg/2 Ml Vial) 4 mg IVPUSH Q8H PRN PRN Reason: Nausea and Vomiting Pharmacy Consult (Consult Rx Perform Med Rec) 1 each MISCELLANE ONCE PRN PRN Reason: Consult order Sodium Chloride (0.9 % Sodium Chloride Flush 3 Ml Syringe) 3 ml IVFLUSH QSHIFT [facility] Last Admin: 09/04/22 07:51 Dose: 3 ml Documented By: FELIPE Tamsulosin HCl (Tamsulosin Hcl 0.4 Mg Capsule) 0.4 mg PO BEDTIME [facility] Last Admin: 09/03/22 20:36 Dose: 0.4 mg Documented By: ODRISM Labs 09/04/22 06:03 09/04/22 06:03 Labs: Laboratory Results - last 24 hr 09/03/22 09/03/22 09/04/22 16:14 20:20 06:03 MCV 93.9 MCH 31.6 MCHC 33.7 RDW 13.9 Plt Count 168 MPV 11.5 Absolute Nucleated RBC 0.000 Nucleated RBC % (auto) 0.0 Smear Path Review Absolute Retic 0.077 Percent Retic 3.6 H Immature Retic Fraction 27.2 H Retic Hgb Equivalent 33.8 Anion Gap Estim Creat Clear Calc Estimated GFR POC Glucose 391 H* 329 H Random Glucose Calcium Iron TIBC % Saturation Unsat Iron Binding Ferritin Total Bilirubin Direct Bilirubin AST ALT Alkaline Phosphatase Lactate Dehydrogenase Total Protein Albumin Vitamin B12 Folate Hep Bs Antigen Hep Bs Antibody Hep B Core Total Ab Hepatitis C Ab (EIA) Blood Type Antibody Screen Crossmatch 09/04/22 09/04/22 09/04/22 06:03 06:03 07:34 MCV MCH MCHC RDW Plt Count MPV Absolute Nucleated RBC Nucleated RBC % (auto) Smear Path Review Absolute Retic Percent Retic Immature Retic Fraction Retic Hgb Equivalent Anion Gap 18 Estim Creat Clear Calc 18.5 Estimated GFR 16 POC Glucose 259 H Random Glucose 269 H Calcium 8.8 Iron 54 TIBC 221 L % Saturation 24 Unsat Iron Binding 167 Ferritin 123 Total Bilirubin 0.3 Direct Bilirubin < 0.2 AST 14 ALT 16 Alkaline Phosphatase 62 Lactate Dehydrogenase 237 Total Protein 4.1 L Albumin 2.7 L Vitamin B12 1114 H Folate 10.4 Hep Bs Antigen Negative Hep Bs Antibody NONREACTIVE Hep B Core Total Ab Nonreactive Hepatitis C Ab (EIA) Nonreactive Blood Type Antibody Screen Crossmatch 09/04/22 09/04/22 07:38 11:16 MCV MCH MCHC RDW Plt Count MPV Absolute Nucleated RBC Nucleated RBC % (auto) Smear Path Review Absolute Retic Percent Retic Immature Retic Fraction Retic Hgb Equivalent Anion Gap Estim Creat Clear Calc Estimated GFR POC Glucose 284 H Random Glucose Calcium Iron TIBC % Saturation Unsat Iron Binding Ferritin Total Bilirubin Direct Bilirubin AST ALT Alkaline Phosphatase Lactate Dehydrogenase Total Protein Albumin Vitamin B12 Folate Hep Bs Antigen Hep Bs Antibody Hep B Core Total Ab Hepatitis C Ab (EIA) Blood Type A Positive Antibody Screen NEGATIVE Crossmatch See Detail Microbiology Microbiology Results: Microbiology 09/02/22 19:09 Urine Culture - Preliminary Urine clean catch - Urine staples top Yeast 09/02/22 19:23 Blood Culture - Preliminary Blood - Venous No growth after 24 hours. 09/02/22 19:23 Blood Culture - Preliminary Blood - Venous No growth after 24 hours. Assessment and Plan (1) Nonrheumatic aortic (valve) stenosis: Status: Acute (2) Acute on chronic diastolic (congestive) heart failure: Status: Acute (3) Anemia: Status: Acute Plan Pt is a 82-year-old male with a PMH significant for?CKD stage 4, COPD, [id number], hypertension,? CHAYITO on CPAP, history of prostate cancer, history of CAD, and hx of MO who presents to the ED with?worsening shortness of breath, cough, and fatigue. Patient be admitted to the hospital on telemetry for treatment of for evaluation acute CHF exacerbation. Acute HFpEF ECHO with hyperdynamic left ventricular function, moderate to severe , grade I diastolic dysfunction negative nearly 3L thus far renal function trending up, will hold lasix Follow lytes, MG, I/O Daily weights, low-salt diet Cardiology following Acute on chronic anemia drop in H/H overnight, no active bleeding noted will check iron studies, b12, folate, hemolysis labs, stool occult GI eval transfuse 1U rbc follow CBC closely Chest pain. Resolved. twave inversion III, aVF trops 56.7, 55.6 seen by cardiology likely related to decreased clearance r/t CKD Insulin-dependent diabetes with hyperglycemia home dose of Lantus 70U, was started on 40U, increased to 50 units continue SSI Urinary pain/retention Pt had Tomlin catheter placed on 08/18 in ED Continue Tomlin catheter, Flomax CKD stage 4 creatinine trending up AV fistula placed, not yet on dialysis Nephrology following Hyperkalemia resolved with lokelma follow BMP HTN Continue home dose of clonidine, hydralazine, labetalol, amlodipine HLD Continue home meds Full Code Attending:?Dr. Luna DVT Prophylaxis: hold lovenox for anemia, SCDs Requires ongoing inpatient hospitalization for management of acute CHF exacerbation, anemia Time Spent With Patient Time: Total time managing care of this patient today ____ minutes. Quality Stroke Does the patient have a stroke diagnosis?: No VTE Prior VTE?: No VTE Risk Level:: Medical - moderate - high VTE Device Contraindication: Treatment Not Indicated VTE Drug Contraindication: N/A - Med Ordered
--- NOTE | 2022-09-04 14:39 | PC.NURSE ---
Pt received one unit of packed red blood cells. The transfusion began at 11:21 with vital signs being 78, 18, 149/67, and 98.4F. After fifteen minutes, patient was still asymptomatic with vitals bein/62, 97.6F, 20, and 76. All 350 mL finished transfusing at 14:20 and current vitals are as follows: 152/70, 74, 98.6, and 20. Pt denies any chills, body aches or new SOB or any other transfusion reactions.
--- NOTE | 2022-09-04 15:11 | MHC.CM.PN ---
No discharge today per MD rounds. Patient requires a blood transfusion. DP pending a PT eval. Prior to hospitalization the patient was on services with [facility] home [facility]. Patient will likely require STR. He states that he can not walk at this time. Patient will transport via BLS to STR vs Family transport home with resumption of [facility] home health [facility].
--- NOTE | 2022-09-04 16:06 | P.CDIM_ITS ---
PROVIDER RESPONSE TEXT: To clarify, the appropriate diagnosis supported by the clinical indicators: Clinically unable to determine (explain): Do not know etiology at this point, work up in progress QUERY TEXT: PHYSICIAN'S DOCUMENTATION REQUEST Date of Query: 09/04/2022 02:12 PM EST Patient Name: Claude Kerr Admit Date: 09/03/2022 Dear Evelyn Carr, A review of the medical record indicates additional documentation may be needed. Please review below and update the documentation accordingly. Clinical Indicators: Labs Hgb: 09/03 - 8.0 09/04 - 6.7 Hct: 09/03 - 24.2 09/04 - 19.9 Per provider progress note on 09/04: Acute on chronic anemia drop in H/H overnight, no active bleeding noted will check iron studies, b12, folate, hemolysis labs, stool occult GI eval transfuse 1U rbc PMH: normocytic anemia Based on the above, could you clarify which of the following is the most likely type of anemia you ar e evaluating, treating, and/or monitoring? Acute blood loss anemia Acute blood loss anemia with baseline chronic normocytic anemia Acute on chronic normocytic anemia with chronic blood loss Other Other (explain) Clinically unable to determine (explain) Thank you, Grisel Panda MS, RN, CCRN Use of terms such as suspected, likely, concern for, or probable (associated with a specific diagnosi s that is being evaluated, monitored, or treated as if it exists) are acceptable and can be coded in the inpatient se tting, when documented at the time of discharge. Please use your independent medical judgment in providing your response. THIS QUERY IS PART OF THE PERMANENT MEDICAL RECORD
[2022-09-04 16:11] LABS: Glucose, Whole Blood 282 mg/dL (60-115)
--- NOTE | 2022-09-04 16:13 | P.CDIM_ITS ---
PROVIDER RESPONSE TEXT: To clarify, the appropriate diagnosis supported by the clinical indicators: Obesity due to excess calories QUERY TEXT: PHYSICIAN'S DOCUMENTATION REQUEST Date of Query: 09/04/2022 02:15 PM EST Patient Name: Claude Kerr Admit Date: 09/03/2022 Dear Evelyn Carr, A review of the medical record indicates additional documentation may be needed. Please review below and update the documentation accordingly. Clinical Indicators: BMI - 43.3 Height - 5ft 5in Weight - 117.934kg Per provider progress note on 09/04: Nutritional Appearance: obese Per RN shift assessments: Abdomen obese & round If possible, please provide an associated diagnosis related to the abnormal BMI, such as: Obesity due to excess calories Obesity due to other cause Specify the other cause Severe or Morbid Obesity With alveolar hypoventilation Severe or Morbid Obesity Without alveolar hypoventilation BMI is not significant Other Other (explain) Clinically unable to determine (explain) Thank you, Grisel Panda MS, RN, CCRN Use of terms such as suspected, likely, concern for, or probable (associated with a specific diagnosi s that is being evaluated, monitored, or treated as if it exists) are acceptable and can be coded in the inpatient se tting, when documented at the time of discharge. Please use your independent medical judgment in providing your response. THIS QUERY IS PART OF THE PERMANENT MEDICAL RECORD
--- NOTE | 2022-09-04 16:48 | PM.PNNEP ---
Subjective Subjective Date of Service: 09/04/22 Interval history: seen and examined this morning follow up for sob, chf slept well overnight and breathing feels better this am H/H dropping, denies rectal bleeding or hematuria Physical Exam Vital Signs: Vital Signs: Last Vital Signs Temp 98.2 F 09/04/22 15:06 Pulse 70 09/04/22 15:06 Resp 20 09/04/22 15:06 BP 147/66 H 09/04/22 15:06 Pulse Ox 98 09/04/22 15:06 O2 Del Method 09/04/22 15:06 O2 Flow Rate 2 09/03/22 19:35 Oxygen Flow Rate 4 09/02/22 18:02 BMI result Body Mass Index 43.2 Const: General: alert and awake Nutritional Appearance: obese Orientation/consciousness: patient oriented x3 Resp: Other: fine basilar rales Effort & Inspection: no respiratory distress and no use of accessory muscles Cardio: Rate: regular rate Heart sounds: Murmur heart sound present GI: Inspection: No distended Palpation (GI): Soft to palpation Neuro: General: patient oriented x3 and CN's II-XI intact bilaterally Extrem: Other: trace edema Objective Data Labs 09/04/22 06:03 09/04/22 06:03 Labs: Laboratory Results - last 24 hr 09/03/22 09/04/22 09/04/22 20:20 06:03 06:03 WBC 19.8 H RBC 2.12 L Hgb 6.7 L* Hct 19.9 L* MCV 93.9 MCH 31.6 MCHC 33.7 RDW 13.9 Plt Count 168 MPV 11.5 Absolute Nucleated RBC 0.000 Nucleated RBC % (auto) 0.0 Smear Path Review Absolute Retic 0.077 Percent Retic 3.6 H Immature Retic Fraction 27.2 H Retic Hgb Equivalent 33.8 Sodium 134 L Potassium 4.9 Chloride 105 Carbon Dioxide 16 L Anion Gap 18 BUN 153 H Creatinine 3.71 H Estim Creat Clear Calc 18.5 Estimated GFR 16 POC Glucose 329 H Random Glucose 269 H Calcium 8.8 Iron 54 TIBC 221 L % Saturation 24 Unsat Iron Binding 167 Ferritin 123 Total Bilirubin 0.3 Direct Bilirubin < 0.2 AST 14 ALT 16 Alkaline Phosphatase 62 Lactate Dehydrogenase 237 Total Protein 4.1 L Albumin 2.7 L Vitamin B12 1114 H Folate 10.4 Hep Bs Antigen Hep Bs Antibody Hep B Core Total Ab Hepatitis C Ab (EIA) Blood Type Antibody Screen Crossmatch 09/04/22 09/04/22 09/04/22 06:03 07:34 07:38 WBC RBC Hgb Hct MCV MCH MCHC RDW Plt Count MPV Absolute Nucleated RBC Nucleated RBC % (auto) Smear Path Review Absolute Retic Percent Retic Immature Retic Fraction Retic Hgb Equivalent Sodium Potassium Chloride Carbon Dioxide Anion Gap BUN Creatinine Estim Creat Clear Calc Estimated GFR POC Glucose 259 H Random Glucose Calcium Iron TIBC % Saturation Unsat Iron Binding Ferritin Total Bilirubin Direct Bilirubin AST ALT Alkaline Phosphatase Lactate Dehydrogenase Total Protein Albumin Vitamin B12 Folate Hep Bs Antigen Negative Hep Bs Antibody NONREACTIVE Hep B Core Total Ab Nonreactive Hepatitis C Ab (EIA) Nonreactive Blood Type A Positive Antibody Screen NEGATIVE Crossmatch See Detail 09/04/22 09/04/22 11:16 16:06 WBC RBC Hgb Hct MCV MCH MCHC RDW Plt Count MPV Absolute Nucleated RBC Nucleated RBC % (auto) Smear Path Review Absolute Retic Percent Retic Immature Retic Fraction Retic Hgb Equivalent Sodium Potassium Chloride Carbon Dioxide Anion Gap BUN Creatinine Estim Creat Clear Calc Estimated GFR POC Glucose 284 H 282 H Random Glucose Calcium Iron TIBC % Saturation Unsat Iron Binding Ferritin Total Bilirubin Direct Bilirubin AST ALT Alkaline Phosphatase Lactate Dehydrogenase Total Protein Albumin Vitamin B12 Folate Hep Bs Antigen Hep Bs Antibody Hep B Core Total Ab Hepatitis C Ab (EIA) Blood Type Antibody Screen Crossmatch Microbiology Microbiology Results: Microbiology 09/02/22 19:09 Urine clean catch - Urine staples top Urine Culture - Preliminary Yeast 09/02/22 19:23 Blood - Venous Blood Culture - Preliminary No growth after 24 hours. 09/02/22 19:23 Blood - Venous Blood Culture - Preliminary No growth after 24 hours. Procedures Date of Service Date of Service: 09/04/22 Assessment & Plan Assessment and plan (1) SHAINA (acute kidney injury): Status: Acute Assessment and Plan: 1. Advanced chronic kidney disease.? Unfortunately, he is now heading toward needing dialysis.? Repetitive hospitalizations suggest that he has had challenges with fluid and volume control.? May need to start dialysis sooner than later.? Our expectations are to hold off starting dialysis this hospitalization, but we will need to monitor him closely. 2. Etiology for his advanced chronic kidney disease.? 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 3. Hypoxemia.? This is due to a combination of factors including congestive heart failure, obesity hypoventilation, and question of pneumonia.? Overall, he is improving a bit. 4. Anemia.? Question of iron and erythropoietin deficiency.? We will check his iron stores and see about starting him on Procrit. 5. Hemodialysis access.? He has right upper extremity AV fistula, which seems not to have matured and we will need to have it revised. 6. 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 We will check intact PTH and phosphorus and treat this accordingly. 7. Cardiomyopathy.? He has been seen by Cardiology. ? RECOMMENDATIONS:? At this time include the followin. Transfuse as needed to keep Hb > 7.0 2. Protect his right upper extremity as he has an AV fistula. 3. F/u PTH. 4. Start him on Procrit. 5. Control his blood pressure. 6. Education regarding renal placement therapy and getting him a dialysis spot if he starts dialysis. ? At this juncture, we will hold off placing a PermCath and see how he does with diuresis.? We will follow him closely as he may need to start dialysis this hospitalization. Pt wants to transfer to our practice as per patinet and family ? We will follow closely with the team. ? ? (2) CKD stage 4 due to type 1 diabetes mellitus: Status: Acute (3) Acute on chronic diastolic (congestive) heart failure: Status: Acute Time Spent With Patient Time: Total time managing care of this patient today ____ minutes. Progress Note: Quality Stroke Does the patient have a stroke diagnosis?: No
[2022-09-04 19:39] LABS: Glucose, Whole Blood 259 mg/dL (60-115)
--- NOTE | 2022-09-04 19:52 | PM.EVENT ---
Event Note Date of Service: 09/04/22 Event Note: GI Consult-Full note dictated-History from patient, RN, and EMR Imp: Chronic anemia with worsening over the past 48 hours. He describes three dark brown BM's yesterday which is his baseline on his oral Iron. He denies any specific GI symptoms other than some chronic anorexia in relation to all of his medical issues. His abdominal exam is benign. His BUN has increased >> his creatinine. He may be having some component of UGI blood loss in relation to gastritis, AVM's, and/or silent ulcer disease due to his chronic aspirin use, renal failure, and multiple other medical problems. However, there does not appear to be any active bleeding at this time. Rec: Given his high risk for invasive procedures and anesthesia, I would hold off on an upper endoscopy unless absolutely needed in regard to any active UGI bleeding. Monitor Hgb closely and transfuse prn. Start empiric po PPI. Hold all blood thinners if possible, including aspirin and Lovenox, if acceptable to his medical team. Please contact me if he has any signs of active GI bleeding, or if I can be of any further assistance. Thanks Time Spent With Patient Time: Total time managing care of this patient today ____ minutes.
[2022-09-04 20:06] LABS: Hematocrit 19.9 % (42.0-52.0); Hemoglobin 6.8 g/dl (14.0-18.0)
--- NOTE | 2022-09-04 20:11 | PM.EVENT ---
Event Note Date of Service: 09/07/22 Event Note: Anemia: pt AM Hgb 6.7--> s/p 1U pRBC--> f/u Hgb 6.8 at 1930 --> ordered another 1upRBC. pt denies Dizzines; Denies any new signs of bleeding. Ordered CT abd to r/o Retroperitoneal HEmorrhage. Held ASA. Lovenox dvt ppx already on Hold. SCDs for DVT ppx Time Spent With Patient Time: Total time managing care of this patient today ____ minutes.
[2022-09-04] MEDS: Atorvastatin Calcium 80 MG TABLET PO (21:06)
[2022-09-04] MEDS: Tamsulosin HCL 0.4 MG CAPSULE PO (21:08)
[2022-09-04] MEDS: Aspirin Enteric Coated 81 MG TABLET.DR PO (21:08)
[2022-09-04] MEDS: Omeprazole 20 MG CAPSULE.DR PO (21:09)
[2022-09-05] VITALS (12 sets, daily range): BP systolic 143–162; BP diastolic 62–72; PULSE 62–74; RESP 18–20; TEMP 26.6–37.1; O2SAT 95–98
--- NOTE | 2022-09-05 02:44 | PC.NURSE ---
Pt seen on bed alert and oriented, repeat Hgb and Hct drawn with critical results Hgb= 6.8 Hct 19.9, results was called to Dr. Hanson, no frack bleed noted, another unit of RBC ordered, blood was available and was transfused per protocol, blood was completed with no reactions noted.
--- NOTE | 2022-09-05 05:03 | CONS_ITS ---
DATE OF SERVICE: 09/04/2022 REASON FOR CONSULTATION: Anemia. HISTORY OF PRESENT ILLNESS: Patient is an 82-year-old gentleman with multiple medical problems admitted to the hospital on September 02 at which time he had a hemoglobin of 9.2. His hemoglobin on August 27 was 10.1. On reviewing the record, he does have chronic anemia, dating back at least several years where his hemoglobin had been in the 10 to 11 range. Since admission here he did have a drop in his hemoglobin from 9.2 on September 02, to 8.0 on September 03, and to 6.7 today. In discussing things with him and his nurse he has had no signs of obvious bleeding. He did have 3 dark brown bowel movements yesterday, which are the usual color of his bowel movements. He denies any signs of melena, hematochezia nor any vomiting. He has been eating comfortably here. He denies any significant heartburn or dysphagia. He denies any odynophagia. He denies any abdominal pain. He does describe previous colonoscopies at [facility], with his last one being over 5 years ago. He thinks he had some polyps removed. As far as he can recall he has never had an upper endoscopy. He denies any history of ulcer disease. He has been on 1 aspirin daily. He had also been on Lovenox but this is presently on hold. He does not smoke nor use any alcohol. As far as he knows he was not using any blood thinners at home and does not use any chronic NSAIDs. He denies any known family history of colorectal cancer. At the present time he just finished a unit of blood transfusion and a repeat blood count is pending. CURRENT MEDICATIONS: Acetaminophen, allopurinol, amlodipine, 81 mg aspirin, atorvastatin, Tessalon p.r.n., clonidine, Colace p.r.n., ferrous sulfate 325 mg daily, Proscar, hydralazine, insulin, labetalol, Zofran p.r.n., Flomax. PAST MEDICAL HISTORY: Chronic renal insufficiency, he was seen by Dr. Guzman for that during this admission. Other medical issues include COPD, insulin dependent diabetes mellitus, hypertension, sleep apnea, prostate cancer, coronary artery disease with previous SD and congestive heart failure. Other medical problems include urinary retention, obesity, and hyperlipidemia. SURGERIES: Included appendectomy, hernia surgery, skin cyst and a left nephrectomy for a benign tumor by his report. PAST SOCIAL HISTORY: He is . He is a [place] and describes exposure to agent orange. He does not smoke nor drink. FAMILY HISTORY: Noncontributory. REVIEW OF SYSTEMS: CONSTITUTIONAL: He is feeling weak and tired in general. CARDIAC: No chest pain. PULMONARY: He does have shortness of breath but denies any coughing or hemoptysis. GI: As above. PHYSICAL EXAMINATION: GENERAL: Patient is alert, elderly male in no distress. He is pale. SKIN: Warm and dry. NECK: Supple. CARDIAC: Normal S1, S2 with a systolic murmur. ABDOMEN: Soft, nondistended. Normal bowel sounds and nontender. There is no palpable mass. There is no rebound or guarding. EXTREMITIES: Some pretibial edema. LABORATORY DATA: As above. White blood cell count 19.8, hemoglobin 6.7 this morning. MCV 94, platelets 168,000. PT 11.7, INR 1.0 on September 02. Sodium 134, potassium 4.9, chloride 105, CO2 16, BUN 153, creatinine 3.7. Glucose 269, iron 54, iron saturation of 24%, ferritin 123. LFTs normal. LDH normal 237. Albumin 2.7. B12 1114. Folate 10.4. His BUN yesterday was 118. On September 02 was 90. His creatinine on September 02 was 3.08 and September 03 was 3.40. His chest x-ray from September 02 describes congestive heart failure with pulmonary edema and small bilateral pleural effusions. IMPRESSION: The patient is an 82-year-old male with multiple medical problems with a chronic anemia and renal failure who had a significant drop in his hemoglobin overnight. However, there has been no sign of any GI bleeding today. He describes only dark brown stools yesterday, However, his BUN has gone up rather significantly along with the slight rise in the creatinine. At this point there is no definitive evidence of GI bleeding that would account for the drop in hemoglobin. He does have multiple medical issues going on including renal failure. He certainly is at risk of at least chronic GI blood loss in relation to the renal failure and chronic use of aspirin. At this point, given all his medical problems and no definitive evidence of GI bleeding, I would hold off on an upper endoscopy. It does not sound like he is having any lower GI bleeding. However, given the rise in the BUN I would be concerned about possibly some upper GI blood loss occurring and would start him on omeprazole for that. The aspirin could be stopped as well if that would be alright with his other medical providers. At this point I would continue to follow his blood counts and certainly if there is any evidence of active bleeding we could proceed with an upper endoscopy. However, given his multiple medical problems and increased risk for anesthesia, I would hold off on any type of invasive procedure unless absolutely required. This has all been discussed with the patient in detail. Thank you for the consultation. MD JOY Romero/MAYELA / [id number] [id number]
[2022-09-05] MEDS: Omeprazole 20 MG CAPSULE.DR PO (05:16)
[2022-09-05 07:11] LABS: Hematocrit 21.3 % (42.0-52.0); Hemoglobin 7.2 g/dl (14.0-18.0); Mean Corpuscular HGB Conc 33.8 g/dl (31.0-36.0); Mean Corpuscular Hemoglobin 31.6 pg (27.0-33.0); Mean Corpuscular Volume 93.4 fL (80.0-98.0); Platelet Count 146 X10*3/uL (160-400); Red Blood Count 2.28 X10*6/uL (4.60-5.80); Red Cell Distribution Width 14.2 % (11.0-16.0); White Blood Count 14.7 X10*3/uL (4.8-10.8)
[2022-09-05 07:38] LABS: Calcium 8.6 mg/dL (8.4-10.2); Creatinine Clr Calc Pharmacy 18.4; Estimated Glomerular Filt Rate 16; Glucose Random 168 mg/dL (60-115)
[2022-09-05 07:57] LABS: Anion Gap 16 (12-20); Blood Urea Nitrogen 156 mg/dL (9-16); Carbon Dioxide 19 mmol/L (22-29); Chloride 109 mmol/L (96-108); Potassium 4.5 mmol/L (3.3-5.1); Sodium 139 mmol/L (135-145)
[2022-09-05 08:12] LABS: Glucose, Whole Blood 165 mg/dL (60-115)
[2022-09-05 08:14] LABS: Band Neutrophils Percent 1 % (3-5); Lymphocytes Absolute Manual 0.6 X10*3/uL (1.2-4.9); Lymphocytes Percent Manual 4 % (20-40); Monocytes Absolute Manual 0.1 X10*3/uL (0.1-1.2); Monocytes Percent Manual 1 % (2-11); Neutrophils Percent Manual 94 % (45-73)
[2022-09-05 08:17] LABS: RBC Morphology NOTED
[2022-09-05 08:18] LABS: Schistocytes 1+ (0-2) /OIF
[2022-09-05 08:20] LABS: Acanthocytes 2+ (3-5) /OIF
[2022-09-05 08:21] LABS: Platelet Estimate NORMAL (NORMAL); Platelet Morphology Comment NORMAL
[2022-09-05] MEDS: amLODIPine Besylate 10 MG TABLET PO (08:34)
[2022-09-05] MEDS: Labetalol HCL 100 MG TABLET PO (08:35)
[2022-09-05] MEDS: hydrALAZINE HCl 50 MG TABLET 100 MG PO ×3 (08:35→20:17)
[2022-09-05] MEDS: Ferrous Sulfate 324 MG TABLET.DR PO (08:35)
[2022-09-05] MEDS: Insulin Glargine,Hum.rec.anlog 100 UNIT/ML 10 ML VIAL 50 UNIT SUBCUT (08:35)
[2022-09-05] MEDS: Finasteride 5 MG TABLET PO (08:35)
[2022-09-05] MEDS: cloNIDine HCL 0.2 MG TABLET PO ×2 (08:35→20:16)
[2022-09-05] MEDS: 0.9 % Sodium Chloride Flush 3 ML SYRINGE IVFLUSH ×3 (08:35→20:17)
[2022-09-05] MEDS: allopurinoL 100 MG TABLET PO (08:35)
[2022-09-05] MEDS: Insulin Lispro 100 UNIT/ML 3 ML VIAL SUBCUT ×4 (08:35→20:17)
--- NOTE | 2022-09-05 10:03 | P.PNCA_ITS ---
Subjective Subjective Date of Service: 09/05/22 Interval history: He states generally very tired. Short of breath. Weakness. Exertion. Overall, numerous complaints. Review of Systems Review of Systems Yes all other systems are reviewed and are negative Constitutional: Reports as per HPI, Reports no additional constitutional complaints, Reports fatigue, Reports lethargy, Reports malaise and Reports weakness Eyes: Reports as per HPI and Denies no additional eye complaints Denies system reviewed and no additional complaints, except as documented and Reports as per HPI Cardiovascular: Reports as per HPI, Reports no additional cardiovascular compl aints, Denies acrocyanosis, Denies cool extremities, Denies chest pain, Denies leg edema, Denies lightheadedness, Denies palpitations and Reports dyspnea Respiratory: Reports as per HPI, Denies no additional respiratory complaints and Reports dyspnea Gastrointestinal: Reports as per HPI and Denies no additional gastrointestinal complaints Genitourinary: Reports no additional male genitourinary complaints and Reports as per HPI Musculoskeletal: Reports no additional musculoskeletal complaints and Reports as per HPI Skin/Breast: Reports system reviewed and no additional complaints, except as docu Reports system reviewed and no additional complaints, except as documented, Re ports as per HPI and Reports weakness Psychiatric: Reports no additional psychiatric complaints and Reports as per HPI Endocrine: Reports no additional endocrine complaints, Reports as per HPI, Reports fatigue and Denies palpitations Hematologic/Lymphatic: Reports no additional hematologic/lymphatic complaints and Reports as per HPI Allergic/Immunologic: Reports no additional allergic/immunologic complaints and Reports as per HPI Physical Exam Vital Signs: Last Vital Signs Temp 98.2 F 09/05/22 07:58 Pulse 74 09/05/22 07:58 Resp 20 09/05/22 07:58 BP 162/69 H 09/05/22 07:58 Pulse Ox 97 09/05/22 07:58 O2 Del Method 09/05/22 07:58 O2 Flow Rate 2 09/05/22 07:58 Oxygen Flow Rate 4 09/02/22 18:02 BMI result Body Mass Index 43.2 Const General: comfortable and no acute distress Orientation/consciousness: patient oriented x3 HEENT Other: Unremarkable Head: Yes normal to inspection Neck Neck: Yes normal visual inspection Chest Chest palpation & inspection: normal inspection of the chest Resp Auscultation: clear to auscultation bilaterally Cardio Palpation: normal PMI Heart sounds: S1 normal heart sound present, S2 normal heart sound present, no gallops, Murmur heart sound present systolic III/ and at the right sternal border and no rubs GI Palpation (GI): Soft to palpation Back/Spine/Pelvis Other: unremarkable Skin General skin exam: no rashes or lesions noted Neuro General: patient oriented x3 Extrem General: Yes normal to inspection Psych Mental Status: mental status grossly normal Objective Labs and Meds 09/05/22 06:24 09/05/22 06:24 Lab results: Laboratory Results - last 24 hr 09/04/22 09/04/22 09/04/22 06:03 07:38 11:16 WBC RBC Hgb Hct MCV MCH MCHC RDW Plt Count MPV Absolute Nucleated RBC Nucleated RBC % (auto) Neutrophils % (Manual) Band Neutrophils % Lymphocytes % (Manual) Monocytes % (Manual) Abs Neuts (Manual) Lymphocytes # (Manual) Monocytes # (Manual) Platelet Estimate Plt Morphology Comment RBC Morphology Acanthocytes (Spur) Schistocytes Smear Path Review SEE NOTE Sodium Potassium Chloride Carbon Dioxide Anion Gap BUN Creatinine Estim Creat Clear Calc Estimated GFR POC Glucose 284 H Random Glucose Calcium Blood Type A Positive Antibody Screen NEGATIVE RALPH, Polyspecific Positive RALPH Work-up Crossmatch See Detail 09/04/22 09/04/22 09/04/22 16:06 19:28 19:35 WBC RBC Hgb 6.8 L* Hct 19.9 L* MCV MCH MCHC RDW Plt Count MPV Absolute Nucleated RBC Nucleated RBC % (auto) Neutrophils % (Manual) Band Neutrophils % Lymphocytes % (Manual) Monocytes % (Manual) Abs Neuts (Manual) Lymphocytes # (Manual) Monocytes # (Manual) Platelet Estimate Plt Morphology Comment RBC Morphology Acanthocytes (Spur) Schistocytes Smear Path Review Sodium Potassium Chloride Carbon Dioxide Anion Gap BUN Creatinine Estim Creat Clear Calc Estimated GFR POC Glucose 282 H 259 H Random Glucose Calcium Blood Type Antibody Screen RALPH, Polyspecific Positive RALPH Work-up Crossmatch 09/05/22 09/05/22 09/05/22 06:24 06:24 07:30 WBC 14.7 H RBC 2.28 L Hgb 7.2 L Hct 21.3 L MCV 93.4 MCH 31.6 MCHC 33.8 RDW 14.2 Plt Count 146 L MPV 11.0 Absolute Nucleated RBC 0.000 Nucleated RBC % (auto) 0.0 Neutrophils % (Manual) 94 H Band Neutrophils % 1 L Lymphocytes % (Manual) 4 L Monocytes % (Manual) 1 L Abs Neuts (Manual) 14.0 H Lymphocytes # (Manual) 0.6 L Monocytes # (Manual) 0.1 Platelet Estimate NORMAL Plt Morphology Comment NORMAL RBC Morphology NOTED Acanthocytes (Spur) 2+ (3-5) Schistocytes 1+ (0-2) Smear Path Review TNP Sodium 139 Potassium 4.5 Chloride 109 H Carbon Dioxide 19 L Anion Gap 16 BUN 156 H Creatinine 3.73 H Estim Creat Clear Calc 18.4 Estimated GFR 16 POC Glucose Random Glucose 168 H Calcium 8.6 Blood Type Antibody Screen RALPH, Polyspecific NEGATIVE Positive RALPH Work-up TNP Crossmatch 09/05/22 08:00 WBC RBC Hgb Hct MCV MCH MCHC RDW Plt Count MPV Absolute Nucleated RBC Nucleated RBC % (auto) Neutrophils % (Manual) Band Neutrophils % Lymphocytes % (Manual) Monocytes % (Manual) Abs Neuts (Manual) Lymphocytes # (Manual) Monocytes # (Manual) Platelet Estimate Plt Morphology Comment RBC Morphology Acanthocytes (Spur) Schistocytes Smear Path Review Sodium Potassium Chloride Carbon Dioxide Anion Gap BUN Creatinine Estim Creat Clear Calc Estimated GFR POC Glucose 165 H Random Glucose Calcium Blood Type Antibody Screen RALPH, Polyspecific Positive RALPH Work-up Crossmatch Imaging Radiologist's impression: Impressions Abdomen/Pelvis CT 09/04/22 21:00 IMPRESSION: Chronic appearing and postoperative changes as described. Small bilateral effusions and dependent airspace disease. I do not appreciate any acute intra-abdominal process. I do not appreciate any evidence for retroperitoneal hematoma. Progress Note: A&P Assessment and plan (1) Nonrheumatic aortic (valve) stenosis: Status: Acute (2) Acute on chronic diastolic (congestive) heart failure: Status: Acute (3) Hypertensive emergency: Status: Acute Plan In the current echocardiogram, hyperdynamic LVEF. Mean gradient across the aortic valve is 38 mm Hg with a peak of 62 mm Hg. Dimensionless index 0.35. Overall, this is moderate to severe aortic stenosis. Valve area is larger than expected due to large LVOT diameter. This is not helping with the current situation and contribute to some symptoms but not the main issue. Otherwise, has markedly high BUN and elevated creatinine. From nephrology notes, it seems that he is approaching dialysis. Timing it to be decided. Also quite anemic an etiology for that is not very clear. Overall, from the cardiac standpoint, no immediate plan for valve interventions. His renal and other issues will need to be addressed 1st. If appropriate, start dialysis. Diuretics as advised by renal as he already has advanced renal disease. Otherwise, blood pressure management, considering the fact he also has a history of orthostatic hypotension and syncope. Will follow up with you. Discussed with Evelyn Carr. Time Spent With Patient Time: Total time managing care of this patient today 45 minutes. Progress Note: Quality Stroke Does the patient have a stroke diagnosis?: No Procedures Date of Service Date of Service: 09/05/22
[2022-09-05 11:01] LABS: Glucose, Whole Blood 236 mg/dL (60-115)
--- NOTE | 2022-09-05 11:19 | P.PNIM_ITS ---
Subjective Subjective Date of Service: 09/05/22 Interval History: seen and examined this morning follow up for CHF, anemia received a second unit of blood overnight, denies any active bleeding still feeling sob with movement and overall tired. no chest pain Review of Systems Review of Systems: Yes all other systems are reviewed and are negative Constitutional Constitutional: Denies chills and Denies fever(s) Cardiovascular Cardiovascular: Denies chest pain, Denies palpitations and Reports dyspnea on exertion Respiratory Respiratory: Reports dyspnea on exertion Gastrointestinal Gastrointestinal: Denies abdominal pain, Denies nausea and Denies vomiting Endocrine Endocrine: Denies palpitations Physical Exam Vital Signs: Vital Signs: Last Vital Signs Temp 98.2 F 09/05/22 07:58 Pulse 66 09/05/22 10:03 Resp 20 09/05/22 07:58 BP 149/62 H 09/05/22 10:03 Pulse Ox 97 09/05/22 07:58 O2 Del Method 09/05/22 07:58 O2 Flow Rate 2 09/05/22 07:58 Oxygen Flow Rate 4 09/02/22 18:02 BMI result Body Mass Index 43.2 Const: General: alert and awake Nutritional Appearance: obese Orientation/consciousness: patient oriented x3 Resp: Other: fine basilar rales Effort & Inspection: no respiratory distress and no use of accessory muscles Cardio: Rate: regular rate Heart sounds: Murmur heart sound present GI: Inspection: No distended Palpation (GI): Soft to palpation Neuro: General: patient oriented x3 and CN's II-XI intact bilaterally Extrem: Other: trace edema Objective Data Active Medications Acetaminophen (Acetaminophen 325 Mg Tablet) 650 mg PO Q6H PRN PRN Reason: Pain, Mild (Pain Scale 1-3) Last Admin: 09/04/22 11:48 Dose: 650 mg Documented By: FELIPE Allopurinol (Allopurinol 100 Mg Tablet) 100 mg PO DAILY [facility] Last Admin: 09/05/22 08:35 Dose: 100 mg Documented By: OSIRIS Amlodipine Besylate (Amlodipine Besylate 10 Mg Tablet) 10 mg PO DAILY [facility]; Protocol Last Admin: 09/05/22 08:34 Dose: 10 mg Documented By: OSIRIS Aspirin (Aspirin Enteric Coated 81 Mg Tablet.) 81 mg PO BEDTIME [facility] Last Admin: 09/04/22 21:08 Dose: 81 mg Documented By: NEFTALY Atorvastatin Calcium (Atorvastatin Calcium 80 Mg Tablet) 80 mg PO BEDTIME [facility] Last Admin: 09/04/22 21:06 Dose: 80 mg Documented By: CASTILLennie Benzonatate (Benzonatate 100 Mg Capsule) 100 mg PO TID PRN PRN Reason: Cough Clonidine HCl (Clonidine Hcl 0.2 Mg Tablet) 0.2 mg PO BID [facility]; Protocol Last Admin: 09/05/22 08:35 Dose: 0.2 mg Documented By: OSIRIS Docusate Sodium (Docusate Sodium 100 Mg Capsule) 100 mg PO DAILY PRN PRN Reason: Constipation Enoxaparin Sodium (Enoxaparin Sodium 30 Mg/0.3 Ml Syringe) 30 mg SUBCUT Q24H SC H Last Admin: 09/03/22 21:12 Dose: 30 mg Documented By: ODRISLennie Ferrous Sulfate (Ferrous Sulfate 324 Mg Tablet.Dr) 324 mg PO DAILY [facility] Last Admin: 09/05/22 08:35 Dose: 324 mg Documented By: OSIRIS Finasteride (Finasteride 5 Mg Tablet) 5 mg PO DAILY [facility] Last Admin: 09/05/22 08:35 Dose: 5 mg Documented By: OSIRIS Glucose (Glucose Gel 15 Gm Gel..Gram.) 15 gm PO Q15M PRN; Protocol PRN Reason: per Hypoglycemia Standing Ord. Hydralazine HCl (Hydralazine Hcl 50 Mg Tablet) 100 mg PO TID [facility]; Protocol Last Admin: 09/05/22 08:35 Dose: 100 mg Documented By: OSIRIS Dextrose (D10) 250 mls @ 750 mls/hr IV Q15M PRN; Protocol PRN Reason: per Hypoglycemia Standing Ord. Insulin Glargine (Insulin Glargine,Hum.Rec.Anlog 100 Unit/Ml 10 Ml Vial) 50 unit SUBCUT DAILY [facility] Last Admin: 09/05/22 08:35 Dose: 50 unit Documented By: OSIRIS Insulin Human Lispro (Insulin Lispro 100 Unit/Ml 3 Ml Vial) 0 unit SUBCUT QIDACHS [facility]; Protocol Last Admin: 09/05/22 11:09 Dose: 4 unit Documented By: OSIRIS Labetalol HCl (Labetalol Hcl 100 Mg Tablet) 100 mg PO DAILY [facility]; Protocol Last Admin: 09/05/22 08:35 Dose: 100 mg Documented By: OSIRIS Omeprazole (Omeprazole 20 Mg Capsule.) 20 mg PO DAILY@0630 [facility] Last Admin: 09/05/22 05:16 Dose: 20 mg Documented By: NEFTALY Ondansetron HCl (Ondansetron Hcl 4 Mg/2 Ml Vial) 4 mg IVPUSH Q8H PRN PRN Reason: Nausea and Vomiting Pharmacy Consult (Consult Rx Perform Med Rec) 1 each MISCELLANE ONCE PRN PRN Reason: Consult order Sodium Chloride (0.9 % Sodium Chloride Flush 3 Ml Syringe) 3 ml IVFLUSH QSHIFT [facility] Last Admin: 09/05/22 08:35 Dose: 3 ml Documented By: OSIRIS Tamsulosin HCl (Tamsulosin Hcl 0.4 Mg Capsule) 0.4 mg PO BEDTIME [facility] Last Admin: 09/04/22 21:08 Dose: 0.4 mg Documented By: NEFTALY Labs 09/05/22 06:24 09/05/22 06:24 Labs: Laboratory Results - last 24 hr 09/04/22 09/04/22 09/04/22 06:03 07:38 11:16 MCV MCH MCHC RDW Plt Count MPV Absolute Nucleated RBC Nucleated RBC % (auto) Neutrophils % (Manual) Band Neutrophils % Lymphocytes % (Manual) Monocytes % (Manual) Abs Neuts (Manual) Lymphocytes # (Manual) Monocytes # (Manual) Platelet Estimate Plt Morphology Comment RBC Morphology Acanthocytes (Spur) Schistocytes Smear Path Review SEE NOTE Anion Gap Estim Creat Clear Calc Estimated GFR POC Glucose 284 H Random Glucose Calcium Blood Type A Positive Antibody Screen NEGATIVE RALPH, Polyspecific Positive RALPH Work-up Crossmatch See Detail 09/04/22 09/04/22 09/05/22 16:06 19:35 06:24 MCV 93.4 MCH 31.6 MCHC 33.8 RDW 14.2 Plt Count 146 L MPV 11.0 Absolute Nucleated RBC 0.000 Nucleated RBC % (auto) 0.0 Neutrophils % (Manual) 94 H Band Neutrophils % 1 L Lymphocytes % (Manual) 4 L Monocytes % (Manual) 1 L Abs Neuts (Manual) 14.0 H Lymphocytes # (Manual) 0.6 L Monocytes # (Manual) 0.1 Platelet Estimate NORMAL Plt Morphology Comment NORMAL RBC Morphology NOTED Acanthocytes (Spur) 2+ (3-5) Schistocytes 1+ (0-2) Smear Path Review TNP Anion Gap Estim Creat Clear Calc Estimated GFR POC Glucose 282 H 259 H Random Glucose Calcium Blood Type Antibody Screen RALPH, Polyspecific Positive RALPH Work-up Crossmatch 09/05/22 09/05/22 09/05/22 06:24 07:30 08:00 MCV MCH MCHC RDW Plt Count MPV Absolute Nucleated RBC Nucleated RBC % (auto) Neutrophils % (Manual) Band Neutrophils % Lymphocytes % (Manual) Monocytes % (Manual) Abs Neuts (Manual) Lymphocytes # (Manual) Monocytes # (Manual) Platelet Estimate Plt Morphology Comment RBC Morphology Acanthocytes (Spur) Schistocytes Smear Path Review Anion Gap 16 Estim Creat Clear Calc 18.4 Estimated GFR 16 POC Glucose 165 H Random Glucose 168 H Calcium 8.6 Blood Type Antibody Screen RALPH, Polyspecific NEGATIVE Positive RALPH Work-up TNP Crossmatch 09/05/22 10:56 MCV MCH MCHC RDW Plt Count MPV Absolute Nucleated RBC Nucleated RBC % (auto) Neutrophils % (Manual) Band Neutrophils % Lymphocytes % (Manual) Monocytes % (Manual) Abs Neuts (Manual) Lymphocytes # (Manual) Monocytes # (Manual) Platelet Estimate Plt Morphology Comment RBC Morphology Acanthocytes (Spur) Schistocytes Smear Path Review Anion Gap Estim Creat Clear Calc Estimated GFR POC Glucose 236 H Random Glucose Calcium Blood Type Antibody Screen RALPH, Polyspecific Positive RALPH Work-up Crossmatch Microbiology Microbiology Results: Microbiology 09/02/22 19:09 Urine Culture - Final Urine clean catch - Urine staples top Jyoti parapsilosis 09/02/22 19:23 Blood Culture - Preliminary Blood - Venous No growth after 48 hours. 09/02/22 19:23 Blood Culture - Preliminary Blood - Venous No growth after 48 hours. Assessment and Plan (1) CKD stage 4 due to type 1 diabetes mellitus: Status: Acute (2) SHAINA (acute kidney injury): Status: Acute (3) Anemia: Status: Acute (4) Acute on chronic diastolic (congestive) heart failure: Status: Acute Plan Pt is a 82-year-old male with a PMH significant for?CKD stage 4, COPD, [id number], hypertension,? CHAYITO on CPAP, history of prostate cancer, history of CAD, and hx of PR who presents to the ED with?worsening shortness of breath, cough, and fatigue. Patient be admitted to the hospital on telemetry for treatment of for evaluation acute CHF exacerbation. 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 Discussed with hematology - anemia likley multifactorial due to recent PNA, anemia of chronic disease related to progressing CKD, possible chronic GI losses - recommend to transfuse prn s/p 2U rbc, will repeat CBC this afternoon follow CBC closely Chest pain. Resolved. twave inversion III, aVF trops 56.7, 55.6 seen by cardiology likely related to decreased clearance r/t CKD not candidate for cardiac cath at this time Insulin-dependent diabetes with hyperglycemia home dose of Lantus 70U, was started on 40U, increased to 50 units continue SSI CKD stage 4 creatinine trending up AV fistula placed, not yet on dialysis Nephrology following Hyperkalemia resolved with lokelma follow BMP Urinary pain/retention Pt had Tomlin catheter placed on 08/18 in ED Continue Tomlin catheter, Flomax HTN Continue home dose of clonidine, hydralazine, labetalol, amlodipine HLD Continue home meds Full Code Attending:?Dr. Fernandes DVT Prophylaxis: hold lovenox/aspirin for anemia, SCDs Requires ongoing inpatient hospitalization for management of acute CHF exacerbation, anemia Time Spent With Patient Time: Total time managing care of this patient today ____ minutes. Quality Stroke Does the patient have a stroke diagnosis?: No VTE Prior VTE?: No VTE Risk Level:: Medical - moderate - high VTE Device Contraindication: Treatment Not Indicated VTE Drug Contraindication: N/A - Med Ordered
[2022-09-05 12:00] LABS: Hematocrit 21.2 % (42.0-52.0); Hemoglobin 7.2 g/dl (14.0-18.0)
[2022-09-05] MEDS: Furosemide 40 MG/4 ML VIAL IVPUSH (13:46)
[2022-09-05 14:20] LABS: OBS Int Ctl Valid YES; OBS1 POSITIVE (NEGATIVE)
[2022-09-05 15:24] LABS: Glucose, Whole Blood 283 mg/dL (60-115)
[2022-09-05 16:11] LABS: Glucose, Whole Blood 311 mg/dL (60-115)
[2022-09-05 19:55] LABS: Glucose, Whole Blood 305 mg/dL (60-115)
[2022-09-05] MEDS: Atorvastatin Calcium 80 MG TABLET PO (20:16)
[2022-09-05] MEDS: Tamsulosin HCL 0.4 MG CAPSULE PO (20:16)
[2022-09-05] MEDS: Sodium Bicarbonate 650 MG TABLET PO (20:16)
--- NOTE | 2022-09-05 22:00 | PM.PNNEP ---
Subjective Subjective Date of Service: 09/05/22 Interval history: seen and examined this morning follow up for CHF, anemia received a second unit of blood overnight, denies any active bleeding still feeling sob with movement and overall tired. no chest pain Physical Exam Vital Signs: Vital Signs: Last Vital Signs Temp 98.2 F 09/05/22 19:12 Pulse 66 09/05/22 19:12 Resp 20 09/05/22 20:24 BP 150/67 H 09/05/22 19:12 Pulse Ox 96 09/05/22 19:12 O2 Del Method 09/05/22 19:12 O2 Flow Rate 2 09/05/22 15:20 Oxygen Flow Rate 4 09/02/22 18:02 BMI result Body Mass Index 43.2 Const: General: alert and awake Nutritional Appearance: obese Orientation/consciousness: patient oriented x3 Resp: Other: fine basilar rales Effort & Inspection: no respiratory distress and no use of accessory muscles Cardio: Rate: regular rate Heart sounds: Murmur heart sound present GI: Inspection: No distended Palpation (GI): Soft to palpation Neuro: General: patient oriented x3 and CN's II-XI intact bilaterally Extrem: Other: trace edema Objective Data Labs 09/05/22 11:44 09/05/22 06:24 Labs: Laboratory Results - last 24 hr 09/04/22 09/04/22 09/05/22 06:03 07:38 06:24 WBC 14.7 H RBC 2.28 L Hgb 7.2 L Hct 21.3 L MCV 93.4 MCH 31.6 MCHC 33.8 RDW 14.2 Plt Count 146 L MPV 11.0 Absolute Nucleated RBC 0.000 Nucleated RBC % (auto) 0.0 Neutrophils % (Manual) 94 H Band Neutrophils % 1 L Lymphocytes % (Manual) 4 L Monocytes % (Manual) 1 L Abs Neuts (Manual) 14.0 H Lymphocytes # (Manual) 0.6 L Monocytes # (Manual) 0.1 Platelet Estimate NORMAL Plt Morphology Comment NORMAL RBC Morphology NOTED Acanthocytes (Spur) 2+ (3-5) Schistocytes 1+ (0-2) Smear Path Review SEE NOTE TNP Sodium Potassium Chloride Carbon Dioxide Anion Gap BUN Creatinine Estim Creat Clear Calc Estimated GFR POC Glucose Random Glucose Calcium Stool Occult Blood Blood Type A Positive Antibody Screen NEGATIVE RALPH, Polyspecific Positive RALPH Work-up Crossmatch See Detail 09/05/22 09/05/22 09/05/22 06:24 07:30 08:00 WBC RBC Hgb Hct MCV MCH MCHC RDW Plt Count MPV Absolute Nucleated RBC Nucleated RBC % (auto) Neutrophils % (Manual) Band Neutrophils % Lymphocytes % (Manual) Monocytes % (Manual) Abs Neuts (Manual) Lymphocytes # (Manual) Monocytes # (Manual) Platelet Estimate Plt Morphology Comment RBC Morphology Acanthocytes (Spur) Schistocytes Smear Path Review Sodium 139 Potassium 4.5 Chloride 109 H Carbon Dioxide 19 L Anion Gap 16 BUN 156 H Creatinine 3.73 H Estim Creat Clear Calc 18.4 Estimated GFR 16 POC Glucose 165 H Random Glucose 168 H Calcium 8.6 Stool Occult Blood Blood Type Antibody Screen RALPH, Polyspecific NEGATIVE Positive RALPH Work-up TNP Crossmatch 09/05/22 09/05/22 09/05/22 10:56 11:44 13:30 WBC RBC Hgb 7.2 L Hct 21.2 L MCV MCH MCHC RDW Plt Count MPV Absolute Nucleated RBC Nucleated RBC % (auto) Neutrophils % (Manual) Band Neutrophils % Lymphocytes % (Manual) Monocytes % (Manual) Abs Neuts (Manual) Lymphocytes # (Manual) Monocytes # (Manual) Platelet Estimate Plt Morphology Comment RBC Morphology Acanthocytes (Spur) Schistocytes Smear Path Review Sodium Potassium Chloride Carbon Dioxide Anion Gap BUN Creatinine Estim Creat Clear Calc Estimated GFR POC Glucose 236 H Random Glucose Calcium Stool Occult Blood POSITIVE Blood Type Antibody Screen RALPH, Polyspecific Positive RALPH Work-up Crossmatch 09/05/22 09/05/22 09/05/22 15:17 16:06 19:50 WBC RBC Hgb Hct MCV MCH MCHC RDW Plt Count MPV Absolute Nucleated RBC Nucleated RBC % (auto) Neutrophils % (Manual) Band Neutrophils % Lymphocytes % (Manual) Monocytes % (Manual) Abs Neuts (Manual) Lymphocytes # (Manual) Monocytes # (Manual) Platelet Estimate Plt Morphology Comment RBC Morphology Acanthocytes (Spur) Schistocytes Smear Path Review Sodium Potassium Chloride Carbon Dioxide Anion Gap BUN Creatinine Estim Creat Clear Calc Estimated GFR POC Glucose 283 H 311 H 305 H Random Glucose Calcium Stool Occult Blood Blood Type Antibody Screen RALPH, Polyspecific Positive RALPH Work-up Crossmatch Microbiology Microbiology Results: Microbiology 09/02/22 19:09 Urine clean catch - Urine staples top Urine Culture - Final Jyoti parapsilosis 09/02/22 19:23 Blood - Venous Blood Culture - Preliminary No growth after 48 hours. 09/02/22 19:23 Blood - Venous Blood Culture - Preliminary No growth after 48 hours. Procedures Date of Service Date of Service: 09/05/22 Assessment & Plan Assessment and plan (1) SHAINA (acute kidney injury): Status: Acute Assessment and Plan: 1. Advanced chronic kidney disease.? Unfortunately, he is now heading toward needing dialysis.? Repetitive hospitalizations suggest that he has had challenges with fluid and volume control.? May need to start dialysis sooner than later.? Our expectations are to hold off starting dialysis this hospitalization,as he has a maturing AVF but we will need to monitor him closely. 2. Etiology for his advanced chronic kidney disease.? 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 3. Hypoxemia.? This is due to a combination of factors including congestive heart failure, obesity hypoventilation, and question of pneumonia.? Overall, he is improving a bit. 4. Anemia.? Question of iron and erythropoietin deficiency.? We will check his iron stores and see about starting him on Procrit. 5. Hemodialysis access.? He has right upper extremity AV fistula, which seems not to have matured and we will need to have it revised. 6. 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 We will check intact PTH and phosphorus and treat this accordingly. 7. Cardiomyopathy.? He has been seen by Cardiology. ? RECOMMENDATIONS:? At this time include the followin. Transfuse as needed to keep Hb > 7.0 - Pt had 1 dose lasix 40 - Reevaluate in AM 2. Protect his right upper extremity as he has an AV fistula- Looks mature to me 3. F/u PTH. 4. continue Procrit. 5. Blood pressure.control 6. Education regarding renal placement therapy and getting him a dialysis spot if he starts dialysis. ? At this juncture, we will hold off placing a PermCath a. Will follow closely and may need to start HD this admission Pt wants to transfer to our practice as per patient and family ? We will follow closely with the team. ? ? (2) CKD stage 4 due to type 1 diabetes mellitus: Status: Acute (3) Acute on chronic diastolic (congestive) heart failure: Status: Acute Time Spent With Patient Time: Total time managing care of this patient today ____ minutes. Progress Note: Quality Stroke Does the patient have a stroke diagnosis?: No
[2022-09-06 03:54] VITALS: BP 154/53; PULSE 69; RESP 18; TEMP 37.1; O2SAT 94
[2022-09-06] MEDS: Omeprazole 20 MG CAPSULE.DR PO (06:30)
[2022-09-06 07:28] LABS: MANUAL DIFF FLAG NO
[2022-09-06 07:39] LABS: Basophils Percent Auto 0.2 % (0-2); Eosinophils Absolute Auto 0.2 X10*3/uL (0.0-0.4); Hematocrit 24.1 % (42.0-52.0); Hemoglobin 8.1 g/dl (14.0-18.0); Imm Gran Abs Auto 0.07 X10*3/uL (0.00-0.03); Imm Gran Pct Auto 0.6 % (0.0-0.4); Lymphocytes Absolute Auto 0.7 X10*3/uL (1.2-4.9); Lymphocytes Percent Auto 6.3 % (20-40); Mean Corpuscular HGB Conc 33.6 g/dl (31.0-36.0); Mean Corpuscular Hemoglobin 31.4 pg (27.0-33.0); Mean Corpuscular Volume 93.4 fL (80.0-98.0); Monocytes Percent Auto 8.5 % (2-11); NRBC Pct Auto 0.2 /100WBC (0.0-0.2); Neutrophils Absolute Auto 9.8 x10*3/uL (2.0-8.3); Neutrophils Percent Auto 82.4 % (45-73); Platelet Count 144 X10*3/uL (160-400); Red Blood Count 2.58 X10*6/uL (4.60-5.80); Red Cell Distribution Width 14.5 % (11.0-16.0); White Blood Count 11.8 X10*3/uL (4.8-10.8)
[2022-09-06 07:45] VITALS: BP 168/72; PULSE 62; RESP 20; TEMP 36.6; O2SAT 97
[2022-09-06 07:59] LABS: Glucose, Whole Blood 177 mg/dL (60-115)
[2022-09-06 08:00] LABS: Anion Gap 17 (12-20); Calcium 8.5 mg/dL (8.4-10.2); Carbon Dioxide 19 mmol/L (22-29); Chloride 107 mmol/L (96-108); Creatinine Clr Calc Pharmacy 19.1; Estimated Glomerular Filt Rate 16; Glucose Random 162 mg/dL (60-115); Potassium 4.2 mmol/L (3.3-5.1); Sodium 139 mmol/L (135-145)
[2022-09-06 08:09] LABS: Blood Urea Nitrogen 155 mg/dL (9-16)
[2022-09-06] MEDS: Finasteride 5 MG TABLET PO (08:31)
[2022-09-06] MEDS: amLODIPine Besylate 10 MG TABLET PO (08:31)
[2022-09-06] MEDS: Sodium Bicarbonate 650 MG TABLET PO ×2 (08:31→19:51)
[2022-09-06] MEDS: cloNIDine HCL 0.2 MG TABLET PO ×2 (08:31→19:52)
[2022-09-06] MEDS: Ferrous Sulfate 324 MG TABLET.DR PO (08:31)
[2022-09-06] MEDS: Insulin Lispro 100 UNIT/ML 3 ML VIAL SUBCUT ×4 (08:31→19:51)
[2022-09-06] MEDS: Insulin Glargine,Hum.rec.anlog 100 UNIT/ML 10 ML VIAL 50 UNIT SUBCUT (08:31)
[2022-09-06] MEDS: 0.9 % Sodium Chloride Flush 3 ML SYRINGE IVFLUSH ×3 (08:32→22:49)
[2022-09-06] MEDS: Labetalol HCL 100 MG TABLET PO (08:32)
[2022-09-06] MEDS: allopurinoL 100 MG TABLET PO (08:32)
[2022-09-06] MEDS: hydrALAZINE HCl 50 MG TABLET 100 MG PO ×3 (08:32→19:52)
[2022-09-06 08:54] LABS: Alanine Aminotransferase 22 U/L (0-40); Albumin Level 2.7 g/dL (3.5-5.0); Alkaline Phosphatase 57 U/L (39-117); Aspartate Amino Transferase 20 U/L (5-37); Bilirubin Direct 0.2 mg/dL (0.0-0.5); Bilirubin Total 0.8 mg/dL (0.0-1.0); Lactate Dehydrogenase 226 U/L (118-273); Total Protein 4.1 g/dL (6.5-8.0)
[2022-09-06 11:36] VITALS: BP 127/80; PULSE 60; RESP 20; TEMP 36.7; O2SAT 98
[2022-09-06 11:46] LABS: Glucose, Whole Blood 263 mg/dL (60-115)
[2022-09-06] MEDS: Docusate Sodium 100 MG CAPSULE PO (11:52)
--- NOTE | 2022-09-06 12:11 | P.CNHO_ITS ---
Subjective - Subjective Chief complaint: Generalized weakness Patient: new to practice Consult date: 09/07/22 Primary Care Provider: Jarred Hughes HPI - Consult Narrative Reason for consult: Worsening anemia Narrative: Claude Kerr is a 82 year old male who is admitted for generalized weakness and worsening kidney functions as well as anemia. He has a history of chronic kidney disease related to diabetes and hypertension. He was admitted in [place] to [facility] for pneumonia. He states that for a few days prior to admission he developed generalized weakness, denies any specific complaints such as chest pain or shortness of breath. No headache or dizziness. No fever or chills, no cough, abdominal discomfort, diarrhea, loss of appetite or weight loss. He had a right arm AV fistula placed for hemodialysis but was told that he may need it [address] He does have a history of NM a year ago as well as aortic stenosis. He denies any heartburn or reflux symptoms. No hematemesis but did develop 1 or 2 dark colored stools recently. He is not on any blood thinners. He has received blood transfusions in the past when he had nephrectomy as well as other surgical procedures. Review of Systems - Constitutional Reports as per HPI, Denies excessive sweating, Reports fatigue, Reports lack of energy, Reports malaise, Denies night sweats, Denies poor appetite, Denies weight loss - Cardiovascular Reports no additional cardiovascular complaints - Respiratory Reports no additional respiratory complaints - Neurologic Reports no additional neurologic complaints, Reports as per HPI, Reports weakne ss [facility] Medical History: Medical History (Last Updated 09/04/22 @ 16:49 by Lavon Smith MD) Acute cystitis without hematuria SHAINA (acute kidney injury) Bacteremia Bladder outlet obstruction Chronic kidney disease, stage II (mild) 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 Diabetes Fever HTN (hypertension) Incomplete emptying of bladder Morbid obesity CHAYITO (obstructive sleep apnea) CHAYITO on CPAP Prostate cancer Pure hypercholesterolemia Weak urinary stream Family History: Family History (Last Reviewed 09/02/22 @ 22:27 by DYLAN Ruelas) Mother CVA (cerebral vascular accident) Surgical History: Surgical History (Last Reviewed 09/02/22 @ 22:27 by DYLAN Ruelas) History of surgery Social History: Social History (Last Reviewed 09/02/22 @ 22:27 by DYLAN Ruelas) Living Situation History: Household Members: Spouse Housing: House Do you presently have visiting nurse or other home services: Yes Alcohol History Details: 1. How often do you have a drink containing alcohol?: a. Never AUDIT-C Alcohol total score: 0 Currently Displaying Signs/Symptoms of Alcohol Withdrawal: No Tobacco History: Patient Tobacco Use Status: Former Tobacco user Smoked in Last 30 Days: No Substance Use History: Use of substances other than those prescribed or required for medical reasons : No Currently Displaying Signs/Symptoms of Drug Intoxication Withdrawal: No Domestic Abuse History: Have you been hit, kicked, punched, or otherwise hurt by someone within the past year? 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 Home Medications and Allergies Current Medications: Current Medications Acetaminophen (Acetaminophen 325 Mg Tablet) 650 mg PO Q6H PRN PRN Reason: Pain, Mild (Pain Scale 1-3) Last Admin: 09/04/22 11:48 Dose: 650 mg Allopurinol (Allopurinol 100 Mg Tablet) 100 mg PO DAILY [facility] Last Admin: 09/06/22 08:32 Dose: 100 mg Amlodipine Besylate (Amlodipine Besylate 10 Mg Tablet) 10 mg PO DAILY [facility]; Protocol Last Admin: 09/06/22 08:31 Dose: 10 mg Aspirin (Aspirin Enteric Coated 81 Mg Tablet.Dr) 81 mg PO BEDTIME [facility] Last Admin: 09/04/22 21:08 Dose: 81 mg Atorvastatin Calcium (Atorvastatin Calcium 80 Mg Tablet) 80 mg PO BEDTIME [facility] Last Admin: 09/05/22 20:16 Dose: 80 mg Benzonatate (Benzonatate 100 Mg Capsule) 100 mg PO TID PRN PRN Reason: Cough Clonidine HCl (Clonidine Hcl 0.2 Mg Tablet) 0.2 mg PO BID [facility]; Protocol Last Admin: 09/06/22 08:31 Dose: 0.2 mg Docusate Sodium (Docusate Sodium 100 Mg Capsule) 100 mg PO DAILY PRN PRN Reason: Constipation Last Admin: 09/06/22 11:52 Dose: 100 mg Enoxaparin Sodium (Enoxaparin Sodium 30 Mg/0.3 Ml Syringe) 30 mg SUBCUT Q24H [facility] Last Admin: 09/03/22 21:12 Dose: 30 mg Ferrous Sulfate (Ferrous Sulfate 324 Mg Tablet.) 324 mg PO DAILY [facility] Last Admin: 09/06/22 08:31 Dose: 324 mg Finasteride (Finasteride 5 Mg Tablet) 5 mg PO DAILY [facility] Last Admin: 09/06/22 08:31 Dose: 5 mg Glucose (Glucose Gel 15 Gm Gel..Gram.) 15 gm PO Q15M PRN; Protocol PRN Reason: per Hypoglycemia Standing Ord. Hydralazine HCl (Hydralazine Hcl 50 Mg Tablet) 100 mg PO TID [facility]; Protocol Last Admin: 09/06/22 08:32 Dose: 100 mg Dextrose (D10) 250 mls @ 750 mls/hr IV Q15M PRN; Protocol PRN Reason: per Hypoglycemia Standing Ord. Insulin Glargine (Insulin Glargine,Hum.Rec.Anlog 100 Unit/Ml 10 Ml Vial) 50 unit SUBCUT DAILY [facility] Last Admin: 09/06/22 08:31 Dose: 50 unit Insulin Human Lispro (Insulin Lispro 100 Unit/Ml 3 Ml Vial) 0 unit SUBCUT QIDACHS [facility]; Protocol Last Admin: 09/06/22 11:50 Dose: 6 unit Labetalol HCl (Labetalol Hcl 100 Mg Tablet) 100 mg PO DAILY [facility]; Protocol Last Admin: 09/06/22 08:32 Dose: 100 mg Omeprazole (Omeprazole 20 Mg Capsule.) 20 mg PO DAILY@0630 [facility] Last Admin: 09/06/22 06:30 Dose: 20 mg Ondansetron HCl (Ondansetron Hcl 4 Mg/2 Ml Vial) 4 mg IVPUSH Q8H PRN PRN Reason: Nausea and Vomiting Pharmacy Consult (Consult Rx Perform Med Rec) 1 each MISCELLANE ONCE PRN PRN Reason: Consult order Sodium Bicarbonate (Sodium Bicarbonate 650 Mg Tablet) 650 mg PO BID [facility] Last Admin: 09/06/22 08:31 Dose: 650 mg Sodium Chloride (0.9 % Sodium Chloride Flush 3 Ml Syringe) 3 ml IVFLUSH QSHIFT [facility] Last Admin: 09/06/22 08:32 Dose: 3 ml Tamsulosin HCl (Tamsulosin Hcl 0.4 Mg Capsule) 0.4 mg PO BEDTIME [facility] Last Admin: 09/05/22 20:16 Dose: 0.4 mg Home Medications Medication Instructions Recorded Confirmed Type allopurinol 100 mg tablet 100 mg PO DAILY 12/05/20 09/02/22 History amlodipine 10 mg tablet 10 mg PO DAILY 12/05/20 09/02/22 History atorvastatin 80 mg tablet 80 mg PO BEDTIME 12/05/20 09/02/22 History insulin aspart U-100 100 unit/mL See Rx Instructions .Route 12/05/20 09/06/22 History subcutaneous solution .COMPLEX PRN HIGH BLOOD SUGAR insulin glargine 100 unit/mL (3 50 unit subcut BEDTIME 12/05/20 09/06/22 History mL) subcutaneous pen (Lantus Solostar U-100 Insulin) aspirin 81 mg tablet,delayed 81 mg PO BEDTIME 09/02/21 09/02/22 History release clonidine HCl 0.2 mg tablet 0.2 mg PO BID 09/02/21 09/02/22 History ferrous gluconate 324 mg (38 mg 324 mg PO DAILY 08/18/22 09/02/22 History iron) tablet furosemide 20 mg tablet 1 tab PO DAILY 09/02/22 09/02/22 History hydralazine 100 mg tablet 100 mg PO TID 09/02/22 09/02/22 History tamsulosin 0.4 mg capsule 1 cap PO BEDTIME 09/02/22 09/02/22 History labetalol 100 mg tablet 100 mg PO DAILY 09/03/22 09/03/22 History Allergies Allergy/AdvReac Type Severity Reaction Status Date / Time vancomycin Allergy Intermediate Rash Verified 09/02/22 20:01 levofloxacin [From Levaquin] Allergy Mild paralized Verified 09/02/22 17:53 amoxicillin [AMOXICILLIN] Allergy Unknown ANAPHYLAXIS Verified 09/02/22 17:53 famotidine Allergy Unknown unknown Verified 09/02/22 17:53 hydrochlorothiazide Allergy Unknown unknown Verified 09/02/22 17:53 lisinopril [LISINOPRIL] Allergy Unknown UNKNOWN Verified 09/02/22 17:53 losartan Allergy Unknown unknown Verified 09/02/22 17:53 spironolactone Allergy Unknown unknown Verified 09/02/22 17:53 sulfamethoxazole AdvReac Intermediate C-DIFF, Verified 09/02/22 17:53 [From BACTRIM] REDUCED KIDNEY FX trimethoprim [From BACTRIM] AdvReac Intermediate C-DIFF, Verified 09/02/22 17:53 REDUCED KIDNEY FX Physical Exam Vital signs: Vital Signs Temp 98.1 F 09/06/22 11:36 Pulse 60 09/06/22 11:36 Resp 20 09/06/22 11:36 BP 127/80 09/06/22 11:36 Pulse Ox 98 09/06/22 11:36 O2 Del Method 09/06/22 11:36 O2 Flow Rate 2 09/06/22 11:36 Intake & Output 09/05/22 09/06/22 09/06/22 17:59 06:59 18:59 Intake Total Output Total Balance Urine Output (Average ml/kg/hr) Intake: Intake, Oral Amount Intake (Blood Product) Amount Red Blood Cells (E0382) Unit [id number] Output: Output, Urine Amount Output, Urine Amount (Catheter) 2-way Urethral [place] Other: Breakfast % Eaten Lunch % Eaten Number of Bowel Movements Urine Urine Color Last Bowel Movement Stool Stool Amount Stool Color Stool Consistency Weight 117.934 kg - Constitutional Present: no acute distress, obese - Routine HEENT Exam Head: Present: normal inspection Eye: Present: EOMI, normal appearance - Routine Neck Exam Present: supple - Routine Respiratory Exam Absent: accessory muscle use - Routine Cardiovascular Exam Cardiovascular: Present: S1, S2, murmur - Routine Abdominal Exam Present: soft - Routine Extremities Exam Absent: pedal edema - Routine Skin Exam Present: intact. Absent: cyanosis Hem/Onc Consult Result - Labs CBC & Chem 7: 09/07/22 05:45 09/06/22 06:34 Labs: Short CBC 09/05/22 09/06/22 Range/Units 11:44 06:34 WBC 11.8 H (4.8-10.8) X10*3/uL Hgb 7.2 L 8.1 L (14.0-18.0) g/dl Hct 21.2 L 24.1 L (42.0-52.0) % Plt Count 144 L (160-400) X10*3/uL BMP 09/06/22 06:34 Sodium 139 Potassium 4.2 Chloride 107 Carbon Dioxide 19 L BUN 155 H Creatinine 3.60 H Calcium 8.5 Liver Function 09/06/22 Range/Units 06:34 Total Bilirubin 0.8 (0.0-1.0) mg/dL Direct Bilirubin 0.2 (0.0-0.5) mg/dL AST 20 (5-37) U/L ALT 22 (0-40) U/L Alkaline Phosphatase 57 (39-117) U/L Albumin 2.7 L (3.5-5.0) g/dL Assessment and Plan Patient Active problem list reviewed?: Yes (1) Anemia Status: Acute Assessment and plan: 1. This is a 82 y/o male with multiple medical problems chiefly, chronic kidney disease, COPD, IDDM, CAD, CHAYITO now presenting with acute worsening of chronic anemia. He was recently admitted to hospital for PNA and treated with antibiotcics. He does report some dark colored stools, he is heme-positive, but no overt symptoms of GI bleeding. He has no hematinic deficiencies, LDH and coagulations tests are normal. CT abd/pelvis shows no intra-abdominal bleed or signs of malignancy, he has a history of prostate cancer. Most probable cause of anemia is multifactorial, chronic kidney disease, fraility/poor nutrition, recent PNA, mild GI blood losses probably contributing. No signs or symptoms for any acute process such as DIC, myelophthisic process or acute bone marrow process such as leukemia. I agree with blood transfusions to keep his hemoglobin around 8- 9 gram/dL. I thank you for this consult, will follow with you. - Time Spent With Patient Time Spent with Patient (in minutes): 15
--- NOTE | 2022-09-06 12:33 | P.PNIM_ITS ---
Subjective Subjective Date of Service: 09/06/22 Interval History: seen and examined this morning follow up for anemia, CHF feeling better this morning, has more energy, breathing easier no rectal bleeding, no abdominal pain Review of Systems Review of Systems: Yes all other systems are reviewed and are negative Constitutional Constitutional: Denies chills and Denies fever(s) ENT Ears, Nose, Mouth, and Throat: Denies dizziness Cardiovascular Cardiovascular: Denies chest pain, Denies palpitations and Denies dyspnea Respiratory Respiratory: Denies cough and Denies dyspnea Gastrointestinal Gastrointestinal: Denies abdominal pain, Denies nausea and Denies vomiting Neurologic Neurologic: Denies dizziness Endocrine Endocrine: Denies palpitations Physical Exam Vital Signs: Vital Signs: Last Vital Signs Temp 98.1 F 09/06/22 11:36 Pulse 60 09/06/22 11:36 Resp 20 09/06/22 11:36 BP 127/80 09/06/22 11:36 Pulse Ox 98 09/06/22 11:36 O2 Del Method 09/06/22 11:36 O2 Flow Rate 2 09/06/22 11:36 Oxygen Flow Rate 4 09/02/22 18:02 BMI result Body Mass Index 43.2 Const: General: alert and awake Nutritional Appearance: obese Orientation/consciousness: patient oriented x3 Resp: Effort & Inspection: no respiratory distress and no use of accessory muscles Cardio: Rate: regular rate Heart sounds: Murmur heart sound present GI: Inspection: No distended Palpation (GI): Soft to palpation Neuro: General: patient oriented x3 and CN's II-XI intact bilaterally Extrem: Other: trace edema Objective Data Active Medications Acetaminophen (Acetaminophen 325 Mg Tablet) 650 mg PO Q6H PRN PRN Reason: Pain, Mild (Pain Scale 1-3) Last Admin: 09/04/22 11:48 Dose: 650 mg Documented By: FELIPE Allopurinol (Allopurinol 100 Mg Tablet) 100 mg PO DAILY [facility] Last Admin: 09/06/22 08:32 Dose: 100 mg Documented By: OSIRIS Amlodipine Besylate (Amlodipine Besylate 5 Mg Tablet) 5 mg PO DAILY [facility]; Protocol Aspirin (Aspirin Enteric Coated 81 Mg Tablet.) 81 mg PO BEDTIME [facility] Last Admin: 09/04/22 21:08 Dose: 81 mg Documented By: CASTILLennie Atorvastatin Calcium (Atorvastatin Calcium 80 Mg Tablet) 80 mg PO BEDTIME [facility] Last Admin: 09/05/22 20:16 Dose: 80 mg Documented By: BELA Benzonatate (Benzonatate 100 Mg Capsule) 100 mg PO TID PRN PRN Reason: Cough Bumetanide (Bumetanide 1 Mg Tablet) 1 mg PO BID@0800,1700 [facility]; Protocol Clonidine HCl (Clonidine Hcl 0.2 Mg Tablet) 0.2 mg PO BID [facility]; Protocol Last Admin: 09/06/22 08:31 Dose: 0.2 mg Documented By: OSIRIS Docusate Sodium (Docusate Sodium 100 Mg Capsule) 100 mg PO DAILY PRN PRN Reason: Constipation Last Admin: 09/06/22 11:52 Dose: 100 mg Documented By: OSIRIS Enoxaparin Sodium (Enoxaparin Sodium 30 Mg/0.3 Ml Syringe) 30 mg SUBCUT Q24H [facility] Last Admin: 09/03/22 21:12 Dose: 30 mg Documented By: ALESIA Epoetin Angel (Epoetin Angel 20,000 Unit/Ml Vial) 20,000 unit SUBCUT ONCE ONE Stop: 09/06/22 13:01 Ferrous Sulfate (Ferrous Sulfate 324 Mg Tablet.) 324 mg PO DAILY [facility] Last Admin: 09/06/22 08:31 Dose: 324 mg Documented By: OSIRIS Finasteride (Finasteride 5 Mg Tablet) 5 mg PO DAILY [facility] Last Admin: 09/06/22 08:31 Dose: 5 mg Documented By: OSIRIS Glucose (Glucose Gel 15 Gm Gel..Gram.) 15 gm PO Q15M PRN; Protocol PRN Reason: per Hypoglycemia Standing Ord. Hydralazine HCl (Hydralazine Hcl 50 Mg Tablet) 100 mg PO TID [facility]; Protocol Last Admin: 09/06/22 08:32 Dose: 100 mg Documented By: OSIRIS Dextrose (D10) 250 mls @ 750 mls/hr IV Q15M PRN; Protocol PRN Reason: per Hypoglycemia Standing Ord. Insulin Glargine (Insulin Glargine,Hum.Rec.Anlog 100 Unit/Ml 10 Ml Vial) 50 unit SUBCUT DAILY [facility] Last Admin: 09/06/22 08:31 Dose: 50 unit Documented By: OSIRIS Insulin Human Lispro (Insulin Lispro 100 Unit/Ml 3 Ml Vial) 0 unit SUBCUT QIDACHS [facility]; Protocol Last Admin: 09/06/22 11:50 Dose: 6 unit Documented By: OSIRIS Labetalol HCl (Labetalol Hcl 100 Mg Tablet) 100 mg PO DAILY [facility]; Protocol Last Admin: 09/06/22 08:32 Dose: 100 mg Documented By: OSIRIS Omeprazole (Omeprazole 20 Mg Capsule.) 20 mg PO DAILY@0630 [facility] Last Admin: 09/06/22 06:30 Dose: 20 mg Documented By: BELA Ondansetron HCl (Ondansetron Hcl 4 Mg/2 Ml Vial) 4 mg IVPUSH Q8H PRN PRN Reason: Nausea and Vomiting Pharmacy Consult (Consult Rx Perform Med Rec) 1 each MISCELLANE ONCE PRN PRN Reason: Consult order Sodium Bicarbonate (Sodium Bicarbonate 650 Mg Tablet) 650 mg PO BID [facility] Last Admin: 09/06/22 08:31 Dose: 650 mg Documented By: OSIRIS Sodium Chloride (0.9 % Sodium Chloride Flush 3 Ml Syringe) 3 ml IVFLUSH QSHIFT [facility] Last Admin: 09/06/22 08:32 Dose: 3 ml Documented By: OSIRIS Tamsulosin HCl (Tamsulosin Hcl 0.4 Mg Capsule) 0.4 mg PO BEDTIME [facility] Last Admin: 09/05/22 20:16 Dose: 0.4 mg Documented By: BELA Labs 09/06/22 06:34 09/06/22 06:34 Labs: Laboratory Results - last 24 hr 09/04/22 09/05/22 09/05/22 07:38 13:30 15:17 MCV MCH MCHC RDW Plt Count MPV Immature Gran % (Auto) Neut % (Auto) Lymph % (Auto) [place] % (Auto) Eos % (Auto) Baso % (Auto) Lymph # (Auto) [place] # (Auto) Eos # (Auto) Baso # (Auto) Abs Immat Gran (auto) Absolute Neuts (auto) Absolute Nucleated RBC Nucleated RBC % (auto) Anion Gap Estim Creat Clear Calc Estimated GFR POC Glucose 283 H Random Glucose Calcium Total Bilirubin Direct Bilirubin AST ALT Alkaline Phosphatase Lactate Dehydrogenase Total Protein Albumin Stool Occult Blood POSITIVE Blood Type A Positive Antibody Screen NEGATIVE Crossmatch See Detail 09/05/22 09/05/22 09/06/22 16:06 19:50 06:34 MCV 93.4 MCH 31.4 MCHC 33.6 RDW 14.5 Plt Count 144 L MPV 11.0 Immature Gran % (Auto) 0.6 H Neut % (Auto) 82.4 H Lymph % (Auto) 6.3 L [place] % (Auto) 8.5 Eos % (Auto) 2.0 Baso % (Auto) 0.2 Lymph # (Auto) 0.7 L [place] # (Auto) 1.0 Eos # (Auto) 0.2 Baso # (Auto) 0.0 Abs Immat Gran (auto) 0.07 H Absolute Neuts (auto) 9.8 H Absolute Nucleated RBC 0.020 H Nucleated RBC % (auto) 0.2 Anion Gap Estim Creat Clear Calc Estimated GFR POC Glucose 311 H 305 H Random Glucose Calcium Total Bilirubin Direct Bilirubin AST ALT Alkaline Phosphatase Lactate Dehydrogenase Total Protein Albumin Stool Occult Blood Blood Type Antibody Screen Crossmatch 09/06/22 09/06/22 09/06/22 06:34 07:47 11:37 MCV MCH MCHC RDW Plt Count MPV Immature Gran % (Auto) Neut % (Auto) Lymph % (Auto) [place] % (Auto) Eos % (Auto) Baso % (Auto) Lymph # (Auto) [place] # (Auto) Eos # (Auto) Baso # (Auto) Abs Immat Gran (auto) Absolute Neuts (auto) Absolute Nucleated RBC Nucleated RBC % (auto) Anion Gap 17 Estim Creat Clear Calc 19.1 Estimated GFR 16 POC Glucose 177 H 263 H Random Glucose 162 H Calcium 8.5 Total Bilirubin 0.8 Direct Bilirubin 0.2 AST 20 ALT 22 Alkaline Phosphatase 57 Lactate Dehydrogenase 226 Total Protein 4.1 L Albumin 2.7 L Stool Occult Blood Blood Type Antibody Screen Crossmatch Microbiology Microbiology Results: Microbiology 09/02/22 19:09 Urine Culture - Final Urine clean catch - Urine staples top Jyoti parapsilosis Assessment and Plan (1) CKD stage 4 due to type 1 diabetes mellitus: Status: Acute (2) SHAINA (acute kidney injury): Status: Acute (3) Acute on chronic diastolic (congestive) heart failure: Status: Acute (4) Nonrheumatic aortic (valve) stenosis: Status: Acute (5) Anemia: Status: Acute Plan Pt is a 82-year-old male with a PMH significant for?CKD stage 4, COPD, [id number], hypertension,? CHAYITO on CPAP, history of prostate cancer, history of CAD, and hx of [place]??who presents to the ED with?worsening shortness of breath, cough, and fatigue.? Patient be admitted to the hospital on telemetry for treatment of for evaluation acute CHF exacerbation. Acute HFpEF ECHO with hyperdynamic left ventricular function, moderate to severe , grade I diastolic dysfunction initially treated with IV lasix and net negative 3L. Lasix was held due to anemia and increasing renal function. 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 No overt bleeding - No plan for scope at this time given underlying cardiopulmonary issues iron, B12, folate levels wnl, retic count slightly elevated, but bili and LDH n ormal; smear with occasional schistocytes. Discussed with hematology - anemia likley multifactorial due to recent PNA, anemia of chronic disease related to progressing CKD, chronic GI losses - recommend to transfuse prn ? s/p 3U rbc H/H stable overnight procrit per nephro rec Chest pain. Resolved. twave inversion III, aVF trops 56.7, 55.6 seen by cardiology likely related to decreased clearance r/t CKD not candidate for cardiac cath at this time Insulin-dependent diabetes with hyperglycemia continue Lantus 50 units, SSI CKD stage 4 creatinine trending up RUE AV fistula placed approx 1 month ago started on sodium bicarb Nephrology following, no indication for dialysis at this time - will need outpatient follow up and likely dialysis in near future Hyperkalemia resolved with loenrriquema follow BMP Urinary pain/retention Pt had Tomlin catheter placed on 08/18 in ED Continue Tomlin catheter, [place] outpatient follow up with urology HTN Continue home dose of clonidine, hydralazine, labetalol, amlodipine norvasc decreased from 10 to 5 as likely contributing to leg edema HLD Continue home meds Full Code Attending:?Dr. Velazco DVT Prophylaxis: hold lovenox/aspirin for anemia, SCDs Requires ongoing inpatient hospitalization for management of acute CHF exacerbation, anemia Time Spent With Patient Time: Total time managing care of this patient today ____ minutes. Quality Stroke Does the patient have a stroke diagnosis?: No VTE Prior VTE?: No VTE Risk Level:: Medical - moderate - high VTE Device Contraindication: Treatment Not Indicated VTE Drug Contraindication: N/A - Med Ordered
[2022-09-06] MEDS: Bumetanide 1 MG TABLET PO ×2 (12:48→17:01)
--- NOTE | 2022-09-06 13:09 | PM.PNNEP ---
Subjective Subjective Date of Service: 09/06/22 Interval history: seen and examined this morning follow up for anemia, CHF feeling better this morning, has more energy, breathing easier no rectal bleeding, no abdominal pain Physical Exam Vital Signs: Vital Signs: Last Vital Signs Temp 98.1 F 09/06/22 11:36 Pulse 60 09/06/22 11:36 Resp 20 09/06/22 11:36 BP 127/80 09/06/22 11:36 Pulse Ox 98 09/06/22 11:36 O2 Del Method 09/06/22 11:36 O2 Flow Rate 2 09/06/22 11:36 Oxygen Flow Rate 4 09/02/22 18:02 BMI result Body Mass Index 43.2 Const: General: alert and awake Nutritional Appearance: obese Orientation/consciousness: patient oriented x3 Resp: Effort & Inspection: no respiratory distress and no use of accessory muscles Cardio: Rate: regular rate Heart sounds: Murmur heart sound present GI: Inspection: No distended Palpation (GI): Soft to palpation Neuro: General: patient oriented x3 and CN's II-XI intact bilaterally Extrem: Other: trace edema Objective Data Labs 09/06/22 06:34 09/06/22 06:34 Labs: Laboratory Results - last 24 hr 09/04/22 09/05/22 09/05/22 07:38 13:30 15:17 WBC RBC Hgb Hct MCV MCH MCHC RDW Plt Count MPV Immature Gran % (Auto) Neut % (Auto) Lymph % (Auto) [place] % (Auto) Eos % (Auto) Baso % (Auto) Lymph # (Auto) [place] # (Auto) Eos # (Auto) Baso # (Auto) Abs Immat Gran (auto) Absolute Neuts (auto) Absolute Nucleated RBC Nucleated RBC % (auto) Sodium Potassium Chloride Carbon Dioxide Anion Gap BUN Creatinine Estim Creat Clear Calc Estimated GFR POC Glucose 283 H Random Glucose Calcium Total Bilirubin Direct Bilirubin AST ALT Alkaline Phosphatase Lactate Dehydrogenase Total Protein Albumin Stool Occult Blood POSITIVE Blood Type A Positive Antibody Screen NEGATIVE Crossmatch See Detail 09/05/22 09/05/22 09/06/22 16:06 19:50 06:34 WBC 11.8 H RBC 2.58 L Hgb 8.1 L Hct 24.1 L MCV 93.4 MCH 31.4 MCHC 33.6 RDW 14.5 Plt Count 144 L MPV 11.0 Immature Gran % (Auto) 0.6 H Neut % (Auto) 82.4 H Lymph % (Auto) 6.3 L [place] % (Auto) 8.5 Eos % (Auto) 2.0 Baso % (Auto) 0.2 Lymph # (Auto) 0.7 L [place] # (Auto) 1.0 Eos # (Auto) 0.2 Baso # (Auto) 0.0 Abs Immat Gran (auto) 0.07 H Absolute Neuts (auto) 9.8 H Absolute Nucleated RBC 0.020 H Nucleated RBC % (auto) 0.2 Sodium Potassium Chloride Carbon Dioxide Anion Gap BUN Creatinine Estim Creat Clear Calc Estimated GFR POC Glucose 311 H 305 H Random Glucose Calcium Total Bilirubin Direct Bilirubin AST ALT Alkaline Phosphatase Lactate Dehydrogenase Total Protein Albumin Stool Occult Blood Blood Type Antibody Screen Crossmatch 09/06/22 09/06/22 09/06/22 06:34 07:47 11:37 WBC RBC Hgb Hct MCV MCH MCHC RDW Plt Count MPV Immature Gran % (Auto) Neut % (Auto) Lymph % (Auto) [place] % (Auto) Eos % (Auto) Baso % (Auto) Lymph # (Auto) [place] # (Auto) Eos # (Auto) Baso # (Auto) Abs Immat Gran (auto) Absolute Neuts (auto) Absolute Nucleated RBC Nucleated RBC % (auto) Sodium 139 Potassium 4.2 Chloride 107 Carbon Dioxide 19 L Anion Gap 17 BUN 155 H Creatinine 3.60 H Estim Creat Clear Calc 19.1 Estimated GFR 16 POC Glucose 177 H 263 H Random Glucose 162 H Calcium 8.5 Total Bilirubin 0.8 Direct Bilirubin 0.2 AST 20 ALT 22 Alkaline Phosphatase 57 Lactate Dehydrogenase 226 Total Protein 4.1 L Albumin 2.7 L Stool Occult Blood Blood Type Antibody Screen Crossmatch Microbiology Microbiology Results: Microbiology 09/02/22 19:09 Urine clean catch - Urine staples top Urine Culture - Final Jyoti parapsilosis 09/02/22 19:23 Blood - Venous Blood Culture - Preliminary No growth after 48 hours. 09/02/22 19:23 Blood - Venous Blood Culture - Preliminary No growth after 48 hours. Procedures Date of Service Date of Service: 09/06/22 Assessment & Plan Assessment and plan (1) SHAINA (acute kidney injury): Status: Acute Assessment and Plan: 1. Advanced chronic kidney disease.? Unfortunately, he is now heading toward needing dialysis soon . ? Repetitive hospitalizations suggest that he has had challenges with fluid and volume control.? 2. Etiology for his advanced chronic kidney disease.? 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 3. Hypoxemia.? This is due to a combination of factors including congestive heart failure, obesity hypoventilation, and question of pneumonia.? Overall, he is improving a bit. 4. Anemia.? Question of iron and erythropoietin deficiency.? We will check his iron stores and see about starting him on Procrit. 5. Hemodialysis access.? He has right upper extremity AV fistula, which seems to be maturing . 6. 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 We will check intact PTH and phosphorus and treat this accordingly. 7. Cardiomyopathy.? He has been seen by Cardiology. ? RECOMMENDATIONS:? At this time include the followin. Transfuse as needed to keep Hb > 7.0 2. Protect his right upper extremity as he has an AV fistula- Looks mature to me 3. Start Bumex 1 mg BID 4. continue Procrit.- 20 K x 1 dose today 5. Blood pressure.control 6. Education regarding renal placement therapy and getting him a dialysis spot ? At this juncture, we will hold off placing a PermCath . Will follow closely and may need to start HD this admission Pt and wants to transfer to our practice - He lives in [place] and we will see him in our [facility] after d/c ? We will follow closely with the team. ? ? (2) CKD stage 4 due to type 1 diabetes mellitus: Status: Acute (3) Acute on chronic diastolic (congestive) heart failure: Status: Acute Time Spent With Patient Time: Total time managing care of this patient today ____ minutes. Progress Note: Quality Stroke Does the patient have a stroke diagnosis?: No
[2022-09-06 15:31] VITALS: BP 138/62; PULSE 59; RESP 20; TEMP 36.3; O2SAT 98
[2022-09-06 16:28] LABS: Glucose, Whole Blood 295 mg/dL (60-115)
[2022-09-06 19:18] VITALS: BP 146/65; PULSE 69; RESP 20; TEMP 36.2; O2SAT 98
[2022-09-06 19:45] LABS: Glucose, Whole Blood 287 mg/dL (60-115)
[2022-09-06] MEDS: Atorvastatin Calcium 80 MG TABLET PO (19:53)
[2022-09-06] MEDS: Tamsulosin HCL 0.4 MG CAPSULE PO (19:55)
[2022-09-06 21:04] VITALS: PULSE 78; RESP 20; O2SAT 97
[2022-09-07] VITALS (10 sets, daily range): BP systolic 139–161; BP diastolic 40–86; PULSE 60–76; RESP 16–20; TEMP 36.2–36.9; O2SAT 96–99
[2022-09-07] MEDS: oxyCODONE HCl Immed Release 5 MG TABLET PO (01:52)
--- NOTE | 2022-09-07 02:15 | PC.NURSE ---
0146 Pt complains of cramp in L hand and tightness across lower back which seems to be muscular in nature.MD notified 5mg oxy given with good effect patient resting comfortably.
[2022-09-07] MEDS: Omeprazole 20 MG CAPSULE.DR PO (04:29)
[2022-09-07 06:47] LABS: Hematocrit 23.8 % (42.0-52.0); Mean Corpuscular HGB Conc 33.6 g/dl (31.0-36.0); Mean Corpuscular Hemoglobin 31.5 pg (27.0-33.0); Mean Corpuscular Volume 93.7 fL (80.0-98.0); Mean Platelet Volume 10.9 fL (9.4-12.4); Platelet Count 141 X10*3/uL (160-400); Red Blood Count 2.54 X10*6/uL (4.60-5.80); Red Cell Distribution Width 14.2 % (11.0-16.0)
[2022-09-07 07:57] LABS: Glucose, Whole Blood 135 mg/dL (60-115)
[2022-09-07] MEDS: Bumetanide 1 MG TABLET PO ×2 (09:49→17:00)
[2022-09-07] MEDS: 0.9 % Sodium Chloride Flush 3 ML SYRINGE IVFLUSH ×2 (09:49→17:00)
[2022-09-07] MEDS: Ferrous Sulfate 324 MG TABLET.DR PO (09:50)
[2022-09-07] MEDS: cloNIDine HCL 0.2 MG TABLET PO ×2 (09:50→20:25)
[2022-09-07] MEDS: Insulin Glargine,Hum.rec.anlog 100 UNIT/ML 10 ML VIAL 50 UNIT SUBCUT (09:50)
[2022-09-07] MEDS: amLODIPine Besylate 5 MG TABLET PO (09:50)
[2022-09-07] MEDS: Sodium Bicarbonate 650 MG TABLET PO ×2 (09:50→20:25)
[2022-09-07] MEDS: allopurinoL 100 MG TABLET PO (09:50)
[2022-09-07] MEDS: hydrALAZINE HCl 50 MG TABLET 100 MG PO ×3 (09:50→20:25)
[2022-09-07] MEDS: Labetalol HCL 100 MG TABLET PO (09:50)
[2022-09-07] MEDS: Finasteride 5 MG TABLET PO (09:51)
--- NOTE | 2022-09-07 11:15 | PM.PNCARD ---
Subjective Subjective Date of Service: 09/07/22 Interval history: Seen examined at bedside. Complaining of fatigue and tiredness today. Was transfused packed red blood cells. Denying any chest discomfort. Echocardiography reviewed which showed moderate to severe but valve area was 1.8 because LVOT was measured as 2.5 cm. Physical Exam Vital Signs: Last Vital Signs Temp 98.0 F 09/07/22 07:48 Pulse 62 09/07/22 07:48 Resp 20 09/07/22 07:48 BP 161/70 H 09/07/22 07:48 Pulse Ox 98 09/07/22 07:48 O2 Del Method 09/07/22 07:48 O2 Flow Rate 2 09/07/22 07:48 Oxygen Flow Rate 4 09/02/22 18:02 BMI result Body Mass Index 43.2 GENERAL APPEARANCE: in no acute distress, fatigued. NECK: no carotid bruit, mild jugular venous distention. SKIN: no suspicious lesions, warm and dry. HEART: Ejection systolic murmur aortic area with absent 2nd heart sound, regular rate and rhythm. LUNGS: clear to auscultation bilaterally. ABDOMEN: soft, nontender. EXTREMITIES: Left upper extremity edema. PERIPHERAL PULSES: equal. NEUROLOGIC: No gross deficits, AAO X 3 Objective Labs and Meds 09/07/22 05:45 09/06/22 06:34 Lab results: Laboratory Results - last 24 hr 09/05/22 09/06/22 09/06/22 07:30 11:37 16:21 WBC RBC Hgb Hct MCV MCH MCHC RDW Plt Count MPV Absolute Nucleated RBC Nucleated RBC % (auto) POC Glucose 263 H 295 H Positive RALPH Work-up TNP 09/06/22 09/07/22 09/07/22 19:41 05:45 07:51 WBC 10.0 RBC 2.54 L Hgb 8.0 L Hct 23.8 L MCV 93.7 MCH 31.5 MCHC 33.6 RDW 14.2 Plt Count 141 L MPV 10.9 Absolute Nucleated RBC 0.000 Nucleated RBC % (auto) 0.0 POC Glucose 287 H 135 H Positive RALPH Work-up Progress Note: A&P Assessment and plan (1) Anemia: Status: Acute (2) Acute on chronic diastolic (congestive) heart failure: Status: Acute (3) Nonrheumatic aortic (valve) stenosis: Status: Acute Plan 82-year-old gentleman with complex medical issues including prostate cancer, urinary retention requiring Tomlin catheter, aortic stenosis, advanced CKD and anemia. He is presenting with fatigue and shortness of breath. He was transfused 2 units of blood. Hemoglobin is around 8. BUN is a are 155. This usually points toward upper GI blood loss. Monitor hemoglobin closely. His fatigue could be due to anemia. Listening to his aortic valve, he does not have any 2nd heart sound and the valve appears to be severe. I reviewed his echocardiogram and his left ventricular outflow tract was measured as 2.5 cm and valve area was 1.8. His dimensionless index was also 2.9. I think he has moderate to severe aortic valve stenosis and this will require further assessment in the future. Right now his symptoms are mostly due to anemia and advanced kidney issues. Monitoring the hemoglobin closely and transfuse further if required. GI is already following following him closely. Blood pressure is elevated and if on repeat monitoring continues to be in 150s then can titrate amlodipine to 10 mg daily. Significantly elevated BUN levels and I am not sure whether his fatigue is due to uremia. Clinically he does not look encephalopathic. Nephrology is following him. Thank you for allowing me to participate in the care of your patient. Please feel free to contact me if you have any questions. Time Spent With Patient Time: Total time managing care of this patient today ____ minutes. Progress Note: Quality Stroke Does the patient have a stroke diagnosis?: No Procedures Date of Service Date of Service: 09/07/22
--- NOTE | 2022-09-07 11:27 | HO.PM.IMPN ---
Subjective Subjective Date of Service: 09/07/22 Interval History: follow up for anemia, CHF Feeling weaker today with no energy no rectal bleeding, no abdominal pain Review of Systems Review of Systems: Yes all other systems are reviewed and are negative Constitutional Constitutional: Denies chills and Denies fever(s) ENT Ears, Nose, Mouth, and Throat: Denies dizziness Cardiovascular Cardiovascular: Denies chest pain, Denies palpitations and Denies dyspnea Respiratory Respiratory: Denies cough and Denies dyspnea Gastrointestinal Gastrointestinal: Denies abdominal pain, Denies nausea and Denies vomiting Neurologic Neurologic: Denies dizziness Endocrine Endocrine: Denies palpitations Physical Exam Vital Signs: Vital Signs: Last Vital Signs Temp 98.0 F 09/07/22 07:48 Pulse 62 09/07/22 07:48 Resp 20 09/07/22 07:48 BP 161/70 H 09/07/22 07:48 Pulse Ox 98 09/07/22 07:48 O2 Del Method 09/07/22 07:48 O2 Flow Rate 2 09/07/22 07:48 Oxygen Flow Rate 4 09/02/22 18:02 BMI result Body Mass Index 43.2 Appearing in no acute distress lung sounds are clear to auscultation heart regular rate rhythm, clear S1, S2 positive bowel sounds, abdomen is soft, nontender neuro patient is alert x3, no focal deficits Objective Data Active Medications Acetaminophen (Acetaminophen 325 Mg Tablet) 650 mg PO Q6H PRN PRN Reason: Pain, Mild (Pain Scale 1-3) Last Admin: 09/04/22 11:48 Dose: 650 mg Documented By: FELIPE Allopurinol (Allopurinol 100 Mg Tablet) 100 mg PO DAILY [facility] Last Admin: 09/07/22 09:50 Dose: 100 mg Documented By: JESSICA Amlodipine Besylate (Amlodipine Besylate 5 Mg Tablet) 5 mg PO DAILY [facility]; Protocol Last Admin: 09/07/22 09:50 Dose: 5 mg Documented By: JESSICA Aspirin (Aspirin Enteric Coated 81 Mg Tablet.) 81 mg PO BEDTIME [facility] Last Admin: 09/04/22 21:08 Dose: 81 mg Documented By: ELSIEILLennie Atorvastatin Calcium (Atorvastatin Calcium 80 Mg Tablet) 80 mg PO BEDTIME [facility] Last Admin: 09/06/22 19:53 Dose: 80 mg Documented By: ALEYDA Benzonatate (Benzonatate 100 Mg Capsule) 100 mg PO TID PRN PRN Reason: Cough Bumetanide (Bumetanide 1 Mg Tablet) 1 mg PO BID@0800,1700 [facility]; Protocol Last Admin: 09/07/22 09:49 Dose: 1 mg Documented By: JESSICA Clonidine HCl (Clonidine Hcl 0.2 Mg Tablet) 0.2 mg PO BID [facility]; Protocol Last Admin: 09/07/22 09:50 Dose: 0.2 mg Documented By: JESSICA Docusate Sodium (Docusate Sodium 100 Mg Capsule) 100 mg PO DAILY PRN PRN Reason: Constipation Last Admin: 09/06/22 11:52 Dose: 100 mg Documented By: FOGARTRahul Enoxaparin Sodium (Enoxaparin Sodium 30 Mg/0.3 Ml Syringe) 30 mg SUBCUT Q24H [facility] Last Admin: 09/03/22 21:12 Dose: 30 mg Documented By: ALESIA Ferrous Sulfate (Ferrous Sulfate 324 Mg Tablet.Dr) 324 mg PO DAILY [facility] Last Admin: 09/07/22 09:50 Dose: 324 mg Documented By: JESSICA Finasteride (Finasteride 5 Mg Tablet) 5 mg PO DAILY [facility] Last Admin: 09/07/22 09:51 Dose: 5 mg Documented By: JESSICA Glucose (Glucose Gel 15 Gm Gel..Gram.) 15 gm PO Q15M PRN; Protocol PRN Reason: per Hypoglycemia Standing Ord. Hydralazine HCl (Hydralazine Hcl 50 Mg Tablet) 100 mg PO TID [facility]; Protocol Last Admin: 09/07/22 09:50 Dose: 100 mg Documented By: JESSICA Dextrose (D10) 250 mls @ 750 mls/hr IV Q15M PRN; Protocol PRN Reason: per Hypoglycemia Standing Ord. Insulin Glargine (Insulin Glargine,Hum.Rec.Anlog 100 Unit/Ml 10 Ml Vial) 50 unit SUBCUT DAILY [facility] Last Admin: 09/07/22 09:50 Dose: 50 unit Documented By: JESSICA Insulin Human Lispro (Insulin Lispro 100 Unit/Ml 3 Ml Vial) 0 unit SUBCUT QIDACHS [facility]; Protocol Last Admin: 09/07/22 08:02 Dose: Not Given Documented By: JESSICA Non-Admin Reason: No Insulin Coverage Labetalol HCl (Labetalol Hcl 100 Mg Tablet) 100 mg PO DAILY [facility]; Protocol Last Admin: 09/07/22 09:50 Dose: 100 mg Documented By: JESSICA Omeprazole (Omeprazole 20 Mg Capsule.) 20 mg PO DAILY@0630 [facility] Last Admin: 09/07/22 04:29 Dose: 20 mg Documented By: ALEYDA Ondansetron HCl (Ondansetron Hcl 4 Mg/2 Ml Vial) 4 mg IVPUSH Q8H PRN PRN Reason: Nausea and Vomiting Pharmacy Consult (Consult Rx Perform Med Rec) 1 each MISCELLANE ONCE PRN PRN Reason: Consult order Sodium Bicarbonate (Sodium Bicarbonate 650 Mg Tablet) 650 mg PO BID [facility] Last Admin: 09/07/22 09:50 Dose: 650 mg Documented By: JESSICA Sodium Chloride (0.9 % Sodium Chloride Flush 3 Ml Syringe) 3 ml IVFLUSH QSHIFT [facility] Last Admin: 09/07/22 09:49 Dose: 3 ml Documented By: JESSICA Tamsulosin HCl (Tamsulosin Hcl 0.4 Mg Capsule) 0.4 mg PO BEDTIME [facility] Last Admin: 09/06/22 19:55 Dose: 0.4 mg Documented By: ALEYDA Labs 09/07/22 05:45 09/06/22 06:34 Labs: Laboratory Results - last 24 hr 09/05/22 09/06/22 09/06/22 07:30 11:37 16:21 MCV MCH MCHC RDW Plt Count MPV Absolute Nucleated RBC Nucleated RBC % (auto) POC Glucose 263 H 295 H Positive RALPH Work-up TNP 09/06/22 09/07/22 09/07/22 19:41 05:45 07:51 MCV 93.7 MCH 31.5 MCHC 33.6 RDW 14.2 Plt Count 141 L MPV 10.9 Absolute Nucleated RBC 0.000 Nucleated RBC % (auto) 0.0 POC Glucose 287 H 135 H Positive RALPH Work-up Assessment and Plan (1) CKD stage 4 due to type 1 diabetes mellitus: Status: Acute Plan Pt is a 82-year-old male with a PMH significant for?CKD stage 4, COPD, [id number], hypertension,? CHAYITO on CPAP, history of prostate cancer, history of CAD, and hx of [place]??who presents to the ED with?worsening shortness of breath, cough, and fatigue.? Patient be admitted to the hospital on telemetry for treatment of for evaluation acute CHF exacerbation. CKD stage 4 creatinine trending up RUE AV fistula placed approx 1 month ago started on sodium bicarb Nephrology following, may need to start dialysis this admission but no indication today Acute HFpEF ECHO with hyperdynamic left ventricular function, moderate to severe , grade I diastolic dysfunction initially treated with IV lasix and net negative 3L. Lasix was held due to anemia and increasing renal function. 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 No overt bleeding - No plan for scope at this time given underlying cardiopulmonary issues iron, B12, folate levels wnl, retic count slightly elevated, but bili and LDH normal; smear with occasional schistocytes. Discussed with hematology - anemia likley multifactorial due to recent PNA, anemia of chronic disease related to progressing CKD, chronic GI losses - recommend to transfuse prn ? s/p 3U rbc H/H 8.0/23.8 procrit per nephro Chest pain. Resolved. twave inversion III, aVF trops 56.7, 55.6 seen by cardiology likely related to decreased clearance r/t CKD not candidate for cardiac cath at this time Insulin-dependent diabetes with hyperglycemia continue Lantus 50 units, SSI Hyperkalemia resolved with lokelma follow BMP Urinary pain/retention Pt had Tomlin catheter placed on 08/18 in ED Continue Tomlin catheter, Flomax outpatient follow up with urology HTN Continue home dose of clonidine, hydralazine, labetalol, amlodipine HLD Continue home meds Full Code Attending:?Dr. Velazco DVT Prophylaxis: hold lovenox/aspirin for anemia, SCDs Requires ongoing inpatient hospitalization for management of acute CHF exacerbation, anemia Time Spent With Patient Time: Total time managing care of this patient today ____ minutes. Quality Stroke Does the patient have a stroke diagnosis?: No VTE Prior VTE?: No VTE Risk Level:: Medical - moderate - high VTE Device Contraindication: Treatment Not Indicated VTE Drug Contraindication: N/A - Med Ordered
[2022-09-07 11:35] LABS: Glucose, Whole Blood 266 mg/dL (60-115)
[2022-09-07] MEDS: Insulin Lispro 100 UNIT/ML 3 ML VIAL SUBCUT ×3 (12:15→20:26)
--- NOTE | 2022-09-07 15:05 | MHC.CM.PN ---
EMR REVIEWED, CM MET W/PT AT BEDSIDE TO DISCUSS DISPO, PT'S AND SON IN ROOM WELL. SIF PT RECOMMENDS STR PT IS AGREEABLE AND PREFERRED SNF IS [facility], REFERRAL TO BE PLACED AND CM WILL CONT TO FOLLOW.
[2022-09-07 16:51] LABS: Glucose, Whole Blood 255 mg/dL (60-115)
[2022-09-07 16:56] LABS: Anion Gap 12 (12-20); Blood Urea Nitrogen 136 mg/dL (9-16); Calcium 8.1 mg/dL (8.4-10.2); Carbon Dioxide 21 mmol/L (22-29); Chloride 109 mmol/L (96-108); Creatinine Clr Calc Pharmacy 18.9; Estimated Glomerular Filt Rate 16; Glucose Random 278 mg/dL (60-115); Potassium 4.1 mmol/L (3.3-5.1); Sodium 138 mmol/L (135-145)
[2022-09-07 17:17] LABS: Appearance Urine Turbid; Color Urine Yellow; Glucose Urine UA Negative (Negative); Leukocyte Esterase Urine Large (3+) (Negative); Nitrite Urine Negative (Negative); PH 5.5 (5.0-9.0); UMIC TRIGGER UACC YES; Urine Blood Large (3+) (Negative); Urine Ketones Negative (Negative); Urine Protein 100 (2+) mg/dL (Neg-Trace)
[2022-09-07 17:49] LABS: Bacteria Urine None Seen (None Seen); RBC Urine >20 /HPF (0-2); UACC Culture Trigger YES; WBC Urine >50 /HPF (0-5)
[2022-09-07] MEDS: cefTRIAXone sodium 1 GM in 0.9 % Sodium Chloride 50 ML IV (18:00)
--- NOTE | 2022-09-07 20:04 | PM.PNNEP ---
Subjective Subjective Date of Service: 09/07/22 Interval history: Feeling weaker today with no energy Physical Exam Vital Signs: Vital Signs: Last Vital Signs Temp 97.6 F 09/07/22 19:29 Pulse 76 09/07/22 19:29 Resp 16 09/07/22 19:29 BP 152/42 H 09/07/22 19:29 Pulse Ox 97 09/07/22 19:29 O2 Del Method 09/07/22 19:29 O2 Flow Rate 2 09/07/22 19:29 Oxygen Flow Rate 4 09/02/22 18:02 BMI result Body Mass Index 43.2 Const: General: no acute distress Eyes: EOM: EOMs intact bilaterally Resp: Auscultation: diminished lung sounds Cardio: Rate: regular rate GI: Palpation (GI): Soft to palpation Neuro: General: moves all extremities Objective Data Labs 09/07/22 05:45 09/07/22 16:19 Labs: Laboratory Results - last 24 hr 09/05/22 09/07/22 09/07/22 07:30 05:45 07:51 WBC 10.0 RBC 2.54 L Hgb 8.0 L Hct 23.8 L MCV 93.7 MCH 31.5 MCHC 33.6 RDW 14.2 Plt Count 141 L MPV 10.9 Absolute Nucleated RBC 0.000 Nucleated RBC % (auto) 0.0 Sodium Potassium Chloride Carbon Dioxide Anion Gap BUN Creatinine Estim Creat Clear Calc Estimated GFR POC Glucose 135 H Random Glucose Calcium Total Creatine Kinase Urine Color Urine Appearance Urine pH Ur Specific [place] Urine Protein Urine Glucose (UA) Urine Ketones Urine Blood Urine Nitrite Ur Leukocyte Esterase Urine RBC Urine WBC Ur Squamous Epith Cells Urine Bacteria Hyaline Casts Urine Yeast Positive RALPH Work-up TNP 09/07/22 09/07/22 09/07/22 11:32 16:19 16:48 WBC RBC Hgb Hct MCV MCH MCHC RDW Plt Count MPV Absolute Nucleated RBC Nucleated RBC % (auto) Sodium 138 Potassium 4.1 Chloride 109 H Carbon Dioxide 21 L Anion Gap 12 BUN 136 H Creatinine 3.63 H Estim Creat Clear Calc 18.9 Estimated GFR 16 POC Glucose 266 H 255 H Random Glucose 278 H Calcium 8.1 L Total Creatine Kinase 45 Urine Color Urine Appearance Urine pH Ur Specific [place] Urine Protein Urine Glucose (UA) Urine Ketones Urine Blood Urine Nitrite Ur Leukocyte Esterase Urine RBC Urine WBC Ur Squamous Epith Cells Urine Bacteria Hyaline Casts Urine Yeast Positive RALPH Work-up 09/07/22 Unknown WBC RBC Hgb Hct MCV MCH MCHC RDW Plt Count MPV Absolute Nucleated RBC Nucleated RBC % (auto) Sodium Potassium Chloride Carbon Dioxide Anion Gap BUN Creatinine Estim Creat Clear Calc Estimated GFR POC Glucose Random Glucose Calcium Total Creatine Kinase Urine Color Yellow Urine Appearance Turbid Urine pH 5.5 Ur Specific [place] 1.010 Urine Protein 100 (2+) H Urine Glucose (UA) Negative Urine Ketones Negative Urine Blood Large (3+) H Urine Nitrite Negative Ur Leukocyte Esterase Large (3+) H Urine RBC >20 H Urine WBC >50 H Ur Squamous Epith Cells 3-5 Urine Bacteria None Seen Hyaline Casts 6-10 Urine Yeast Present Positive RALPH Work-up Microbiology Microbiology Results: Microbiology 09/02/22 19:09 Urine clean catch - Urine staples top Urine Culture - Final Jyoti parapsilosis 09/02/22 19:23 Blood - Venous Blood Culture - Preliminary No growth after 48 hours. 09/02/22 19:23 Blood - Venous Blood Culture - Preliminary No growth after 48 hours. Procedures Date of Service Date of Service: 09/07/22 Assessment & Plan Assessment and plan (1) SHAINA (acute kidney injury): Status: Acute Assessment and Plan: 1. Advanced chronic kidney disease.? Unfortunately, he is now heading toward needing dialysis soon . ? Repetitive hospitalizations suggest that he has had challenges with fluid and volume control.? 2. Etiology for his advanced chronic kidney disease.? 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 3. Hypoxemia.? This is due to a combination of factors including congestive heart failure, obesity hypoventilation, and question of pneumonia.? Overall, he is improving a bit. 4. Anemia.? Question of iron and erythropoietin deficiency.? 5. Hemodialysis access.? He has right upper extremity AV fistula, which seems to be maturing . 6. 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 We will check intact PTH and phosphorus and treat this accordingly. 7. Cardiomyopathy.? He has been seen by Cardiology. ? 1. Transfuse as needed to keep Hb > 7.0 2. Protect his right upper extremity as he has an AV fistula- Looks mature to me 3. Continue diuresis 4. Procrit.- 20 K x 1 dose given 5. Blood pressure.control 6. Education regarding renal placement therapy Progress Note: Quality Stroke Does the patient have a stroke diagnosis?: No
[2022-09-07 20:12] LABS: Glucose, Whole Blood 220 mg/dL (60-115)
[2022-09-07] MEDS: Tamsulosin HCL 0.4 MG CAPSULE PO (20:25)
[2022-09-07] MEDS: Atorvastatin Calcium 80 MG TABLET PO (20:25)
[2022-09-08] VITALS (8 sets, daily range): BP systolic 140–170; BP diastolic 52–78; PULSE 59–77; RESP 18–20; TEMP 36.7–37.1; O2SAT 96–98
[2022-09-08 07:37] LABS: Hematocrit 23.6 % (42.0-52.0); Mean Corpuscular HGB Conc 33.9 g/dl (31.0-36.0); Mean Corpuscular Hemoglobin 31.9 pg (27.0-33.0); Mean Platelet Volume 11.6 fL (9.4-12.4); Platelet Count 123 X10*3/uL (160-400); Red Blood Count 2.51 X10*6/uL (4.60-5.80); Red Cell Distribution Width 14.4 % (11.0-16.0); White Blood Count 8.8 X10*3/uL (4.8-10.8)
--- NOTE | 2022-09-08 07:53 | HO.PM.IMPN ---
Subjective Subjective Date of Service: 09/08/22 Interval History: follow up for anemia, CHF feels better today with more energy Review of Systems Review of Systems: Yes all other systems are reviewed and are negative Constitutional Constitutional: Denies chills and Denies fever(s) ENT Ears, Nose, Mouth, and Throat: Denies dizziness Cardiovascular Cardiovascular: Denies chest pain, Denies palpitations and Denies dyspnea Respiratory Respiratory: Denies cough and Denies dyspnea Gastrointestinal Gastrointestinal: Denies abdominal pain, Denies nausea and Denies vomiting Neurologic Neurologic: Denies dizziness Endocrine Endocrine: Denies palpitations Physical Exam Vital Signs: Vital Signs: Last Vital Signs Temp 98.3 F 09/08/22 03:36 Pulse 65 09/08/22 03:36 Resp 20 09/08/22 04:01 BP 170/76 H 09/08/22 03:36 Pulse Ox 97 09/08/22 03:36 O2 Del Method 09/08/22 03:36 O2 Flow Rate 2 09/07/22 19:29 Oxygen Flow Rate 4 09/02/22 18:02 BMI result Body Mass Index 43.2 Appearing in no acute distress lung sounds are clear to auscultation heart regular rate rhythm, clear S1, S2 positive bowel sounds, abdomen is soft, nontender neuro patient is alert x3, no focal deficits Objective Data Active Medications Acetaminophen (Acetaminophen 325 Mg Tablet) 650 mg PO Q6H PRN PRN Reason: Pain, Mild (Pain Scale 1-3) Last Admin: 09/04/22 11:48 Dose: 650 mg Documented By: FELIPE Allopurinol (Allopurinol 100 Mg Tablet) 100 mg PO DAILY [facility] Last Admin: 09/07/22 09:50 Dose: 100 mg Documented By: JESSICA Amlodipine Besylate (Amlodipine Besylate 5 Mg Tablet) 5 mg PO DAILY [facility]; Protocol Last Admin: 09/07/22 09:50 Dose: 5 mg Documented By: JESSICA Aspirin (Aspirin Enteric Coated 81 Mg Tablet.) 81 mg PO BEDTIME [facility] Last Admin: 09/04/22 21:08 Dose: 81 mg Documented By: ELSIEILLennie Atorvastatin Calcium (Atorvastatin Calcium 80 Mg Tablet) 80 mg PO BEDTIME [facility] Last Admin: 09/07/22 20:25 Dose: 80 mg Documented By: ANTONIO Benzonatate (Benzonatate 100 Mg Capsule) 100 mg PO TID PRN PRN Reason: Cough Bumetanide (Bumetanide 1 Mg Tablet) 1 mg PO BID@0800,1700 [facility]; Protocol Last Admin: 09/07/22 17:00 Dose: 1 mg Documented By: JESSICA Clonidine HCl (Clonidine Hcl 0.2 Mg Tablet) 0.2 mg PO BID [facility]; Protocol Last Admin: 09/07/22 20:25 Dose: 0.2 mg Documented By: ANTONIO Docusate Sodium (Docusate Sodium 100 Mg Capsule) 100 mg PO DAILY PRN PRN Reason: Constipation Last Admin: 09/06/22 11:52 Dose: 100 mg Documented By: OSIRIS Enoxaparin Sodium (Enoxaparin Sodium 30 Mg/0.3 Ml Syringe) 30 mg SUBCUT Q24H [facility] Last Admin: 09/03/22 21:12 Dose: 30 mg Documented By: ALESIA Ferrous Sulfate (Ferrous Sulfate 324 Mg Tablet.) 324 mg PO DAILY [facility] Last Admin: 09/07/22 09:50 Dose: 324 mg Documented By: JESSICA Finasteride (Finasteride 5 Mg Tablet) 5 mg PO DAILY [facility] Last Admin: 09/07/22 09:51 Dose: 5 mg Documented By: JESSICA Glucose (Glucose Gel 15 Gm Gel..Gram.) 15 gm PO Q15M PRN; Protocol PRN Reason: per Hypoglycemia Standing Ord. Hydralazine HCl (Hydralazine Hcl 50 Mg Tablet) 100 mg PO TID [facility]; Protocol Last Admin: 09/07/22 20:25 Dose: 100 mg Documented By: ANTONIO Dextrose (D10) 250 mls @ 750 mls/hr IV Q15M PRN; Protocol PRN Reason: per Hypoglycemia Standing Ord. Ceftriaxone Sodium 1 gm/ (Sodium Chloride) 50 mls @ 100 mls/hr IV Q24H [facility] Last Infusion: 09/07/22 18:59 Dose: 0 mls/hr Documented By: JESSICA Insulin Glargine (Insulin Glargine,Hum.Rec.Anlog 100 Unit/Ml 10 Ml Vial) 50 unit SUBCUT DAILY [facility] Last Admin: 09/07/22 09:50 Dose: 50 unit Documented By: JESSICA Insulin Human Lispro (Insulin Lispro 100 Unit/Ml 3 Ml Vial) 0 unit SUBCUT QIDACHS [facility]; Protocol Last Admin: 09/07/22 20:26 Dose: 4 unit Documented By: ANTONIO Labetalol HCl (Labetalol Hcl 100 Mg Tablet) 100 mg PO DAILY [facility]; Protocol Last Admin: 09/07/22 09:50 Dose: 100 mg Documented By: JESSICA Omeprazole (Omeprazole 20 Mg Capsule.) 20 mg PO DAILY@0630 [facility] Last Admin: 09/07/22 04:29 Dose: 20 mg Documented By: ALEYDA Ondansetron HCl (Ondansetron Hcl 4 Mg/2 Ml Vial) 4 mg IVPUSH Q8H PRN PRN Reason: Nausea and Vomiting Pharmacy Consult (Consult Rx Perform Med Rec) 1 each MISCELLANE ONCE PRN PRN Reason: Consult order Sodium Bicarbonate (Sodium Bicarbonate 650 Mg Tablet) 650 mg PO BID [facility] Last Admin: 09/07/22 20:25 Dose: 650 mg Documented By: ANTONIO Sodium Chloride (0.9 % Sodium Chloride Flush 3 Ml Syringe) 3 ml IVFLUSH QSHIFT [facility] Last Admin: 09/07/22 17:00 Dose: 3 ml Documented By: JESSICA Tamsulosin HCl (Tamsulosin Hcl 0.4 Mg Capsule) 0.4 mg PO BEDTIME [facility] Last Admin: 09/07/22 20:25 Dose: 0.4 mg Documented By: ANTONIO Labs 09/08/22 06:59 09/07/22 16:19 Labs: Laboratory Results - last 24 hr 09/05/22 09/07/22 09/07/22 07:30 07:51 11:32 MCV MCH MCHC RDW Plt Count MPV Absolute Nucleated RBC Nucleated RBC % (auto) Anion Gap Estim Creat Clear Calc Estimated GFR POC Glucose 135 H 266 H Random Glucose Calcium Total Creatine Kinase Urine Color Urine Appearance Urine pH Ur Specific [place] Urine Protein Urine Glucose (UA) Urine Ketones Urine Blood Urine Nitrite Ur Leukocyte Esterase Urine RBC Urine WBC Ur Squamous Epith Cells Urine Bacteria Hyaline Casts Urine Yeast Positive RALPH Work-up TNP 09/07/22 09/07/22 09/07/22 16:19 16:48 20:08 MCV MCH MCHC RDW Plt Count MPV Absolute Nucleated RBC Nucleated RBC % (auto) Anion Gap 12 Estim Creat Clear Calc 18.9 Estimated GFR 16 POC Glucose 255 H 220 H Random Glucose 278 H Calcium 8.1 L Total Creatine Kinase 45 Urine Color Urine Appearance Urine pH Ur Specific [place] Urine Protein Urine Glucose (UA) Urine Ketones Urine Blood Urine Nitrite Ur Leukocyte Esterase Urine RBC Urine WBC Ur Squamous Epith Cells Urine Bacteria Hyaline Casts Urine Yeast Positive RALPH Work-up 09/07/22 09/08/22 Unknown 06:59 MCV 94.0 MCH 31.9 MCHC 33.9 RDW 14.4 Plt Count 123 L MPV 11.6 Absolute Nucleated RBC 0.000 Nucleated RBC % (auto) 0.0 Anion Gap Estim Creat Clear Calc Estimated GFR POC Glucose Random Glucose Calcium Total Creatine Kinase Urine Color Yellow Urine Appearance Turbid Urine pH 5.5 Ur Specific [place] 1.010 Urine Protein 100 (2+) H Urine Glucose (UA) Negative Urine Ketones Negative Urine Blood Large (3+) H Urine Nitrite Negative Ur Leukocyte Esterase Large (3+) H Urine RBC >20 H Urine WBC >50 H Ur Squamous Epith Cells 3-5 Urine Bacteria None Seen Hyaline Casts 6-10 Urine Yeast Present Positive RALPH Work-up Microbiology Microbiology Results: Microbiology 09/02/22 19:23 Blood Culture - Final Blood - Venous No growth after 5 days. 09/02/22 19:23 Blood Culture - Final Blood - Venous No growth after 5 days. Assessment and Plan (1) CKD stage 4 due to type 1 diabetes mellitus: Status: Acute Plan Pt is a 82-year-old male with a PMH significant for?CKD stage 4, COPD, [id number], hypertension,? CHAYITO on CPAP, history of prostate cancer, history of CAD, and hx of [place]??who presents to the ED with?worsening shortness of breath, cough, and fatigue.? Patient be admitted to the hospital on telemetry for treatment of for evaluation acute CHF exacerbation. CKD stage 4 creatinine trending up RUE AV fistula placed approx 1 month ago started on sodium bicarb Nephrology following, may need to start dialysis this admission but no indication today Acute HFpEF ECHO with hyperdynamic left ventricular function, moderate to severe , grade I diastolic dysfunction initially treated with IV lasix and net negative 3L. Lasix was held due to anemia and increasing renal function. 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 No overt bleeding - No plan for scope at this time given underlying cardiopulmonary issues iron, B12, folate levels wnl, retic count slightly elevated, but bili and LDH normal; smear with occasional schistocytes. Discussed with hematology - anemia likley multifactorial due to recent PNA, anemia of chronic disease related to progressing CKD, chronic GI losses - recommend to transfuse prn ? s/p 3U rbc H/H 8.0/23.8 procrit per nephro Chest pain. Resolved. twave inversion III, aVF trops 56.7, 55.6 seen by cardiology likely related to decreased clearance r/t CKD not candidate for cardiac cath at this time Insulin-dependent diabetes with hyperglycemia continue Lantus 50 units, SSI Hyperkalemia resolved with lokelma follow BMP Urinary pain/retention Pt had Tomlin catheter placed on 08/18 in ED Continue Tomlin catheter, Flomax outpatient follow up with urology HTN Continue home dose of clonidine, hydralazine, labetalol, amlodipine HLD Continue home meds Full Code Attending:?Dr. Velazco DVT Prophylaxis: hold lovenox/aspirin for anemia, SCDs Requires ongoing inpatient hospitalization for management of acute CHF exacerbation, anemia Time Spent With Patient Time: Total time managing care of this patient today ____ minutes. Quality Stroke Does the patient have a stroke diagnosis?: No VTE Prior VTE?: No VTE Risk Level:: Medical - moderate - high VTE Device Contraindication: Treatment Not Indicated VTE Drug Contraindication: N/A - Med Ordered
[2022-09-08 08:03] LABS: Glucose, Whole Blood 84 mg/dL (60-115)
[2022-09-08 08:16] LABS: Anion Gap 14 (12-20); Blood Urea Nitrogen 126 mg/dL (9-16); Calcium 8.3 mg/dL (8.4-10.2); Carbon Dioxide 20 mmol/L (22-29); Chloride 111 mmol/L (96-108); Creatinine Clr Calc Pharmacy 20.5; Estimated Glomerular Filt Rate 18; Glucose Random 81 mg/dL (60-115); Sodium 141 mmol/L (135-145)
[2022-09-08] MEDS: Bumetanide 1 MG TABLET PO ×2 (10:27→17:20)
[2022-09-08] MEDS: 0.9 % Sodium Chloride Flush 3 ML SYRINGE IVFLUSH ×3 (10:27→17:20)
[2022-09-08] MEDS: hydrALAZINE HCl 50 MG TABLET 100 MG PO ×3 (10:28→22:33)
[2022-09-08] MEDS: Labetalol HCL 100 MG TABLET PO (10:28)
[2022-09-08] MEDS: Sodium Bicarbonate 650 MG TABLET PO ×2 (10:28→22:33)
[2022-09-08] MEDS: Ferrous Sulfate 324 MG TABLET.DR PO (10:28)
[2022-09-08] MEDS: allopurinoL 100 MG TABLET PO (10:29)
[2022-09-08] MEDS: amLODIPine Besylate 5 MG TABLET PO ×2 (10:29→17:19)
[2022-09-08] MEDS: Finasteride 5 MG TABLET PO (10:29)
[2022-09-08] MEDS: Insulin Glargine,Hum.rec.anlog 100 UNIT/ML 10 ML VIAL 50 UNIT SUBCUT (10:34)
[2022-09-08] MEDS: cloNIDine HCL 0.2 MG TABLET PO ×2 (10:49→22:32)
[2022-09-08] MEDS: Omeprazole 20 MG CAPSULE.DR PO (10:50)
[2022-09-08 11:42] LABS: Glucose, Whole Blood 153 mg/dL (60-115)
[2022-09-08] MEDS: Insulin Lispro 100 UNIT/ML 3 ML VIAL SUBCUT ×3 (12:00→22:33)
--- NOTE | 2022-09-08 14:30 | P.PNNP_ITS ---
Subjective Subjective Date of Service: 09/08/22 Interval history: feels better today with more energy Physical Exam Vital Signs: Vital Signs: Last Vital Signs Temp 98.0 F 09/08/22 11:05 Pulse 64 09/08/22 11:05 Resp 20 09/08/22 11:05 BP 151/78 H 09/08/22 11:05 Pulse Ox 96 09/08/22 11:05 O2 Del Method 09/08/22 11:05 O2 Flow Rate 2 09/07/22 19:29 Oxygen Flow Rate 4 09/02/22 18:02 BMI result Body Mass Index 43.2 Const: General: no acute distress Orientation/consciousness: patient oriented x3 HEENT: Head: Yes normocephalic Neck: Neck: Yes supple Resp: Auscultation: diminished lung sounds Cardio: Rate: regular rate GI: Palpation (GI): Soft to palpation Neuro: General: patient oriented x3 and moves all extremities Objective Data Labs 09/08/22 06:59 09/08/22 06:59 Labs: Laboratory Results - last 24 hr 09/07/22 09/07/22 09/07/22 16:19 16:48 20:08 WBC RBC Hgb Hct MCV MCH MCHC RDW Plt Count MPV Absolute Nucleated RBC Nucleated RBC % (auto) Sodium 138 Potassium 4.1 Chloride 109 H Carbon Dioxide 21 L Anion Gap 12 BUN 136 H Creatinine 3.63 H Estim Creat Clear Calc 18.9 Estimated GFR 16 POC Glucose 255 H 220 H Random Glucose 278 H Calcium 8.1 L Total Creatine Kinase 45 Urine Color Urine Appearance Urine pH Ur Specific [place] Urine Protein Urine Glucose (UA) Urine Ketones Urine Blood Urine Nitrite Ur Leukocyte Esterase Urine RBC Urine WBC Ur Squamous Epith Cells Urine Bacteria Hyaline Casts Urine Yeast 09/07/22 09/08/22 09/08/22 Unknown 06:59 06:59 WBC 8.8 RBC 2.51 L Hgb 8.0 L Hct 23.6 L MCV 94.0 MCH 31.9 MCHC 33.9 RDW 14.4 Plt Count 123 L MPV 11.6 Absolute Nucleated RBC 0.000 Nucleated RBC % (auto) 0.0 Sodium 141 Potassium 4.0 Chloride 111 H Carbon Dioxide 20 L Anion Gap 14 BUN 126 H Creatinine 3.36 H Estim Creat Clear Calc 20.5 Estimated GFR 18 POC Glucose Random Glucose 81 Calcium 8.3 L Total Creatine Kinase Urine Color Yellow Urine Appearance Turbid Urine pH 5.5 Ur Specific [place] 1.010 Urine Protein 100 (2+) H Urine Glucose (UA) Negative Urine Ketones Negative Urine Blood Large (3+) H Urine Nitrite Negative Ur Leukocyte Esterase Large (3+) H Urine RBC >20 H Urine WBC >50 H Ur Squamous Epith Cells 3-5 Urine Bacteria None Seen Hyaline Casts 6-10 Urine Yeast Present 09/08/22 09/08/22 07:48 10:59 WBC RBC Hgb Hct MCV MCH MCHC RDW Plt Count MPV Absolute Nucleated RBC Nucleated RBC % (auto) Sodium Potassium Chloride Carbon Dioxide Anion Gap BUN Creatinine Estim Creat Clear Calc Estimated GFR POC Glucose 84 153 H Random Glucose Calcium Total Creatine Kinase Urine Color Urine Appearance Urine pH Ur Specific [place] Urine Protein Urine Glucose (UA) Urine Ketones Urine Blood Urine Nitrite Ur Leukocyte Esterase Urine RBC Urine WBC Ur Squamous Epith Cells Urine Bacteria Hyaline Casts Urine Yeast Microbiology Microbiology Results: Microbiology 09/07/22 17:54 Urine clean catch - Urine staples top Urine Culture - Preliminary No growth to date. 09/02/22 19:23 Blood - Venous Blood Culture - Final No growth after 5 days. 09/02/22 19:23 Blood - Venous Blood Culture - Final No growth after 5 days. 09/02/22 19:09 Urine clean catch - Urine staples top Urine Culture - Final Jyoti parapsilosis Procedures Date of Service Date of Service: 09/08/22 Assessment & Plan Assessment and plan (1) SHAINA (acute kidney injury): Status: Acute Assessment and Plan: Advanced chronic kidney disease.? Repetitive hospitalizations suggest that he has had challenges with fluid and volume control.? Etiology for his advanced chronic kidney disease.? 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 Anemia.? Question of iron and erythropoietin deficiency.? Hemodialysis access.? He has right upper extremity AV fistula, which seems to be maturing .( made in Jul 2022) ? 1. Transfuse as needed to keep Hb > 7.0 2. Protect his right upper extremity as he has an AV fistula 3. Continue diuresis 4. Procrit.- 20 K x 1 dose given last week 5. Blood pressure.control 6. Education regarding renal placement therapy 7. No indication for HD as of today Progress Note: Quality Stroke Does the patient have a stroke diagnosis?: No
[2022-09-08 14:54] LABS: Calcium (PTHI) 8.9 mg/dL (8.6-10.3); PTHI 194 pg/mL (16-77)
[2022-09-08 15:08] LABS: Haptoglobin 156 mg/dL (43-212)
--- NOTE | 2022-09-08 15:37 | P.PNCA_ITS ---
Subjective Subjective Date of Service: 09/08/22 Interval history: Seen examined at bedside. Complaining that he is feeling very tired and has no energy. Blood pressure is elevated. Hemoglobin is stable. Physical Exam Vital Signs: Last Vital Signs Temp 98.0 F 09/08/22 11:05 Pulse 64 09/08/22 11:05 Resp 20 09/08/22 11:05 BP 151/78 H 09/08/22 11:05 Pulse Ox 96 09/08/22 11:05 O2 Del Method 09/08/22 11:05 O2 Flow Rate 2 09/07/22 19:29 Oxygen Flow Rate 4 09/02/22 18:02 BMI result Body Mass Index 43.2 GENERAL APPEARANCE: in no acute distress, fatigued. NECK: no carotid bruit, mild jugular venous distention. SKIN: no suspicious lesions, warm and dry. HEART: Ejection systolic murmur aortic area with absent 2nd heart sound, regular rate and rhythm. LUNGS: clear to auscultation bilaterally. ABDOMEN: soft, nontender. EXTREMITIES: Left upper extremity edema. PERIPHERAL PULSES: equal. NEUROLOGIC: No gross deficits, AAO X 3 Objective Labs and Meds 09/08/22 06:59 09/08/22 06:59 Lab results: Laboratory Results - last 24 hr 09/04/22 09/04/22 09/07/22 06:03 06:03 16:19 WBC RBC Hgb Hct MCV MCH MCHC RDW Plt Count MPV Absolute Nucleated RBC Nucleated RBC % (auto) Haptoglobin 156 Sodium 138 Potassium 4.1 Chloride 109 H Carbon Dioxide 21 L Anion Gap 12 BUN 136 H Creatinine 3.63 H Estim Creat Clear Calc 18.9 Estimated GFR 16 POC Glucose Random Glucose 278 H Calcium 8.1 L Total Creatine Kinase 45 PTH Intact 194 H Calcium (PTH Intact) 8.9 Urine Color Urine Appearance Urine pH Ur Specific [place] Urine Protein Urine Glucose (UA) Urine Ketones Urine Blood Urine Nitrite Ur Leukocyte Esterase Urine RBC Urine WBC Ur Squamous Epith Cells Urine Bacteria Hyaline Casts Urine Yeast 09/07/22 09/07/22 09/07/22 16:48 20:08 Unknown WBC RBC Hgb Hct MCV MCH MCHC RDW Plt Count MPV Absolute Nucleated RBC Nucleated RBC % (auto) Haptoglobin Sodium Potassium Chloride Carbon Dioxide Anion Gap BUN Creatinine Estim Creat Clear Calc Estimated GFR POC Glucose 255 H 220 H Random Glucose Calcium Total Creatine Kinase PTH Intact Calcium (PTH Intact) Urine Color Yellow Urine Appearance Turbid Urine pH 5.5 Ur Specific [place] 1.010 Urine Protein 100 (2+) H Urine Glucose (UA) Negative Urine Ketones Negative Urine Blood Large (3+) H Urine Nitrite Negative Ur Leukocyte Esterase Large (3+) H Urine RBC >20 H Urine WBC >50 H Ur Squamous Epith Cells 3-5 Urine Bacteria None Seen Hyaline Casts 6-10 Urine Yeast Present 09/08/22 09/08/22 09/08/22 06:59 06:59 07:48 WBC 8.8 RBC 2.51 L Hgb 8.0 L Hct 23.6 L MCV 94.0 MCH 31.9 MCHC 33.9 RDW 14.4 Plt Count 123 L MPV 11.6 Absolute Nucleated RBC 0.000 Nucleated RBC % (auto) 0.0 Haptoglobin Sodium 141 Potassium 4.0 Chloride 111 H Carbon Dioxide 20 L Anion Gap 14 BUN 126 H Creatinine 3.36 H Estim Creat Clear Calc 20.5 Estimated GFR 18 POC Glucose 84 Random Glucose 81 Calcium 8.3 L Total Creatine Kinase PTH Intact Calcium (PTH Intact) Urine Color Urine Appearance Urine pH Ur Specific [place] Urine Protein Urine Glucose (UA) Urine Ketones Urine Blood Urine Nitrite Ur Leukocyte Esterase Urine RBC Urine WBC Ur Squamous Epith Cells Urine Bacteria Hyaline Casts Urine Yeast 09/08/22 10:59 WBC RBC Hgb Hct MCV MCH MCHC RDW Plt Count MPV Absolute Nucleated RBC Nucleated RBC % (auto) Haptoglobin Sodium Potassium Chloride Carbon Dioxide Anion Gap BUN Creatinine Estim Creat Clear Calc Estimated GFR POC Glucose 153 H Random Glucose Calcium Total Creatine Kinase PTH Intact Calcium (PTH Intact) Urine Color Urine Appearance Urine pH Ur Specific [place] Urine Protein Urine Glucose (UA) Urine Ketones Urine Blood Urine Nitrite Ur Leukocyte Esterase Urine RBC Urine WBC Ur Squamous Epith Cells Urine Bacteria Hyaline Casts Urine Yeast Progress Note: A&P Assessment and plan (1) Acute on chronic diastolic (congestive) heart failure: Status: Acute (2) Nonrheumatic aortic (valve) stenosis: Status: Acute (3) Anemia: Status: Acute Plan Pleasant 82-year-old gentleman who has complex medical issues presenting for fatigue and shortness of breath. He was noticed to be anemic and was transfused. He has advanced CKD at this stage and had a fistula placed. As per Nephrology still not need of urgent dialysis. Blood pressure is elevated. Amlodipine can be increased to 10 mg daily. He is on multiple medications currently. His main complaint is lack of energy and I am unsure whether aortic stenosis is the underlying cause so he is just super deconditioned at this point. By exam is aortic valve sound severe but by echocardiography is valve area was calculated at 1.8 which is if anything mild to moderate but I think the left ventricular outflow tract size was overestimated probably due to an ovoid shaped off the left ventricular outflow attack. In any case, I have explained to him that he would benefit from getting further workup for the aortic valve and should discuss this with his baggage porter. Blood pressure control. Potential discharge when medically ready. Thank you for allowing me to participate in the care of your patient. Please feel free to contact me if you have any questions. Time Spent With Patient Time: Total time managing care of this patient today ____ minutes. Progress Note: Quality Stroke Does the patient have a stroke diagnosis?: No Procedures Date of Service Date of Service: 09/08/22
[2022-09-08 16:19] LABS: Glucose, Whole Blood 232 mg/dL (60-115)
[2022-09-08] MEDS: cefTRIAXone sodium 1 GM in 0.9 % Sodium Chloride 50 ML IV (17:20)
[2022-09-08 20:57] LABS: Glucose, Whole Blood 292 mg/dL (60-115)
[2022-09-08] MEDS: Acetaminophen 325 MG TABLET 650 MG PO (22:33)
[2022-09-08] MEDS: Atorvastatin Calcium 80 MG TABLET PO (22:33)
[2022-09-08] MEDS: Tamsulosin HCL 0.4 MG CAPSULE PO (22:33)
[2022-09-09] VITALS (8 sets, daily range): BP systolic 119–151; BP diastolic 56–69; PULSE 59–78; RESP 18–20; TEMP 36.3–36.8; O2SAT 95–97
[2022-09-09] MEDS: Cyclobenzaprine HCl 5 MG TABLET PO (05:13)
[2022-09-09] MEDS: Omeprazole 20 MG CAPSULE.DR PO (05:14)
[2022-09-09 07:14] LABS: Hematocrit 24.6 % (42.0-52.0); Hemoglobin 8.5 g/dl (14.0-18.0); Mean Corpuscular HGB Conc 34.6 g/dl (31.0-36.0); Mean Corpuscular Hemoglobin 32.4 pg (27.0-33.0); Mean Corpuscular Volume 93.9 fL (80.0-98.0); Mean Platelet Volume 11.1 fL (9.4-12.4); Platelet Count 139 X10*3/uL (160-400); Red Blood Count 2.62 X10*6/uL (4.60-5.80); Red Cell Distribution Width 14.6 % (11.0-16.0)
[2022-09-09 07:28] LABS: Anion Gap 13 (12-20); Blood Urea Nitrogen 122 mg/dL (9-16); Calcium 8.1 mg/dL (8.4-10.2); Carbon Dioxide 23 mmol/L (22-29); Chloride 110 mmol/L (96-108); Creatinine Clr Calc Pharmacy 21.3; Estimated Glomerular Filt Rate 19; Glucose Random 108 mg/dL (60-115); Potassium 3.7 mmol/L (3.3-5.1); Sodium 142 mmol/L (135-145)
[2022-09-09 08:06] LABS: Glucose, Whole Blood 119 mg/dL (60-115)
[2022-09-09] MEDS: Insulin Glargine,Hum.rec.anlog 100 UNIT/ML 10 ML VIAL 50 UNIT SUBCUT (09:44)
[2022-09-09] MEDS: amLODIPine Besylate 10 MG TABLET PO (09:45)
[2022-09-09] MEDS: Bumetanide 1 MG TABLET PO ×2 (09:45→16:44)
[2022-09-09] MEDS: Finasteride 5 MG TABLET PO (09:45)
[2022-09-09] MEDS: cloNIDine HCL 0.2 MG TABLET PO ×2 (09:45→20:34)
[2022-09-09] MEDS: Sodium Bicarbonate 650 MG TABLET PO ×2 (09:45→20:34)
[2022-09-09] MEDS: allopurinoL 100 MG TABLET PO (09:46)
[2022-09-09] MEDS: Labetalol HCL 100 MG TABLET PO (09:46)
[2022-09-09] MEDS: hydrALAZINE HCl 50 MG TABLET 100 MG PO ×3 (09:46→20:34)
[2022-09-09] MEDS: 0.9 % Sodium Chloride Flush 3 ML SYRINGE IVFLUSH ×3 (09:46→20:37)
[2022-09-09] MEDS: Ferrous Sulfate 324 MG TABLET.DR PO (09:46)
[2022-09-09 11:25] LABS: Glucose, Whole Blood 188 mg/dL (60-115)
--- NOTE | 2022-09-09 12:16 | PM.PNNEP ---
Subjective Subjective Date of Service: 09/09/22 Interval history: feels better today with more energy . All recent data reviewed Physical Exam Vital Signs: Vital Signs: Last Vital Signs Temp 98.2 F 09/09/22 10:54 Pulse 65 09/09/22 10:54 Resp 20 09/09/22 10:54 BP 134/65 09/09/22 10:54 Pulse Ox 96 09/09/22 10:54 O2 Del Method 09/09/22 10:54 O2 Flow Rate 2 09/09/22 00:00 Oxygen Flow Rate 4 09/02/22 18:02 BMI result Body Mass Index 43.2 Const: General: no acute distress Orientation/consciousness: patient oriented x3 Eyes: EOM: EOMs intact bilaterally Neck: Neck: Yes supple Resp: Auscultation: diminished lung sounds Cardio: Rate: regular rate GI: Palpation (GI): Soft to palpation Neuro: General: patient oriented x3 and moves all extremities Objective Data Labs 09/09/22 06:25 09/09/22 06:25 Labs: Laboratory Results - last 24 hr 09/04/22 09/04/22 09/08/22 06:03 06:03 16:13 WBC RBC Hgb Hct MCV MCH MCHC RDW Plt Count MPV Absolute Nucleated RBC Nucleated RBC % (auto) Haptoglobin 156 Sodium Potassium Chloride Carbon Dioxide Anion Gap BUN Creatinine Estim Creat Clear Calc Estimated GFR POC Glucose 232 H Random Glucose Calcium PTH Intact 194 H Calcium (PTH Intact) 8.9 09/08/22 09/09/22 09/09/22 20:32 06:25 06:25 WBC 8.0 RBC 2.62 L Hgb 8.5 L Hct 24.6 L MCV 93.9 MCH 32.4 MCHC 34.6 RDW 14.6 Plt Count 139 L MPV 11.1 Absolute Nucleated RBC 0.000 Nucleated RBC % (auto) 0.0 Haptoglobin Sodium 142 Potassium 3.7 Chloride 110 H Carbon Dioxide 23 Anion Gap 13 BUN 122 H Creatinine 3.22 H Estim Creat Clear Calc 21.3 Estimated GFR 19 POC Glucose 292 H Random Glucose 108 Calcium 8.1 L PTH Intact Calcium (PTH Intact) 09/09/22 09/09/22 07:54 10:56 WBC RBC Hgb Hct MCV MCH MCHC RDW Plt Count MPV Absolute Nucleated RBC Nucleated RBC % (auto) Haptoglobin Sodium Potassium Chloride Carbon Dioxide Anion Gap BUN Creatinine Estim Creat Clear Calc Estimated GFR POC Glucose 119 H 188 H Random Glucose Calcium PTH Intact Calcium (PTH Intact) Microbiology Microbiology Results: Microbiology 09/07/22 17:54 Urine clean catch - Urine staples top Urine Culture - Preliminary Yeast 09/07/22 16:19 Blood - Venous Blood Culture - Preliminary No growth after 24 hours. 09/07/22 16:19 Blood - Venous Blood Culture - Preliminary No growth after 24 hours. 09/02/22 19:23 Blood - Venous Blood Culture - Final No growth after 5 days. 09/02/22 19:23 Blood - Venous Blood Culture - Final No growth after 5 days. 09/02/22 19:09 Urine clean catch - Urine staples top Urine Culture - Final Jyoti parapsilosis Procedures Date of Service Date of Service: 09/09/22 Assessment & Plan Assessment and plan (1) SHAINA (acute kidney injury): Status: Acute Plan Advanced chronic kidney disease.? Repetitive hospitalizations suggest that he has had challenges with fluid and volume control.? Etiology for his advanced chronic kidney disease.? 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 Anemia.? Question of iron and erythropoietin deficiency.? Hemodialysis access.? He has right upper extremity AV fistula, which seems to be maturing .( made in Jul 2022) ? 1. Transfuse as needed to keep Hb > 7.0 2. Protect his right upper extremity as he has an AV fistula 3. Continue diuresis 4. Procrit.- 20 K x 1 dose given last week 5. Blood pressure.control 6. Education regarding renal placement therapy 7. No indication for HD as of today Could be D/Hugo to rehab tomorrow if blood work stable & clinicaly well Progress Note: Quality Stroke Does the patient have a stroke diagnosis?: No
[2022-09-09] MEDS: Insulin Lispro 100 UNIT/ML 3 ML VIAL SUBCUT ×3 (12:30→20:34)
--- NOTE | 2022-09-09 12:48 | P.PNIM_ITS ---
Subjective Subjective Date of Service: 09/09/22 Interval History: follow up for anemia, CHF feels better today with more energy Review of Systems Review of Systems: Yes all other systems are reviewed and are negative Constitutional Constitutional: Denies chills and Denies fever(s) ENT Ears, Nose, Mouth, and Throat: Denies dizziness Cardiovascular Cardiovascular: Denies chest pain, Denies palpitations and Denies dyspnea Respiratory Respiratory: Denies cough and Denies dyspnea Gastrointestinal Gastrointestinal: Denies abdominal pain, Denies nausea and Denies vomiting Neurologic Neurologic: Denies dizziness Endocrine Endocrine: Denies palpitations Physical Exam Vital Signs: Vital Signs: Last Vital Signs Temp 98.2 F 09/09/22 10:54 Pulse 65 09/09/22 10:54 Resp 20 09/09/22 10:54 BP 134/65 09/09/22 10:54 Pulse Ox 96 09/09/22 10:54 O2 Del Method 09/09/22 10:54 O2 Flow Rate 2 09/09/22 00:00 Oxygen Flow Rate 4 09/02/22 18:02 BMI result Body Mass Index 43.2 Appearing in no acute distress lung sounds are clear to auscultation heart regular rate rhythm, clear S1, S2 positive bowel sounds, abdomen is soft, nontender neuro patient is alert x3, no focal deficits Objective Data Active Medications Acetaminophen (Acetaminophen 325 Mg Tablet) 650 mg PO Q6H PRN PRN Reason: Pain, Mild (Pain Scale 1-3) Last Admin: 09/08/22 22:33 Dose: 650 mg Documented By: JOANNE Allopurinol (Allopurinol 100 Mg Tablet) 100 mg PO DAILY [facility] Last Admin: 09/09/22 09:46 Dose: 100 mg Documented By: EVANGELINA Amlodipine Besylate (Amlodipine Besylate 10 Mg Tablet) 10 mg PO DAILY [facility]; Protocol Last Admin: 09/09/22 09:45 Dose: 10 mg Documented By: EVANGELINA Aspirin (Aspirin Enteric Coated 81 Mg Tablet.) 81 mg PO BEDTIME [facility] Last Admin: 09/04/22 21:08 Dose: 81 mg Documented By: ELSIEILLennie Atorvastatin Calcium (Atorvastatin Calcium 80 Mg Tablet) 80 mg PO BEDTIME [facility] Last Admin: 09/08/22 22:33 Dose: 80 mg Documented By: JOANNE Benzonatate (Benzonatate 100 Mg Capsule) 100 mg PO TID PRN PRN Reason: Cough Bumetanide (Bumetanide 1 Mg Tablet) 1 mg PO BID@0800,1700 [facility]; Protocol Last Admin: 09/09/22 09:45 Dose: 1 mg Documented By: EVANGELINA Clonidine HCl (Clonidine Hcl 0.2 Mg Tablet) 0.2 mg PO BID [facility]; Protocol Last Admin: 09/09/22 09:45 Dose: 0.2 mg Documented By: EVANGELINA Docusate Sodium (Docusate Sodium 100 Mg Capsule) 100 mg PO DAILY PRN PRN Reason: Constipation Last Admin: 09/06/22 11:52 Dose: 100 mg Documented By: OSIRIS Enoxaparin Sodium (Enoxaparin Sodium 30 Mg/0.3 Ml Syringe) 30 mg SUBCUT Q24H [facility] Last Admin: 09/03/22 21:12 Dose: 30 mg Documented By: ODASAD Ferrous Sulfate (Ferrous Sulfate 324 Mg Tablet.) 324 mg PO DAILY [facility] Last Admin: 09/09/22 09:46 Dose: 324 mg Documented By: EVANGELINA Finasteride (Finasteride 5 Mg Tablet) 5 mg PO DAILY [facility] Last Admin: 09/09/22 09:45 Dose: 5 mg Documented By: EVANGELINA Glucose (Glucose Gel 15 Gm Gel..Gram.) 15 gm PO Q15M PRN; Protocol PRN Reason: per Hypoglycemia Standing Ord. Hydralazine HCl (Hydralazine Hcl 50 Mg Tablet) 100 mg PO TID [facility]; Protocol Last Admin: 09/09/22 09:46 Dose: 100 mg Documented By: EVANGELINA Dextrose (D10) 250 mls @ 750 mls/hr IV Q15M PRN; Protocol PRN Reason: per Hypoglycemia Standing Ord. Insulin Glargine (Insulin Glargine,Hum.Rec.Anlog 100 Unit/Ml 10 Ml Vial) 50 unit SUBCUT DAILY [facility] Last Admin: 09/09/22 09:44 Dose: 50 unit Documented By: EVANGELINA Insulin Human Lispro (Insulin Lispro 100 Unit/Ml 3 Ml Vial) 0 unit SUBCUT QIDACHS [facility]; Protocol Last Admin: 09/09/22 12:30 Dose: 2 unit Documented By: EVANGELINA Labetalol HCl (Labetalol Hcl 100 Mg Tablet) 100 mg PO DAILY [facility]; Protocol Last Admin: 09/09/22 09:46 Dose: 100 mg Documented By: EVANGELINA Omeprazole (Omeprazole 20 Mg Capsule.) 20 mg PO DAILY@0630 [facility] Last Admin: 09/09/22 05:14 Dose: 20 mg Documented By: JOANNE Ondansetron HCl (Ondansetron Hcl 4 Mg/2 Ml Vial) 4 mg IVPUSH Q8H PRN PRN Reason: Nausea and Vomiting Pharmacy Consult (Consult Rx Perform Med Rec) 1 each MISCELLANE ONCE PRN PRN Reason: Consult order Sodium Bicarbonate (Sodium Bicarbonate 650 Mg Tablet) 650 mg PO BID [facility] Last Admin: 09/09/22 09:45 Dose: 650 mg Documented By: EVANGELINA Sodium Chloride (0.9 % Sodium Chloride Flush 3 Ml Syringe) 3 ml IVFLUSH QSHIFT [facility] Last Admin: 09/09/22 09:46 Dose: 3 ml Documented By: EVANGELINA Tamsulosin HCl (Tamsulosin Hcl 0.4 Mg Capsule) 0.4 mg PO BEDTIME [facility] Last Admin: 09/08/22 22:33 Dose: 0.4 mg Documented By: JOANNE Labs 09/09/22 06:25 09/09/22 06:25 Labs: Laboratory Results - last 24 hr 09/04/22 09/04/22 09/08/22 06:03 06:03 16:13 MCV MCH MCHC RDW Plt Count MPV Absolute Nucleated RBC Nucleated RBC % (auto) Haptoglobin 156 Anion Gap Estim Creat Clear Calc Estimated GFR POC Glucose 232 H Random Glucose Calcium PTH Intact 194 H Calcium (PTH Intact) 8.9 09/08/22 09/09/22 09/09/22 20:32 06:25 06:25 MCV 93.9 MCH 32.4 MCHC 34.6 RDW 14.6 Plt Count 139 L MPV 11.1 Absolute Nucleated RBC 0.000 Nucleated RBC % (auto) 0.0 Haptoglobin Anion Gap 13 Estim Creat Clear Calc 21.3 Estimated GFR 19 POC Glucose 292 H Random Glucose 108 Calcium 8.1 L PTH Intact Calcium (PTH Intact) 09/09/22 09/09/22 07:54 10:56 MCV MCH MCHC RDW Plt Count MPV Absolute Nucleated RBC Nucleated RBC % (auto) Haptoglobin Anion Gap Estim Creat Clear Calc Estimated GFR POC Glucose 119 H 188 H Random Glucose Calcium PTH Intact Calcium (PTH Intact) Microbiology Microbiology Results: Microbiology 09/07/22 17:54 Urine Culture - Preliminary Urine clean catch - Urine staples top Yeast 09/07/22 16:19 Blood Culture - Preliminary Blood - Venous No growth after 24 hours. 09/07/22 16:19 Blood Culture - Preliminary Blood - Venous No growth after 24 hours. Assessment and Plan (1) CKD stage 4 due to type 1 diabetes mellitus: Status: Acute Plan Pt is a 82-year-old male with a PMH significant for?CKD stage 4, COPD, [id number], hypertension,? CHAYITO on CPAP, history of prostate cancer, history of CAD, and hx of [place]??who presents to the ED with?worsening shortness of breath, cough, and fatigue.? Patient be admitted to the hospital on telemetry for treatment of for evaluation acute CHF exacerbation. CKD stage 4 creatinine and BUN trending down RUE AV fistula placed approx 1 month ago started on sodium bicarb Nephrology following, monitor for another day and consider dc to rehab Acute HFpEF ECHO with hyperdynamic left ventricular function, moderate to severe , grade I diastolic dysfunction initially treated with IV lasix and net negative 3L. Lasix was held due to anemia and increasing renal function. bumex 1 mg po bid ?- discussed with nephrology Daily weights, low-salt diet Cardiology following - not a candidate for TAVR at this time - will need outpatient follow up with primary over hauler helper Acute on chronic normocytic anemia seen by GI, likely some component of chronic upper GI bleeding, given +stool occult and increase in BUN. No overt bleeding - No plan for scope at this time given underlying cardiopulmonary issues iron, B12, folate levels wnl, retic count slightly elevated, but bili and LDH normal; smear with occasional schistocytes. Discussed with hematology - anemia likley multifactorial due to recent PNA, anemia of chronic disease related to progressing CKD, chronic GI losses - recommend to transfuse prn ? s/p 3U rbc H/H 8.5/24.6 procrit per nephro Chest pain. Resolved. twave inversion III, aVF trops 56.7, 55.6 seen by cardiology likely related to decreased clearance r/t CKD not candidate for cardiac cath at this time Insulin-dependent diabetes with hyperglycemia continue Lantus 50 units, SSI Hyperkalemia resolved with lokelma follow BMP Urinary pain/retention Pt had Tomlin catheter placed on 08/18 in ED Continue Tomlin catheter, Flomax outpatient follow up with urology HTN Continue home dose of clonidine, hydralazine, labetalol, amlodipine HLD Continue home meds Morbid obesity. BMI 43.3 Discussed importance of weight management as this may be contributing to worsening of other comorbidities DISPO STR Full Code Attending:?Dr. Basurto DVT Prophylaxis: hold lovenox/aspirin for anemia, SCDs Requires ongoing inpatient hospitalization for management of acute CHF exacerbation, anemia Time Spent With Patient Time: Total time managing care of this patient today ____ minutes. Quality Stroke Does the patient have a stroke diagnosis?: No VTE Prior VTE?: No VTE Risk Level:: Medical - moderate - high VTE Device Contraindication: Treatment Not Indicated VTE Drug Contraindication: N/A - Med Ordered
--- NOTE | 2022-09-09 14:35 | MHC.CM.PN ---
EMR REVIEWED, PER HOSPITALIST PLAN FOR NEPHRO TO FOLLOW LABS ONE MORE DAY AND ANTIC D/C TO [facility] FOR STR, [facility] UPDATED AND CM WILL CONT TO FOLLOW D/C NEEDS.
[2022-09-09 15:38] LABS: Glucose, Whole Blood 220 mg/dL (60-115)
[2022-09-09] MEDS: Docusate Sodium 100 MG CAPSULE PO (16:44)
[2022-09-09 20:13] LABS: Glucose, Whole Blood 200 mg/dL (60-115)
[2022-09-09] MEDS: Tamsulosin HCL 0.4 MG CAPSULE PO (20:34)
[2022-09-09] MEDS: Atorvastatin Calcium 80 MG TABLET PO (20:34)
[2022-09-10] VITALS (9 sets, daily range): BP systolic 141–163; BP diastolic 43–70; PULSE 62–77; RESP 20; TEMP 36.6–37.1; O2SAT 95–99; BMI 42.5
[2022-09-10] MEDS: Omeprazole 20 MG CAPSULE.DR PO (05:58)
[2022-09-10 07:13] LABS: Hematocrit 24.3 % (42.0-52.0); Mean Corpuscular HGB Conc 32.9 g/dl (31.0-36.0); Mean Corpuscular Hemoglobin 31.4 pg (27.0-33.0); Mean Corpuscular Volume 95.3 fL (80.0-98.0); Mean Platelet Volume 11.5 fL (9.4-12.4); Platelet Count 135 X10*3/uL (160-400); Red Blood Count 2.55 X10*6/uL (4.60-5.80); Red Cell Distribution Width 14.6 % (11.0-16.0); White Blood Count 8.4 X10*3/uL (4.8-10.8)
[2022-09-10 07:26] LABS: Anion Gap 13 (12-20); Blood Urea Nitrogen 114 mg/dL (9-16); Calcium 8.1 mg/dL (8.4-10.2); Carbon Dioxide 24 mmol/L (22-29); Chloride 108 mmol/L (96-108); Creatinine Clr Calc Pharmacy 20.3; Estimated Glomerular Filt Rate 18; Glucose Random 151 mg/dL (60-115); Potassium 3.8 mmol/L (3.3-5.1); Sodium 141 mmol/L (135-145)
[2022-09-10 08:02] LABS: Glucose, Whole Blood 146 mg/dL (60-115)
[2022-09-10] MEDS: Insulin Glargine,Hum.rec.anlog 100 UNIT/ML 10 ML VIAL 50 UNIT SUBCUT (08:52)
[2022-09-10] MEDS: Finasteride 5 MG TABLET PO (08:52)
[2022-09-10] MEDS: cloNIDine HCL 0.2 MG TABLET PO ×2 (08:52→21:48)
[2022-09-10] MEDS: amLODIPine Besylate 10 MG TABLET PO (08:52)
[2022-09-10] MEDS: Sodium Bicarbonate 650 MG TABLET PO ×2 (08:52→21:49)
[2022-09-10] MEDS: hydrALAZINE HCl 50 MG TABLET 100 MG PO ×3 (08:52→21:48)
[2022-09-10] MEDS: Ferrous Sulfate 324 MG TABLET.DR PO (08:53)
[2022-09-10] MEDS: Bumetanide 1 MG TABLET PO ×2 (08:53→16:06)
[2022-09-10] MEDS: Labetalol HCL 100 MG TABLET PO (08:53)
[2022-09-10] MEDS: 0.9 % Sodium Chloride Flush 3 ML SYRINGE IVFLUSH ×2 (08:53→16:06)
[2022-09-10] MEDS: allopurinoL 100 MG TABLET PO (08:55)
[2022-09-10 10:56] LABS: Glucose, Whole Blood 227 mg/dL (60-115)
[2022-09-10] MEDS: Insulin Lispro 100 UNIT/ML 3 ML VIAL SUBCUT ×3 (11:03→21:49)
[2022-09-10] MEDS: polyethylene glycoL 3350 17 GM POWD.PACK PO (11:06)
--- NOTE | 2022-09-10 13:16 | PM.PNNEP ---
Subjective Subjective Date of Service: 09/10/22 Interval history: feels better today with more energy ; Denies uremic symptoms Physical Exam Vital Signs: Vital Signs: Last Vital Signs Temp 98.0 F 09/10/22 10:54 Pulse 65 09/10/22 10:54 Resp 20 09/10/22 10:54 BP 155/67 H 09/10/22 10:54 Pulse Ox 97 09/10/22 10:54 O2 Del Method 09/10/22 10:54 O2 Flow Rate 2 09/09/22 00:00 Oxygen Flow Rate 4 09/02/22 18:02 BMI result Body Mass Index 42.5 Const: General: no acute distress Orientation/consciousness: patient oriented x3 Eyes: EOM: EOMs intact bilaterally Resp: Auscultation: diminished lung sounds Cardio: Rate: regular rate GI: Palpation (GI): Soft to palpation Neuro: General: patient oriented x3 and moves all extremities Objective Data Labs 09/10/22 06:09 09/10/22 06:09 Labs: Laboratory Results - last 24 hr 09/09/22 09/09/22 09/10/22 15:01 20:10 06:09 WBC 8.4 RBC 2.55 L Hgb 8.0 L Hct 24.3 L MCV 95.3 MCH 31.4 MCHC 32.9 RDW 14.6 Plt Count 135 L MPV 11.5 Absolute Nucleated RBC 0.000 Nucleated RBC % (auto) 0.0 Sodium Potassium Chloride Carbon Dioxide Anion Gap BUN Creatinine Estim Creat Clear Calc Estimated GFR POC Glucose 220 H 200 H Random Glucose Calcium 09/10/22 09/10/22 09/10/22 06:09 07:54 10:53 WBC RBC Hgb Hct MCV MCH MCHC RDW Plt Count MPV Absolute Nucleated RBC Nucleated RBC % (auto) Sodium 141 Potassium 3.8 Chloride 108 Carbon Dioxide 24 Anion Gap 13 BUN 114 H Creatinine 3.36 H Estim Creat Clear Calc 20.3 Estimated GFR 18 POC Glucose 146 H 227 H Random Glucose 151 H Calcium 8.1 L Microbiology Microbiology Results: Microbiology 09/07/22 17:54 Urine clean catch - Urine staples top Urine Culture - Final Jyoti parapsilosis 09/07/22 16:19 Blood - Venous Blood Culture - Preliminary No growth after 48 hours. 09/07/22 16:19 Blood - Venous Blood Culture - Preliminary No growth after 48 hours. 09/02/22 19:23 Blood - Venous Blood Culture - Final No growth after 5 days. 09/02/22 19:23 Blood - Venous Blood Culture - Final No growth after 5 days. 09/02/22 19:09 Urine clean catch - Urine staples top Urine Culture - Final Jyoti parapsilosis Procedures Date of Service Date of Service: 09/10/22 Assessment & Plan Assessment and plan (1) SHAINA (acute kidney injury): Status: Acute Assessment and Plan: Advanced chronic kidney disease.? Repetitive hospitalizations suggest that he has had challenges with fluid and volume control.? Etiology for his advanced chronic kidney disease.? 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 Anemia.? Question of iron and erythropoietin deficiency.? Hemodialysis access.? He has right upper extremity AV fistula, which seems to be maturing .( made in Jul 2022) ? 1. Transfuse as needed to keep Hb > 7.0 2. Protect his right upper extremity as he has an AV fistula 3. Continue diuresis 4. Procrit.- 20 K x 1 dose given last week 5. Blood pressure.control 6. Education regarding renal placement therapy 7. No indication for HD as of today Progress Note: Quality Stroke Does the patient have a stroke diagnosis?: No
--- NOTE | 2022-09-10 13:52 | P.PNIM_ITS ---
Subjective Subjective Date of Service: 09/10/22 Interval History: seen and examined this morning follow up for CHF, anemia no overnight events denies sob. overall reports feeling better Review of Systems Review of Systems: Yes all other systems are reviewed and are negative Constitutional Constitutional: Denies chills and Denies fever(s) Cardiovascular Cardiovascular: Denies chest pain, Denies palpitations and Denies dyspnea Respiratory Respiratory: Denies cough and Denies dyspnea Gastrointestinal Gastrointestinal: Denies abdominal pain, Denies nausea and Denies vomiting Endocrine Endocrine: Denies palpitations Physical Exam Vital Signs: Vital Signs: Last Vital Signs Temp 98.0 F 09/10/22 10:54 Pulse 65 09/10/22 10:54 Resp 20 09/10/22 10:54 BP 155/67 H 09/10/22 10:54 Pulse Ox 97 09/10/22 10:54 O2 Del Method 09/10/22 10:54 O2 Flow Rate 2 09/09/22 00:00 Oxygen Flow Rate 4 09/02/22 18:02 BMI result Body Mass Index 42.5 Const: General: alert and awake Nutritional Appearance: obese Or ientation/consciousness: patient oriented x3 Resp: Effort & Inspection: no respiratory distress and no use of accessory muscles Cardio: Rate: regular rate Heart sounds: Murmur heart sound present GI: Inspection: No distended Palpation (GI): Soft to palpation Neuro: General: patient oriented x3 and CN's II-XI intact bilaterally Extrem: Other: trace edema Objective Data Active Medications Acetaminophen (Acetaminophen 325 Mg Tablet) 650 mg PO Q6H PRN PRN Reason: Pain, Mild (Pain Scale 1-3) Last Admin: 09/08/22 22:33 Dose: 650 mg Documented By: JOANNE Allopurinol (Allopurinol 100 Mg Tablet) 100 mg PO DAILY [facility] Last Admin: 09/10/22 08:55 Dose: 100 mg Documented By: QUYEN Amlodipine Besylate (Amlodipine Besylate 10 Mg Tablet) 10 mg PO DAILY [facility]; Protocol Last Admin: 09/10/22 08:52 Dose: 10 mg Documented By: QUYEN Aspirin (Aspirin Enteric Coated 81 Mg Tablet.) 81 mg PO BEDTIME [facility] Last Admin: 09/04/22 21:08 Dose: 81 mg Documented By: ELSIEILLennie Atorvastatin Calcium (Atorvastatin Calcium 80 Mg Tablet) 80 mg PO BEDTIME [facility] Last Admin: 09/09/22 20:34 Dose: 80 mg Documented By: EVANGELINA Benzonatate (Benzonatate 100 Mg Capsule) 100 mg PO TID PRN PRN Reason: Cough Bumetanide (Bumetanide 1 Mg Tablet) 1 mg PO BID@0800,1700 [facility]; Protocol Last Admin: 09/10/22 08:53 Dose: 1 mg Documented By: QUYEN Clonidine HCl (Clonidine Hcl 0.2 Mg Tablet) 0.2 mg PO BID [facility]; Protocol Last Admin: 09/10/22 08:52 Dose: 0.2 mg Documented By: QUYEN Docusate Sodium (Docusate Sodium 100 Mg Capsule) 100 mg PO DAILY PRN PRN Reason: Constipation Last Admin: 09/09/22 16:44 Dose: 100 mg Documented By: EVANGELINA Enoxaparin Sodium (Enoxaparin Sodium 30 Mg/0.3 Ml Syringe) 30 mg SUBCUT Q24H [facility] Last Admin: 09/03/22 21:12 Dose: 30 mg Documented By: ALESIA Ferrous Sulfate (Ferrous Sulfate 324 Mg Tablet.Dr) 324 mg PO DAILY [facility] Last Admin: 09/10/22 08:53 Dose: 324 mg Documented By: QUYEN Finasteride (Finasteride 5 Mg Tablet) 5 mg PO DAILY [facility] Last Admin: 09/10/22 08:52 Dose: 5 mg Documented By: QUYEN Glucose (Glucose Gel 15 Gm Gel..Gram.) 15 gm PO Q15M PRN; Protocol PRN Reason: per Hypoglycemia Standing Ord. Hydralazine HCl (Hydralazine Hcl 50 Mg Tablet) 100 mg PO TID [facility]; Protocol Last Admin: 09/10/22 08:52 Dose: 100 mg Documented By: QUYEN Dextrose (D10) 250 mls @ 750 mls/hr IV Q15M PRN; Protocol PRN Reason: per Hypoglycemia Standing Ord. Insulin Glargine (Insulin Glargine,Hum.Rec.Anlog 100 Unit/Ml 10 Ml Vial) 50 unit SUBCUT DAILY [facility] Last Admin: 09/10/22 08:52 Dose: 50 unit Documented By: QUYEN Insulin Human Lispro (Insulin Lispro 100 Unit/Ml 3 Ml Vial) 0 unit SUBCUT QIDACHS [facility]; Protocol Last Admin: 09/10/22 11:03 Dose: 4 unit Documented By: QUYEN Labetalol HCl (Labetalol Hcl 100 Mg Tablet) 100 mg PO DAILY [facility]; Protocol Last Admin: 09/10/22 08:53 Dose: 100 mg Documented By: QUYEN Omeprazole (Omeprazole 20 Mg Capsule.) 20 mg PO DAILY@0630 [facility] Last Admin: 09/10/22 05:58 Dose: 20 mg Documented By: ABY Ondansetron HCl (Ondansetron Hcl 4 Mg/2 Ml Vial) 4 mg IVPUSH Q8H PRN PRN Reason: Nausea and Vomiting Pharmacy Consult (Consult Rx Perform Med Rec) 1 each MISCELLANE ONCE PRN PRN Reason: Consult order Polyethylene Glycol (Polyethylene Glycol 3350 17 Gm Powd.Pack) 17 gm PO DAILY PRN PRN Reason: constipation Last Admin: 09/10/22 11:06 Dose: 17 gm Documented By: QUYEN Sodium Bicarbonate (Sodium Bicarbonate 650 Mg Tablet) 650 mg PO BID [facility] Last Admin: 09/10/22 08:52 Dose: 650 mg Documented By: QUYEN Sodium Chloride (0.9 % Sodium Chloride Flush 3 Ml Syringe) 3 ml IVFLUSH QSHIFT [facility] Last Admin: 09/10/22 08:53 Dose: 3 ml Documented By: QUYEN Tamsulosin HCl (Tamsulosin Hcl 0.4 Mg Capsule) 0.4 mg PO BEDTIME [facility] Last Admin: 09/09/22 20:34 Dose: 0.4 mg Documented By: EVANGELINA Labs 09/10/22 06:09 09/10/22 06:09 Labs: Laboratory Results - last 24 hr 09/09/22 09/09/22 09/10/22 15:01 20:10 06:09 MCV 95.3 MCH 31.4 MCHC 32.9 RDW 14.6 Plt Count 135 L MPV 11.5 Absolute Nucleated RBC 0.000 Nucleated RBC % (auto) 0.0 Anion Gap Estim Creat Clear Calc Estimated GFR POC Glucose 220 H 200 H Random Glucose Calcium 09/10/22 09/10/22 09/10/22 06:09 07:54 10:53 MCV MCH MCHC RDW Plt Count MPV Absolute Nucleated RBC Nucleated RBC % (auto) Anion Gap 13 Estim Creat Clear Calc 20.3 Estimated GFR 18 POC Glucose 146 H 227 H Random Glucose 151 H Calcium 8.1 L Microbiology Microbiology Results: Microbiology 09/07/22 17:54 Urine Culture - Final Urine clean catch - Urine staples top Jyoti parapsilosis 09/07/22 16:19 Blood Culture - Preliminary Blood - Venous No growth after 48 hours. 09/07/22 16:19 Blood Culture - Preliminary Blood - Venous No growth after 48 hours. Assessment and Plan (1) SHAINA (acute kidney injury): Status: Acute (2) Anemia: Status: Acute (3) Acute on chronic diastolic (congestive) heart failure: Status: Acute Plan Pt is a 82-year-old male with a PMH significant for?CKD stage 4, COPD, ins [id number], hypertension,? CHAYITO on CPAP, history of prostate cancer, history of CAD, and hx of [place]??who presents to the ED with?worsening shortness of breath, cough, and fatigue.? Patient be admitted to the hospital on telemetry for treatment of for evaluation acute CHF exacerbation. CKD stage 4 creatinine and BUN stable RUE AV fistula placed approx 1 month ago started on sodium bicarb Nephrology following Acute HFpEF ECHO with hyperdynamic left ventricular function, moderate to severe , grade I diastolic dysfunction initially treated with IV lasix and net negative 3L. Lasix was held due to anemia and increasing renal function. transitioned to bumex 1 mg po bid ?- discussed with nephrology Daily weights, low-salt diet Cardiology following - will need outpatient follow up with primary senior mainframe developer Acute on chronic normocytic anemia seen by GI, likely some component of chronic upper GI bleeding, given +stool occult and increase in BUN. No overt bleeding - No plan for scope at this time given underlying cardiopulmonary issues iron, B12, folate levels wnl, retic count slightly elevated, but bili and LDH normal; smear with occasional schistocytes. Discussed with hematology - anemia likely multifactorial due to recent PNA, anemia of chronic disease related to progressing CKD, chronic GI losses - recommend to transfuse prn ? s/p 3U rbc procrit per nephro outpatient follow up with GI Chest pain. Resolved. twave inversion III, aVF trops 56.7, 55.6 seen by cardiology likely related to decreased clearance r/t CKD not candidate for cardiac cath at this time Insulin-dependent diabetes with hyperglycemia continue Lantus 50 units, SSI Hyperkalemia resolved with lokelma follow BMP Urinary pain/retention Pt had Tomlin catheter placed on 08/18 in ED Continue Tomlin catheter, Flomax outpatient follow up with urology HTN Continue home dose of clonidine, hydralazine, labetalol, amlodipine HLD Continue home meds Morbid obesity. BMI 43.3 Discussed importance of weight management as this may be contributing to worsening of other comorbidities DISPO STR Full Code Attending:?Dr. Luna DVT Prophylaxis: hold lovenox/aspirin for anemia, SCDs Requires ongoing inpatient hospitalization for management of acute CHF exacerbation, anemia Time Spent With Patient Time: Total time managing care of this patient today ____ minutes. Quality Stroke Does the patient have a stroke diagnosis?: No VTE Prior VTE?: No VTE Risk Level:: Medical - moderate - high VTE Device Contraindication: Treatment Not Indicated VTE Drug Contraindication: N/A - Med Ordered
[2022-09-10 16:04] LABS: Glucose, Whole Blood 191 mg/dL (60-115)
--- NOTE | 2022-09-10 16:16 | MHC.CM.NN ---
PT'S PREFERRED SNF UNABLE TO OFFER D/T BED AVAILABILITY, REFERRAL EXPANDED TO ADDITIONAL [facility] CONTRACTED FACILITIES, [facility] OFFER[facility] AND PT ASSCEPTED BED, ANTIC PT WILL D/C TOMORROW 09/11 ONCE [facility] AUTH IS OBTAINED, REFFERAL FAXED TO [phone].
[2022-09-10 20:31] LABS: Glucose, Whole Blood 245 mg/dL (60-115)
[2022-09-10] MEDS: Atorvastatin Calcium 80 MG TABLET PO (21:48)
[2022-09-10] MEDS: Tamsulosin HCL 0.4 MG CAPSULE PO (21:48)
[2022-09-11] VITALS: BP 96/57; PULSE 61; RESP 20; TEMP 36.3; O2SAT 95
[2022-09-11 03:58] VITALS: BP 161/70; PULSE 65; RESP 20; TEMP 36.7; O2SAT 96
[2022-09-11 04:20] VITALS: BMI 42.2
[2022-09-11 04:25] VITALS: PULSE 70; RESP 20; O2SAT 96
[2022-09-11 07:31] VITALS: BP 150/68; PULSE 66; RESP 20; TEMP 37.1; O2SAT 96
[2022-09-11 07:56] LABS: Glucose, Whole Blood 117 mg/dL (60-115)
[2022-09-11] MEDS: 0.9 % Sodium Chloride Flush 3 ML SYRINGE IVFLUSH (08:01)
[2022-09-11] MEDS: Labetalol HCL 100 MG TABLET PO (08:02)
[2022-09-11] MEDS: Finasteride 5 MG TABLET PO (08:02)
[2022-09-11] MEDS: Insulin Glargine,Hum.rec.anlog 100 UNIT/ML 10 ML VIAL 50 UNIT SUBCUT (08:02)
[2022-09-11] MEDS: hydrALAZINE HCl 50 MG TABLET 100 MG PO ×2 (08:02→14:39)
[2022-09-11] MEDS: Ferrous Sulfate 324 MG TABLET.DR PO (08:02)
[2022-09-11] MEDS: cloNIDine HCL 0.2 MG TABLET PO (08:03)
[2022-09-11] MEDS: allopurinoL 100 MG TABLET PO (08:03)
[2022-09-11] MEDS: amLODIPine Besylate 10 MG TABLET PO (08:03)
[2022-09-11] MEDS: Sodium Bicarbonate 650 MG TABLET PO (08:03)
[2022-09-11] MEDS: Bumetanide 1 MG TABLET PO (08:03)
--- NOTE | 2022-09-11 09:01 | MHC.CM.PN ---
EMR REVIEWED, PT MEDICALLY CLEARED FOR D/C TO [facility] PENDING [facility] AUTH, REFERRAL [place]XED TO [facility] AT [place]ER[place] 09/10, CM ATTEMPTED TO CONTACT [facility] THIS AM TO CONFIRM SHE RECEIVED IT, NO ANSWER AND DETAILED MESSAGE LEFT W/CM CONTACT NUMBER. [facility] WILL CONT TO FOLLOW FOR AUTH.
[2022-09-11 10:23] VITALS: BP 150/68; PULSE 66; O2SAT 96
--- NOTE | 2022-09-11 10:29 | MHC.CM.PN ---
CM RECEIVED MESSAGE FROM [facility] THAT THEY HAVE RECEIVED AUTH, CM AWAITING CALL [facility] FROM [facility] TO [facility] TRANSPORT, ANTIC PT WILL D/C AFTER LUNCH TODAY.
--- NOTE | 2022-09-11 10:36 | P.DS_ITS ---
DS: Providers Provider Date of Service: 09/11/22 Date of admission: 09/02/22 21:12 Date of discharge: 09/11/22 Primary care physician: Jarred Hughes Consults: 09/02/22 21:52 Consult to Nephrology Routine Consulting Provider: Scotty Joy Reason for consultation: CHF exacerbation in pt with CKD stage 4 09/02/22 22:00 Consult to Cardiology Routine Consulting Provider: [facility] Cardiovascular Services Reason for consultation: CHF 09/04/22 07:20 Consult to Gastroenterology Routine Consulting Provider: Cedric Kwon Reason for consultation: anemia Has provider been notified: No 09/05/22 07:08 Consult to Hematology / Oncology Routine Consulting Provider: Opal Gaitan Reason for consultation: anemia Has provider been notified: No Attending physician on discharge: [facility] Discharging clinician: Evelyn Carr DS: Diagnosis Discharge Diagnosis (1) SHAINA (acute kidney injury): Status: Acute (2) Anemia: Status: Acute (3) Acute on chronic diastolic (congestive) heart failure: Status: Acute (4) Nonrheumatic aortic (valve) stenosis: Status: Acute DS: Summary Hospital Course Hospital Course: From H&P on day of admission Pt is a 82-year-old male with a PMH significant for?CKD stage 4, COPD, ieblkpe-gnvccqxcz-cacasazd, hypertension,? CHAYITO on CPAP, history of prostate cancer, history of CAD, and hx of [place]??who presents to the ED with?worsening shortness of breath, cough, and fatigue. Pt was recently admitted for similar complaints on 08/21/2022 and was treated for CHF exacerbation and CAP. Pt states that since discharge, he would wake up feeling well but would feel progressively dyspnic and fatigued as the day wore on. Has continued to have cough occasionally productive of yellowish sputum. Last night pt felt a left-sided chest pain under my heart from midnight to 03:00 which he says felt similar to the pain he experienced during his last MA in August 2021. This morning pt felt well until visited by [facility] who walked him around the whole house; he then felt fatigued and SOB, which did not resolve with rest as per usual. Pt concurrently felt a chest tightness, particularly felt with inspiration and cough, which eventually radiated to his back. This was also not relieved with rest. Mild increase in LLE. At the end of the interview pt started complaining of new-onset, intermittent stabbing pains in lower right quadrant. Denies fever, chills, nausea, vomiting. No headache, vision changes. Of note, pt recently had an AV fistula placed on right arm at [facility] though has yet to start dialysis. In the ED patient was afebrile but tachypneic up to 29. Labs were significant for mild leukocytosis of 12.7, stable H&H of 9.2/27.8, chronically elevated BUN of 90, chronically elevated creatinine of 3.08 (at baseline), initial troponin of 56.7 with repeat flat and 55.6, elevated BNP of 325. CXR showed congestion heart failure with pulmonary edema and small bilateral effusions. EKG demonstrated sinus rhythm with first-degree AV block with T-wave inversions in III and aVF, but no evidence of ST elevations or depressions. Pt was treated with albuterol, Solu-Medrol, lorazepam, furosemide, and ceftriaxone. Pt will be admitted to the hospital for treatment and further evaluation of acute CHF exacerbation. Pt is a 82-year-old male with a PMH significant for?CKD stage 4, COPD, doybgty-agxenwked-mxmoyaum, hypertension,? CHAYITO on CPAP, history of prostate cancer, history of CAD, and hx of [place]??who presents to the ED with?worsening shortness of breath, cough, and fatigue.? Patient be admitted to the hospital on telemetry for treatment of for evaluation acute CHF exacerbation. SHAINA on CKD stage 4 with metabolic acidosis. RUE AV fistula placed approx 1 month ago. Likely progression of renal disease. started on sodium bicarb, bicarb improved. Followed by Nephrology during hospitalization, will need close outpatient follow up. Acute HFpEF ECHO with hyperdynamic left ventricular function, moderate to severe , grade I diastolic dysfunction. Initially treated with IV lasix and net negative 3L. Lasix was held due to anemia and increasing renal function. He was transitioned to bumex 1 mg po bid. Recommend to continue following Daily weights and low-salt diet. Followed by Cardiology following - will need outpatient follow up with primary station air traffic control specialist to address aortic stenosis and possible need for cardiac cath. Acute on chronic normocytic anemia seen by GI, likely some component of chronic upper GI bleeding, given +stool occult and increase in BUN. No overt bleeding - ? No plan for scope at this time given underlying cardiopulmonary issues. iron, B12, folate levels wnl, retic count slightly elevated, but bili and LDH normal; smear with occasional schistocytes. Seem in consultation with hematology - anemia likely multifactorial due to recent PNA, anemia of chronic disease related to progressing CKD, chronic GI losses - recommend to transfuse prn. Received 3U rbc as well as procrit and H/H has stabilized. Recommend outpatient follow up with GI. Chest pain. Resolved. twave inversion III, aVF. Highly senstive trop flat at 56.7, 55.6. Likely related to decreased clearance r/t CKD. Seen by cardiology, not candidate for cardiac cath at this time, will need outpatient follow up with primary station air traffic control specialist. Insulin-dependent diabetes with hyperglycemia. continue Lantus 50 units, SSI. no change in diabetic medication Hyperkalemia. resolved with lokelma Urinary pain/retention. Pt had Tomlin catheter placed on 08/18 in ED. Continue Tomlin catheter, Flomax. outpatient follow up with urology Time Spent with Patient Time attestation: Total time managing care of this patient today ____ minutes. Discharge coordination time: Less than 30 minutes Quality: Safe Use of Opioids Does Pt have an Active Cancer Diagnosis on the Problem List?: No Quality: Stroke Does the patient have a stroke diagnosis?: No Physical Exam Vital Signs: Vital Signs: Last Vital Signs Temp 98.7 F 09/11/22 07:31 Pulse 66 09/11/22 10:23 Resp 20 09/11/22 07:31 BP 150/68 H 09/11/22 10:23 Pulse Ox 96 09/11/22 10:23 O2 Del Method 09/11/22 07:31 O2 Flow Rate 3 09/11/22 00:00 Oxygen Flow Rate 4 09/02/22 18:02 BMI result Body Mass Index 42.2 Const: General: comfortable, no acute distress, alert and awake Nutritional Appearance: obese Orientation/consciousness: patient oriented x3 Resp: Effort & Inspection: normal respiratory effort, able to speak in complete sentences, no respiratory distress and no use of accessory muscles Cardio: Rate: regular rate Heart sounds: Murmur heart sound present GI: Inspection: No distended Palpation (GI): Soft to palpation and nont cara Neuro: General: patient oriented x3 Extrem: Other: trace edema DS: Data Data Completed and Pending Completed studies during hospitalization [Text1]: Procedures Assistance with Respiratory Ventilation, Less than 24 Consecutive Hours, Continuous Positive Airway Pressure (08/21/22) Labs on day of discharge: Laboratory Results - last 24 hr 09/10/22 09/10/22 09/10/22 10:53 16:00 20:27 POC Glucose 227 H 191 H 245 H 09/11/22 07:33 POC Glucose 117 H Preliminary micro results at discharge 09/07/22 16:19 Blood Culture - Preliminary Blood - Venous No growth after 48 hours. 09/07/22 16:19 Blood Culture - Preliminary Blood - Venous No growth after 48 hours. Discharge Plan Discharge Anticipated Discharge Date/Time: 09/11/22 11:02 Patient Disposition: er [facility] Discharge Diagnosis: SHAINA on CKD4 HFpEF acute on chronic anemia aortic stenosis Referrals: Scotty Joy MD [Physician] - 1 Week Jarred Hughes [Primary Care Provider] - 1 Week Cedric Kwon [Physician] - 1 Week Discharge Medications: New sodium bicarbonate 650 mg Tablet 650 mg PO BID 30 Days Qty: 60 0RF omeprazole 20 mg Capsule,Delayed Release(Dr/Ec) 20 mg PO DAILY@0630 30 Days Qty: 30 0RF bumetanide 1 mg Tablet 1 mg PO BID@0800,1700 30 Days Qty: 60 0RF Protocol: Hold for SBP< HOLD for SBP < : 90 polyethylene glycol 3350 17 gram Powder In Packet 17 g PO DAILY PRN (Reason: constipation ) Qty: 14 0RF Procrit 10,000 unit/mL solution 10,000 unit subcut QWEEK Qty: 6 0RF Continued insulin aspart U-100 100 unit/mL Solution See Rx Instructions .ROUTE .COMPLEX PRN (Reason: HIGH BLOOD SUGAR) Rx Instructions: SLIDING SCALE insulin glargine [Lantus Solostar U-100 Insulin] 100 unit/mL (3 mL) Insulin Pen 50 unit SUBCUT BEDTIME atorvastatin 80 mg Tablet 80 mg PO BEDTIME allopurinol 100 mg Tablet 100 mg PO DAILY amlodipine 10 mg Tablet 10 mg PO DAILY ferrous gluconate 324 mg (38 mg iron) Tablet 324 mg PO DAILY tamsulosin 0.4 mg capsule 1 cap PO BEDTIME hydralazine 100 mg Tablet 100 mg PO TID labetalol 100 mg Tablet 100 mg PO DAILY clonidine HCl 0.2 mg tablet 0.2 mg PO BID finasteride 5 mg tablet 5 mg PO DAILY 90 Days Qty: 90 1RF Held aspirin 81 mg tablet,delayed release (DR/EC) 81 mg PO BEDTIME Hold Instructions: on hold for anemia Discontinued furosemide 20 mg tablet 1 tab PO DAILY Discharge Orders: Discharge Order (Routine); Ordered 09/11/22 Ordered By: Evelyn Carr Activity on Discharge: As tolerated Stand Alone Forms: Patient Portal Discharge page Care Plan Goals: see below Health Concerns: SHAINA on CKD4 Aortic stenosis CHF Plan of Treatment: stop taking lasix, start taking bumex as prescribed start taking omeprazole you have been started on sodium bicarbonate call to schedule follow up appointment with GI call to schedule follow up appointment with nephrology call to schedule follow up with your station air traffic control specialist recommend weekly procrit, last dose received 09/06 Assessment: see discharge summary
[2022-09-11 11:10] VITALS: BP 146/70; PULSE 59; RESP 20; TEMP 36.6; O2SAT 96
[2022-09-11 11:22] LABS: Glucose, Whole Blood 205 mg/dL (60-115)
[2022-09-11 11:32] LABS: COVID-19 Test Negative (Negative); IDNOW Serial# 9DB6401D
--- NOTE | 2022-09-11 11:33 | PM.PNNEP ---
Subjective Subjective Date of Service: 09/11/22 Interval history: seen and examined this morning; overall reports feeling better ; D/W family; Going to [facility] today Physical Exam Vital Signs: Vital Signs: Last Vital Signs Temp 98 F 09/11/22 11:10 Pulse 59 09/11/22 11:10 Resp 20 09/11/22 11:10 BP 146/70 H 09/11/22 11:10 Pulse Ox 96 09/11/22 11:10 O2 Del Method 09/11/22 11:10 O2 Flow Rate 3 09/11/22 00:00 Oxygen Flow Rate 4 09/02/22 18:02 BMI result Body Mass Index 42.2 Const: General: no acute distress Orientation/consciousness: patient oriented x3 Eyes: EOM: EOMs intact bilaterally Neck: Neck: Yes supple Resp: Auscultation: diminished lung sounds Cardio: Rate: regular rate GI: Palpation (GI): Soft to palpation Skin: General skin exam: no rashes or lesions noted Neuro: General: patient oriented x3 and moves all extremities Objective Data Labs 09/10/22 06:09 09/10/22 06:09 Labs: Laboratory Results - last 24 hr 09/10/22 09/10/22 09/11/22 16:00 20:27 07:33 POC Glucose 191 H 245 H 117 H COVID-19 (YANDEL) COVID-19 Clin Com 09/11/22 09/11/22 10:54 11:13 POC Glucose 205 H COVID-19 (YANDEL) Negative COVID-19 Clin Com See Note Microbiology Microbiology Results: Microbiology 09/07/22 17:54 Urine clean catch - Urine staples top Urine Culture - Final Jyoti parapsilosis 09/07/22 16:19 Blood - Venous Blood Culture - Preliminary No growth after 48 hours. 09/07/22 16:19 Blood - Venous Blood Culture - Preliminary No growth after 48 hours. 09/02/22 19:23 Blood - Venous Blood Culture - Final No growth after 5 days. 09/02/22 19:23 Blood - Venous Blood Culture - Final No growth after 5 days. 09/02/22 19:09 Urine clean catch - Urine staples top Urine Culture - Final Jyoti parapsilosis Procedures Date of Service Date of Service: 09/11/22 Assessment & Plan Assessment and plan (1) CKD stage 4 due to type 1 diabetes mellitus: Status: Acute Assessment and Plan: Advanced chronic kidney disease.? Repetitive hospitalizations suggest that he has had challenges with fluid and volume control.? Etiology for his advanced chronic kidney disease.? 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 Anemia.? Question of iron and erythropoietin deficiency.? Hemodialysis access.? He has right upper extremity AV fistula, which seems to be maturing .( made in Jul 2022) ? 1. Transfuse as needed to keep Hb > 7.0 2. Protect his right upper extremity as he has an AV fistula 3. Continue diuresis 4. Procrit.- 20 K x 1 dose given last week 5. Blood pressure.control 6. Education regarding renal placement therapy 7. No indication for HD as of today Shall arrange office F/U when D/Hugo Time Spent With Patient Time: Total time managing care of this patient today ____ minutes. Progress Note: Quality Stroke Does the patient have a stroke diagnosis?: No
[2022-09-11] MEDS: Insulin Lispro 100 UNIT/ML 3 ML VIAL SUBCUT (11:48)
--- NOTE | 2022-09-11 13:39 | P.PNHO-ONC_ITS ---
Medical Summary - Medical Summary Date of Service: 09/11/22 Chief complaint: weakness Primary Care Provider: Jarred Hughes Medical Summary: Diagnosis: Anemia, chronic kidney disease August 2021-admitted for generalized weakness and worsening kidney functions as well as anemia. He has a history of chronic kidney disease related to diabetes and hypertension. He was admitted in July to [facility] [place] [facility] [place]. He states that for a few days prior to admission he developed generalized weakness, denies any specific complaints such as chest pain or shortness of breath. No headache or dizziness. No fever or chills, no cough, abdominal discomfort, diarrhea, loss of appetite or weight loss. He had a right arm AV fistula placed for hemodialysis but was told that he may need it [address] He does have a history of AK a year ago as well as aortic stenosis. He denies any heartburn or reflux symptoms. No hematemesis but did develop 1 or 2 dark colored stools recently. He is not on any blood thinners. He has received blood transfusions in the past when he had nephrectomy as well as other surgical procedures. Interval History Interval history: Patient is feeling better today. He is anticipating discharge to rehab center. He denies any chest pain or shortness of breath. Review of Systems - Constitutional Denies fever(s), Reports malaise - Cardiovascular Denies chest pain - Respiratory Denies pain on inspiration - Gastrointestinal Denies abdominal pain - Neurologic Reports no additional neurologic complaints, Reports as per HPI, Denies dizziness, Reports weakness PMFSH Medical History: Medical History (Last Reviewed 09/08/22 @ 09:30 by Amelia Hernandez, STEVEN) Acute cystitis without hematuria SHAINA (acute kidney injury) Bacteremia Bladder outlet obstruction Chronic kidney disease, stage II (mild) 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 Diabetes Fever HTN (hypertension) Incomplete emptying of bladder Morbid obesity CHAYITO (obstructive sleep apnea) CHAYITO on CPAP Prostate cancer Pure hypercholesterolemia Weak urinary stream Family History: Family History (Last Reviewed 09/02/22 @ 22:27 by DYLAN Ruelas) Mother CVA (cerebral vascular accident) Surgical History: Surgical History (Last Reviewed 09/08/22 @ 09:30 by Amelia Hernandez, STEVEN) History of surgery Social History: Social History (Last Reviewed 09/02/22 @ 22:27 by DYLAN Ruelas) Living Situation History: Household Members: Spouse Housing: House Do you presently have visiting nurse or other home services: Yes Alcohol History Details: 1. How often do you have a drink containing alcohol?: a. Never AUDIT-C Alcohol total score: 0 Currently Displaying Signs/Symptoms of Alcohol Withdrawal: No Tobacco History: Patient Tobacco Use Status: Former Tobacco user Smoked in Last 30 Days: No Substance Use History: Use of substances other than those prescribed or required for medical reasons : No Currently Displaying Signs/Symptoms of Drug Intoxication Withdrawal: No Domestic Abuse History: Have you been hit, kicked, punched, or otherwise hurt by someone within the past year? 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 Home Medications and Allergies Current Medications: Current Medications Acetaminophen (Acetaminophen 325 Mg Tablet) 650 mg PO Q6H PRN PRN Reason: Pain, Mild (Pain Scale 1-3) Last Admin: 09/08/22 22:33 Dose: 650 mg Allopurinol (Allopurinol 100 Mg Tablet) 100 mg PO DAILY [facility] Last Admin: 09/11/22 08:03 Dose: 100 mg Amlodipine Besylate (Amlodipine Besylate 10 Mg Tablet) 10 mg PO DAILY [facility]; Protocol Last Admin: 09/11/22 08:03 Dose: 10 mg Aspirin (Aspirin Enteric Coated 81 Mg Tablet.) 81 mg PO BEDTIME [facility] Last Admin: 09/04/22 21:08 Dose: 81 mg Atorvastatin Calcium (Atorvastatin Calcium 80 Mg Tablet) 80 mg PO BEDTIME [facility] Last Admin: 09/10/22 21:48 Dose: 80 mg Benzonatate (Benzonatate 100 Mg Capsule) 100 mg PO TID PRN PRN Reason: Cough Bumetanide (Bumetanide 1 Mg Tablet) 1 mg PO BID@0800,1700 [facility]; Protocol Last Admin: 09/11/22 08:03 Dose: 1 mg Clonidine HCl (Clonidine Hcl 0.2 Mg Tablet) 0.2 mg PO BID [facility]; Protocol Last Admin: 09/11/22 08:03 Dose: 0.2 mg Docusate Sodium (Docusate Sodium 100 Mg Capsule) 100 mg PO DAILY PRN PRN Reason: Constipation Last Admin: 09/09/22 16:44 Dose: 100 mg Enoxaparin Sodium (Enoxaparin Sodium 30 Mg/0.3 Ml Syringe) 30 mg SUBCUT Q24H [facility] Last Admin: 09/03/22 21:12 Dose: 30 mg Ferrous Sulfate (Ferrous Sulfate 324 Mg Tablet.) 324 mg PO DAILY [facility] Last Admin: 09/11/22 08:02 Dose: 324 mg Finasteride (Finasteride 5 Mg Tablet) 5 mg PO DAILY [facility] Last Admin: 09/11/22 08:02 Dose: 5 mg Glucose (Glucose Gel 15 Gm Gel..Gram.) 15 gm PO Q15M PRN; Protocol PRN Reason: per Hypoglycemia Standing Ord. Hydralazine HCl (Hydralazine Hcl 50 Mg Tablet) 100 mg PO TID [facility]; Protocol Last Admin: 09/11/22 08:02 Dose: 100 mg Dextrose (D10) 250 mls @ 750 mls/hr IV Q15M PRN; Protocol PRN Reason: per Hypoglycemia Standing Ord. Insulin Glargine (Insulin Glargine,Hum.Rec.Anlog 100 Unit/Ml 10 Ml Vial) 50 unit SUBCUT DAILY [facility] Last Admin: 09/11/22 08:02 Dose: 50 unit Insulin Human Lispro (Insulin Lispro 100 Unit/Ml 3 Ml Vial) 0 unit SUBCUT QIDACHS [facility]; Protocol Last Admin: 09/11/22 11:48 Dose: 4 unit Labetalol HCl (Labetalol Hcl 100 Mg Tablet) 100 mg PO DAILY [facility]; Protocol Last Admin: 09/11/22 08:02 Dose: 100 mg Omeprazole (Omeprazole 20 Mg Capsule.) 20 mg PO DAILY@0630 [facility] Last Admin: 09/11/22 06:31 Dose: Not Given Ondansetron HCl (Ondansetron Hcl 4 Mg/2 Ml Vial) 4 mg IVPUSH Q8H PRN PRN Reason: Nausea and Vomiting Pharmacy Consult (Consult Rx Perform Med Rec) 1 each MISCELLANE ONCE PRN PRN Reason: Consult order Polyethylene Glycol (Polyethylene Glycol 3350 17 Gm Powd.Pack) 17 gm PO DAILY PRN PRN Reason: constipation Last Admin: 09/10/22 11:06 Dose: 17 gm Sodium Bicarbonate (Sodium Bicarbonate 650 Mg Tablet) 650 mg PO BID [facility] Last Admin: 09/11/22 08:03 Dose: 650 mg Sodium Chloride (0.9 % Sodium Chloride Flush 3 Ml Syringe) 3 ml IVFLUSH QSHIFT [facility] Last Admin: 09/11/22 08:01 Dose: 3 ml Tamsulosin HCl (Tamsulosin Hcl 0.4 Mg Capsule) 0.4 mg PO BEDTIME [facility] Last Admin: 09/10/22 21:48 Dose: 0.4 mg Home Medications Medication Instructions Recorded Confirmed Type allopurinol 100 mg tablet 100 mg PO DAILY 12/05/20 09/02/22 History amlodipine 10 mg tablet 10 mg PO DAILY 12/05/20 09/02/22 History atorvastatin 80 mg tablet 80 mg PO BEDTIME 12/05/20 09/02/22 History insulin aspart U-100 100 unit/mL See Rx Instructions .Route 12/05/20 09/06/22 History subcutaneous solution .COMPLEX PRN HIGH BLOOD SUGAR insulin glargine 100 unit/mL (3 50 unit subcut BEDTIME 12/05/20 09/06/22 History mL) subcutaneous pen (Lantus Solostar U-100 Insulin) aspirin 81 mg tablet,delayed 81 mg PO BEDTIME 09/02/21 09/02/22 History release clonidine HCl 0.2 mg tablet 0.2 mg PO BID 09/02/21 09/02/22 History ferrous gluconate 324 mg (38 mg 324 mg PO DAILY 08/18/22 09/02/22 History iron) tablet hydralazine 100 mg tablet 100 mg PO TID 09/02/22 09/02/22 History tamsulosin 0.4 mg capsule 1 cap PO BEDTIME 09/02/22 09/02/22 History labetalol 100 mg tablet 100 mg PO DAILY 09/03/22 09/03/22 History Allergies Allergy/AdvReac Type Severity Reaction Status Date / Time vancomycin Allergy Intermediate Rash Verified 09/02/22 20:01 levofloxacin [From Levaquin] Allergy Mild paralized Verified 09/02/22 17:53 amoxicillin [AMOXICILLIN] Allergy Unknown ANAPHYLAXIS Verified 09/02/22 17:53 famotidine Allergy Unknown unknown Verified 09/02/22 17:53 hydrochlorothiazide Allergy Unknown unknown Verified 09/02/22 17:53 lisinopril [LISINOPRIL] Allergy Unknown UNKNOWN Verified 09/02/22 17:53 losartan Allergy Unknown unknown Verified 09/02/22 17:53 spironolactone Allergy Unknown unknown Verified 09/02/22 17:53 sulfamethoxazole AdvReac Intermediate C-DIFF, Verified 09/02/22 17:53 [From BACTRIM] REDUCED KIDNEY FX trimethoprim [From BACTRIM] AdvReac Intermediate C-DIFF, Verified 09/02/22 17:53 REDUCED KIDNEY FX Exam Vital signs: Vital Signs Temp 98 F 09/11/22 11:10 Pulse 59 09/11/22 11:10 Resp 20 09/11/22 11:10 BP 146/70 H 09/11/22 11:10 Pulse Ox 96 09/11/22 11:10 O2 Del Method 09/11/22 11:10 O2 Flow Rate 3 09/11/22 00:00 Intake & Output 09/10/22 09/11/22 09/11/22 18:59 06:59 18:59 Intake Total 360 / 1320 960 / 1320 360 / 360 Output Total 700 / 1300 600 / 1300 500 / 500 Balance -340 / 20 360 / 20 -140 / -140 Urine Output (Average ml/kg/hr) 0.50 0.43 0.36 Intake: Intake, Oral Amount 360 / 1320 960 / 1320 360 / 360 Output: Output, Urine Amount (Catheter) 700 / 1300 600 / 1300 500 / 500 2-way Urethral 700 / 1300 600 / 1300 [place] 500 / 500 Other: Breakfast % Eaten 100% 100% Lunch % Eaten 100% 100% Number of Bowel Movements 0 1 Urine Urinal Urinal Urine Color Pale Yellow Yellow Pale Yellow Last Bowel Movement 09/07/22 09/07/22 Stool Amount Scant Stool Color Dark Brown Stool Consistency Formed Weight 115 kg Max Weight in Grams [id number] Weight 115 kg BMI result Body Mass Index 42.2 - Constitutional Present: no acute distress, obese - Routine HEENT Exam Head: Present: normal inspection - Routine Respiratory Exam Absent: accessory muscle use - Routine Cardiovascular Exam Cardiovascular: Present: S1, S2, murmur - Routine Abdominal Exam Present: soft - Routine Extremities Exam Absent: pedal edema - Routine Skin Exam Present: intact. Absent: cyanosis Data - Labs CBC & Chem 7: 09/10/22 06:09 09/10/22 06:09 Labs: 09/02/22 18:02 Albuterol Sulfate (0.083%) [Ventolin (0.083%)] 2.5 mg INHALE ONCE ONE Furosemide [Lasix] 80 mg IVPUSH ONCE ONE LORazepam [Ativan] 1 mg IVPUSH ONCE ONE methylPREDNISolone Sod Succ [SOLU-MedroL] 125 mg IVPUSH ONCE ONE 09/02/22 18:03 ECG 12 lead EKG Stat EKG Documentation DIRECTED XR chest 2V Stat 09/02/22 18:28 cefTRIAXone sodium [Rocephin] 1 gm 0.9 % Sodium Chloride [Ns] 50 ml IV ONCE 09/02/22 18:40 SARS-CoV2/FLU/RSV Stat UA ClnCatch+Micro w/rflx Cult Stat 09/02/22 19:09 Urine Culture Routine 09/02/22 19:13 cefTRIAXone sodium [Rocephin] 1 gm .ROUTE .STK-MED ONE 09/02/22 19:23 B Type Natriuretic Peptide Stat Complete Blood Count Auto Diff Stat Comprehensive Met. Panel Stat D Dimer High Sensitivity Stat Lactic Acid Stat Prothrombin Time INR Stat Troponin-I High Sensitivity Stat Blood Culture X2 [BC] Stat 09/02/22 20:21 Troponin-I High Sensitivity Stat 09/02/22 21:12 Admission Assessment - Modified NOW IV insert/maintain DAILY@1000,2200 09/02/22 22:00 Insulin Glargine,Hum.rec.anlog [Lantus] 49 unit SUBCUT BEDTIME 09/02/22 22:14 Glucose, Whole Blood Routine 09/02/22 23:08 Glucose, Whole Blood Routine 09/03/22 00:56 Glucose, Whole Blood Routine 09/03/22 06:03 Basic Metabolic Panel Routine Complete Blood Count no Diff Routine Magnesium Routine 09/03/22 07:00 CA echo transthorac w con Routine 09/03/22 07:31 Glucose, Whole Blood Routine 09/03/22 09:00 Furosemide [Lasix] 40 mg IVPUSH BID@0900,1800 Insulin Glargine,Hum.rec.anlog [Lantus] 40 unit SUBCUT DAILY amLODIPine Besylate [Norvasc] 10 mg PO DAILY 09/03/22 10:05 Perflutren Lipid Microspheres [Definity] 2.2 mg IVPUSH .STK-MED ONE 09/03/22 10:54 Glucose, Whole Blood Routine 09/03/22 11:16 Insulin Lispro [Humalog] 6 unit SUBCUT ONCE ONE 09/03/22 11:27 Sodium Zirconium Cyclosilicate [Lokelma] 5 gm PO ONCE ONE 09/03/22 16:14 Glucose, Whole Blood Routine 09/03/22 16:30 Insulin Lispro [Humalog] 8 unit SUBCUT ONCE ONE 09/03/22 20:20 Glucose, Whole Blood Routine 09/04/22 CT abdomen pelvis wo IV con Stat 09/04/22 06:03 Basic Metabolic Panel DAILY@0600 CBC NO DIFF [Complete Blood Count no Diff] DAILY@0600 Ferritin Routine Haptoglobin Routine Hepatitis B,C Profile Routine IRON PROFILE Routine Lactate Dehydrogenase Routine Liver Panel Routine PTHI Routine Reticulocyte Count Routine Vitamin B12 and Folate Routine 09/04/22 07:34 Glucose, Whole Blood Routine 09/04/22 07:38 Red Blood Cells Routine Type and Screen Routine 09/04/22 11:16 Glucose, Whole Blood Routine 09/04/22 11:45 diphenhydrAMINE HCl Liquid [Benadryl Liquid] 12.5 mg PO ONCE ONE 09/04/22 12:55 Add Laboratory Test Urgent Add Laboratory Test Urgent 09/04/22 16:06 Glucose, Whole Blood Routine 09/04/22 19:28 Hemoglobin and Hematocrit Routine 09/04/22 19:35 Glucose, Whole Blood Routine 09/05/22 06:24 Basic Metabolic Panel DAILY@0600 CBC NO DIFF [Complete Blood Count no Diff] DAILY@0600 Manual Differential Routine 09/05/22 07:22 Add Laboratory Test Urgent 09/05/22 07:30 Direct Ry (RALPH) Urgent 09/05/22 08:00 Glucose, Whole Blood Routine 09/05/22 10:56 Glucose, Whole Blood Routine 09/05/22 11:44 Hemoglobin and Hematocrit Routine 09/05/22 12:58 Furosemide [Lasix] 40 mg IVPUSH ONCE ONE 09/05/22 13:30 Occult Blood, Stool x1 [OBSX1] Stat 09/05/22 15:17 Glucose, Whole Blood Routine 09/05/22 16:06 Glucose, Whole Blood Routine 09/05/22 19:50 Glucose, Whole Blood Routine 09/06/22 06:34 Basic Metabolic Panel DAILY@0600 CBC W/AUTO DIFF [Complete Blood Count Auto Diff] DAILY@0600 Lactate Dehydrogenase Routine Liver Panel Routine 09/06/22 07:47 Glucose, Whole Blood Routine 09/06/22 08:19 Add Laboratory Test Routine 09/06/22 11:37 Glucose, Whole Blood Routine 09/06/22 13:00 Epoetin Angel [Procrit] 20,000 unit SUBCUT ONCE ONE 09/06/22 16:21 Glucose, Whole Blood Routine 09/06/22 19:41 Glucose, Whole Blood Routine 09/07/22 UA ClnCatch+Micro w/rflx Cult Stat 09/07/22 01:47 oxyCODONE HCl Immed Release [Roxicodone] 5 mg PO ONCE ONE 09/07/22 05:45 CBC NO DIFF [Complete Blood Count no Diff] DAILY@0600 09/07/22 07:51 Glucose, Whole Blood Routine 09/07/22 09:00 amLODIPine Besylate [Norvasc] 5 mg PO DAILY 09/07/22 11:32 Glucose, Whole Blood Routine 09/07/22 16:19 BMP [Basic Metabolic Panel] Stat CK [Creatine Kinase Total] Stat 09/07/22 16:48 Glucose, Whole Blood Routine 09/07/22 17:45 cefTRIAXone sodium [Rocephin] 1 gm 0.9 % Sodium Chloride [Ns] 50 ml IV Q24H 09/07/22 17:53 cefTRIAXone sodium [Rocephin] 1 gm .ROUTE .STK-MED ONE 09/07/22 17:54 Urine Culture Routine 09/07/22 20:08 Glucose, Whole Blood Routine 09/08/22 06:59 BMP [Basic Metabolic Panel] AM CBC NO DIFF [Complete Blood Count no Diff] AM 09/08/22 07:48 Glucose, Whole Blood Routine 09/08/22 10:59 Glucose, Whole Blood Routine 09/08/22 15:35 amLODIPine Besylate [Norvasc] 5 mg PO ONCE ONE 09/08/22 16:13 Glucose, Whole Blood Routine 09/08/22 17:11 cefTRIAXone sodium [Rocephin] 1 gm .ROUTE .STK-MED ONE 09/08/22 20:32 Glucose, Whole Blood Routine 09/09/22 00:19 Cyclobenzaprine HCl [Flexeril] 5 mg PO ONCE ONE 09/09/22 06:25 BMP [Basic Metabolic Panel] DAILY@0600 CBC NO DIFF [Complete Blood Count no Diff] DAILY@0600 09/09/22 07:54 Glucose, Whole Blood Routine 09/09/22 10:56 Glucose, Whole Blood Routine 09/09/22 15:01 Glucose, Whole Blood Routine 09/09/22 20:10 Glucose, Whole Blood Routine 09/10/22 06:09 BMP [Basic Metabolic Panel] DAILY@0600 CBC NO DIFF [Complete Blood Count no Diff] DAILY@0600 09/10/22 07:54 Glucose, Whole Blood Routine 09/10/22 10:53 Glucose, Whole Blood Routine 09/10/22 16:00 Glucose, Whole Blood Routine 09/10/22 20:27 Glucose, Whole Blood Routine 09/11/22 07:33 Glucose, Whole Blood Routine 09/11/22 10:54 COVID-19 ID NOW (Mathews) Stat 09/11/22 11:13 Glucose, Whole Blood Routine Laboratory Last Values WBC 8.4 X10*3/uL (4.8-10.8) 09/10/22 06:09 RBC 2.55 X10*6/uL (4.60-5.80) L 09/10/22 06:09 Hgb 8.0 g/dl (14.0-18.0) L 09/10/22 06:09 Hct 24.3 % (42.0-52.0) L 09/10/22 06:09 MCV 95.3 fL (80.0-98.0) 09/10/22 06:09 MCH 31.4 pg (27.0-33.0) 09/10/22 06:09 MCHC 32.9 g/dl (31.0-36.0) 09/10/22 06:09 RDW 14.6 % (11.0-16.0) 09/10/22 06:09 Plt Count 135 X10*3/uL (160-400) L 09/10/22 06:09 MPV 11.5 fL (9.4-12.4) 09/10/22 06:09 Immature Gran % (Auto) 0.6 % (0.0-0.4) H 09/06/22 06:34 Neut % (Auto) 82.4 % (45-73) H 09/06/22 06:34 Lymph % (Auto) 6.3 % (20-40) L 09/06/22 06:34 Maury % (Auto) 8.5 % (2-11) 09/06/22 06:34 Eos % (Auto) 2.0 % (0-4) 09/06/22 06:34 Baso % (Auto) 0.2 % (0-2) 09/06/22 06:34 Lymph # (Auto) 0.7 X10*3/uL (1.2-4.9) L 09/06/22 06:34 Maury # (Auto) 1.0 X10*3/uL (0.1-1.2) 09/06/22 06:34 Eos # (Auto) 0.2 X10*3/uL (0.0-0.4) 09/06/22 06:34 Baso # (Auto) 0.0 X10*3/uL (0.0-0.2) 09/06/22 06:34 Abs Immat Gran (auto) 0.07 X10*3/uL (0.00-0.03) H 09/06/22 06:34 Absolute Neuts (auto) 9.8 x10*3/uL (2.0-8.3) H 09/06/22 06:34 Absolute Nucleated RBC 0.000 X10*3/uL (0.0-0.012) 09/10/22 06:09 Nucleated RBC % (auto) 0.0 /100WBC (0.0-0.2) 09/10/22 06:09 Neutrophils % (Manual) 94 % (45-73) H 09/05/22 06:24 Band Neutrophils % 1 % (3-5) L 09/05/22 06:24 Lymphocytes % (Manual) 4 % (20-40) L 09/05/22 06:24 Monocytes % (Manual) 1 % (2-11) L 09/05/22 06:24 Abs Neuts (Manual) 14.0 X10*3/uL (2.0-8.3) H 09/05/22 06:24 Lymphocytes # (Manual) 0.6 X10*3/uL (1.2-4.9) L 09/05/22 06:24 Monocytes # (Manual) 0.1 X10*3/uL (0.1-1.2) 09/05/22 06:24 Platelet Estimate NORMAL (NORMAL) 09/05/22 06:24 Plt Morphology Comment NORMAL 09/05/22 06:24 RBC Morphology NOTED 09/05/22 06:24 Acanthocytes (Spur) 2+ (3-5) /OIF 09/05/22 06:24 Schistocytes 1+ (0-2) /OIF 09/05/22 06:24 Smear Path Review TNP 09/05/22 06:24 Absolute Retic 0.077 X10*6/uL (0.026-0.095) 09/04/22 06:03 Percent Retic 3.6 % (0.5-1.8) H 09/04/22 06:03 Immature Retic Fraction 27.2 % (2.3-13.4) H 09/04/22 06:03 Retic Hgb Equivalent 33.8 pg (30.0-35.0) 09/04/22 06:03 Haptoglobin 156 mg/dL (43-212) 09/04/22 06:03 PT 11.7 SEC (10.0-13.1) 09/02/22 19:23 INR 1.0 (0.9-1.1) 09/02/22 19:23 D-Dimer High Sensitivty 268 NG/ML 09/02/22 19:23 Sodium 141 mmol/L (135-145) 09/10/22 06:09 Potassium 3.8 mmol/L (3.3-5.1) 09/10/22 06:09 Chloride 108 mmol/L (96-108) 09/10/22 06:09 Carbon Dioxide 24 mmol/L (22-29) 09/10/22 06:09 Anion Gap 13 (12-20) 09/10/22 06:09 BUN 114 mg/dL (9-16) H 09/10/22 06:09 Creatinine 3.36 mg/dL (0.5-1.4) H 09/10/22 06:09 Estim Creat Clear Calc 20.3 09/10/22 06:09 Estimated GFR 18 09/10/22 06:09 POC Glucose 205 mg/dL (60-115) H 09/11/22 11:13 Random Glucose 151 mg/dL (60-115) H 09/10/22 06:09 Lactic Acid 0.6 mmol/L (0.5-2.0) 09/02/22 19:23 Calcium 8.1 mg/dL (8.4-10.2) L 09/10/22 06:09 Magnesium 2.0 mg/dL (1.6-2.6) 09/03/22 06:03 Iron 54 mcg/dL (45-160) 09/04/22 06:03 TIBC 221 mcg/dL (228-428) L 09/04/22 06:03 % Saturation 24 % (15-50) 09/04/22 06:03 Unsat Iron Binding 167 ug/dL 09/04/22 06:03 Ferritin 123 ng/mL (20-250) 09/04/22 06:03 Total Bilirubin 0.8 mg/dL (0.0-1.0) 09/06/22 06:34 Direct Bilirubin 0.2 mg/dL (0.0-0.5) 09/06/22 06:34 AST 20 U/L (5-37) 09/06/22 06:34 ALT 22 U/L (0-40) 09/06/22 06:34 Alkaline Phosphatase 57 U/L (39-117) 09/06/22 06:34 Lactate Dehydrogenase 226 U/L (118-273) 09/06/22 06:34 Total Creatine Kinase 45 U/L (38-174) 09/07/22 16:19 Troponin I High Sens 55.6 ng/L (<3.5-35.0) H 09/02/22 20:21 B-Natriuretic Peptide 325 pg/mL (<100) H 09/02/22 19:23 Total Protein 4.1 g/dL (6.5-8.0) L 09/06/22 06:34 Albumin 2.7 g/dL (3.5-5.0) L 09/06/22 06:34 Vitamin B12 1114 pg/mL (200-900) H 09/04/22 06:03 Folate 10.4 ng/mL (> or = 4.0) 09/04/22 06:03 PTH Intact 194 pg/mL (16-77) H 09/04/22 06:03 Calcium (PTH Intact) 8.9 mg/dL (8.6-10.3) 09/04/22 06:03 Urine Color Yellow 09/07/22 Unknown Urine Appearance Turbid 09/07/22 Unknown Urine pH 5.5 (5.0-9.0) 09/07/22 Unknown Ur Specific [place] 1.010 (1.005-1.025) 09/07/22 Unknown Urine Protein 100 (2+) mg/dL (Neg-Trace) H 09/07/22 Unknown Urine Glucose (UA) Negative mg/dL (Negative) 09/07/22 Unknown Urine Ketones Negative mg/dL (Negative) 09/07/22 Unknown Urine Blood Large (3+) (Negative) H 09/07/22 Unknown Urine Nitrite Negative (Negative) 09/07/22 Unknown Ur Leukocyte Esterase Large (3+) (Negative) H 09/07/22 Unknown Urine RBC >20 /HPF (0-2) H 09/07/22 Unknown Urine WBC >50 /HPF (0-5) H 09/07/22 Unknown Ur Squamous Epith Cells 3-5 /HPF (0-2) 09/07/22 Unknown Urine Bacteria None Seen (None Seen) 09/07/22 Unknown Hyaline Casts 6-10 /LPF (0-2) 09/07/22 Unknown Urine Yeast Present 09/07/22 Unknown Stool Occult Blood POSITIVE (NEGATIVE) 09/05/22 13:30 COVID-19 (YANDEL) Negative (Negative) 09/11/22 10:54 COVID-19 Clin Com See Note 09/11/22 10:54 Hep Bs Antigen Negative (Negative) 09/04/22 06:03 Hep Bs Antibody NONREACTIVE (Nonreactive) 09/04/22 06:03 Hep B Core Total Ab Nonreactive (Nonreactive) 09/04/22 06:03 Hepatitis C Ab (EIA) Nonreactive (Nonreactive) 09/04/22 06:03 Influenza Type A (PCR) NEGATIVE (Negative) 09/02/22 18:40 Influenza Type B (PCR) NEGATIVE (Negative) 09/02/22 18:40 RSV RNA Qual (PCR) NEGATIVE (Negative) 09/02/22 18:40 SARS-CoV-2 RNA (RT-PCR) NEGATIVE (Negative) 09/02/22 18:40 Blood Type A Positive 09/04/22 07:38 Antibody Screen NEGATIVE 09/04/22 07:38 RALPH, Polyspecific NEGATIVE 09/05/22 07:30 Positive RALPH Work-up TNP 09/05/22 07:30 Crossmatch See Detail 09/04/22 07:38 - Imaging Radiologist's impression: ITS Impressions Chest X-Ray 09/02/22 18:27 IMPRESSION: Congestive heart failure with pulmonary edema. Small bilateral pleural effusions. Abdomen/Pelvis CT 09/04/22 21:00 IMPRESSION: Chronic appearing and postoperative changes as described. Small bilateral effusions and dependent airspace disease. I do not appreciate any acute intra-abdominal process. I do not appreciate any evidence for retroperitoneal hematoma. Assessment and Plan Patient Active problem list reviewed?: Yes (1) Anemia Status: Acute Assessment and plan: 1. This is a 82 y/o male with multiple medical problems chiefly, chronic kidney disease, COPD, IDDM, CAD, CHAYITO now presenting with acute worsening of chronic anemia. He was recently admitted to hospital for PNA and treated with antibiotcics. He does report some dark colored stools, he is heme-positive, but no overt symptoms of GI bleeding. He has no hematinic deficiencies, LDH and coagulations tests are normal. CT abd/pelvis shows no intra-abdominal bleed or signs of malignancy, he has a history of prostate cancer. He has anemia of chronic kidney disease. He has just been started on TRISTIAN therapy with Procrit, his needs to be continued weekly. - Time Spent With Patient Time Spent with Patient (in minutes): 10
== END 2022-09-11 14:53 | disposition skilled nursing facility (03) | DRG 291 ==
LOC: HO.ED 20:09 → HO.EDOVER 21:53 → HO.IMC 22:10
PROVIDERS: Hospitalist; Internal Medicine; Internal Medicine Nephrology; Nurse Practitioner Acute Care; Admitting Provider Student in an Organized Health Care Education/Training Program; Emergency Provider Emergency Medicine; PCP Internal Medicine; Visit Provider Physician Assistant Medical
DX: I13.0 Hypertensive heart and chronic kidney disease with heart failure and stage 1 through stage 4 chronic kidney disease, or unspecified chronic kidney disease (principal); I50.31 Acute diastolic (congestive) heart failure; N18.4 Chronic kidney disease, stage 4 (severe); I16.1 Hypertensive emergency; Z68.41 Body mass index [BMI] 40.0-44.9, adult; N17.9 Acute kidney failure, unspecified; I35.0 Nonrheumatic aortic (valve) stenosis; J44.9 Chronic obstructive pulmonary disease, unspecified; D63.1 Anemia in chronic kidney disease; E78.00 Pure hypercholesterolemia, unspecified; D69.6 Thrombocytopenia, unspecified; E87.5 Hyperkalemia; E10.22 Type 1 diabetes mellitus with diabetic chronic kidney disease; G47.33 Obstructive sleep apnea (adult) (pediatric); R33.9 Retention of urine, unspecified; D64.9 Anemia, unspecified; I42.9 Cardiomyopathy, unspecified; E66.01 Morbid (severe) obesity due to excess calories; N25.0 Renal osteodystrophy; E10.65 Type 1 diabetes mellitus with hyperglycemia; I25.10 Atherosclerotic heart disease of native coronary artery without angina pectoris; I25.2 Old myocardial infarction; Z20.822 Contact with and (suspected) exposure to COVID-19; Z85.46 Personal history of malignant neoplasm of prostate; Z87.891 Personal history of nicotine dependence; Z88.0 Allergy status to penicillin; Z88.1 Allergy status to other antibiotic agents; Z88.2 Allergy status to sulfonamides; Z88.8 Allergy status to other drugs, medicaments and biological substances; Z79.4 Long term (current) use of insulin; Z79.82 Long term (current) use of aspirin; Z79.899 Other long term (current) drug therapy
CPT/HCPCS: 0241U; 36415; 71046; 74176; 80048; 80053; 80076; 81001; 81003; 82272; 82550; 82607; 82728; 82746; 82947; 83010; 83540; 83605; 83615; 83735; 83880; 83970; 84484; 85007; 85014; 85018; 85025; 85027; 85045; 85379; 85610; 86704; 86706; 86803; 86850; 86880; 86900; 86901; 86923; 87040; 87086; 87088; 87340; 87635; 93005; 93306; 94640; 94660; 97110; 97116; 97162; 99285; C1758; J0696; J0885; J1650; J1940; J2060; J2930; P9016; Q9957

== ENCOUNTER → 2022-09-24 10:40 | Outpatient (BNVA) | payer OTHER, SELFPAY | PROVIDERS: PCP Internal Medicine; Visit Provider Urology | DX: C61 Malignant neoplasm of prostate (principal); R33.9 Retention of urine, unspecified; B36.9 Superficial mycosis, unspecified | CPT/HCPCS: 51700; 99212 ==